=== PATIENT | male | born 1945 | race Caucasian/White ===

== ENCOUNTER 2017-07-29 18:28 | Inpatient (IN) | payer MEDICARE, OTHER ==
[~2017-07-29] VITALS: Ht 177.8 cm; Wt 92.2 kg
[~2017-07-29 18:28] MED LIST: AMLO10TA2 PO; ASP81CT PO; ASPI-808 PO; ATOR40TA PO; ATOR80TA76 PO; ATRV10T; CARV6.252 PO; GLIM4TAB PO; GLYB1TAB12 PO; IPRA4AER INH; LEVO750T6 PO; LEVO750T9 PO; LOSA100T28 PO; LOSA100T7 PO; METF500T8 PO; MULT1CAP27 PO; OMG1KC PO; RT-COMBINH; RT-COMBINH IH
--- OUTSIDE RECORDS SUMMARY | 2017-07-29 18:33 | XMS REPORT | Continuity of Care Document ---
Author Author [facility] Organization [facility] Address Unknown Phone Unavailable Allergies Active Description Code Type Severity Reaction Onset Reported/Identified Relationship to Patient Clinical Status Yes Penicillins [id number] Drug Allergy Mild N/A 01/31/2011 Medications Problems Date Dx Coded Attending Type Code Diagnosis Diagnosed By 02/02/2011 Ot 250.00 02/02/2011 Ot 272.4 02/02/2011 Ot 401.9 02/02/2011 Ot 414.00 02/02/2011 Ot 486 02/02/2011 Ot 491.21 02/02/2011 Ot V03.82 02/02/2011 Ot V45.81 12/07/2014 Ot 786.2 12/07/2014 Ot 786.2 12/18/2015 Ot 786.2 12/18/2015 Ot 786.2 12/19/2015 Ot 786.2 12/19/2015 LEN MAE DO Ot E11.9 12/19/2015 GELLENDER DOLEN Ot E78.5 12/19/2015 GELLENDER LEN SAM Ot I10 12/19/2015 GELLENDER LEN SAM Ot I25.10 12/19/2015 GELLENDER DOLEN Ot J18.9 12/19/2015 GELLENDER DOLEN Ot J44.1 12/19/2015 GELLENDER DOLEN Ot Z87.891 12/19/2015 GELLENDER DOLEN Ot Z95.1 12/24/2015 Ot 786.2 01/05/2016 GELLINDADER LEN SAM Ot J18.9 01/26/2016 GELLINDADER LEN SAM Ot J18.9 01/27/2016 GELLENDER DOLEN Ot J18.9 03/02/2016 GELLENDER DOLEN Ot R06.02 SHORTNESS OF BREATH 03/30/2016 GELLEN HOOK DO Ot R06.02 SHORTNESS OF BREATH Procedures Results Encounters ACCT No. Visit Date/Time Discharge Status Pt. Type Provider Facility Loc./Unit Complaint [id number] 03/01/2016 10:42:00 2015 23:59:59 CLS Outpatient CARMELITA SAM LEN Pradip [facility] RT [id number] 01/01/2016 07:33:00 2015 23:59:59 CLS Outpatient LEN MAE DO [facility] RAD [id number] 12/24/2015 13:16:00 2015 23:59:59 CLS Outpatient LEN MAE DO [facility] RAD [id number] 12/18/2015 04:25:00 2015 11:15:00 DIS Inpatient LEN MAE DO Via [address] [id number] 01/21/2012 09:40:00 Document Registration [id number] 01/31/2011 04:50:00 Document Registration
[2017-07-29] MEDS ORDERED: RT-ALBUTEROL/IPRATROPIUM 3 ML (DUONEB) VIAL INH ONE (19:30)
[2017-07-29] MEDS ORDERED: ACETAMINOPHEN 500 MG TAB (TYLENOL) PO PRN ×2 (19:30→23:00)
[2017-07-29] MEDS ORDERED: RT-ALBUTEROL SULF 2.5 MG/3 ML PRE-MIX VIAL INH STA (19:38)
[2017-07-29 19:39] LABS: BASOPHILS # (AUTO) 0.1 10^3/uL (0.0-0.1); BASOPHILS % (AUTO) 0 % (0-10); EOSINOPHILS % (AUTO) 0 % (0-10); LYMPHOCYTES # (AUTO) 1.5 X 10^3 (1.0-4.0); LYMPHOCYTES % (AUTO) 6 % (12-44); MEAN CORPUSCULAR HEMOGLOBIN 30 PG (25-34); MEAN CORPUSCULAR HGB CONC 34 G/DL (32-36); MEAN CORPUSCULAR VOLUME 89 FL (80-99); MEAN PLATELET VOLUME 10.4 FL (7.4-10.4); MONOCYTES # (AUTO) 1.5 X 10^3 (0.0-1.0); MONOCYTES % (AUTO) 6 % (0-12); NEUTROPHILS # (AUTO) 20.6 X 10^3 (1.8-7.8); NEUTROPHILS % (AUTO) 87 % (42-75); PLATELET COUNT 283 10^3/uL (130-400); RED BLOOD COUNT 4.66 10^6/uL (4.35-5.85); RED CELL DISTRIBUTION WIDTH 12.9 % (10.0-14.5); WHITE BLOOD COUNT 23.7 10^3/uL (4.3-11.0)
[2017-07-29 19:45] VITALS: BP 139/66
--- NOTE | 2017-07-29 19:46 | ED General ---
General Chief Complaint: Fever-Adult/Adol Stated Complaint: CHILLS/LOSS OF APPETITE Nursing Triage Note: started yesterday evening, sudden onset chills, fever, fatigue, cough, and "out of it." c/o unable to take a deep breath. increased shallow resp noted rr 34. pt amb into triage room, slightly unsteady using for assistance. Nursing Sepsis Screen: Possible Sepsis Risk Source of Information: Patient Exam Limitations: No Limitations History of Present Illness Time Seen by Provider: 19:39 Initial Comments Here with report of fever and chills and overall not feeling well. reports that he's not been thinking well today. Apparently [place] and was [place] event and felt like it was making it hard to breathe. Ultimately, he left and went and ate afterwards. Today he has had increasing weakness and not feeling well as well as shortness of breath. Requiring assistance for walking from his just because he is weak globally. Noted to have an initial decreased oxygen saturation improved after oxygen. Denies nausea, vomiting or diarrhea. He is a diabetic and blood sugars have been higher recently. Timing/Duration: 1-2 Days Severity: Moderate Associated Systoms: No Chest Pain, Cough, No Diaphoresis, Fever/Chills, Loss of Appetite, Nausea/Vomiting, Shortness of Air, Weakness Allergies and Home Medications Allergies Coded Allergies: Penicillins (Unverified Allergy, Mild, 01/31/11) Home Medications Albuterol/Ipratropium 4 Gm Aero, 1 PUFF INH QID, (Reported) Amlodipine Besylate 10 Mg Tablet, 10 MG PO DAILY, (Reported) Aspirin 325 Mg Tablet, 325 MG PO DAILY, (Reported) Atorvastatin Calcium 80 Mg Tablet, 40 MG PO HS, (Reported) TAKES 1/2 (80MG) TABLET Carvedilol 6.25 Mg Tablet, 6.25 MG PO BID, (Reported) Glimepiride 4 Mg Tablet, 4 MG PO BID, (Reported) Losartan Potassium 100 Mg Tablet, 100 MG PO DAILY, (Reported) Metformin HCl 500 Mg Tab.er.24h, 1,000 MG PO BID, (Reported) TAKES 2 (500MG) TABLETS Multivitamins 1 Each Capsule, 1 CAP PO DAILY, (Reported) Millen 3 Polyunsat Fatty Acids 1,000 Mg Cap, 1,000 MG PO HS, (Reported) Constitutional: see HPI, chills, fever EENTM: nose congestion, No throat pain Respiratory: cough, short of breath, wheezing Cardiovascular: No chest pain, No edema Gastrointestinal: No abdominal pain, No nausea, No vomiting Genitourinary: no symptoms reported Musculoskeletal: no symptoms reported Skin: no symptoms reported Psychiatric/Neurological: See HPI, Denies Headache, Weakness All Other Systems Reviewed Negative Unless Noted: Yes Past Axxsmnd-Yszxte-Wcwebw Hx Patient Social History Alcohol Use: Denies Use Recreational Drug Use: No Smoking Status: Former Smoker Former Smoker, Quit: Nov 24, 2000 2nd Hand Smoke Exposure: No Recent Foreign Travel: No Contact w/Someone Who Travel: No Recent Infectious Disease Expo: No Recent Hopitalizations: No Immunizations Up To Date Tetanus Booster (TDap): More than 5yrs Date of Pneumonia Vaccine: Oct 07, 2015 Date of Influenza Vaccine: Sep 23, 2015 Seasonal Allergies Seasonal Allergies: No Surgeries History of Surgeries: Yes (CABG x5 11/2002) Surgeries: Cardiac, CABG Respiratory History of Respiratory Disorde: Yes Respiratory Disorders: Pneumonia, Chronic Bronchitis, COPD Cardiovascular History of Cardiac Disorders: Yes (CABG ) Cardiac Disorders: High Cholesterol, Hypertension Neurological History of Neurological Disord: No Reproductive System Hx Reproductive Disorders: No Genitourinary History of Genitourinary Disor: No Gastrointestinal History of Gastrointestinal Di: No Musculoskeletal History of Musculoskeletal Dis: No Endocrine History of Endocrine Disorders: Yes Endocrine Disorders: Diabetes, Non-Insulin dep HEENT History of HEENT Disorders: No Hearing Impairment: Hard of Hearing Cancer History of Cancer: No Psychosocial History of Psychiatric Problem: No Integumentary History of Skin or Integumenta: No Blood Transfusions History of Blood Disorders: No Reviewed Nursing Assessment Reviewed/Agree w Nursing PMH: Yes Family Medical History Family Medial History: Asthma 19 FATHER Cardiovascular disease G8 SISTER Completed stroke G8 SISTER Diabetes mellitus 19 MOTHER G8 BROTHER FH: cancer G8 BROTHER G8 SISTER FH: hearing loss 19 FATHER Myocardial infarction 19 FATHER Physical Exam-Suspected Sepsis Physical Exam Vital Signs Vital Sign - Last 12Hours 07/29/17 07/29/17 19:05 19:49 Temp 100.4 Pulse 77 Resp 34 B/P (MAP) 159/65 Pulse Ox 92 O2 Delivery Room Air O2 Flow Rate 2.00 Capillary Refill : Less Than 3 Seconds Blood Pressure Mean: 96 General Appearance: WD/WN, Other (ill appearing) HEENT: PERRL/EOMI, Pharyngeal Erythema Neck: Full Range of Motion, Normal Inspection, Non Tender, Supple Respiratory: No Respiratory Distress, Decreased Breath Sounds, Wheezing Cardiovascular: Regular Rate, Rhythm, No Murmur Gastrointestinal: Non Tender, Soft Back: Normal Inspection, No CVA Tenderness, No Vertebral Tenderness Extremity: Normal Capillary Refill, Normal Inspection, Normal Range of Motion, Non Tender Neurologic/Psychiatric: Alert, Oriented x3, Normal Mood/Affect Skin: normal color, warm/dry Focused Exam Evaluation Lactate Level Laboratory Tests 07/29/17 19:30: Lactic Acid Level 3.35*H Lactic Acid Level Laboratory Tests Test 07/29/17 19:30 Lactic Acid Level 3.35 MMOL/L (0.50-2.00) *H Progress/Results/Core Measures Suspected Sepsis Recent Fever Within 48 Hours: Yes Infection Criteria Present: Suspected New Infection New/Unexplained Altered Menta: No Sepsis Screen: Possible Sepsis Risk Sepsis Diagnosis: SIRS Temperature:100.4 Pulse: 77 Respiratory Rate: 34 Laboratory Tests 07/29/17 19:30: White Blood Count 23.7H Blood Pressure 159 /65 Mean: 96 Laboratory Tests 07/29/17 19:30: Lactic Acid Level 3.35*H Laboratory Tests 07/29/17 19:30: Creatinine 1.37H, INR Comment 1.0, Platelet Count 283, Total Bilirubin 0.7 Results/Orders Lab Results Laboratory Tests Test 07/29/17 19:30 07/29/17 20:10 Range/Units White Blood Count 23.7 H 4.3-11.0 10^3/uL Red Blood Count 4.66 4.35-5.85 10^6/uL Hemoglobin 13.9 13.3-17.7 G/DL Hematocrit 41 40-54 % Mean Corpuscular Volume 89 80-99 FL Mean Corpuscular Hemoglobin 30 25-34 PG Mean Corpuscular Hemoglobin Concent 34 32-36 G/DL Red Cell Distribution Width 12.9 10.0-14.5 % Platelet Count 283 130-400 10^3/uL Mean Platelet Volume 10.4 7.4-10.4 FL Neutrophils (%) (Auto) 87 H 42-75 % Lymphocytes (%) (Auto) 6 L 12-44 % Monocytes (%) (Auto) 6 0-12 % Eosinophils (%) (Auto) 0 0-10 % Basophils (%) (Auto) 0 0-10 % Neutrophils # (Auto) 20.6 H 1.8-7.8 X 10^3 Lymphocytes # (Auto) 1.5 1.0-4.0 X 10^3 Monocytes # (Auto) 1.5 H 0.0-1.0 X 10^3 Eosinophils # (Auto) 0.0 0.0-0.3 10^3/uL Basophils # (Auto) 0.1 0.0-0.1 10^3/uL Neutrophils % (Manual) 85 % Lymphocytes % (Manual) 8 % Monocytes % (Manual) 2 % Eosinophils % (Manual) 0 % Basophils % (Manual) 0 % Band Neutrophils 5 % Blood Morphology Comment NORMAL Prothrombin Time 13.7 12.2-14.7 SEC INR Comment 1.0 0.8-1.4 Activated Partial Thromboplast Time 32 24-35 SEC Sodium Level 131 L 135-145 MMOL/L Potassium Level 4.0 3.6-5.0 MMOL/L Chloride Level 100 98-107 MMOL/L Carbon Dioxide Level 19 L 21-32 MMOL/L Anion Gap 12 5-14 MMOL/L Blood Urea Nitrogen 17 7-18 MG/DL Creatinine 1.37 H 0.60-1.30 MG/DL Estimat Glomerular Filtration Rate 51 BUN/Creatinine Ratio 12 Glucose Level 360 H 70-105 MG/DL Lactic Acid Level 3.35 *H 0.50-2.00 MMOL/L Calcium Level 8.8 8.5-10.1 MG/DL Total Bilirubin 0.7 0.1-1.0 MG/DL Aspartate Amino Transf (AST/SGOT) 16 5-34 U/L Alanine Aminotransferase (ALT/SGPT) 32 0-55 U/L Alkaline Phosphatase 70 40-136 U/L Total Protein 6.8 6.4-8.2 GM/DL Albumin 3.7 3.2-4.5 GM/DL Urine Color YELLOW Urine Clarity CLEAR Urine pH 5 5-9 Urine Specific Britt 1.025 H 1.016-1.022 Urine Protein 4+ NEGATIVE Urine Glucose (UA) 4+ H NEGATIVE Urine Ketones NEGATIVE NEGATIVE Urine Nitrite NEGATIVE NEGATIVE Urine Bilirubin NEGATIVE NEGATIVE Urine Urobilinogen NORMAL NORMAL MG/DL Urine Leukocyte Esterase NEGATIVE NEGATIVE Urine RBC (Auto) NEGATIVE NEGATIVE Urine RBC NONE /HPF Urine WBC RARE /HPF Urine Squamous Epithelial Cells 0-2 /HPF Urine Crystals NONE /LPF Urine Bacteria NONE /HPF Urine Casts NONE /LPF Urine Mucus NEGATIVE /LPF Urine Culture Indicated NO My Orders Orders - ARLIN DAUGHERTY MD Albuterol/Ipra Inhalation Soln (Duoneb I (07/29/17 19:30) Svn Sm Volume Nebulizer Rt-Rfs (07/29/17 19:28) Cbc With Automated Diff (07/29/17:30) Comprehensive Metabolic Panel (07/29/17) Lactic Acid Analyzer (07/29/1730) Blood Culture (07/29/17:30) Sputum Culture (07/29/17) Ua Culture If Indicated (07/29/17) Protime With Inr (07/29/17) Partial Thromboplastin Time (07/29/1730) Chest 1 View, Ap/Pa Only (07/29/17:30) O2 (07/29/17:30) Acetaminophen Tablet (Tylenol Tablet) (07/29/17:30) Saline Lock/Iv-Start (07/29/17:30) Vital Signs Adult Sepsis Patie Q1HR (07/29/17:30) Remove Rings In Anticipation O (07/29/17:30) Influenza A And B Antigens (07/29/17:30) Albuterol Pre-Mix Nebs (Rt) (Proventil P (07/29/17 19:38) Svn Sm Volume Nebulizer Rt-Rfs (07/29/17 19:38) Manual Differential (07/29/17:30) Ns Iv 1000 Ml (Sodium Chloride 0.9%) (07/29/17 20:04) Ceftriaxone Injection (Rocephin Injectio (07/29/17 21:15) Medications Given in ED Current Medications Medications Dose Ordered Sig/Gi Route Start Time Stop Time Status Last Admin Dose Admin Acetaminophen 1,000 mg ONCE PRN PO 07/29/17 19:30 07/29/17 19:41 DC 07/29/17 19:40 1,000 MG Albuterol/ Ipratropium 3 ml ONCE ONCE INH 07/29/17 19:30 07/29/17 19:31 DC 07/29/17 19:34 3 ML Sodium Chloride 1,000 ml @ 0 mls/hr Q0M ONCE IV 07/29/17 20:04 07/29/17 20:05 DC 07/29/17 20:08 0 MLS/HR Vital Signs/I&O Vital Sign - Last 12Hours 07/29/17 07/29/17 07/29/17 07/29/17 19:05 19:34 19:49 19:51 Temp 100.4 Pulse 77 75 Resp 34 24 B/P (MAP) 159/65 139/66 Pulse Ox 92 88 95 O2 Delivery Room Air Room Air Nasal Cannula Nasal Cannula O2 Flow Rate 2.00 2.00 07/29/17 07/29/17 19:52 21:23 Temp 98.7 Pulse 67 Resp 20 Pulse Ox 95 93 O2 Delivery Nasal Cannula Nasal Cannula O2 Flow Rate 2.00 2.00 Intake and Output 07/30/17 00:00 Intake Total 1000 ml Balance 1000 ml Capillary Refill : Less Than 3 Seconds Blood Pressure Mean: 96 Progress Note : Progress Note Seen and evaluated. IV, labs, blood cultures, lactic acid, UA and chest x-ray ordered. Lactic acid elevated at 3.23. Normal saline 1 L bolus. Pending UA. Chest x-ray as noted below. I do believe that this patient likely has pneumonia related to the need for oxygen and elevated white blood cell count with fever and elevated lactic acid. We'll treat as such. I did discuss the case with Dr. Delvalle at 2037 and she accepts patient for admission, inpatient status. Findings and concerns discussed with patient and family who agree with plan. Diagnostic Imaging Diagonstic Imaging: Xray Plain Films/CT/US/NM/MRI: chest Comments [facility] [place], [place] NAME: RIGO GARCIA [facility] REC#: [id number] PT STATUS: REG ER : 1945 PHYSICIAN: ARLIN DAUGHERTY MD ADMIT DATE: 07/29/17/ER Draft Date of Exam:07/29/17 CHEST 1 VIEW, AP/PA ONLY INDICATION: Shortness of breath, coughing, wheezing. COMPARISON: January 01, 2016. TECHNIQUE: Single frontal radiograph of the chest dated July 29, 2017. FINDINGS: Post surgical changes of CABG are again identified. The cardiac silhouette is within normal limits. No significant pulmonary vascular congestion. Bibasilar interstitial opacities are identified, right greater than left. Stable blunting of the bilateral costophrenic angles. No pneumothorax. No acute osseous abnormality. IMPRESSION: Persistent bibasilar scarring and/or atelectasis with associated stable pleural thickening within the lung bases. No definite superimposed acute cardiopulmonary abnormality. Additional postsurgical and chronic findings as above. Dictated on workstation # [id number] Dict: 07/29/171956 Trans: 07/29/172003 [facility] [id number] Interpreted by: PRAVIN GARCIA MD Electronically signed by: Departure Communication (Admissions) Time/Spoke to Admitting Phy: 20:38 Impression Impression: Primary Impression: Pneumonia Qualified Codes: J18.1 - Lobar pneumonia, unspecified organism Disposition: ADMITTED INPATIENT Condition: Stable Admissions Decision to Admit Reason: Admit from ER (General) Decision to Admit/Date: Jul 29, 2017 Time/Decision to Admit Time: 20:38 Departure-Patient Inst. Referrals: LEN MAE DO (PCP/Family) Primary Care Physician ARLIN DAUGHERTY MD Jul 29, 2017 19:46
[2017-07-29 19:49] LABS: PROTHROMBIN TIME PATIENT 13.7 SEC (12.2-14.7)
[2017-07-29 19:59] LABS: ALBUMIN 3.7 GM/DL (3.2-4.5); BILIRUBIN,TOTAL 0.7 MG/DL (0.1-1.0); CALCIUM 8.8 MG/DL (8.5-10.1); CREATININE SERUM 1.37 MG/DL (0.60-1.30); TOTAL PROTEIN 6.8 GM/DL (6.4-8.2)
[2017-07-29] MEDS ORDERED: NS IV 1000 ML 1,000 ML IV ONE (20:04)
--- NOTE | 2017-07-29 20:05 | Diagnostic Imaging Report ---
INDICATION: Shortness of breath, coughing, wheezing. COMPARISON: January 01, 2016. TECHNIQUE: Single frontal radiograph of the chest dated July 29, 2017. FINDINGS: Post surgical changes of CABG are again identified. The cardiac silhouette is within normal limits. No significant pulmonary vascular congestion. Bibasilar interstitial opacities are identified, right greater than left. Stable blunting of the bilateral costophrenic angles. No pneumothorax. No acute osseous abnormality. IMPRESSION: Persistent bibasilar scarring and/or atelectasis with associated stable pleural thickening within the lung bases. No definite superimposed acute cardiopulmonary abnormality. Additional postsurgical and chronic findings as above. Dictated by: Dictated on workstation # [id number]
[2017-07-29 20:15] VITALS: BP 132/60
[2017-07-29 20:15] LABS: BAND NEUTROPHILS 5 %; BASOPHILS % (MANUAL) 0 %; EOSINOPHILS % (MANUAL) 0 %; LYMPHOCYTES % (MANUAL) 8 %; NEUTROPHILS % (MANUAL) 85 %
[2017-07-29 20:20] LABS: BILIRUBIN,URINE NEGATIVE (NEGATIVE); KETONES,URINE NEGATIVE (NEGATIVE); LEUKOCYTE ESTERASE ,URINE NEGATIVE (NEGATIVE); NITRITE,URINE NEGATIVE (NEGATIVE); PH,URINE 5 (5-9); PROTEIN,URINE 4+ (NEGATIVE); UROBILINOGEN,URINE NORMAL (NORMAL)
[2017-07-29 20:33] LABS: SQUAMOUS EPITHELIAL CELL,UR 0-2 /HPF; WBC,URINE RARE /HPF
[2017-07-29 20:45] VITALS: BP 124/63
[2017-07-29] MEDS ORDERED: cefTRIAXone INJECTION 1,000 MG in NS (IVPB) 50 ML IV ONE (21:15)
--- OUTSIDE RECORDS SUMMARY | 2017-07-29 21:17 | XMS REPORT | Continuity of Care Document ---
Author Author [facility] Organization [facility] Address Unknown Phone Unavailable Allergies Active Description Code Type Severity Reaction Onset Reported/Identified Relationship to Patient Clinical Status Yes Penicillins [id number] Drug Allergy Mild N/A 01/31/2011 Medications Problems [...] Status Pt. Type Provider Facility Loc./Unit Complaint [id number] 03/01/2016 10:42:00 2015 23:59:59 CLS Outpatient CARMELITA SAM LEN Pradip [facility] RT [id number] 01/01/2016 07:33:00 2015 23:59:59 CLS Outpatient LEN MAE DO [facility] RAD [id number] 12/24/2015 13:16:00 2015 23:59:59 CLS Outpatient LEN MAE DO [facility] RAD [id number] 12/18/2015 04:25:00 2015 11:15:00 DIS Inpatient LEN MAE DO Via [address] [id number] 01/21/2012 09:40:00 Document Registration [id number] 01/31/2011 04:50:00 Document Registration
[2017-07-29 21:33] VITALS: BP 124/68
[2017-07-29 22:14] VITALS: BP 124/63
[2017-07-29] MEDS ORDERED: RT-ALBUTEROL/IPRATROPIUM 3 ML (DUONEB) VIAL INH PRN (22:30)
[2017-07-29] MEDS ORDERED: AZITHROMYCIN INJECTION 500 MG in NS (IVPB) 250 ML IV ONE (22:52)
[2017-07-29] MEDS ORDERED: CARV6.25 PO (22:57)
[2017-07-29] MEDS ORDERED: ONDANSETRON 4 MG/2 ML (SDV) Z0FRAN IV PRN (23:00)
[2017-07-29] MEDS: NS IV 1000 ML 1,000 ML IV SCH (23:11)
[2017-07-29] MEDS: IBUPROFEN TABLET 200 MG TAB PO PRN (23:41)
[2017-07-30] VITALS (14 sets, daily range): BP systolic 102–151; BP diastolic 41–80
[2017-07-30] MEDS ORDERED: inSUlin (REGULAR) HUMAN 1 UNIT/0.01 ML (CHARGE PER UNIT) ONE (00:48)
[2017-07-30] MEDS: inSUlin (REGULAR) HUMAN 1 UNIT/0.01 ML (CHARGE PER UNIT) SC SCH ×5 (00:58→20:53)
[2017-07-30 04:06] LABS: BASOPHILS % (AUTO) 0 % (0-10); EOSINOPHILS % (AUTO) 0 % (0-10); LYMPHOCYTES # (AUTO) 1.6 X 10^3 (1.0-4.0); LYMPHOCYTES % (AUTO) 8 % (12-44); MEAN CORPUSCULAR HEMOGLOBIN 31 PG (25-34); MEAN CORPUSCULAR HGB CONC 34 G/DL (32-36); MEAN CORPUSCULAR VOLUME 90 FL (80-99); MONOCYTES # (AUTO) 1.4 X 10^3 (0.0-1.0); MONOCYTES % (AUTO) 7 % (0-12); NEUTROPHILS # (AUTO) 17.9 X 10^3 (1.8-7.8); NEUTROPHILS % (AUTO) 86 % (42-75); PLATELET COUNT 245 10^3/uL (130-400); RED BLOOD COUNT 4.26 10^6/uL (4.35-5.85)
[2017-07-30 04:29] LABS: ALBUMIN 3.2 GM/DL (3.2-4.5); BILIRUBIN,TOTAL 0.7 MG/DL (0.1-1.0); CREATININE SERUM 1.27 MG/DL (0.60-1.30); MAGNESIUM 1.7 MG/DL (1.8-2.4); PHOSPHORUS 2.6 MG/DL (2.3-4.7); POTASSIUM 3.7 MMOL/L (3.6-5.0)
[2017-07-30 05:23] LABS: ABG HCO3 23 MMOL/L (23-27); ABG OXYGEN SATURATION 99 % (94-100); ABG PCO2 42 MMHG (35-45); ABG PH 7.35 (7.37-7.43); ABG PO2 170 MMHG (79-93); ABG TCO2 24.3 MMOL/L (21.0-31.0)
[2017-07-30 05:24] LABS: ALLENS TEST POSITIVE; PATIENT TEMP 97.4
[2017-07-30] MEDS: MAGNESIUM 1 GM/100 ML IVPB 100 ML IV SCH ×2 (05:54→06:53)
[2017-07-30] MEDS ORDERED: MAGNESIUM 1 GM/100 ML IVPB 100 ML IV SCH (06:00)
[2017-07-30] MEDS ORDERED: POTASSIUM CL 10MEQ/50ML IVPB 50 ML IV SCH (06:00)
[2017-07-30] MEDS ORDERED: KCL 20 MEQ TAB (K-DUR) PO SCH (06:00)
[2017-07-30] MEDS: RT-ALBUTEROL/IPRATROPIUM 3 ML (DUONEB) VIAL INH SCH ×5 (06:34→21:31)
[2017-07-30] MEDS ORDERED: INFLUENZA TRIvalent 2017-2018 0.5 ML/45 MCG SYR IM ONE (07:30)
--- NOTE | 2017-07-30 09:02 | History & Physical-Hospitalist ---
HPI History of Present Illness: HPI/Chief Complaint this is a 72-year-old white male patient of Dr. Mae'kathryn who was previously well until evening when he began to have rigors. This began when he [place] out [place] the [place] a [place]. He was a little bit confused per his and then throughout Tuesday he continued to worsen. He presented to the emergency room last evening with fever and elevated white count and an early right lower lobe pneumonia. Overnight the patient began to have desaturations and increased gurgling respirations and was transferred to the ICU. He had artery been started on Zithromax and Rocephin per community acquired pneumonia protocol. He has been monitored by eICU overnight. This morning he is feeling much better and is on 2 L by nasal cannula with oxygen saturations around 94-96 percent. He has never required oxygen in the past and has no known lung problems. He did have coronary artery bypass 13 years ago and quit smoking at that time. Source: patient, family Exam Limitations: no limitations Date Seen 07/30/17 Time Seen by Provider: 08:30 Attending Physician Len Mae DO PCP Len Mae DO Referring Physician Date of Admission Jul 29, 2017 at 21:05 Home Medications & Allergies Home Medications Reviewed patient Home Medication Reconciliation Form Allergies Allergies Coded Allergies Penicillins (Unverified Allergy, Mild, 01/31/11) Past Szbahna-Mxspwo-Sxqhtv Hx Patient Social History Marrital Status: Employed/Student: employed Alcohol Use: Denies Use Number of Drinks Today: 0 Recreational Drug Use: No Smoking Status: Former Smoker Former Smoker, Quit: Nov 24, 2000 2nd Hand Smoke Exposure: No Physical Abuse Screen: No Sexual Abuse: No Recent Foreign Travel: No Contact w/other who traveled: No Recent Hopitalizations: No Recent Infectious Disease Expo: No Immunizations Up To Date Tetanus Booster (TDap): More than 5yrs Date of Pneumonia Vaccine: Oct 07, 2015 Date of Influenza Vaccine: Sep 23, 2015 Seasonal Allergies Seasonal Allergies: No Surgeries Yes (CABG x5 11/2002) Cardiac, CABG Respiratory Yes COPD Currently Using CPAP: No Cardiovascular Yes (CABG ) High Cholesterol, Hypertension Neurological No Reproductive System Hx Reproductive Disorders: No Genitourinary No Gastrointestinal No Musculoskeletal No Endocrine History of Endocrine Disorders: Yes Endocrine Disorders: Diabetes, Non-Insulin dep Are Your Blood Sugars Over 250: No HEENT History of HEENT Disorders: No Hearing Impairment: Hard of Hearing, Hearing Aide Right Cancer No Psychosocial History of Psychiatric Problem: No Integumentary History of Skin or Integumenta: No Blood Transfusions History of Blood Disorders: No Reviewed Nursing Assessment Reviewed/Agree w Nursing PMH: Yes Family Medical History Significant Family History: CAD Over 55 Years Old, Diabetes Family Hx: Asthma 19 FATHER Cardiovascular disease G8 SISTER Completed stroke G8 SISTER Diabetes mellitus 19 MOTHER G8 BROTHER FH: cancer G8 BROTHER G8 SISTER FH: hearing loss 19 FATHER Myocardial infarction 19 FATHER Review of Systems Constitutional: fever, weakness EENTM: no symptoms reported Respiratory: short of breath Cardiovascular: no symptoms reported Gastrointestinal: no symptoms reported Genitourinary: no symptoms reported Musculoskeletal: no symptoms reported Skin: no symptoms reported Psychiatric/Neurological: No Symptoms Reported Physical Exam Physical Exam Vital Signs Vital Sign - Last 12Hours 07/29/17 07/29/17 07/30/17 19:05 19:45 00:00 Temp 100.4 Pulse 77 Resp 34 B/P (MAP) 159/65 Pulse Ox 92 O2 Delivery Room Air O2 Flow Rate 2.00 FiO2 80 Capillary Refill : Less Than 3 Seconds General Appearance: No Apparent Distress, WD/WN HEENT: Normal ENT Inspection, Other (dentures) Neck: Full Range of Motion, Normal Inspection, Non Tender, Supple Respiratory: Crackles (bilaterally) Cardiovascular: Regular Rate, Rhythm, No Gallop, No Murmur Gastrointestinal: Normal Bowel Sounds, Non Tender, Soft Back: Normal Inspection Extremity: Non Tender, No Calf Tenderness Neurologic/Psychiatric: Alert, Oriented x3, Normal Mood/Affect Skin: Normal Color, Warm/Dry Lymphatic: No Adenopathy Results Results/Procedures Lab Laboratory Tests 07/29/17 19:30 07/30/17 03:56 Assessment/Plan Admission Diagnosis 1. Bilateral community-acquired lower pneumonias 2. Coronary artery disease status post bypass 3. Diabetes type II yvg-ryerubr-djjnnycys 4. Leukocytosis secondary to number 1 This is day number 2 Rocephin and Zithromax. The patient has improved. We'll be transferred out of the ICU back to the medical floor. We'll continue aggressive pulmonary toilet restart his home medications. in an Abundance of caution, will check a cardiac panel and keep the patient on telemetry for 24 hours. Diagnosis/Problems Diagnosis/Problems (1) Diabetes Status: Chronic Qualifiers: (2) Coronary arteriosclerosis after coronary artery bypass grafting Status: Chronic (3) Pneumonia Status: Acute Qualifiers: Qualified Codes: J18.9 - Pneumonia, unspecified organism (4) Respiratory distress Status: Acute Copy Copies To 1: LEN MAE DO Clinical Quality Measures DVT/VTE Risk/Contraindication: Risk Factor Score Per Nursin RFS Level Per Nursing on Admit: 4+=Very High ANUEL HOLT MD Jul 30, 2017 09:02
--- NOTE | 2017-07-30 09:09 | Diagnostic Imaging Report ---
INDICATION: Hypoxia. Comparison made with prior examination from 07/29/17. FINDINGS: There is cardiomegaly. There are bibasal pulmonary infiltrates. There is some venous congestion. There has been previous median sternotomy and bypass graft. There are probable small bilateral pleural effusions. There is no pneumothorax. The mediastinum is unremarkable. IMPRESSION: Bibasal infiltrates right greater than left and probable small bilateral pleural effusions. Cardiomegaly and mild central pulmonary venous congestion. Dictated by: Dictated on workstation # [id number]
[2017-07-30] MEDS: GLIMEPIRIDE 4 MG (AMARYL) TAB PO SCH ×2 (09:28→20:53)
[2017-07-30] MEDS: CARVEDILOL 6.25 MG (COREG) TAB PO SCH ×2 (09:28→20:53)
[2017-07-30] MEDS: metFORMIN XR 500 MG (GLUCOPHAGE XR) TAB PO SCH ×2 (09:28→17:22)
[2017-07-30] MEDS: ASPIRIN 325 MG (5 GR) TABLET PO SCH (09:28)
[2017-07-30] MEDS: amLODIPine 10 MG (NORVASC) TAB PO SCH (09:28)
[2017-07-30] MEDS: ENOXAPARIN 40 MG/0.4 ML (LOVENOX) SYR SC SCH (09:29)
[2017-07-30] MEDS: MULTIVIT W/MINERALS TAB (THERAGRAN M) PO SCH (09:29)
[2017-07-30] MEDS: NS IV 1000 ML 1,000 ML IV SCH ×3 (11:18→20:54)
[2017-07-30] MEDS: ATORVASTATIN 40 MG (LIPITOR) TABLET PO SCH (20:53)
[2017-07-30] MEDS: OMEGA 3 (FISH OIL) 1000 MG CAP PO SCH (20:53)
[2017-07-30] MEDS: AZITHROMYCIN 250 MG TAB (ZITHROMAX) PO SCH (20:53)
[2017-07-30] MEDS ORDERED: cefTRIAXone INJECTION 1,000 MG in NS (IVPB) 50 ML IV SCH (21:00)
[2017-07-30] MEDS: IBUPROFEN TABLET 200 MG TAB PO PRN (21:27)
[2017-07-31] MEDS: RT-ALBUTEROL/IPRATROPIUM 3 ML (DUONEB) VIAL INH SCH ×6 (01:35→21:42)
[2017-07-31 04:15] VITALS: BP 100/53
[2017-07-31 05:17] LABS: BASOPHILS % (AUTO) 0 % (0-10); EOSINOPHILS # (AUTO) 0.4 10^3/uL (0.0-0.3); EOSINOPHILS % (AUTO) 2 % (0-10); LYMPHOCYTES % (AUTO) 13 % (12-44); MEAN CORPUSCULAR HEMOGLOBIN 30 PG (25-34); MEAN CORPUSCULAR HGB CONC 33 G/DL (32-36); MEAN CORPUSCULAR VOLUME 91 FL (80-99); MEAN PLATELET VOLUME 10.4 FL (7.4-10.4); MONOCYTES # (AUTO) 0.8 X 10^3 (0.0-1.0); MONOCYTES % (AUTO) 5 % (0-12); NEUTROPHILS # (AUTO) 12.3 X 10^3 (1.8-7.8); NEUTROPHILS % (AUTO) 79 % (42-75); PLATELET COUNT 239 10^3/uL (130-400); RED CELL DISTRIBUTION WIDTH 12.8 % (10.0-14.5); WHITE BLOOD COUNT 15.5 10^3/uL (4.3-11.0)
[2017-07-31] MEDS: inSUlin (REGULAR) HUMAN 1 UNIT/0.01 ML (CHARGE PER UNIT) SC SCH ×4 (05:31→20:47)
[2017-07-31] MEDS: NS IV 1000 ML 1,000 ML IV SCH (05:31)
[2017-07-31] MEDS: metFORMIN XR 500 MG (GLUCOPHAGE XR) TAB PO SCH ×2 (05:32→17:29)
[2017-07-31 06:06] LABS: ALANINE AMINOTRANSFERASE 24 U/L (0-55); ALBUMIN 2.8 GM/DL (3.2-4.5); ANION GAP 8 MMOL/L (5-14); ASPARTATE AMINO TRANSFERASE 20 U/L (5-34); BILIRUBIN,TOTAL 0.4 MG/DL (0.1-1.0); BLOOD UREA NITROGEN 23 MG/DL (7-18); BUN/CREATININE RATIO 24; CALCIUM 8.2 MG/DL (8.5-10.1); CARBON DIOXIDE 19 MMOL/L (21-32); CHLORIDE 110 MMOL/L (98-107); CREATININE SERUM 0.95 MG/DL (0.60-1.30); GFR ESTIMATED > 60; GLUCOSE 188 MG/DL (70-105); POTASSIUM 4.2 MMOL/L (3.6-5.0); SODIUM 137 MMOL/L (135-145); TOTAL PROTEIN 5.9 GM/DL (6.4-8.2)
[2017-07-31 08:00] VITALS: BP 151/67
[2017-07-31] MEDS: amLODIPine 10 MG (NORVASC) TAB PO SCH (08:58)
[2017-07-31] MEDS: ENOXAPARIN 40 MG/0.4 ML (LOVENOX) SYR SC SCH (08:58)
[2017-07-31] MEDS: GLIMEPIRIDE 4 MG (AMARYL) TAB PO SCH ×2 (08:58→20:48)
[2017-07-31] MEDS: MULTIVIT W/MINERALS TAB (THERAGRAN M) PO SCH (08:58)
[2017-07-31] MEDS: CARVEDILOL 6.25 MG (COREG) TAB PO SCH ×2 (08:58→20:48)
[2017-07-31] MEDS: ASPIRIN 325 MG (5 GR) TABLET PO SCH (08:58)
[2017-07-31] MEDS ORDERED: AZITHROMYCIN 250 MG TAB (ZITHROMAX) PO SCH (09:00)
--- NOTE | 2017-07-31 09:42 | Progress Note-Hospitalist ---
Subjective HPI/CC On Admission Date Seen by Provider: Jul 31, 2017 Time Seen by Provider: 09:30 this is a 72-year-old white male patient of Dr. Newman who was previously well until evening when he began to have rigors. This began [place]. He was a little bit confused per his and then throughout Tuesday he continued to worsen. He presented to the emergency room last evening with fever and elevated white count and an early right lower lobe pneumonia. Overnight the patient began to have desaturations and increased gurgling respirations and was transferred to the ICU. He had artery been started on Zithromax and Rocephin per community acquired pneumonia protocol. He has been monitored by eICU overnight. This morning he is feeling much better and is on 2 L by nasal cannula with oxygen saturations around 94-96 percent. He has never required oxygen in the past and has no known lung problems. He did have coronary artery bypass 13 years ago and quit smoking at that time. Subjective/Events-last exam patient complains of being much more short of breath this morning. If he stays quiet he has compensated dyspnea but as soon as he gets up and walks around it he gets tight and it takes him 5-10 minutes to catch his breath. He denies ever having had anything like this before. His white count is down and his afebrile this morning. Review of Systems Pulmonary: Dyspnea, Cough Neurological: Weakness Objective Exam Vital Signs Vital Sign - Last 12Hours 07/29/17 07/29/17 07/30/17 19:05 19:45 00:00 Temp 100.4 Pulse 77 Resp 34 B/P (MAP) 159/65 Pulse Ox 92 O2 Delivery Room Air O2 Flow Rate 2.00 FiO2 80 Capillary Refill : Less Than 3 Seconds General Appearance: Mild Distress HEENT: Normal ENT Inspection Respiratory: Decreased Breath Sounds, Wheezing, Other Cardiovascular: Tachycardia Gastrointestinal: Soft Extremity: No Pedal Edema Neurologic/Psychiatric: Alert, Oriented x3 Skin: Warm/Dry Results/Procedures Lab Laboratory Tests 07/31/17 05:05 Assessment/Plan Assessment and Plan Assess & Plan/Chief Complaint 1. Bilateral community-acquired lower pneumonias-day number 3 Zithromax and Rocephin 2. Coronary artery disease status post bypass-troponin negative BNP in the low 100s 3. Diabetes type II [id number] 4. Leukocytosis secondary to number 1-improving 5. exacerbation of underlying COPD we'll recheck a chest x-ray add steroids and Hep-Lock IV fluids Diagnosis/Problems Diagnosis/Problems (1) Diabetes Status: Chronic Qualifiers: (2) Coronary arteriosclerosis after coronary artery bypass grafting Status: Chronic (3) Pneumonia Status: Acute Qualifiers: Qualified Codes: J18.9 - Pneumonia, unspecified organism (4) Respiratory distress Status: Acute (5) COPD exacerbation Status: Acute ANUEL HOLT MD Jul 31, 2017 9:42 am
[2017-07-31] MEDS ORDERED: FUROSEMIDE 40 MG/4 ML INJ (LASIX) IVP NR (09:45)
[2017-07-31] MEDS: methylPREDNISolone 125 MG (Solu-MEDROL) VIAL IVP SCH ×3 (10:05→21:01)
--- NOTE | 2017-07-31 10:29 | Diagnostic Imaging Report ---
EXAMINATION: CHEST (PA AND LATERAL) CLINICAL INDICATION: 72-year-old male, shortness of breath. COMPARISON: July 30, 2017. FINDINGS: There are median sternotomy wires. Stable overall appearance of the cardiomediastinal silhouette. There is no identified pneumothorax. There is blunting of the right lateral costophrenic angle. There is also opacification along the lateral margin of the left lower lobe. There is nonspecific right mid and lower lung zone consolidation as well as nonspecific left mid and lower lung zone consolidation. Overall degree of consolidation is increased since comparison exam. There are probable bilateral carotid vascular calcifications. IMPRESSION: 1. Increasing nonspecific mid and lower lung zone airspace consolidation with opacities along the lateral margins of the lung which do not completely layer. These may relate to loculated small pleural effusions bilaterally. This is an interval change since comparison exam. Dictated by: Dictated on workstation # [id number]
[2017-07-31] MEDS ORDERED: VANCOMYCIN INJECTION 0.1 MG in NS (IVPB) 250 ML IV SCH (11:15)
[2017-07-31] MEDS ORDERED: VANCOMYCIN 1,750 MG/NS 500 ML IVPB IV NR ×2 (11:19)
[2017-07-31] MEDS: MEROPENEM 500 MG/NS 100 ML IVPB IV SCH ×4 (11:36→17:29)
[2017-07-31 12:00] VITALS: BP 166/73
[2017-07-31] MEDS ORDERED: MEROPENEM 1,000 MG in NS (IVPB) 100 ML IV SCH (14:00)
[2017-07-31 16:00] VITALS: BP 160/73
[2017-07-31 20:00] VITALS: BP 169/78
[2017-07-31] MEDS: AZITHROMYCIN 250 MG TAB (ZITHROMAX) PO SCH (20:47)
[2017-07-31] MEDS: ATORVASTATIN 40 MG (LIPITOR) TABLET PO SCH (20:47)
[2017-07-31] MEDS: OMEGA 3 (FISH OIL) 1000 MG CAP PO SCH (20:48)
[2017-07-31] MEDS: VANCOMYCIN 1250 MG/NS 250 ML IVPB IV SCH ×2 (22:44)
[2017-08-01] VITALS (7 sets, daily range): BP systolic 122–163; BP diastolic 57–78
[2017-08-01] MEDS: MEROPENEM 500 MG/NS 100 ML IVPB IV SCH ×8 (00:11→17:16)
[2017-08-01] MEDS: RT-ALBUTEROL/IPRATROPIUM 3 ML (DUONEB) VIAL INH SCH ×5 (01:38→18:49)
[2017-08-01] MEDS: methylPREDNISolone 125 MG (Solu-MEDROL) VIAL IVP SCH (05:05)
[2017-08-01 06:21] LABS: BASOPHILS % (AUTO) 0 % (0-10); EOSINOPHILS % (AUTO) 0 % (0-10); LYMPHOCYTES # (AUTO) 0.7 X 10^3 (1.0-4.0); LYMPHOCYTES % (AUTO) 7 % (12-44); MEAN CORPUSCULAR HEMOGLOBIN 30 PG (25-34); MEAN CORPUSCULAR HGB CONC 34 G/DL (32-36); MEAN CORPUSCULAR VOLUME 89 FL (80-99); MEAN PLATELET VOLUME 10.2 FL (7.4-10.4); MONOCYTES # (AUTO) 0.2 X 10^3 (0.0-1.0); MONOCYTES % (AUTO) 2 % (0-12); NEUTROPHILS # (AUTO) 9.3 X 10^3 (1.8-7.8); NEUTROPHILS % (AUTO) 91 % (42-75); PLATELET COUNT 316 10^3/uL (130-400); RED BLOOD COUNT 4.42 10^6/uL (4.35-5.85); RED CELL DISTRIBUTION WIDTH 12.8 % (10.0-14.5); WHITE BLOOD COUNT 10.2 10^3/uL (4.3-11.0)
[2017-08-01] MEDS: inSUlin (REGULAR) HUMAN 1 UNIT/0.01 ML (CHARGE PER UNIT) SC SCH ×4 (06:21→22:33)
[2017-08-01] MEDS: metFORMIN XR 500 MG (GLUCOPHAGE XR) TAB PO SCH ×2 (06:21→16:12)
[2017-08-01 06:45] LABS: ANION GAP 14 MMOL/L (5-14); BLOOD UREA NITROGEN 20 MG/DL (7-18); BUN/CREATININE RATIO 21; CARBON DIOXIDE 20 MMOL/L (21-32); CHLORIDE 102 MMOL/L (98-107); CREATININE SERUM 0.96 MG/DL (0.60-1.30); GFR ESTIMATED > 60; GLUCOSE 321 MG/DL (70-105); POTASSIUM 4.2 MMOL/L (3.6-5.0); SODIUM 136 MMOL/L (135-145)
--- NOTE | 2017-08-01 08:01 | Progress Note (SOAP) ---
Subjective Time Seen by Provider: 08:00 Subjective/Events-last exam pneumonia. Chest x-ray yesterday looked worse. Leukocytosis resolved. Diabetes. COPD.. Clinically patient feeling better area Patient states he is able to breathe today compared to yesterday. Chest x-ray aortic today. Lactic acid back to normal Objective Exam Vital Signs Date Time Temp Pulse Resp B/P (MAP) Pulse Ox O2 Delivery O2 Flow Rate FiO2 08/01/17 07:18 78 96 3 08/01/17 07:18 96 Nasal Cannula 3.00 08/01/17 04:00 98.1 70 18 122/57 95 Nasal Cannula 3.00 08/01/17 01:38 95 Nasal Cannula 4.00 08/01/17 01:00 67 08/01/17 00:00 98.4 72 22 149/75 94 Nasal Cannula 3.00 07/31/17 21:44 96 Nasal Cannula 4.00 07/31/17 21:00 Nasal Cannula 3.00 07/31/17 20:00 98.1 79 20 169/78 97 Nasal Cannula 3.00 07/31/17 19:00 81 07/31/17 18:42 94 Nasal Cannula 4.00 07/31/17 16:00 98.5 74 20 160/73 95 Nasal Cannula 3.00 07/31/17 14:31 94 Nasal Cannula 4.00 07/31/17 13:00 72 07/31/17 12:00 98.4 78 20 166/73 Nasal Cannula 3.00 07/31/17 10:40 91 Nasal Cannula 4.00 07/31/17 09:19 Nasal Cannula 3.00 07/31/17 08:00 97.6 71 20 151/67 93 Nasal Cannula 3.00 Capillary Refill : Less Than 3 Seconds General Appearance: No Apparent Distress, WD/WN HEENT: Normal ENT Inspection Neck: Full Range of Motion, Normal Inspection Respiratory: Chest Non Tender, No Accessory Muscle Use, No Respiratory Distress Cardiovascular: Regular Rate, Rhythm Gastrointestinal: non tender, soft Results Lab Laboratory Tests 08/01/17 05:54 Laboratory Tests 07/31/17 14:52: Glucometer 369H 07/31/17 20:37: Glucometer 359H 08/01/17 05:27: Glucometer 297H 08/01/17 05:54: White Blood Count 10.2, Red Blood Count 4.42, Hemoglobin 13.2L, Hematocrit 39L, Mean Corpuscular Volume 89, Mean Corpuscular Hemoglobin 30, Mean Corpuscular Hemoglobin Concent 34, Red Cell Distribution Width 12.8, Platelet Count 316, Mean Platelet Volume 10.2, Neutrophils (%) (Auto) 91H, Lymphocytes (%) (Auto) 7L , Monocytes (%) (Auto) 2, Eosinophils (%) (Auto) 0, Basophils (%) (Auto) 0, Neutrophils # (Auto) 9.3H, Lymphocytes # (Auto) 0.7L, Monocytes # (Auto) 0.2, Eosinophils # (Auto) 0.0, Basophils # (Auto) 0.0, Sodium Level 136, Potassium Level 4.2, Chloride Level 102, Carbon Dioxide Level 20L, Anion Gap 14, Blood Urea Nitrogen 20H, Creatinine 0.96, Estimat Glomerular Filtration Rate > 60, BUN /Creatinine Ratio 21, Glucose Level 321H, Calcium Level 9.0 Microbiology 07/29/17 Blood Culture - Preliminary, Resulted No growth 07/31/17 Gram Stain - Final, Resulted 07/31/17 Sputum Culture - Preliminary, Resulted Usual/normal rafael isolated. Assessment/Plan Assessment/Plan Assess & Plan/Chief Complaint pneumonia. Chest x-ray yesterday looked worse. Diabetes. COPD. Coronary artery disease. Patient feeling clinically better. Chest x-ray ordered today. Leukocytosis resolved Clinical Quality Measures DVT/VTE Risk/Contraindication: Risk Factor Score Per Nursin RFS Level Per Nursing on Admit: 4+=Very High LEN MAE DO Aug 01, 2017 08:01
[2017-08-01] MEDS: GLIMEPIRIDE 4 MG (AMARYL) TAB PO SCH ×2 (08:35→20:30)
[2017-08-01] MEDS: amLODIPine 10 MG (NORVASC) TAB PO SCH (08:35)
[2017-08-01] MEDS: MULTIVIT W/MINERALS TAB (THERAGRAN M) PO SCH (08:35)
[2017-08-01] MEDS: ASPIRIN 325 MG (5 GR) TABLET PO SCH (08:35)
[2017-08-01] MEDS: ENOXAPARIN 40 MG/0.4 ML (LOVENOX) SYR SC SCH (08:36)
[2017-08-01] MEDS: CARVEDILOL 6.25 MG (COREG) TAB PO SCH ×2 (08:45→20:30)
--- NOTE | 2017-08-01 09:44 | Diagnostic Imaging Report ---
EXAMINATION: PA and lateral views of the chest. COMPARISON: 07/31/2017. FINDINGS: There are bilateral patchy infiltrates seen, slightly improved on the right side. Small bilateral pleural effusions are again noted. The heart size is normal. No pneumothorax. The mediastinum and shoaib appear unremarkable. Sternotomy wires are seen, related to prior CABG. IMPRESSION: Slightly improved patchy bibasilar infiltrates and small pleural effusions. Dictated by: Dictated on workstation # [id number]
[2017-08-01] MEDS ORDERED: TROUGH ORDER-PHARMACY XX NR (10:30)
[2017-08-01] MEDS ORDERED: VANCOMYCIN INJECTION 1,500 MG in NS IV 500 ML 500 ML IV SCH (11:30)
[2017-08-01] MEDS: VANCOMYCIN 1250 MG/NS 250 ML IVPB IV SCH ×2 (11:33)
[2017-08-01] MEDS: methylPREDNISolone 40 MG/ML (Solu-MEDROL) VIAL IV SCH ×2 (11:44→20:30)
--- NOTE | 2017-08-01 13:53 | Physical Therapy Evaluation ---
PT Evaluation-General Medical Diagnosis Admission Date Jul 29, 2017 at 21:05 Medical Diagnosis: left basilar pneumonia/hypoxia Onset Date: Jul 29, 2017 Therapy Diagnosis Therapy Diagnosis: debility Height/Weight Height (Feet): 5 Height (Inches): 10.00 Weight (Pounds): 194 Weight (Ounces): 3.2 Precautions Precautions/Isolations: Standard Precautions Weight Bear Status Right Lower Extremity: Right Full Weight Bearing Left Lower Extremity: Left Full Weight Bearing Referral Physician: Jarvis Reason for Referral: Evaluation/Treatment Medical History Pertinent Medical History: CABG, COPD, DM, HTN Current History to ED with chills, fever and loss of appetite Reviewed History: Yes Social History Home: Single Level Current Living Status: Spouse Prior/Core FIM Prior Level of Function Functional [place] Measure 0=Not Assessed/NA 4=Minimal Assistance 1=Total Assistance 5=Supervision or Setup 2=Maximal Assistance 6=Modified [place] 3=Moderate Assistance 7=Complete [place] Bed Mobility: 7 Transfers (B,C,W/C) (FIM): 7 Gait: 7 Locomotion: 7 PT Evaluation-Current Subjective Patient agrees to PT. Pain Numeric Pain Scale: 0-No Pain Location: No Pain Reported Objective Patient Orientation: Normal For Age Problem Solving: Good ROM/Strength ROM Lower Extremities bilateral LE WNL Strength Lower Extremities bilateral LE WNL Integumentary/Posture Integumentary refer to nursing notes Bowel Incontinence: No Bladder Incontinence: No Posture WNL Neuromuscular (Tone, Coordination, Reflexes) grossly intact Sensory Vision: Wears Glasses Hearing: Hearing Aid/Aides Sensation Right Lower Extremit: Impaired Sensation Left Lower Extremity: Impaired Transfers Functional [place] Measure 0=Not Assessed/NA 4=Minimal Assistance 1=Total Assistance 5=Supervision or Setup 2=Maximal Assistance 6=Modified [place] 3=Moderate Assistance 7=Complete [place] Transfers (B, C, W/C) (FIM): 7 Scootin Rollin Supine to/from Sit: 7 Sit to/from Stand: 7 Gait Mode of Locomotion: Walk Anticipated Mode of Locomotion: Walk Gait (FIM): 7 Distance (FIM): 3=150 ft Distance: 500' Gait Level of Assist: 7 Gait Assistive Device: None Comments/Gait Description safe and functional Balance Sitting Static: Normal Sitting Dynamic: Normal Standing Static: Normal Standing Dynamic: Normal Assessment/Needs 72 y.o. male, is currently at [facility] with all gross motor skills and does not require skilled PT intervention. Rehab Potential: Good PT Plan Treatment/Plan Treatment Plan: Discontinue PT, goals met Treatment Plan: Other Treatment Duration: Aug 01, 2017 Frequency: 1 time per week Estimated Hrs Per Day: .25 hour per day Patient and/or Family Agrees t: Yes Safety Risks/Education Patient Education: Safety Issues Teaching Recipient: Patient Teaching Methods: Discussion Response to Teaching: Verbalize Understanding Discharge Recommendations Therapy D/C Recommendations: Home w/ Family Support Time/GCodes Time In: 1325 Time Out: 1337 Total Billed Treatment Time: 12 Total Billed Treatment 1 visit EVLowC 12 min PAULA VALDIVIA PT Aug 01, 2017 13:53
[2017-08-01] MEDS: OMEGA 3 (FISH OIL) 1000 MG CAP PO SCH (20:30)
[2017-08-01] MEDS: ATORVASTATIN 40 MG (LIPITOR) TABLET PO SCH (20:30)
[2017-08-01] MEDS ORDERED: inSUlin (REGULAR) HUMAN 1 UNIT/0.01 ML (CHARGE PER UNIT) SC ONE (22:45)
[2017-08-02] MEDS: MEROPENEM 500 MG/NS 100 ML IVPB IV SCH ×10 (00:06→23:56)
[2017-08-02 00:34] VITALS: BP 135/72
[2017-08-02 04:06] VITALS: BP 128/65
[2017-08-02 06:35] LABS: BASOPHILS % (AUTO) 0 % (0-10); EOSINOPHILS % (AUTO) 0 % (0-10); LYMPHOCYTES # (AUTO) 0.6 X 10^3 (1.0-4.0); LYMPHOCYTES % (AUTO) 5 % (12-44); MEAN CORPUSCULAR HEMOGLOBIN 29 PG (25-34); MEAN CORPUSCULAR HGB CONC 33 G/DL (32-36); MEAN CORPUSCULAR VOLUME 89 FL (80-99); MEAN PLATELET VOLUME 10.7 FL (7.4-10.4); MONOCYTES # (AUTO) 0.6 X 10^3 (0.0-1.0); MONOCYTES % (AUTO) 4 % (0-12); NEUTROPHILS # (AUTO) 11.9 X 10^3 (1.8-7.8); NEUTROPHILS % (AUTO) 91 % (42-75); PLATELET COUNT 362 10^3/uL (130-400); RED BLOOD COUNT 4.32 10^6/uL (4.35-5.85); RED CELL DISTRIBUTION WIDTH 12.9 % (10.0-14.5); WHITE BLOOD COUNT 13.1 10^3/uL (4.3-11.0)
[2017-08-02] MEDS: metFORMIN XR 500 MG (GLUCOPHAGE XR) TAB PO SCH ×2 (06:41→17:22)
[2017-08-02] MEDS: RT-ALBUTEROL/IPRATROPIUM 3 ML (DUONEB) VIAL INH SCH ×4 (07:00→18:57)
[2017-08-02 07:03] LABS: ALANINE AMINOTRANSFERASE 27 U/L (0-55); ALBUMIN 3.5 GM/DL (3.2-4.5); ANION GAP 11 MMOL/L (5-14); ASPARTATE AMINO TRANSFERASE 16 U/L (5-34); BILIRUBIN,TOTAL 0.5 MG/DL (0.1-1.0); BLOOD UREA NITROGEN 23 MG/DL (7-18); BUN/CREATININE RATIO 28; CARBON DIOXIDE 20 MMOL/L (21-32); CHLORIDE 107 MMOL/L (98-107); CREATININE SERUM 0.83 MG/DL (0.60-1.30); GFR ESTIMATED > 60; GLUCOSE 330 MG/DL (70-105); POTASSIUM 4.5 MMOL/L (3.6-5.0); SODIUM 138 MMOL/L (135-145); TOTAL PROTEIN 6.9 GM/DL (6.4-8.2)
[2017-08-02] MEDS: inSUlin (REGULAR) HUMAN 1 UNIT/0.01 ML (CHARGE PER UNIT) SC SCH ×4 (07:14→22:07)
[2017-08-02 08:00] VITALS: BP 186/80
--- NOTE | 2017-08-02 08:11 | Diagnostic Imaging Report ---
INDICATION: Pneumonia. PA and lateral chest obtained 7:38 a.m. and compared with yesterday. There is poststernotomy change. The heart is normal in size. There is unchanged bibasilar infiltrate and/or atelectasis. There is no pneumothorax. There is a trace of pleural fluid on both sides again noted. IMPRESSION: Unchanged bibasilar infiltrate versus atelectasis with unchanged minimal bilateral pleural fluid. No new abnormality. Dictated by: Dictated on workstation # [id number]
--- NOTE | 2017-08-02 08:13 | Progress Note (SOAP) ---
Subjective Time Seen by Provider: 08:10 Subjective/Events-last exam when patient walks pulse ox goes down to 87 without oxygen. Patient has swelling of legs. Patient put on Lasix. Blood sugars elevated with Solu-Medrol. Chest x-ray report not on chart this morning Objective Exam Vital Signs Date Time Temp Pulse Resp B/P (MAP) Pulse Ox O2 Delivery O2 Flow Rate FiO2 08/02/17 07:00 93 Nasal Cannula 2.00 08/02/17 04:06 97.5 61 18 128/65 96 Nasal Cannula 1.00 08/02/17 01:08 53 08/02/17 00:34 98.7 59 16 135/72 97 Nasal Cannula 3.00 08/01/17 21:00 Nasal Cannula 3.00 08/01/17 20:19 97.3 71 20 163/77 95 Nasal Cannula 1.00 08/01/17 19:27 76 08/01/17 18:51 94 Nasal Cannula 2.00 08/01/17 15:43 97.7 107 20 155/67 94 Nasal Cannula 1.00 08/01/17 13:15 94 Nasal Cannula 1.00 08/01/17 13:00 65 08/01/17 12:00 98.2 70 20 140/70 94 Nasal Cannula 1.00 08/01/17 10:26 95 Nasal Cannula 3.00 08/01/17 08:33 Nasal Cannula 3.00 Capillary Refill : Less Than 3 Seconds General Appearance: No Apparent Distress Neck: Normal Inspection Respiratory: No Accessory Muscle Use, No Respiratory Distress Cardiovascular: Regular Rate, Rhythm Gastrointestinal: non tender, soft Results Lab Laboratory Tests 08/02/17 05:53 Laboratory Tests 08/01/17 08:30: Glucometer 361H 08/01/17 10:23: Vancomycin Level Trough 11.1 08/01/17 14:49: Glucometer 397H 08/01/17 22:18: Glucometer 453*H 08/02/17 05:53: White Blood Count 13.1H, Red Blood Count 4.32L, Hemoglobin 12.7L, Hematocrit 38L , Mean Corpuscular Volume 89, Mean Corpuscular Hemoglobin 29, Mean Corpuscular Hemoglobin Concent 33, Red Cell Distribution Width 12.9, Platelet Count 362, Mean Platelet Volume 10.7H, Neutrophils (%) (Auto) 91H, Lymphocytes (%) (Auto) 5L, Monocytes (%) (Auto) 4, Eosinophils (%) (Auto) 0, Basophils (%) (Auto) 0, Neutrophils # (Auto) 11.9H, Lymphocytes # (Auto) 0.6L, Monocytes # (Auto) 0.6, Eosinophils # (Auto) 0.0, Basophils # (Auto) 0.0, Sodium Level 138, Potassium Level 4.5, Chloride Level 107, Carbon Dioxide Level 20L, Anion Gap 11, Blood Urea Nitrogen 23H, Creatinine 0.83, Estimat Glomerular Filtration Rate > 60, BUN /Creatinine Ratio 28, Glucose Level 330H, Calcium Level 9.0, Total Bilirubin 0.5 , Aspartate Amino Transf (AST/SGOT) 16, Alanine Aminotransferase (ALT/SGPT) 27, Alkaline Phosphatase 91, Total Protein 6.9, Albumin 3.5 Microbiology 07/29/17 Blood Culture - Preliminary, Resulted No growth 07/31/17 Gram Stain - Final, Resulted 07/31/17 Sputum Culture - Preliminary, Resulted Usual/normal rafael isolated. Assessment/Plan Assessment/Plan Assess & Plan/Chief Complaint pneumonia. Chest x-ray yesterday looked worse. Diabetes. COPD. Coronary artery disease. Patient feeling clinically better. Chest x-ray ordered today. Leukocytosis resolved. . 08/02/17. Pneumonia. Diabetes. COPD. Coronary artery disease. Patient's pulse ox went 87 without oxygen in walking. Clinical Quality Measures DVT/VTE Risk/Contraindication: Risk Factor Score Per Nursin RFS Level Per Nursing on Admit: 4+=Very High LEN MAE DO Aug 02, 2017 08:13
[2017-08-02] MEDS ORDERED: FUROSEMIDE 40 MG/4 ML INJ (LASIX) IVP NR (08:15)
[2017-08-02] MEDS ORDERED: FUROSEMIDE 40 MG/4 ML INJ (LASIX) IVP ONE (08:15)
[2017-08-02] MEDS: GLIMEPIRIDE 4 MG (AMARYL) TAB PO SCH ×2 (09:39→20:14)
[2017-08-02] MEDS: MULTIVIT W/MINERALS TAB (THERAGRAN M) PO SCH (09:39)
[2017-08-02] MEDS: amLODIPine 10 MG (NORVASC) TAB PO SCH (09:39)
[2017-08-02] MEDS: ASPIRIN 325 MG (5 GR) TABLET PO SCH (09:39)
[2017-08-02] MEDS: ENOXAPARIN 40 MG/0.4 ML (LOVENOX) SYR SC SCH (09:40)
[2017-08-02] MEDS: CARVEDILOL 6.25 MG (COREG) TAB PO SCH ×2 (10:13→20:14)
[2017-08-02] MEDS ORDERED: TROUGH ORDER-PHARMACY XX NR (10:30)
[2017-08-02 12:00] VITALS: BP 150/69
[2017-08-02] MEDS ORDERED: INFLUENZA TRIvalent 2017-2018 0.5 ML/45 MCG SYR IM ONE (14:43)
[2017-08-02 16:00] VITALS: BP 177/80
[2017-08-02] MEDS ORDERED: guaiFENesin/DM (ROBITUSSIN DM) 10 ML UDC PO PRN (17:30)
[2017-08-02 19:57] VITALS: BP 180/63
[2017-08-02] MEDS: ATORVASTATIN 40 MG (LIPITOR) TABLET PO SCH (20:14)
[2017-08-02] MEDS: OMEGA 3 (FISH OIL) 1000 MG CAP PO SCH (20:15)
[2017-08-03 00:20] VITALS: BP 139/74
[2017-08-03 04:20] VITALS: BP 130/68
[2017-08-03] MEDS: MEROPENEM 500 MG/NS 100 ML IVPB IV SCH ×2 (06:10)
[2017-08-03] MEDS: metFORMIN XR 500 MG (GLUCOPHAGE XR) TAB PO SCH (06:11)
[2017-08-03] MEDS: RT-ALBUTEROL/IPRATROPIUM 3 ML (DUONEB) VIAL INH SCH ×2 (06:15→10:53)
[2017-08-03 06:32] LABS: BASOPHILS % (AUTO) 0 % (0-10); EOSINOPHILS # (AUTO) 0.1 10^3/uL (0.0-0.3); EOSINOPHILS % (AUTO) 1 % (0-10); LYMPHOCYTES # (AUTO) 1.6 X 10^3 (1.0-4.0); LYMPHOCYTES % (AUTO) 17 % (12-44); MEAN CORPUSCULAR HEMOGLOBIN 30 PG (25-34); MEAN CORPUSCULAR HGB CONC 33 G/DL (32-36); MEAN CORPUSCULAR VOLUME 90 FL (80-99); MEAN PLATELET VOLUME 10.4 FL (7.4-10.4); MONOCYTES % (AUTO) 10 % (0-12); NEUTROPHILS % (AUTO) 71 % (42-75); PLATELET COUNT 369 10^3/uL (130-400); RED BLOOD COUNT 4.06 10^6/uL (4.35-5.85); WHITE BLOOD COUNT 9.8 10^3/uL (4.3-11.0)
[2017-08-03 06:52] LABS: ANION GAP 6 MMOL/L (5-14); BLOOD UREA NITROGEN 21 MG/DL (7-18); BUN/CREATININE RATIO 29; CALCIUM 8.4 MG/DL (8.5-10.1); CARBON DIOXIDE 27 MMOL/L (21-32); CHLORIDE 108 MMOL/L (98-107); CREATININE SERUM 0.73 MG/DL (0.60-1.30); GFR ESTIMATED > 60; GLUCOSE 156 MG/DL (70-105); POTASSIUM 4.1 MMOL/L (3.6-5.0); SODIUM 141 MMOL/L (135-145)
[2017-08-03] MEDS: inSUlin (REGULAR) HUMAN 1 UNIT/0.01 ML (CHARGE PER UNIT) SC SCH ×2 (06:55→10:03)
[2017-08-03 08:00] VITALS: BP 169/80
[2017-08-03] MEDS ORDERED: FUROSEMIDE 40 MG/4 ML INJ (LASIX) IVP NR (08:00)
--- NOTE | 2017-08-03 08:07 | Progress Note (SOAP) ---
Subjective Time Seen by Provider: 08:00 Subjective/Events-last exam patient feeling better and breathing better and wants to go home. Estimated x-ray not done yesterday. Swelling of legs is better. Patient seen this morning without oxygen. Sugars are better without the Solu-Medrol. Diagnosis pneumonia. Diabetes. Coronary artery disease. Tobacco usage. Nurse to call at 11 a.m. for discharge Objective Exam Vital Signs Date Time Temp Pulse Resp B/P (MAP) Pulse Ox O2 Delivery O2 Flow Rate FiO2 08/03/17 06:17 93 Nasal Cannula 2.00 08/03/17 04:20 98.3 62 16 130/68 95 Nasal Cannula 1.00 08/03/17 01:00 65 08/03/17 00:20 98.7 69 18 139/74 94 Nasal Cannula 1.00 08/02/17 21:10 95 Nasal Cannula 2.00 08/02/17 19:57 97.9 69 18 180/63 97 Nasal Cannula 1.00 08/02/17 19:00 65 08/02/17 18:57 97 Nasal Cannula 2.00 08/02/17 16:00 98.4 79 19 177/80 97 Nasal Cannula 1.00 08/02/17 14:34 97 Nasal Cannula 2.00 08/02/17 12:00 96.7 71 20 150/69 95 Nasal Cannula 1.00 08/02/17 09:00 Nasal Cannula 3.00 Capillary Refill : Less Than 3 Seconds General Appearance: No Apparent Distress, WD/WN HEENT: Normal ENT Inspection Neck: Full Range of Motion, Normal Inspection Respiratory: No Accessory Muscle Use, Other (slight wheeze) Cardiovascular: Regular Rate, Rhythm, No Murmur Gastrointestinal: non tender, soft Results Lab Laboratory Tests 08/03/17 05:49 Laboratory Tests 08/02/17 09:51: Glucometer 362H 08/02/17 14:39: Glucometer 181H 08/02/17 21:51: Glucometer 260H 08/03/17 05:49: White Blood Count 9.8, Red Blood Count 4.06L, Hemoglobin 12.1L, Hematocrit 36L, Mean Corpuscular Volume 90, Mean Corpuscular Hemoglobin 30, Mean Corpuscular Hemoglobin Concent 33, Red Cell Distribution Width 13.0, Platelet Count 369, Mean Platelet Volume 10.4, Neutrophils (%) (Auto) 71, Lymphocytes (%) (Auto) 17 , Monocytes (%) (Auto) 10, Eosinophils (%) (Auto) 1, Basophils (%) (Auto) 0, Neutrophils # (Auto) 7.0, Lymphocytes # (Auto) 1.6, Monocytes # (Auto) 1.0, Eosinophils # (Auto) 0.1, Basophils # (Auto) 0.0, Sodium Level 141, Potassium Level 4.1, Chloride Level 108H, Carbon Dioxide Level 27, Anion Gap 6, Blood Urea Nitrogen 21H, Creatinine 0.73, Estimat Glomerular Filtration Rate > 60, BUN /Creatinine Ratio 29, Glucose Level 156H, Calcium Level 8.4L, B-Type Natriuretic Peptide 200.6H Microbiology 07/29/17 Blood Culture - Preliminary, Resulted No growth 07/31/17 Gram Stain - Final, Complete 07/31/17 Sputum Culture - Final, Complete Usual/normal rafael isolated. Assessment/Plan Assessment/Plan Assess & Plan/Chief Complaint pneumonia. Chest x-ray yesterday looked worse. Diabetes. COPD. Coronary artery disease. Patient feeling clinically better. Chest x-ray ordered today. Leukocytosis resolved. . 08/02/17. Pneumonia. Diabetes. COPD. Coronary artery disease. Patient's pulse ox went 87 without oxygen in walking.. . 08/03/17.. Pneumonia. Diabetes. COPD. Coronary artery disease. Patient without oxygen today. Patient feeling better and wants to go home Clinical Quality Measures DVT/VTE Risk/Contraindication: Risk Factor Score Per Nursin RFS Level Per Nursing on Admit: 4+=Very High LEN MAE DO Aug 03, 2017 08:06
--- NOTE | 2017-08-03 08:18 | Diagnostic Imaging Report ---
INDICATION: Pneumonia. PA and lateral chest obtained at 8:16 a.m. and compared with 08/02/17. FINDINGS: The patient has had previous sternotomy. The heart is borderline in size. There is no change in the bibasilar infiltrates compared to yesterday. There is no pneumothorax. There is a trace of pleural fluid versus thickening in the costophrenic angles on both sides. IMPRESSION: Unchanged bibasilar infiltrates and trace bilateral pleural effusions versus pleural thickening. No new abnormality compared to yesterday. Dictated by: Dictated on workstation # [id number]
[2017-08-03] MEDS: MULTIVIT W/MINERALS TAB (THERAGRAN M) PO SCH (08:34)
[2017-08-03] MEDS: ASPIRIN 325 MG (5 GR) TABLET PO SCH (08:34)
[2017-08-03] MEDS: amLODIPine 10 MG (NORVASC) TAB PO SCH (08:34)
[2017-08-03] MEDS: CARVEDILOL 6.25 MG (COREG) TAB PO SCH (08:34)
[2017-08-03] MEDS: ENOXAPARIN 40 MG/0.4 ML (LOVENOX) SYR SC SCH (08:35)
[2017-08-03] MEDS: GLIMEPIRIDE 4 MG (AMARYL) TAB PO SCH (08:36)
[2017-08-03] MEDS ORDERED: CEFD300C3 PO (11:52)
[2017-08-03] MEDS ORDERED: FURO-125 PO (11:52)
[2017-08-03 13:14] VITALS: BP 169/80
[2017-08-03] MEDS ORDERED: CEFDINIR 300 MG (OMNICEF) CAP PO SCH (21:00)
--- NOTE | 2017-08-04 18:49 | Discharge Summary ---
Diagnosis/Chief Complaint Date of Admission Jul 29, 2017 at 21:05 Date of Discharge Aug 03, 2017 at 13:18 Discharge Diagnosis pneumonia. Acute respiratory distress. Elevated lactic acid. Sepsis. COPD. Hypertension. Localized edema. Personalize history of nicotine dependence. Hyperlipidemia. Diabetes Reason Hospital Visit patient came to the emergency room with elevated temperature. Patient an elevated temperature. Patient had leukocytosis. Chest x-ray shows early pneumonia. Lactic acid elevated. Patient admitted Discharge Summary Discharge Physical Examination Allergies: Coded Allergies: Penicillins (Unverified Allergy, Mild, 01/31/11) Vitals & I&Os Vital Signs Date Time Temp Pulse Resp B/P (MAP) Pulse Ox O2 Delivery O2 Flow Rate FiO2 08/03/17 13:14 70 20 169/80 91 Room Air 2.00 08/03/17 08:00 97.8 08/01/17 07:18 3 Hospital Course patient in hospital needed oxygen. Patient before discharge was able to get around without oxygen and felt better. Patient demanded to go home Labs (last 24 hrs) Laboratory Tests 07/29/17 19:30: White Blood Count 23.7H, Red Blood Count 4.66, Hemoglobin 13.9, Hematocrit 41, Mean Corpuscular Volume 89, Mean Corpuscular Hemoglobin 30, Mean Corpuscular Hemoglobin Concent 34, Red Cell Distribution Width 12.9, Platelet Count 283, Mean Platelet Volume 10.4, Neutrophils (%) (Auto) 87H, Lymphocytes (%) (Auto) 6L , Monocytes (%) (Auto) 6, Eosinophils (%) (Auto) 0, Basophils (%) (Auto) 0, Neutrophils # (Auto) 20.6H, Lymphocytes # (Auto) 1.5, Monocytes # (Auto) 1.5H, Eosinophils # (Auto) 0.0, Basophils # (Auto) 0.1, Neutrophils % (Manual) 85, Lymphocytes % (Manual) 8, Monocytes % (Manual) 2, Eosinophils % (Manual) 0, Basophils % (Manual) 0, Band Neutrophils 5, Blood Morphology Comment NORMAL, Prothrombin Time 13.7, INR Comment 1.0, Activated Partial Thromboplast Time 32, Sodium Level 131L, Potassium Level 4.0, Chloride Level 100, Carbon Dioxide Level 19L, Anion Gap 12, Blood Urea Nitrogen 17, Creatinine 1.37H, Estimat Glomerular Filtration Rate 51, BUN/Creatinine Ratio 12, Glucose Level 360H, Lactic Acid Level 3.35*H, Calcium Level 8.8, Total Bilirubin 0.7, Aspartate Amino Transf (AST/SGOT) 16, Alanine Aminotransferase (ALT/SGPT) 32, Alkaline Phosphatase 70, Total Protein 6.8, Albumin 3.7 07/29/17 20:10: Urine Color YELLOW, Urine Clarity CLEAR, Urine pH 5, Urine Specific Marion 1.025H, Urine Protein 4+, Urine Glucose (UA) 4+H, Urine Ketones NEGATIVE, Urine Nitrite NEGATIVE, Urine Bilirubin NEGATIVE, Urine Urobilinogen NORMAL, Urine Leukocyte Esterase NEGATIVE, Urine RBC (Auto) NEGATIVE, Urine RBC NONE, Urine WBC RARE, Urine Squamous Epithelial Cells 0-2, Urine Crystals NONE, Urine Bacteria NONE, Urine Casts NONE, Urine Mucus NEGATIVE, Urine Culture Indicated NO 07/29/17 22:13: Lactic Acid Level 2.86*H 07/30/17 00:49: Glucometer 223H 07/30/17 01:50: Lactic Acid Level 2.45*H 07/30/17 03:56: Lactic Acid Level 1.86, White Blood Count 21.0H, Red Blood Count 4.26L, Hemoglobin 13.0L, Hematocrit 38L, Mean Corpuscular Volume 90, Mean Corpuscular Hemoglobin 31, Mean Corpuscular Hemoglobin Concent 34, Red Cell Distribution Width 13.0, Platelet Count 245, Mean Platelet Volume 10.0, Neutrophils (%) (Auto ) 86H, Lymphocytes (%) (Auto) 8L, Monocytes (%) (Auto) 7, Eosinophils (%) (Auto ) 0, Basophils (%) (Auto) 0, Neutrophils # (Auto) 17.9H, Lymphocytes # (Auto) 1.6, Monocytes # (Auto) 1.4H, Eosinophils # (Auto) 0.0, Basophils # (Auto) 0.0, Sodium Level 136, Potassium Level 3.7, Chloride Level 105, Carbon Dioxide Level 22, Anion Gap 9, Blood Urea Nitrogen 21H, Creatinine 1.27, Estimat Glomerular Filtration Rate 56, BUN/Creatinine Ratio 17, Glucose Level 207H, Calcium Level 8.0L, Phosphorus Level 2.6, Magnesium Level 1.7L, Total Bilirubin 0.7, Aspartate Amino Transf (AST/SGOT) 21, Alanine Aminotransferase (ALT/SGPT) 31, Alkaline Phosphatase 63, Total Protein 6.0L, Albumin 3.2 07/30/17 05:17: Blood Gas Puncture Site LEFT RADIAL, Blood Gas Patient Temperature 97.4, Arterial Blood pH 7.35L, Arterial Blood Partial Pressure CO2 42, Arterial Blood Partial Pressure O2 170H, Arterial Blood HCO3 23, Arterial Blood Total CO2 24.3 , Arterial Blood Oxygen Saturation 99, Arterial Blood Base Excess -2.0, Ibrahima Test POSITIVE, Blood Gas Ventilator Setting NO, Blood Gas Inspired Oxygen 60% FI02 07/30/17 08:57: Troponin I < 0.30 07/30/17 11:00: Glucometer 342H 07/30/17 15:33: Glucometer 267H 07/30/17 19:31: Glucometer 233H 07/31/17 05:05: White Blood Count 15.5H, Red Blood Count 3.90L, Hemoglobin 11.7L, Hematocrit 35L , Mean Corpuscular Volume 91, Mean Corpuscular Hemoglobin 30, Mean Corpuscular Hemoglobin Concent 33, Red Cell Distribution Width 12.8, Platelet Count 239, Mean Platelet Volume 10.4, Neutrophils (%) (Auto) 79H, Lymphocytes (%) (Auto) 13 , Monocytes (%) (Auto) 5, Eosinophils (%) (Auto) 2, Basophils (%) (Auto) 0, Neutrophils # (Auto) 12.3H, Lymphocytes # (Auto) 2.0, Monocytes # (Auto) 0.8, Eosinophils # (Auto) 0.4H, Basophils # (Auto) 0.0, D-Dimer 1.05H, Sodium Level 137, Potassium Level 4.2, Chloride Level 110H, Carbon Dioxide Level 19L, Anion Gap 8, Blood Urea Nitrogen 23H, Creatinine 0.95, Estimat Glomerular Filtration Rate > 60, BUN/Creatinine Ratio 24, Glucose Level 188H, Calcium Level 8.2L, Total Bilirubin 0.4, Aspartate Amino Transf (AST/SGOT) 20, Alanine Aminotransferase (ALT/SGPT) 24, Alkaline Phosphatase 72, B-Type Natriuretic Peptide 175.7H, Total Protein 5.9L, Albumin 2.8L 07/31/17 05:06: Glucometer 169H 07/31/17 14:52: Glucometer 369H 07/31/17 20:37: Glucometer 359H 08/01/17 05:27: Glucometer 297H 08/01/17 05:54: White Blood Count 10.2, Red Blood Count 4.42, Hemoglobin 13.2L, Hematocrit 39L, Mean Corpuscular Volume 89, Mean Corpuscular Hemoglobin 30, Mean Corpuscular Hemoglobin Concent 34, Red Cell Distribution Width 12.8, Platelet Count 316, Mean Platelet Volume 10.2, Neutrophils (%) (Auto) 91H, Lymphocytes (%) (Auto) 7L , Monocytes (%) (Auto) 2, Eosinophils (%) (Auto) 0, Basophils (%) (Auto) 0, Neutrophils # (Auto) 9.3H, Lymphocytes # (Auto) 0.7L, Monocytes # (Auto) 0.2, Eosinophils # (Auto) 0.0, Basophils # (Auto) 0.0, Sodium Level 136, Potassium Level 4.2, Chloride Level 102, Carbon Dioxide Level 20L, Anion Gap 14, Blood Urea Nitrogen 20H, Creatinine 0.96, Estimat Glomerular Filtration Rate > 60, BUN /Creatinine Ratio 21, Glucose Level 321H, Calcium Level 9.0 08/01/17 08:30: Glucometer 361H 08/01/17 10:23: Vancomycin Level Trough 11.1 08/01/17 14:49: Glucometer 397H 08/01/17 22:18: Glucometer 453*H 08/02/17 05:53: White Blood Count 13.1H, Red Blood Count 4.32L, Hemoglobin 12.7L, Hematocrit 38L , Mean Corpuscular Volume 89, Mean Corpuscular Hemoglobin 29, Mean Corpuscular Hemoglobin Concent 33, Red Cell Distribution Width 12.9, Platelet Count 362, Mean Platelet Volume 10.7H, Neutrophils (%) (Auto) 91H, Lymphocytes (%) (Auto) 5L, Monocytes (%) (Auto) 4, Eosinophils (%) (Auto) 0, Basophils (%) (Auto) 0, Neutrophils # (Auto) 11.9H, Lymphocytes # (Auto) 0.6L, Monocytes # (Auto) 0.6, Eosinophils # (Auto) 0.0, Basophils # (Auto) 0.0, Sodium Level 138, Potassium Level 4.5, Chloride Level 107, Carbon Dioxide Level 20L, Anion Gap 11, Blood Urea Nitrogen 23H, Creatinine 0.83, Estimat Glomerular Filtration Rate > 60, BUN /Creatinine Ratio 28, Glucose Level 330H, Calcium Level 9.0, Total Bilirubin 0.5 , Aspartate Amino Transf (AST/SGOT) 16, Alanine Aminotransferase (ALT/SGPT) 27, Alkaline Phosphatase 91, B-Type Natriuretic Peptide 259.1H, Total Protein 6.9, Albumin 3.5 08/02/17 09:51: Glucometer 362H 08/02/17 14:39: Glucometer 181H 08/02/17 21:51: Glucometer 260H 08/03/17 05:49: White Blood Count 9.8, Red Blood Count 4.06L, Hemoglobin 12.1L, Hematocrit 36L, Mean Corpuscular Volume 90, Mean Corpuscular Hemoglobin 30, Mean Corpuscular Hemoglobin Concent 33, Red Cell Distribution Width 13.0, Platelet Count 369, Mean Platelet Volume 10.4, Neutrophils (%) (Auto) 71, Lymphocytes (%) (Auto) 17 , Monocytes (%) (Auto) 10, Eosinophils (%) (Auto) 1, Basophils (%) (Auto) 0, Neutrophils # (Auto) 7.0, Lymphocytes # (Auto) 1.6, Monocytes # (Auto) 1.0, Eosinophils # (Auto) 0.1, Basophils # (Auto) 0.0, Sodium Level 141, Potassium Level 4.1, Chloride Level 108H, Carbon Dioxide Level 27, Anion Gap 6, Blood Urea Nitrogen 21H, Creatinine 0.73, Estimat Glomerular Filtration Rate > 60, BUN /Creatinine Ratio 29, Glucose Level 156H, Calcium Level 8.4L, B-Type Natriuretic Peptide 200.6H 08/03/17 09:54: Glucometer 238H Microbiology 07/29/17 Blood Culture - Final, Complete No growth 07/31/17 Gram Stain - Final, Complete 07/31/17 Sputum Culture - Final, Complete Usual/normal rafael isolated. Laboratory Tests 07/29/17 19:30 07/30/17 03:56 07/31/17 05:05 08/01/17 05:54 08/02/17 05:53 08/03/17 05:49 Pending Labs Microbiology Date/Time Source Procedure Growth Status 07/29/17 20:00 Peripheral Lt Ac Blood Culture - Final No growth Complete 07/29/17 19:30 Peripheral Right Wrist Blood Culture - Final No growth Complete 07/31/17 13:40 Sputum Induced Gram Stain - Final Complete 07/31/17 13:40 Sputum Induced Sputum Culture - Final Usual/normal rafael isolated. Complete 07/29/17 17:40 Nasopharynx Influenza Types A,B Antigen (URIEL) - Final Complete Laboratory Tests 07/29/17 19:30: White Blood Count 23.7, Red Blood Count 4.66, Hemoglobin 13.9, Hematocrit 41, Mean Corpuscular Volume 89, Mean Corpuscular Hemoglobin 30, Mean Corpuscular Hemoglobin Concent 34, Red Cell Distribution Width 12.9, Platelet Count 283, Mean Platelet Volume 10.4, Neutrophils (%) (Auto) 87, Lymphocytes (%) (Auto) 6, Monocytes (%) (Auto) 6, Eosinophils (%) (Auto) 0, Basophils (%) (Auto) 0, Neutrophils # (Auto) 20.6, Lymphocytes # (Auto) 1.5, Monocytes # (Auto) 1.5, Eosinophils # (Auto) 0.0, Basophils # (Auto) 0.1, Neutrophils % (Manual) 85, Lymphocytes % (Manual) 8, Monocytes % (Manual) 2, Eosinophils % (Manual) 0, Basophils % (Manual) 0, Band Neutrophils 5, Blood Morphology Comment NORMAL, Prothrombin Time 13.7, INR Comment 1.0, Activated Partial Thromboplast Time 32, Sodium Level 131, Potassium Level 4.0, Chloride Level 100, Carbon Dioxide Level 19, Anion Gap 12, Blood Urea Nitrogen 17, Creatinine 1.37, Estimat Glomerular Filtration Rate 51, BUN/Creatinine Ratio 12, Glucose Level 360, Lactic Acid Level 3.35, Calcium Level 8.8, Total Bilirubin 0.7, Aspartate Amino Transf (AST/ SGOT) 16, Alanine Aminotransferase (ALT/SGPT) 32, Alkaline Phosphatase 70, Total Protein 6.8, Albumin 3.7 07/29/17 20:10: Urine Color YELLOW, Urine Clarity CLEAR, Urine pH 5, Urine Specific Marion 1.025, Urine Protein 4+, Urine Glucose (UA) 4+, Urine Ketones NEGATIVE, Urine Nitrite NEGATIVE, Urine Bilirubin NEGATIVE, Urine Urobilinogen NORMAL, Urine Leukocyte Esterase NEGATIVE, Urine RBC (Auto) NEGATIVE, Urine RBC NONE, Urine WBC RARE, Urine Squamous Epithelial Cells 0-2, Urine Crystals NONE, Urine Bacteria NONE, Urine Casts NONE, Urine Mucus NEGATIVE, Urine Culture Indicated NO 07/29/17 22:13: Lactic Acid Level 2.86 07/30/17 00:49: Glucometer 223 07/30/17 01:50: Lactic Acid Level 2.45 07/30/17 03:56: Lactic Acid Level 1.86, White Blood Count 21.0, Red Blood Count 4.26, Hemoglobin 13.0, Hematocrit 38, Mean Corpuscular Volume 90, Mean Corpuscular Hemoglobin 31, Mean Corpuscular Hemoglobin Concent 34, Red Cell Distribution Width 13.0, Platelet Count 245, Mean Platelet Volume 10.0, Neutrophils (%) (Auto ) 86, Lymphocytes (%) (Auto) 8, Monocytes (%) (Auto) 7, Eosinophils (%) (Auto) 0 , Basophils (%) (Auto) 0, Neutrophils # (Auto) 17.9, Lymphocytes # (Auto) 1.6, Monocytes # (Auto) 1.4, Eosinophils # (Auto) 0.0, Basophils # (Auto) 0.0, Sodium Level 136, Potassium Level 3.7, Chloride Level 105, Carbon Dioxide Level 22, Anion Gap 9, Blood Urea Nitrogen 21, Creatinine 1.27, Estimat Glomerular Filtration Rate 56, BUN/Creatinine Ratio 17, Glucose Level 207, Calcium Level 8.0, Phosphorus Level 2.6, Magnesium Level 1.7, Total Bilirubin 0.7, Aspartate Amino Transf (AST/SGOT) 21, Alanine Aminotransferase (ALT/SGPT) 31, Alkaline Phosphatase 63, Total Protein 6.0, Albumin 3.2 07/30/17 05:17: Blood Gas Puncture Site LEFT RADIAL, Blood Gas Patient Temperature 97.4, Arterial Blood pH 7.35, Arterial Blood Partial Pressure CO2 42, Arterial Blood Partial Pressure O2 170, Arterial Blood HCO3 23, Arterial Blood Total CO2 24.3, Arterial Blood Oxygen Saturation 99, Arterial Blood Base Excess -2.0, Ibrahima Test POSITIVE, Blood Gas Ventilator Setting NO, Blood Gas Inspired Oxygen 60% FI02 07/30/17 08:57: Troponin I < 0.30 07/30/17 11:00: Glucometer 342 07/30/17 15:33: Glucometer 267 07/30/17 19:31: Glucometer 233 07/31/17 05:05: White Blood Count 15.5, Red Blood Count 3.90, Hemoglobin 11.7, Hematocrit 35, Mean Corpuscular Volume 91, Mean Corpuscular Hemoglobin 30, Mean Corpuscular Hemoglobin Concent 33, Red Cell Distribution Width 12.8, Platelet Count 239, Mean Platelet Volume 10.4, Neutrophils (%) (Auto) 79, Lymphocytes (%) (Auto) 13 , Monocytes (%) (Auto) 5, Eosinophils (%) (Auto) 2, Basophils (%) (Auto) 0, Neutrophils # (Auto) 12.3, Lymphocytes # (Auto) 2.0, Monocytes # (Auto) 0.8, Eosinophils # (Auto) 0.4, Basophils # (Auto) 0.0, D-Dimer 1.05, Sodium Level 137 , Potassium Level 4.2, Chloride Level 110, Carbon Dioxide Level 19, Anion Gap 8 , Blood Urea Nitrogen 23, Creatinine 0.95, Estimat Glomerular Filtration Rate > 60, BUN/Creatinine Ratio 24, Glucose Level 188, Calcium Level 8.2, Total Bilirubin 0.4, Aspartate Amino Transf (AST/SGOT) 20, Alanine Aminotransferase ( ALT/SGPT) 24, Alkaline Phosphatase 72, B-Type Natriuretic Peptide 175.7, Total Protein 5.9, Albumin 2.8 07/31/17 05:06: Glucometer 169 07/31/17 14:52: Glucometer 369 07/31/17 20:37: Glucometer 359 08/01/17 05:27: Glucometer 297 08/01/17 05:54: White Blood Count 10.2, Red Blood Count 4.42, Hemoglobin 13.2, Hematocrit 39, Mean Corpuscular Volume 89, Mean Corpuscular Hemoglobin 30, Mean Corpuscular Hemoglobin Concent 34, Red Cell Distribution Width 12.8, Platelet Count 316, Mean Platelet Volume 10.2, Neutrophils (%) (Auto) 91, Lymphocytes (%) (Auto) 7, Monocytes (%) (Auto) 2, Eosinophils (%) (Auto) 0, Basophils (%) (Auto) 0, Neutrophils # (Auto) 9.3, Lymphocytes # (Auto) 0.7, Monocytes # (Auto) 0.2, Eosinophils # (Auto) 0.0, Basophils # (Auto) 0.0, Sodium Level 136, Potassium Level 4.2, Chloride Level 102, Carbon Dioxide Level 20, Anion Gap 14, Blood Urea Nitrogen 20, Creatinine 0.96, Estimat Glomerular Filtration Rate > 60, BUN/ Creatinine Ratio 21, Glucose Level 321, Calcium Level 9.0 08/01/17 08:30: Glucometer 361 08/01/17 10:23: Vancomycin Level Trough 11.1 08/01/17 14:49: Glucometer 397 08/01/17 22:18: Glucometer 453 08/02/17 05:53: White Blood Count 13.1, Red Blood Count 4.32, Hemoglobin 12.7, Hematocrit 38, Mean Corpuscular Volume 89, Mean Corpuscular Hemoglobin 29, Mean Corpuscular Hemoglobin Concent 33, Red Cell Distribution Width 12.9, Platelet Count 362, Mean Platelet Volume 10.7, Neutrophils (%) (Auto) 91, Lymphocytes (%) (Auto) 5, Monocytes (%) (Auto) 4, Eosinophils (%) (Auto) 0, Basophils (%) (Auto) 0, Neutrophils # (Auto) 11.9, Lymphocytes # (Auto) 0.6, Monocytes # (Auto) 0.6, Eosinophils # (Auto) 0.0, Basophils # (Auto) 0.0, Sodium Level 138, Potassium Level 4.5, Chloride Level 107, Carbon Dioxide Level 20, Anion Gap 11, Blood Urea Nitrogen 23, Creatinine 0.83, Estimat Glomerular Filtration Rate > 60, BUN/ Creatinine Ratio 28, Glucose Level 330, Calcium Level 9.0, Total Bilirubin 0.5, Aspartate Amino Transf (AST/SGOT) 16, Alanine Aminotransferase (ALT/SGPT) 27, Alkaline Phosphatase 91, B-Type Natriuretic Peptide 259.1, Total Protein 6.9, Albumin 3.5 08/02/17 09:51: Glucometer 362 08/02/17 14:39: Glucometer 181 08/02/17 21:51: Glucometer 260 08/03/17 05:49: White Blood Count 9.8, Red Blood Count 4.06, Hemoglobin 12.1, Hematocrit 36, Mean Corpuscular Volume 90, Mean Corpuscular Hemoglobin 30, Mean Corpuscular Hemoglobin Concent 33, Red Cell Distribution Width 13.0, Platelet Count 369, Mean Platelet Volume 10.4, Neutrophils (%) (Auto) 71, Lymphocytes (%) (Auto) 17 , Monocytes (%) (Auto) 10, Eosinophils (%) (Auto) 1, Basophils (%) (Auto) 0, Neutrophils # (Auto) 7.0, Lymphocytes # (Auto) 1.6, Monocytes # (Auto) 1.0, Eosinophils # (Auto) 0.1, Basophils # (Auto) 0.0, Sodium Level 141, Potassium Level 4.1, Chloride Level 108, Carbon Dioxide Level 27, Anion Gap 6, Blood Urea Nitrogen 21, Creatinine 0.73, Estimat Glomerular Filtration Rate > 60, BUN/ Creatinine Ratio 29, Glucose Level 156, Calcium Level 8.4, B-Type Natriuretic Peptide 200.6 08/03/17 09:54: Glucometer 238 Radiology Reviewed RIGO GARCIA [facility] REC#: [id number] PT STATUS: ADM IN : 1945 PHYSICIAN: LEN MAE DO ADMIT DATE: 07/29/17 Signed Date of Exam: 08/03/17 CHEST PA/LAT (2 VIEW) INDICATION: Pneumonia. PA and lateral chest obtained at 8:16 a.m. and compared with 08/02/17. FINDINGS: The patient has had previous sternotomy. The heart is borderline in size. There is no change in the bibasilar infiltrates compared to yesterday. There is no pneumothorax. There is a trace of pleural fluid versus thickening in the costophrenic angles on both sides. IMPRESSION: Unchanged bibasilar infiltrates and trace bilateral pleural effusions versus pleural thickening. No new abnormality compared to yesterday. Dictated by: Dictated on workstation # [id number] Dict: 08/03/17 0812 Discussion & Recommendations patient sent home on antibiotic Discharge Home Medications: Active Scripts Active Lasix (Furosemide) 20 Mg Tablet 20 Mg PO DAILY 30 Days Cefdinir 300 Mg Capsule 300 Mg PO BID 5 Days Reported Coreg (Carvedilol) 6.25 Mg Tablet 6.25 Mg PO BID Atorvastatin Calcium 80 Mg Tablet 40 Mg PO HS TAKES 1/2 (80MG) TABLET Fish Oil 1,000 mg Capsule (Wilmot 3 Polyunsat Fatty Acids) 1,000 Mg Cap 1,000 Mg PO HS Amlodipine Besylate 10 Mg Tablet 10 Mg PO DAILY Metformin HCl ER (Metformin HCl) 500 Mg Tab.er.24h 1,000 Mg PO BID TAKES 2 (500MG) TABLETS Losartan Potassium 100 Mg Tablet 100 Mg PO DAILY Combivent Respimat Inhal Dexter (Albuterol/Ipratropium) 4 Gm Aero 1 Puff INH QID Aspirin 325 Mg Tablet 325 Mg PO DAILY Glimepiride 4 Mg Tablet 4 Mg PO BID Multivitamins 1 Each Capsule 1 Cap PO DAILY Instructions to patient/family Please see electronic discharge instructions given to patient. Clinical Quality Measures DVT/VTE Risk/Contraindication: Risk Factor Score Per Nursin RFS Level Per Nursing on Admit: 4+=Very High LEN MAE DO Aug 04, 2017 18:49
--- NOTE | 2017-08-05 08:57 | Physician Query Clarification ---
PQ-Intro New Diagnosis Admission/Discharge Admission Date: Jul 29, 2017 at 21:05 Discharge Date: Aug 03, 2017 at 13:18 The medical record reflects the following clinical scenario: History/Risk Factors: Pneumonia Confusion/Rigors Clinical Findings: WBC 23.7, Bamds 5, T 100.4, Pulse 77, Resp 34, BP 159/65, Blood cultures-no growth, Lactic Acid 3.35. Treatment: IV Cetriaxone Sodium/Sodium Chloride and IV Azithromycin 500 mg/Sodium Chloride Question: What condition best reflects the above clinical scenario? Please document below. 1. Sepsis with pneumonia. 2. Pneumonia without sepsis. 3. Other, with explanation of the clinical findings. 4. Clinically undetermined, no explanation for the clinical findings. PHYSICIAN RESPONSE What condition reflects above: 1 In responding to this query, please exercise your independent professional judgment. The purpose of this communication is to more accurately reflect the complexity of your patients condition. The fact that a question is asked does not imply that any particular answer is desired or expected. Thank you for your timely response to this clarification. Requestors name: Pilar Cabello [facility] Phone # ext [phone] or [phone] THIS PHYSICIAN QUERY FORM IS A PERMANENT PART OF THE MEDICAL RECORD PILAR CABELLO Aug 05, 2017 08:57 LEN MAE DO Aug 08, 2017 07:10
== END 2017-08-03 13:18 | disposition home or self-care (01) | DRG 871 ==
LOC: EDUNIT# 18:28 → ER 18:30 → UNDOADMIN 21:05 → 4TH 21:05 → ICU 23:49 → 4TH 07-30 10:30
PROVIDERS: ADMIT Internal Medicine; ATTEND Family Medicine
DX: A41.9 Sepsis, unspecified organism (principal); J18.9 Pneumonia, unspecified organism; J44.0 Chronic obstructive pulmonary disease with (acute) lower respiratory infection; J44.1 Chronic obstructive pulmonary disease with (acute) exacerbation; R06.03 Acute respiratory distress; E87.2 Acidosis; I25.10 Atherosclerotic heart disease of native coronary artery without angina pectoris; I10 Essential (primary) hypertension; Z23 Encounter for immunization; E11.9 Type 2 diabetes mellitus without complications; E78.00 Pure hypercholesterolemia, unspecified; R60.0 Localized edema; H91.91 Unspecified hearing loss, right ear; Z95.1 Presence of aortocoronary bypass graft; Z87.891 Personal history of nicotine dependence; Z97.4 Presence of external hearing-aid; Z79.84 Long term (current) use of oral hypoglycemic drugs
CPT/HCPCS: 36415; 71010; 71020; 80048; 80053; 80202; 81000; 82805; 82962; 83605; 83735; 83880; 84100; 84484; 85007; 85025; 85027; 85379; 85610; 85730; 87040; 87070; 87205; 87804; 94640; 94660; 94760; 96361; 96374

== ENCOUNTER 2018-08-25 20:00 | Inpatient (IN) | payer MEDICARE, OTHER ==
[~2018-08-25] VITALS: Ht 177.8 cm; Wt 81.8 kg
[~2018-08-25 20:00] MED LIST changes: -AMLO10TA2 PO; +AMLO10TA6 PO; +CARV6.25 PO; +CEFD300C3 PO; +FURO-125 PO; -LOSA100T28 PO; +LOSA100T8 PO
--- OUTSIDE RECORDS SUMMARY | 2018-08-25 20:06 | XMS REPORT | Continuity of Care Document ---
Author Author [facility] Organization [facility] Address Unknown Phone Unavailable Allergies Active Description Code Type Severity Reaction Onset Reported/Identified Relationship to Patient Clinical Status Yes Penicillins [id number] Drug Allergy Mild N/A 01/31/2011 Medications There is no data. Problems Date Dx Coded Attending Type Code Diagnosis Diagnosed By 02/02/2011 Ot 250.00 02/02/2011 Ot 272.4 02/02/2011 Ot 401.9 02/02/2011 Ot 414.00 02/02/2011 Ot 486 02/02/2011 Ot 491.21 02/02/2011 Ot V03.82 02/02/2011 Ot V45.81 12/07/2014 Ot 786.2 12/07/2014 Ot 786.2 12/18/2015 Ot 786.2 12/18/2015 Ot 786.2 12/19/2015 Ot 786.2 12/19/2015 LEN MAE DO Ot E11.9 TYPE 2 DIABETES MELLITUS WITHOUT COMPLIC 12/19/2015 LEN MAE DO Ot E78.5 HYPERLIPIDEMIA, UNSPECIFIED 12/19/2015 LEN MAE DO Ot I10 ESSENTIAL (PRIMARY) HYPERTENSION 12/19/2015 LEN MAE DO Ot I25.10 ATHSCL HEART DISEASE OF [place] CORONARY 12/19/2015 LEN MAE DO Ot J18.9 PNEUMONIA, UNSPECIFIED ORGANISM 12/19/2015 LEN MAE DO Ot J44.1 CHRONIC OBSTRUCTIVE PULMONARY DISEASE W 12/19/2015 LEN MAE DO Ot Z87.891 PERSONAL HISTORY OF NICOTINE DEPENDENCE 12/19/2015 LEN MAE DO Ot Z95.1 PRESENCE OF AORTOCORONARY BYPASS GRAFT 12/24/2015 Ot 786.2 01/05/2016 LEN MAE DO Ot J18.9 01/26/2016 LEN MAE DO Ot J18.9 01/27/2016 LEN MAE DO Ot J18.9 03/02/2016 GELLENDER DO, LEN Moseley Ot R06.02 SHORTNESS OF BREATH 03/30/2016 GELLENDER DO, LEN Moseley Ot R06.02 SHORTNESS OF BREATH 07/29/2017 GELLENDER DO, LEN Moseley Ot J18.9 PNEUMONIA, UNSPECIFIED ORGANISM 07/29/2017 GELLENDER DO, LEN Moseley Ot J18.9 PNEUMONIA, UNSPECIFIED ORGANISM 07/29/2017 GELLENDER DO, LEN Moseley Ot R06.02 SHORTNESS OF BREATH 08/01/2017 GELLENDER DO, LEN Moseley Ot E11.9 TYPE 2 DIABETES MELLITUS WITHOUT COMPLIC 08/01/2017 GELLENDER DO, LEN Moseley Ot E78.00 PURE HYPERCHOLESTEROLEMIA, UNSPECIFIED 08/01/2017 GELLENDER DO, LEN Moseley Ot I10 ESSENTIAL (PRIMARY) HYPERTENSION 08/01/2017 GELLENDER DO, LEN Moseley Ot I25.10 ATHSCL HEART DISEASE OF [place] CORONARY 08/01/2017 GELLENDER DO, LEN Moseley Ot J18.9 PNEUMONIA, UNSPECIFIED ORGANISM 08/01/2017 GELLENDER DO, LEN Moseley Ot J44.0 CHRONIC OBSTRUCTIVE PULMON DISEASE W ACU 08/01/2017 GELLENDER DO, LEN Moseley Ot J44.1 CHRONIC OBSTRUCTIVE PULMONARY DISEASE W 08/01/2017 GELLENDER DO, LEN Moseley Ot Z87.891 PERSONAL HISTORY OF NICOTINE DEPENDENCE 08/01/2017 SERGIODER DO, LEN Moseley Ot Z95.1 PRESENCE OF AORTOCORONARY BYPASS GRAFT 08/01/2017 GELLINDADER DO, LEN Moseley Ot J18.9 PNEUMONIA, UNSPECIFIED ORGANISM 08/01/2017 GELLENDER DO, LEN Moseley Ot J18.9 PNEUMONIA, UNSPECIFIED ORGANISM 08/01/2017 GELLENDER DO, LEN Moseley Ot R06.02 SHORTNESS OF BREATH 08/01/2017 GELLENDER DO, LEN Moseley Ot E11.9 TYPE 2 DIABETES MELLITUS WITHOUT COMPLIC 08/01/2017 GELLENDER DO, LEN Moseley Ot E78.00 PURE HYPERCHOLESTEROLEMIA, UNSPECIFIED 08/01/2017 GELLENDER DO, LEN Moseley Ot I10 ESSENTIAL (PRIMARY) HYPERTENSION 08/01/2017 GELLENDER DO, LEN Moseley Ot I25.10 ATHSCL HEART DISEASE OF [place] CORONARY 08/01/2017 GELLENDER DO, LEN Moseley Ot J18.9 PNEUMONIA, UNSPECIFIED ORGANISM 08/01/2017 GELLENDER DO, LEN A Ot J44.0 CHRONIC OBSTRUCTIVE PULMON DISEASE W ACU 08/01/2017 CARMELITA DOLEN Ot J44.1 CHRONIC OBSTRUCTIVE PULMONARY DISEASE W 08/01/2017 CARMELITA SAMLEN Ot Z87.891 PERSONAL HISTORY OF NICOTINE DEPENDENCE 08/01/2017 CARMELITA LEN SAM Ot Z95.1 PRESENCE OF AORTOCORONARY BYPASS GRAFT 08/03/2017 CARMELITA LEN SAM Ot E11.9 TYPE 2 DIABETES MELLITUS WITHOUT COMPLIC 08/03/2017 CARMELITA LEN SAM Ot E78.00 PURE HYPERCHOLESTEROLEMIA, UNSPECIFIED 08/03/2017 SERGIODER DOLEN Ot I10 ESSENTIAL (PRIMARY) HYPERTENSION 08/03/2017 CARMELITA LEN SAM Ot I25.10 ATHSCL HEART DISEASE OF [place] CORONARY 08/03/2017 CARMELITA LEN SAM Ot J18.9 PNEUMONIA, UNSPECIFIED ORGANISM 08/03/2017 SERGIOSTANISLAV LEN SAM Ot J44.0 CHRONIC OBSTRUCTIVE PULMON DISEASE W U 08/03/2017 BLAKEMILADYS LEN SAM Ot J44.1 CHRONIC OBSTRUCTIVE PULMONARY DISEASE W 08/03/2017 CARMELITA LEN SAM Ot Z87.891 PERSONAL HISTORY OF NICOTINE DEPENDENCE 08/03/2017 BLAKEMILADYS LEN SAM Ot Z95.1 PRESENCE OF AORTOCORONARY BYPASS GRAFT 08/03/2017 SERGIOSTANISLAV LEN SAM Ot A41.9 SEPSIS, UNSPECIFIED ORGANISM 08/03/2017 CARMELITA LEN SAM Ot E11.9 TYPE 2 DIABETES MELLITUS WITHOUT COMPLIC 08/03/2017 SERGIOSTANISLAV LEN SAM Ot E78.00 PURE HYPERCHOLESTEROLEMIA, UNSPECIFIED 08/03/2017 SERGIODER DOLEN Ot E87.2 ACIDOSIS 08/03/2017 CARMELITA LEN SAM Ot H91.91 UNSPECIFIED HEARING LOSS, RIGHT EAR 08/03/2017 LEN MAE DO Ot I10 ESSENTIAL (PRIMARY) HYPERTENSION 08/03/2017 BLAKEMILADYS LEN ASM Ot I25.10 ATHSCL HEART DISEASE OF [place] CORONARY 08/03/2017 CARMELITA LEN SAM Ot J18.9 PNEUMONIA, UNSPECIFIED ORGANISM 08/03/2017 LEN MAE DO Ot J44.0 CHRONIC OBSTRUCTIVE PULMON DISEASE W ACU 08/03/2017 LEN MAE DO Ot J44.1 CHRONIC OBSTRUCTIVE PULMONARY DISEASE W 08/03/2017 LEN MAE DO Ot R06.03 ACUTE RESPIRATORY DISTRESS 08/03/2017 LEN MAE DO Ot R60.0 LOCALIZED EDEMA 08/03/2017 LEN MAE DO Ot Z23 ENCOUNTER FOR IMMUNIZATION 08/03/2017 LEN MAE DO Ot Z79.84 COMMUNITY ENGAGEMENT COORDINATOR (CURRENT) USE OF ORAL HYPOGLYC 08/03/2017 LEN MAE DO Ot Z87.891 PERSONAL HISTORY OF NICOTINE DEPENDENCE 08/03/2017 LEN MAE DO Ot Z95.1 PRESENCE OF AORTOCORONARY BYPASS GRAFT 08/03/2017 LEN MAE DO Ot Z97.4 PRESENCE OF EXTERNAL HEARING-AID Procedures There is no data. Results Test Result Range Influenza virus A and B antigen detection - 07/29/17 17:40 FLU RESULT NEGATIVE FOR INFLUENZA A AND B ANTIGENS BY [facility] Complete blood count (CBC) with automated white blood cell (WBC) differential - 07/29/17 19:30 Blood leukocytes automated count (number/volume) 23.7 10*3/uL 4.3-11.0 Blood erythrocytes automated count (number/volume) 4.66 10*6/uL 4.35-5.85 Venous blood hemoglobin measurement (mass/volume) 13.9 g/dL 13.3-17.7 Blood hematocrit (volume fraction) 41 % 40-54 Automated erythrocyte mean corpuscular volume 89 [foz_us] 80-99 Automated erythrocyte mean corpuscular hemoglobin (mass per erythrocyte) 30 pg 25-34 Automated erythrocyte mean corpuscular hemoglobin concentration measurement ( mass/volume) 34 g/dL 32-36 Automated erythrocyte distribution width ratio 12.9 % 10.0-14.5 Automated blood platelet count (count/volume) 283 10*3/uL 130-400 Automated blood platelet mean volume measurement 10.4 [foz_us] 7.4-10.4 Automated blood neutrophils/100 leukocytes 87 % 42-75 Automated blood lymphocytes/100 leukocytes 6 % 12-44 Blood monocytes/100 leukocytes 6 % 0-12 Automated blood eosinophils/100 leukocytes 0 % 0-10 Automated blood basophils/100 leukocytes 0 % 0-10 Blood neutrophils automated count (number/volume) 20.6 10*3 1.8-7.8 Blood lymphocytes automated count (number/volume) 1.5 10*3 1.0-4.0 Blood monocytes automated count (number/volume) 1.5 10*3 0.0-1.0 Automated eosinophil count 0.0 10*3/uL 0.0-0.3 Automated blood basophil count (count/volume) 0.1 10*3/uL 0.0-0.1 PT panel in platelet poor plasma by coagulation assay - 07/29/17 19:30 Prothrombin time (PT) in platelet poor plasma by coagulation assay 13.7 s 12.2-14.7 INR in platelet poor plasma or blood by coagulation assay 1.0 0.8-1.4 Activated partial thromboplastin time (aPTT) in platelet poor plasma bycoagulation assay - 07/29/17 19:30 Activated partial thromboplastin time (aPTT) in platelet poor plasma bycoagulation assay 32 s 24-35 Comprehensive metabolic panel - 07/29/17 19:30 Serum or plasma sodium measurement (moles/volume) 131 mmol/L 135-145 Serum or plasma potassium measurement (moles/volume) 4.0 mmol/L 3.6-5.0 Serum or plasma chloride measurement (moles/volume) 100 mmol/L 98-107 Carbon dioxide 19 mmol/L 21-32 Serum or plasma anion gap determination (moles/volume) 12 mmol/L 5-14 Serum or plasma urea nitrogen measurement (mass/volume) 17 mg/dL 7-18 Serum or plasma creatinine measurement (mass/volume) 1.37 mg/dL 0.60-1.30 Serum or plasma urea nitrogen/creatinine mass ratio 12 NRG Serum or plasma creatinine measurement with calculation of estimated glomerular filtration rate 51 NRG Serum or plasma glucose measurement (mass/volume) 360 mg/dL 70-105 Serum or plasma calcium measurement (mass/volume) 8.8 mg/dL 8.5-10.1 Serum or plasma total bilirubin measurement (mass/volume) 0.7 mg/dL 0.1-1.0 Serum or plasma alkaline phosphatase measurement (enzymatic activity/volume) 70 U/L 40-136 Serum or plasma aspartate aminotransferase measurement (enzymatic activity/ volume) 16 U/L 5-34 Serum or plasma alanine aminotransferase measurement (enzymatic activity/volume ) 32 U/L 0-55 Serum or plasma protein measurement (mass/volume) 6.8 g/dL 6.4-8.2 Serum or plasma albumin measurement (mass/volume) 3.7 g/dL 3.2-4.5 Blood lactic acid measurement (moles/volume) - 07/29/17 19:30 Blood lactic acid measurement (moles/volume) 3.35 mmol/L 0.50-2.00 Blood manual differential performed detection - 07/29/17 19:30 Blood monocytes/100 leukocytes 2 % NRG Manual blood segmented neutrophils/100 leukocytes 85 % NRG Blood band neutrophils/100 leukocytes 5 % NRG Manual blood lymphocytes/100 leukocytes 8 % NRG Manual eosinophils/100 leukocytes in nose 0 % NRG Manual blood basophils/100 leukocytes 0 % NRG Blood erythrocyte morphology finding identification NORMAL NRG Bacterial blood culture - 07/29/17 19:30 Bacterial blood culture NG NRG Bacterial blood culture - 07/29/17 20:00 Bacterial blood culture NG NRG Complete urinalysis with reflex to culture - 07/29/17 20:10 Urine color determination YELLOW NRG Urine clarity determination CLEAR NRG Urine pH measurement by test strip 5 5-9 Specific gravity of urine by test strip 1.025 1.016- 1.022 Urine protein assay by test strip, semi-quantitative 4+ NEGATIVE Urine glucose detection by automated test strip 4+ NEGATIVE Erythrocytes detection in urine sediment by light microscopy NEGATIVE NEGATIVE Urine ketones detection by automated test strip NEGATIVE NEGATIVE Urine nitrite detection by test strip NEGATIVE NEGATIVE Urine total bilirubin detection by test strip NEGATIVE NEGATIVE Urine urobilinogen measurement by automated test strip (mass/volume) NORMAL NORMAL Urine leukocyte esterase detection by dipstick NEGATIVE NEGATIVE Automated urine sediment erythrocyte count by microscopy (number/high power field) NONE NRG Automated urine sediment leukocyte count by microscopy (number/high power field ) RARE NRG Bacteria detection in urine sediment by light microscopy NONE NRG Squamous epithelial cells detection in urine sediment by light microscopy 0-2 NRG Crystals detection in urine sediment by light microscopy NONE NRG Casts detection in urine sediment by light microscopy NONE NRG Mucus detection in urine sediment by light microscopy NEGATIVE NRG Complete urinalysis with reflex to culture NO NRG Serum or plasma lactate measurement (moles/volume) - 07/29/17 22:13 Serum or plasma lactate measurement (moles/volume) 2.86 mmol/L 0.50-2.00 Capillary blood glucose measurement by glucometer (mass/volume) - 07/30/17 00: 49 Capillary blood glucose measurement by glucometer (mass/volume) 223 mg/dL 70-110 Blood lactic acid measurement (moles/volume) - 07/30/17 01:50 Blood lactic acid measurement (moles/volume) 2.45 mmol/L 0.50-2.00 Complete blood count (CBC) with automated white blood cell (WBC) differential - 07/30/17 03:56 Blood leukocytes automated count (number/volume) 21.0 10*3/uL 4.3-11.0 Blood erythrocytes automated count (number/volume) 4.26 10*6/uL 4.35-5.85 Venous blood hemoglobin measurement (mass/volume) 13.0 g/dL 13.3-17.7 Blood hematocrit (volume fraction) 38 % 40-54 Automated erythrocyte mean corpuscular volume 90 [foz_us] 80-99 Automated erythrocyte mean corpuscular hemoglobin (mass per erythrocyte) 31 pg 25-34 Automated erythrocyte mean corpuscular hemoglobin concentration measurement ( mass/volume) 34 g/dL 32-36 Automated erythrocyte distribution width ratio 13.0 % 10.0-14.5 Automated blood platelet count (count/volume) 245 10*3/uL 130-400 Automated blood platelet mean volume measurement 10.0 [foz_us] 7.4-10.4 Automated blood neutrophils/100 leukocytes 86 % 42-75 Automated blood lymphocytes/100 leukocytes 8 % 12-44 Blood monocytes/100 leukocytes 7 % 0-12 Automated blood eosinophils/100 leukocytes 0 % 0-10 Automated blood basophils/100 leukocytes 0 % 0-10 Blood neutrophils automated count (number/volume) 17.9 10*3 1.8-7.8 Blood lymphocytes automated count (number/volume) 1.6 10*3 1.0-4.0 Blood monocytes automated count (number/volume) 1.4 10*3 0.0-1.0 Automated eosinophil count 0.0 10*3/uL 0.0-0.3 Automated blood basophil count (count/volume) 0.0 10*3/uL 0.0-0.1 Blood lactic acid measurement (moles/volume) - 07/30/17 03:56 Blood lactic acid measurement (moles/volume) 1.86 mmol/L 0.50-2.00 Comprehensive metabolic panel - 07/30/17 03:56 Serum or plasma sodium measurement (moles/volume) 136 mmol/L 135-145 Serum or plasma potassium measurement (moles/volume) 3.7 mmol/L 3.6-5.0 Serum or plasma chloride measurement (moles/volume) 105 mmol/L 98-107 Carbon dioxide 22 mmol/L 21-32 Serum or plasma anion gap determination (moles/volume) 9 mmol/L 5-14 Serum or plasma urea nitrogen measurement (mass/volume) 21 mg/dL 7-18 Serum or plasma creatinine measurement (mass/volume) 1.27 mg/dL 0.60-1.30 Serum or plasma urea nitrogen/creatinine mass ratio 17 NRG Serum or plasma creatinine measurement with calculation of estimated glomerular filtration rate 56 NRG Serum or plasma glucose measurement (mass/volume) 207 mg/dL 70-105 Serum or plasma calcium measurement (mass/volume) 8.0 mg/dL 8.5-10.1 Serum or plasma total bilirubin measurement (mass/volume) 0.7 mg/dL 0.1-1.0 Serum or plasma alkaline phosphatase measurement (enzymatic activity/volume) 63 U/L 40-136 Serum or plasma aspartate aminotransferase measurement (enzymatic activity/ volume) 21 U/L 5-34 Serum or plasma alanine aminotransferase measurement (enzymatic activity/volume ) 31 U/L 0-55 Serum or plasma protein measurement (mass/volume) 6.0 g/dL 6.4-8.2 Serum or plasma albumin measurement (mass/volume) 3.2 g/dL 3.2-4.5 Serum or plasma phosphate measurement (mass/volume) - 07/30/17 03:56 Serum or plasma phosphate measurement (mass/volume) 2.6 mg/dL 2.3-4.7 Magnesium - 07/30/17 03:56 Magnesium 1.7 mg/dL 1.8-2.4 Arterial blood gas measurement - 07/30/17 05:17 Blood pCO2 42 mm[Hg] 35-45 Blood pO2 170 mm[Hg] 79-93 Arterial blood bicarbonate measurement (moles/volume) 23 mmol/L 23-27 Arterial blood base excess by calculation -2.0 mmol/L - 2.5-2.5 Arterial blood oxygen saturation measurement 99 % 94-100 * Inhaled oxygen flow rate 60% FI02 NRG Arterial blood pH measurement with patient temperature correction 7.35 7.37-7.43 Arterial blood carbon dioxide, total measurement (moles/volume) 24.3 mmol/L 21.0-31.0 Body site LEFT RADIAL NRG Assessment of wrist artery patency prior to arterial puncture POSITIVE NRG Setting of ventilation mode NO NRG Measurement of body temperature 97.4 NRG Serum or plasma troponin i.cardiac measurement (mass/volume) - 07/30/17 08:57 Serum or plasma troponin i.cardiac measurement (mass/volume) < ng/ mL <0.30 Capillary blood glucose measurement by glucometer (mass/volume) - 07/30/17 11: 00 Capillary blood glucose measurement by glucometer (mass/volume) 342 mg/dL 70-110 Capillary blood glucose measurement by glucometer (mass/volume) - 07/30/17 15: 33 Capillary blood glucose measurement by glucometer (mass/volume) 267 mg/dL 70-110 Capillary blood glucose measurement by glucometer (mass/volume) - 07/30/17 19: 31 Capillary blood glucose measurement by glucometer (mass/volume) 233 mg/dL 70-110 Complete blood count (CBC) with automated white blood cell (WBC) differential - 07/31/17 05:05 Blood leukocytes automated count (number/volume) 15.5 10*3/uL 4.3-11.0 Blood erythrocytes automated count (number/volume) 3.90 10*6/uL 4.35-5.85 Venous blood hemoglobin measurement (mass/volume) 11.7 g/dL 13.3-17.7 Blood hematocrit (volume fraction) 35 % 40-54 Automated erythrocyte mean corpuscular volume 91 [foz_us] 80-99 Automated erythrocyte mean corpuscular hemoglobin (mass per erythrocyte) 30 pg 25-34 Automated erythrocyte mean corpuscular hemoglobin concentration measurement ( mass/volume) 33 g/dL 32-36 Automated erythrocyte distribution width ratio 12.8 % 10.0-14.5 Automated blood platelet count (count/volume) 239 10*3/uL 130-400 Automated blood platelet mean volume measurement 10.4 [foz_us] 7.4-10.4 Automated blood neutrophils/100 leukocytes 79 % 42-75 Automated blood lymphocytes/100 leukocytes 13 % 12-44 Blood monocytes/100 leukocytes 5 % 0-12 Automated blood eosinophils/100 leukocytes 2 % 0-10 Automated blood basophils/100 leukocytes 0 % 0-10 Blood neutrophils automated count (number/volume) 12.3 10*3 1.8-7.8 Blood lymphocytes automated count (number/volume) 2.0 10*3 1.0-4.0 Blood monocytes automated count (number/volume) 0.8 10*3 0.0-1.0 Automated eosinophil count 0.4 10*3/uL 0.0-0.3 Automated blood basophil count (count/volume) 0.0 10*3/uL 0.0-0.1 Serum or plasma lithium measurement (moles/volume) - 07/31/17 05:05 BNP level 175.7 pg/mL <100.0 Comprehensive metabolic panel - 07/31/17 05:05 Serum or plasma sodium measurement (moles/volume) 137 mmol/L 135-145 Serum or plasma potassium measurement (moles/volume) 4.2 mmol/L 3.6-5.0 Serum or plasma chloride measurement (moles/volume) 110 mmol/L 98-107 Carbon dioxide 19 mmol/L 21-32 Serum or plasma anion gap determination (moles/volume) 8 mmol/L 5-14 Serum or plasma urea nitrogen measurement (mass/volume) 23 mg/dL 7-18 Serum or plasma creatinine measurement (mass/volume) 0.95 mg/dL 0.60-1.30 Serum or plasma urea nitrogen/creatinine mass ratio 24 NRG Serum or plasma creatinine measurement with calculation of estimated glomerular filtration rate > NRG Serum or plasma glucose measurement (mass/volume) 188 mg/dL 70-105 Serum or plasma calcium measurement (mass/volume) 8.2 mg/dL 8.5-10.1 Serum or plasma total bilirubin measurement (mass/volume) 0.4 mg/dL 0.1-1.0 Serum or plasma alkaline phosphatase measurement (enzymatic activity/volume) 72 U/L 40-136 Serum or plasma aspartate aminotransferase measurement (enzymatic activity/ volume) 20 U/L 5-34 Serum or plasma alanine aminotransferase measurement (enzymatic activity/volume ) 24 U/L 0-55 Serum or plasma protein measurement (mass/volume) 5.9 g/dL 6.4-8.2 Serum or plasma albumin measurement (mass/volume) 2.8 g/dL 3.2-4.5 Fibrin D-dimer FEU measurement in platelet poor plasma (mass/volume) - 05:05 Fibrin D-dimer FEU measurement in platelet poor plasma (mass/volume) 1.05 ug/mL 0.00-0.49 Capillary blood glucose measurement by glucometer (mass/volume) - 07/31/17 05: 06 Capillary blood glucose measurement by glucometer (mass/volume) 169 mg/dL 70-110 Sputum Gram stain - 07/31/17 13:40 Sputum Gram stain bacterial rafael NRG Bacterial sputum culture - 07/31/17 13:40 Bacterial sputum culture NORMAL NRG Capillary blood glucose measurement by glucometer (mass/volume) - 07/31/17 14: 52 Capillary blood glucose measurement by glucometer (mass/volume) 369 mg/dL 70-110 Capillary blood glucose measurement by glucometer (mass/volume) - 07/31/17 20: 37 Capillary blood glucose measurement by glucometer (mass/volume) 359 mg/dL 70-110 Capillary blood glucose measurement by glucometer (mass/volume) - 08/01/17 05: 27 Capillary blood glucose measurement by glucometer (mass/volume) 297 mg/dL 70-110 Complete blood count (CBC) with automated white blood cell (WBC) differential - 08/01/17 05:54 Blood leukocytes automated count (number/volume) 10.2 10*3/uL 4.3-11.0 Blood erythrocytes automated count (number/volume) 4.42 10*6/uL 4.35-5.85 Venous blood hemoglobin measurement (mass/volume) 13.2 g/dL 13.3-17.7 Blood hematocrit (volume fraction) 39 % 40-54 Automated erythrocyte mean corpuscular volume 89 [foz_us] 80-99 Automated erythrocyte mean corpuscular hemoglobin (mass per erythrocyte) 30 pg 25-34 Automated erythrocyte mean corpuscular hemoglobin concentration measurement ( mass/volume) 34 g/dL 32-36 Automated erythrocyte distribution width ratio 12.8 % 10.0-14.5 Automated blood platelet count (count/volume) 316 10*3/uL 130-400 Automated blood platelet mean volume measurement 10.2 [foz_us] 7.4-10.4 Automated blood neutrophils/100 leukocytes 91 % 42-75 Automated blood lymphocytes/100 leukocytes 7 % 12-44 Blood monocytes/100 leukocytes 2 % 0-12 Automated blood eosinophils/100 leukocytes 0 % 0-10 Automated blood basophils/100 leukocytes 0 % 0-10 Blood neutrophils automated count (number/volume) 9.3 10*3 1.8-7.8 Blood lymphocytes automated count (number/volume) 0.7 10*3 1.0-4.0 Blood monocytes automated count (number/volume) 0.2 10*3 0.0-1.0 Automated eosinophil count 0.0 10*3/uL 0.0-0.3 Automated blood basophil count (count/volume) 0.0 10*3/uL 0.0-0.1 Whole blood basic metabolic panel - 08/01/17 05:54 Serum or plasma sodium measurement (moles/volume) 136 mmol/L 135-145 Serum or plasma potassium measurement (moles/volume) 4.2 mmol/L 3.6-5.0 Serum or plasma chloride measurement (moles/volume) 102 mmol/L 98-107 Carbon dioxide 20 mmol/L 21-32 Serum or plasma anion gap determination (moles/volume) 14 mmol/L 5-14 Serum or plasma urea nitrogen measurement (mass/volume) 20 mg/dL 7-18 Serum or plasma creatinine measurement (mass/volume) 0.96 mg/dL 0.60-1.30 Serum or plasma urea nitrogen/creatinine mass ratio 21 NRG Serum or plasma creatinine measurement with calculation of estimated glomerular filtration rate > NRG Serum or plasma glucose measurement (mass/volume) 321 mg/dL 70-105 Serum or plasma calcium measurement (mass/volume) 9.0 mg/dL 8.5-10.1 Capillary blood glucose measurement by glucometer (mass/volume) - 08/01/17 08: 30 Capillary blood glucose measurement by glucometer (mass/volume) 361 mg/dL 70-110 Vancomycin trough - 08/01/17 10:23 Vancomycin trough 11.1 ug/mL 10.0-20.0 Capillary blood glucose measurement by glucometer (mass/volume) - 08/01/17 14: 49 Capillary blood glucose measurement by glucometer (mass/volume) 397 mg/dL 70-110 Capillary blood glucose measurement by glucometer (mass/volume) - 08/01/17 22: 18 Capillary blood glucose measurement by glucometer (mass/volume) 453 mg/dL 70-110 Complete blood count (CBC) with automated white blood cell (WBC) differential - 08/02/17 05:53 Blood leukocytes automated count (number/volume) 13.1 10*3/uL 4.3-11.0 Blood erythrocytes automated count (number/volume) 4.32 10*6/uL 4.35-5.85 Venous blood hemoglobin measurement (mass/volume) 12.7 g/dL 13.3-17.7 Blood hematocrit (volume fraction) 38 % 40-54 Automated erythrocyte mean corpuscular volume 89 [foz_us] 80-99 Automated erythrocyte mean corpuscular hemoglobin (mass per erythrocyte) 29 pg 25-34 Automated erythrocyte mean corpuscular hemoglobin concentration measurement ( mass/volume) 33 g/dL 32-36 Automated erythrocyte distribution width ratio 12.9 % 10.0-14.5 Automated blood platelet count (count/volume) 362 10*3/uL 130-400 Automated blood platelet mean volume measurement 10.7 [foz_us] 7.4-10.4 Automated blood neutrophils/100 leukocytes 91 % 42-75 Automated blood lymphocytes/100 leukocytes 5 % 12-44 Blood monocytes/100 leukocytes 4 % 0-12 Automated blood eosinophils/100 leukocytes 0 % 0-10 Automated blood basophils/100 leukocytes 0 % 0-10 Blood neutrophils automated count (number/volume) 11.9 10*3 1.8-7.8 Blood lymphocytes automated count (number/volume) 0.6 10*3 1.0-4.0 Blood monocytes automated count (number/volume) 0.6 10*3 0.0-1.0 Automated eosinophil count 0.0 10*3/uL 0.0-0.3 Automated blood basophil count (count/volume) 0.0 10*3/uL 0.0-0.1 Comprehensive metabolic panel - 08/02/17 05:53 Serum or plasma sodium measurement (moles/volume) 138 mmol/L 135-145 Serum or plasma potassium measurement (moles/volume) 4.5 mmol/L 3.6-5.0 Serum or plasma chloride measurement (moles/volume) 107 mmol/L 98-107 Carbon dioxide 20 mmol/L 21-32 Serum or plasma anion gap determination (moles/volume) 11 mmol/L 5-14 Serum or plasma urea nitrogen measurement (mass/volume) 23 mg/dL 7-18 Serum or plasma creatinine measurement (mass/volume) 0.83 mg/dL 0.60-1.30 Serum or plasma urea nitrogen/creatinine mass ratio 28 NRG Serum or plasma creatinine measurement with calculation of estimated glomerular filtration rate > NRG Serum or plasma glucose measurement (mass/volume) 330 mg/dL 70-105 Serum or plasma calcium measurement (mass/volume) 9.0 mg/dL 8.5-10.1 Serum or plasma total bilirubin measurement (mass/volume) 0.5 mg/dL 0.1-1.0 Serum or plasma alkaline phosphatase measurement (enzymatic activity/volume) 91 U/L 40-136 Serum or plasma aspartate aminotransferase measurement (enzymatic activity/ volume) 16 U/L 5-34 Serum or plasma alanine aminotransferase measurement (enzymatic activity/volume ) 27 U/L 0-55 Serum or plasma protein measurement (mass/volume) 6.9 g/dL 6.4-8.2 Serum or plasma albumin measurement (mass/volume) 3.5 g/dL 3.2-4.5 Serum or plasma lithium measurement (moles/volume) - 08/02/17 05:53 BNP level 259.1 pg/mL <100.0 Capillary blood glucose measurement by glucometer (mass/volume) - 08/02/17 09: 51 Capillary blood glucose measurement by glucometer (mass/volume) 362 mg/dL 70-110 Capillary blood glucose measurement by glucometer (mass/volume) - 08/02/17 14: 39 Capillary blood glucose measurement by glucometer (mass/volume) 181 mg/dL 70-110 Capillary blood glucose measurement by glucometer (mass/volume) - 08/02/17 21: 51 Capillary blood glucose measurement by glucometer (mass/volume) 260 mg/dL 70-110 Complete blood count (CBC) with automated white blood cell (WBC) differential - 08/03/17 05:49 Blood leukocytes automated count (number/volume) 9.8 10*3/uL 4.3-11.0 Blood erythrocytes automated count (number/volume) 4.06 10*6/uL 4.35-5.85 Venous blood hemoglobin measurement (mass/volume) 12.1 g/dL 13.3-17.7 Blood hematocrit (volume fraction) 36 % 40-54 Automated erythrocyte mean corpuscular volume 90 [foz_us] 80-99 Automated erythrocyte mean corpuscular hemoglobin (mass per erythrocyte) 30 pg 25-34 Automated erythrocyte mean corpuscular hemoglobin concentration measurement ( mass/volume) 33 g/dL 32-36 Automated erythrocyte distribution width ratio 13.0 % 10.0-14.5 Automated blood platelet count (count/volume) 369 10*3/uL 130-400 Automated blood platelet mean volume measurement 10.4 [foz_us] 7.4-10.4 Automated blood neutrophils/100 leukocytes 71 % 42-75 Automated blood lymphocytes/100 leukocytes 17 % 12-44 Blood monocytes/100 leukocytes 10 % 0-12 Automated blood eosinophils/100 leukocytes 1 % 0-10 Automated blood basophils/100 leukocytes 0 % 0-10 Blood neutrophils automated count (number/volume) 7.0 10*3 1.8-7.8 Blood lymphocytes automated count (number/volume) 1.6 10*3 1.0-4.0 Blood monocytes automated count (number/volume) 1.0 10*3 0.0-1.0 Automated eosinophil count 0.1 10*3/uL 0.0-0.3 Automated blood basophil count (count/volume) 0.0 10*3/uL 0.0-0.1 Whole blood basic metabolic panel - 08/03/17 05:49 Serum or plasma sodium measurement (moles/volume) 141 mmol/L 135-145 Serum or plasma potassium measurement (moles/volume) 4.1 mmol/L 3.6-5.0 Serum or plasma chloride measurement (moles/volume) 108 mmol/L 98-107 Carbon dioxide 27 mmol/L 21-32 Serum or plasma anion gap determination (moles/volume) 6 mmol/L 5-14 Serum or plasma urea nitrogen measurement (mass/volume) 21 mg/dL 7-18 Serum or plasma creatinine measurement (mass/volume) 0.73 mg/dL 0.60-1.30 Serum or plasma urea nitrogen/creatinine mass ratio 29 NRG Serum or plasma creatinine measurement with calculation of estimated glomerular filtration rate > NRG Serum or plasma glucose measurement (mass/volume) 156 mg/dL 70-105 Serum or plasma calcium measurement (mass/volume) 8.4 mg/dL 8.5-10.1 Serum or plasma lithium measurement (moles/volume) - 08/03/17 05:49 BNP level 200.6 pg/mL <100.0 Capillary blood glucose measurement by glucometer (mass/volume) - 08/03/17 09: 54 Capillary blood glucose measurement by glucometer (mass/volume) 238 mg/dL 70-110 Encounters ACCT No. Visit Date/Time Discharge Status Pt. Type Provider Facility Loc./Unit Complaint [id number] 07/29/2017 21:05:00 08/03/2017 13:18:00 DIS Inpatient CARMELITA SAMLEN [facility] 4TH LEFT BASILAR PNA, HYPOXIA [id number] 03/01/2016 10:42:00 03/01/2016 23:59:59 CLS Outpatient CARMELIAT SAMLEN [facility] RT SOB [id number] 01/01/2016 07:33:00 01/01/2016 23:59:59 CLS Outpatient CARMELITA SAMLEN [facility] RAD PNEUMONIA [id number] 12/24/2015 13:16:00 12/24/2015 23:59:59 CLS Outpatient CAREMLITA SAMLEN [facility] RAD PNEUMONIA [id number] 12/18/2015 04:25:00 12/19/2015 11:15:00 DIS Inpatient CARMELITA SAMLEN [facility] 4TH PNEUMONIA,HYPOXIA, COPD EXAC [id number] 08/25/2018 20:02:00 ACT Emergency DANIELLE BONDS, DONALD Muhammad [facility] ER SOB [id number] 01/21/2012 09:40:00 Document Registration [id number] 01/31/2011 04:50:00 Document Registration
[2018-08-25] MEDS ORDERED: NS IV 1000 ML 1,000 ML IV SCH (20:08)
[2018-08-25] MEDS ORDERED: AZITHROMYCIN INJECTION 500 MG in NS (IVPB) 250 ML IV ONE (20:15)
[2018-08-25] MEDS ORDERED: RT-ALBUTEROL/IPRATROPIUM 3 ML (DUONEB) VIAL INH ONE (20:15)
[2018-08-25] MEDS ORDERED: cefTRIAXone FOR IV USE 1,000 MG in NS (IVPB) 50 ML IV ONE (20:15)
--- NOTE | 2018-08-25 20:17 | ED Respiratory ---
General Stated Complaint: SOB Source: patient, family (son), spouse Exam Limitations: no limitations History of Present Illness Date Seen by Provider: Aug 25, 2018 Time Seen by Provider: 20:00 Initial Comments The patient presents to ER by private conveyance with chief complaint of shortness of breath and headache for the past couple days progressively worsening. He denies pain in his chest but he does have a history of 5 vessel bypass. He's not noticing increased swelling in his hands or feet. No weight gain. Does not have any nausea chills sweats fever or productive cough. Does have a history of uqt-llcllcb-hqhesjvpd diabetes. He uses albuterol nebulizers about 4 times a day on average. He says he has not been using them anymore but about 3:00 this morning he woke up feeling short of breath and he took a couple puffs of his Combivent and that helped. He quit smoking 17 years ago after his heart attack but still occasionally has a DIP. Allergies and Home Medications Allergies Coded Allergies: Penicillins (Unverified Allergy, Mild, 01/31/11) Home Medications Albuterol/Ipratropium 4 Gm Aero, 1 PUFF INH QID, (Reported) Amlodipine Besylate 10 Mg Tablet, 10 MG PO DAILY, (Reported) Aspirin 325 Mg Tablet, 325 MG PO DAILY, (Reported) Atorvastatin Calcium 80 Mg Tablet, 40 MG PO HS, (Reported) TAKES 1/2 (80MG) TABLET Carvedilol 6.25 Mg Tablet, 6.25 MG PO BID, (Reported) Cefdinir 300 Mg Capsule, 300 MG PO BID Prescribed by: ALEX LIMA on 08/03/171151 Furosemide 20 Mg Tablet, 20 MG PO DAILY Prescribed by: ALEX LIMA on 08/03/17 115 Glimepiride 4 Mg Tablet, 4 MG PO BID, (Reported) Losartan Potassium 100 Mg Tablet, 100 MG PO DAILY, (Reported) Metformin HCl 500 Mg Tab.er.24h, 1,000 MG PO BID, (Reported) TAKES 2 (500MG) TABLETS Multivitamins 1 Each Capsule, 1 CAP PO DAILY, (Reported) [place] 3 Polyunsat Fatty Acids 1,000 Mg Cap, 1,000 MG PO HS, (Reported) Patient Home Medication List Home Medication List Reviewed: Yes Review of Systems Review of Systems Constitutional: No chills, No diaphoresis, No fever; malaise, weakness EENTM: No ear discharge, No hearing loss Respiratory: No cough; short of breath, wheezing Cardiovascular: No chest pain, No edema Gastrointestinal: No abdominal pain, No constipation, No diarrhea, No nausea Genitourinary: No discharge, No dysuria Past Yhbwphc-Hyffhi-Lngglc Hx Patient Social History Alcohol Use: Denies Use Recreational Drug Use: No Smoking Status: Former Smoker Type Used: Smokeless Tobacco (occ) Former Smoker, Quit: Nov 24, 2000 2nd Hand Smoke Exposure: No Recent Foreign Travel: No Contact w/Someone Who Travel: No Recent Hopitalizations: No Immunizations Up To Date Tetanus Booster (TDap): More than 5yrs Date of Pneumonia Vaccine: Oct 07, 2015 Date of Influenza Vaccine: Sep 23, 2015 Seasonal Allergies Seasonal Allergies: No Past Medical History Surgeries: Yes (CABG x5 11/2002) Cardiac, CABG Respiratory: Yes Pneumonia, Chronic Bronchitis, COPD Currently Using CPAP: No Cardiac: Yes (CABG ) High Cholesterol, Hypertension Neurological: No Reproductive Disorders: No Genitourinary: No Gastrointestinal: No Musculoskeletal: No Endocrine: Yes Diabetes, Non-Insulin dep HEENT: No Hearing Impairment: Hard of Hearing, Hearing Aide Right Cancer: No Psychosocial: No Integumentary: No Blood Disorders: No Family Medical History Asthma 19 FATHER Cardiovascular disease G8 SISTER Completed stroke G8 SISTER Diabetes mellitus 19 MOTHER G8 BROTHER FH: cancer G8 BROTHER G8 SISTER FH: hearing loss 19 FATHER Myocardial infarction 19 FATHER CAD Over 55 Years Old, Diabetes Physical Exam Vital Signs - First Documented 08/25/18 08/25/18 20:03 21:20 Temp 100.3 Pulse 76 Resp 16 B/P (MAP) 141/64 (89) Pulse Ox 94 O2 Delivery Nasal Cannula O2 Flow Rate 4.00 FiO2 35 Capillary Refill : Height: 5'10.00" Weight: 203lbs. 4.0oz. 92.941354un; 28.0 BMI Method:Stated General Appearance: WD/WN, mild distress Eyes: Bilateral Eye Normal Inspection, Bilateral Eye PERRL, Bilateral Eye EOMI HEENT: PERRL/EOMI, normal ENT inspection, TMs normal, pharynx normal Neck: non-tender, full range of motion, supple, normal inspection Respiratory: chest non-tender, no respiratory distress, no accessory muscle use , decreased breath sounds, rales (left base), wheezing, expiration Cardiovascular: normal peripheral pulses, regular rate, rhythm, no edema Gastrointestinal: normal bowel sounds, non tender, soft Focused Exam Lactate Level 08/25/18 20:08: Lactic Acid Level 1.73 Lactic Acid Level Laboratory Tests Test 08/25/18 20:08 Lactic Acid Level 1.73 MMOL/L (0.50-2.00) Progress/Results/Core Measures Suspected Sepsis SIRS Temperature: Pulse: Respiratory Rate: Laboratory Tests 08/25/18 20:08: White Blood Count 3.5L Blood Pressure / Mean: 08/25/18 20:08: Lactic Acid Level 1.73 Laboratory Tests 08/25/18 20:08: Creatinine 0.99, INR Comment 0.9, Platelet Count 153, Total Bilirubin 0.3 Results/Orders Lab Results Laboratory Tests Test 08/25/18 20:08 08/25/18 21:32 Range/Units White Blood Count 3.5 L 4.3-11.0 10^3/uL Red Blood Count 4.84 4.35-5.85 10^6/uL Hemoglobin 14.4 13.3-17.7 G/DL Hematocrit 43 40-54 % Mean Corpuscular Volume 89 80-99 FL Mean Corpuscular Hemoglobin 30 25-34 PG Mean Corpuscular Hemoglobin Concent 33 32-36 G/DL Red Cell Distribution Width 13.0 10.0-14.5 % Platelet Count 153 130-400 10^3/uL Mean Platelet Volume 10.5 H 7.4-10.4 FL Neutrophils (%) (Auto) 54 42-75 % Lymphocytes (%) (Auto) 31 12-44 % Monocytes (%) (Auto) 15 H 0-12 % Eosinophils (%) (Auto) 0 0-10 % Basophils (%) (Auto) 1 0-10 % Neutrophils # (Auto) 1.9 1.8-7.8 X 10^3 Lymphocytes # (Auto) 1.1 1.0-4.0 X 10^3 Monocytes # (Auto) 0.5 0.0-1.0 X 10^3 Eosinophils # (Auto) 0.0 0.0-0.3 10^3/uL Basophils # (Auto) 0.0 0.0-0.1 10^3/uL Prothrombin Time 12.6 12.2-14.7 SEC INR Comment 0.9 0.8-1.4 Activated Partial Thromboplast Time 39 H 24-35 SEC Blood Gas Puncture Site RIGHT RADIAL Blood Gas Patient Temperature 100.3 Arterial Blood pH 7.43 7.37-7.43 Arterial Blood Partial Pressure CO2 40 35-45 MMHG Arterial Blood Partial Pressure O2 77 L 79-93 MMHG Arterial Blood HCO3 26 23-27 MMOL/L Arterial Blood Total CO2 27.5 21.0-31.0 MMOL/L Arterial Blood Oxygen Saturation 95 94-100 % Arterial Blood Base Excess 2.5 -2.5-2.5 MMOL/L Ibrahima Test YES-POS Blood Gas Ventilator Setting NO Blood Gas Inspired Oxygen 3L Sodium Level 131 L 135-145 MMOL/L Potassium Level 4.2 3.6-5.0 MMOL/L Chloride Level 96 L 98-107 MMOL/L Carbon Dioxide Level 22 21-32 MMOL/L Anion Gap 13 5-14 MMOL/L Blood Urea Nitrogen 13 7-18 MG/DL Creatinine 0.99 0.60-1.30 MG/DL Estimat Glomerular Filtration Rate > 60 BUN/Creatinine Ratio 13 Glucose Level 288 H 70-105 MG/DL Lactic Acid Level 1.73 0.50-2.00 MMOL/L Calcium Level 8.4 L 8.5-10.1 MG/DL Corrected Calcium 8.6 8.5-10.1 MG/DL Total Bilirubin 0.3 0.1-1.0 MG/DL Aspartate Amino Transf (AST/SGOT) 42 H 5-34 U/L Alanine Aminotransferase (ALT/SGPT) 39 0-55 U/L Alkaline Phosphatase 70 40-136 U/L Troponin I < 0.30 <0.30 NG/ML Total Protein 6.4 6.4-8.2 GM/DL Albumin 3.7 3.2-4.5 GM/DL Urine Color YELLOW Urine Clarity CLEAR Urine pH 6 5-9 Urine Specific [place] 1.015 L 1.016-1.022 Urine Protein 4+ NEGATIVE Urine Glucose (UA) 4+ H NEGATIVE Urine Ketones NEGATIVE NEGATIVE Urine Nitrite NEGATIVE NEGATIVE Urine Bilirubin NEGATIVE NEGATIVE Urine Urobilinogen NORMAL NORMAL MG/DL Urine Leukocyte Esterase NEGATIVE NEGATIVE Urine RBC (Auto) 1+ H NEGATIVE Urine RBC 0-2 /HPF Urine WBC NONE /HPF Urine Squamous Epithelial Cells 0-2 /HPF Urine Crystals NONE /LPF Urine Bacteria NONE /HPF Urine Casts NONE /LPF Urine Mucus NEGATIVE /LPF Urine Culture Indicated NO Micro Results Microbiology 08/25/18 Influenza Types A,B Antigen (URIEL) - Final, Complete My Orders Orders - DONALD SANTOS Chest Pa/Lat (2 View) (08/25/18 20:08) Albuterol/Ipra Inhalation Soln (Duoneb I (08/25/18 20:15) Saline Lock/Iv-Start (08/25/18 20:08) Ns Iv 1000 Ml (Sodium Chloride 0.9%) (08/25/18 20:08) Cbc With Automated Diff (08/25/18 20:08) Comprehensive Metabolic Panel (08/25/18 20:08) Blood Culture (08/25/18 20:08) Sputum Culture (08/25/18 20:08) Urinalysis (08/25/18 20:08) Urine Culture (08/25/18 20:08) Protime With Inr (08/25/18 20:08) Partial Thromboplastin Time (08/25/18 20:08) Saline Lock/Iv-Start (08/25/18 20:08) Saline Lock/Iv-Start (08/25/18 20:08) Ekg Tracing (08/25/18 20:08) Troponin I (08/25/18 20:08) Vital Signs Adult Sepsis Patie Q15M (08/25/18 20:08) O2 (08/25/18 20:08) Remove Rings In Anticipation O (08/25/18 20:08) Lactic Acid Analyzer (08/25/18 20:08) Influenza A And B Antigens (08/25/18 20:08) Ceftriaxone For Iv Use (Rocephin For I (08/25/18 20:15) Azithromycin Injection (Zithromax Inject (08/25/18 20:15) Svn Small Volume Nebulizer (08/25/18 20:08) Arterial Blood Gas (08/25/18 20:08) Aspirin Chewable Tablet (Baby Aspirin Ch (08/25/18 20:30) Acetaminophen Tablet (Tylenol Tablet) (08/25/18 20:45) Medications Given in ED Current Medications Medications Dose Ordered Sig/Gi Route Start Time Stop Time Status Last Admin Dose Admin Acetaminophen 1,000 mg ONCE ONCE PO 08/25/18 20:45 11/2/18 20:46 DC 08/25/18 20:46 1,000 MG Albuterol/ Ipratropium 3 ml ONCE ONCE INH 08/25/18 20:15 08/25/18 20:16 DC 08/25/18 20:28 3 ML Aspirin 324 mg ONCE ONCE PO 08/25/18 20:30 08/25/18 20:31 DC 08/25/18 20:40 324 MG Azithromycin 500 mg/Sodium Chloride 250 ml @ 250 mls/hr ONCE ONCE IV 08/25/18 20:15 08/25/18 21:14 DC 08/25/18 21:12 250 MLS/HR Ceftriaxone Sodium 1000 mg/ Sodium Chloride 60 ml @ 100 mls/hr ONCE ONCE IV 08/25/18 20:15 08/25/18 20:50 DC 08/25/18 20:40 100 MLS/HR Vital Signs/I&O 08/25/18 08/25/18 08/25/18 08/25/18 20:03 20:03 20:28 21:20 Temp 100.3 Pulse 76 Resp 16 B/P (MAP) 141/64 (89) Pulse Ox 94 94 95 94 O2 Delivery Nasal Cannula Nasal Cannula Nasal Cannula Vapotherm O2 Flow Rate 4.00 4.00 3.00 40.00 FiO2 35 Capillary Refill : Progress Note : Time: 20:24 Progress Note Not sure if this is a new left bundle branch block we'll going give him some aspirin for potential atypical chest presentation. Oxygen sats were in the mid 80s on room air when he got here. Seems like pneumonia or even COPD exacerbation is likely. Start some fluids put him on Rocephin and azithromycin. ECG Initial ECG Impression Date: Aug 25, 2018 Initial ECG Impression Time: 20:05 Initial ECG Rate: 67 Initial ECG Rhythm: Normal Sinus Initial ECG Intervals: QT (482) Initial ECG Impression: Nonspecific Changes (Left Bundle Branch Block) Initial ECG Comparisson: Changed Comment Left bundle branch block. This was not seen in 2016 which was after his CABG but not sure if it's a new finding today. Diagnostic Imaging Diagonstic Imaging: Xray Plain Films/CT/US/NM/MRI: chest (2v) Comments Right lower lobe infiltrate left lower lobe atelectasis versus infiltrate. NAME: RIGO GARCIA [facility] REC#: [id number] PHYSICIAN: DONALD SANTOS MD CC: ERIC ALBARADO MD; DONALD SANTOS Page 1 of 1 RADIOLOGY REPORT VIA [facility]. [place], [place] CC: ERIC ALBARADO MD; DONALD SANTOS Page 1 of 1 RADIOLOGY REPORT NAME: RIGO GARCIA [facility] REC#: [id number] PT STATUS: REG ER : 1945 PHYSICIAN: DONALD SANTOS MD ADMIT DATE: 08/25/18/ER Signed Date of Exam: 08/25/18 CHEST PA/LAT (2 VIEW) EXAMINATION: PA and lateral chest at 9:19 PM INDICATION: Weakness and shortness of breath The heart size is within normal limits and stable when compared to 08/03/2017. The sternotomy wires and surgical clips noted previously are again evident and no different. As on the prior exam, there are coarse interstitial infiltrates involving both lower lobes as well as blunting of the costophrenic angles. The upper lungs remain clear. The mediastinum is not widened. The osseous structures are intact. IMPRESSION: 1. There is persistent involvement of both lung bases by coarse interstitial pulmonary infiltrates. When compared to the previous study there has been no significant change. 2. If further imaging is desired, then CT of the chest would be recommended. Dictated by: Dictated on workstation # [id number] Dict: 08/25/182118 Trans: 08/25/182209 Interpreted by: ERIC ALBARADO MD Electronically signed by: ERIC ALBARADO MD 08/25/182209 Reviewed: Reviewed by Me Departure Communication (Admissions) Time/Spoke to Admitting Phy: 22:50 Discussed case lab imaging findings with Dr. Danielson and he agrees to admit the patient for pneumonia. Impression Primary Impression: Pneumonia Qualified Codes: J18.1 - Lobar pneumonia, unspecified organism Additional Impressions: Hypoxia Hyponatremia Disposition: ADMITTED INPATIENT Condition: Improved Admissions Decision to Admit Reason: Admit from ER (General) Decision to Admit/Date: Aug 25, 2018 Time/Decision to Admit Time: 22:29 Departure-Patient Inst. Referrals: LEN MAE DO (PCP/Family) Primary Care Physician Copy Copies To 1: LEN MAE TITUS J Aug 25, 2018 20:17
[2018-08-25 20:23] LABS: BASOPHILS % (AUTO) 1 % (0-10); EOSINOPHILS % (AUTO) 0 % (0-10); HEMATOCRIT 43 % (40-54); HEMOGLOBIN 14.4 G/DL (13.3-17.7); LYMPHOCYTES # (AUTO) 1.1 X 10^3 (1.0-4.0); LYMPHOCYTES % (AUTO) 31 % (12-44); MEAN CORPUSCULAR HEMOGLOBIN 30 PG (25-34); MEAN CORPUSCULAR HGB CONC 33 G/DL (32-36); MEAN CORPUSCULAR VOLUME 89 FL (80-99); MEAN PLATELET VOLUME 10.5 FL (7.4-10.4); MONOCYTES # (AUTO) 0.5 X 10^3 (0.0-1.0); MONOCYTES % (AUTO) 15 % (0-12); NEUTROPHILS # (AUTO) 1.9 X 10^3 (1.8-7.8); NEUTROPHILS % (AUTO) 54 % (42-75); PLATELET COUNT 153 10^3/uL (130-400); RED BLOOD COUNT 4.84 10^6/uL (4.35-5.85); WHITE BLOOD COUNT 3.5 10^3/uL (4.3-11.0)
[2018-08-25] MEDS ORDERED: ASPIRIN 81 MG CHEW (CHILDREN'S ASA) PO ONE (20:30)
[2018-08-25 20:32] LABS: ABG BASE EXCESS 2.5 MMOL/L (-2.5-2.5); ABG OXYGEN SATURATION 95 % (94-100); ABG PCO2 40 MMHG (35-45); ABG PH 7.43 (7.37-7.43); ABG PO2 77 MMHG (79-93); ABG TCO2 27.5 MMOL/L (21.0-31.0)
[2018-08-25 20:33] LABS: ALLENS TEST YES-POS; INSPIRED O2 3L; PATIENT TEMP 100.3; VENTILATOR NO
[2018-08-25 20:34] LABS: INR 0.9 (0.8-1.4); PROTHROMBIN TIME PATIENT 12.6 SEC (12.2-14.7)
[2018-08-25 20:40] LABS: ALANINE AMINOTRANSFERASE 39 U/L (0-55); ALBUMIN 3.7 GM/DL (3.2-4.5); ALKALINE PHOSPHATASE 70 U/L (40-136); BILIRUBIN,TOTAL 0.3 MG/DL (0.1-1.0); BUN/CREATININE RATIO 13; CALCIUM 8.4 MG/DL (8.5-10.1); CARBON DIOXIDE 22 MMOL/L (21-32); CHLORIDE 96 MMOL/L (98-107); CREATININE SERUM 0.99 MG/DL (0.60-1.30); GFR ESTIMATED > 60; GLUCOSE 288 MG/DL (70-105); POTASSIUM 4.2 MMOL/L (3.6-5.0); SODIUM 131 MMOL/L (135-145); TOTAL PROTEIN 6.4 GM/DL (6.4-8.2)
[2018-08-25] MEDS ORDERED: ACETAMINOPHEN 500 MG TAB (TYLENOL) PO ONE (20:45)
--- NOTE | 2018-08-25 21:27 | Diagnostic Imaging Report ---
EXAMINATION: PA and lateral chest at 9:19 PM INDICATION: Weakness and shortness of breath The heart size is within normal limits and stable when compared to 08/03/2017. The sternotomy wires and surgical clips noted previously are again evident and no different. As on the prior exam, there are coarse interstitial infiltrates involving both lower lobes as well as blunting of the costophrenic angles. The upper lungs remain clear. The mediastinum is not widened. The osseous structures are intact. IMPRESSION: 1. There is persistent involvement of both lung bases by coarse interstitial pulmonary infiltrates. When compared to the previous study there has been no significant change. 2. If further imaging is desired, then CT of the chest would be recommended. Dictated by: Dictated on workstation # [id number]
[2018-08-25 21:37] LABS: BILIRUBIN,URINE NEGATIVE (NEGATIVE); CLARITY,URINE CLEAR; COLOR,URINE YELLOW; GLUCOSE, URINE (UA) 4+ (NEGATIVE); KETONES,URINE NEGATIVE (NEGATIVE); LEUKOCYTE ESTERASE ,URINE NEGATIVE (NEGATIVE); NITRITE,URINE NEGATIVE (NEGATIVE); PH,URINE 6 (5-9); PROTEIN,URINE 4+ (NEGATIVE); UROBILINOGEN,URINE NORMAL (NORMAL)
[2018-08-25 21:43] LABS: RBC,URINE 0-2 /HPF; SQUAMOUS EPITHELIAL CELL,UR 0-2 /HPF
--- OUTSIDE RECORDS SUMMARY | 2018-08-25 23:02 | XMS REPORT | Continuity of Care Document ---
Author Author [facility] Organization [facility] Address Unknown Phone Unavailable Allergies Active Description Code Type Severity Reaction Onset Reported/Identified Relationship to Patient Clinical Status Yes Penicillins [id number] Drug Allergy Mild N/A 01/31/2011 Medications There [...] DO Ot I25.10 ATHSCL HEART DISEASE OF [place] CORONARY 12/19/2015 LEN MAE DO Ot J18.9 [...] Moseley Ot I25.10 ATHSCL HEART DISEASE OF [place] CORONARY 08/01/2017 GELLENDER DO, LEN Moseley Ot [...] Moseley Ot I25.10 ATHSCL HEART DISEASE OF [place] CORONARY 08/01/2017 GELLENDER DO, LEN Moseley Ot [...] SAM Ot I25.10 ATHSCL HEART DISEASE OF [place] CORONARY 08/03/2017 CARMELITA LEN SAM Ot J18.9 [...] I10 ESSENTIAL (PRIMARY) HYPERTENSION 08/03/2017 BLAKEMILADYS LEN SAM Ot I25.10 ATHSCL HEART DISEASE OF [place] CORONARY 08/03/2017 CARMELITA LEN SAM Ot J18.9 [...] IMMUNIZATION 08/03/2017 LEN MAE DO Ot Z79.84 ONLINE PROGRAM COORDINATOR (CURRENT) USE OF ORAL HYPOGLYC 08/03/2017 [...] FOR INFLUENZA A AND B ANTIGENS BY [facility] Complete blood count (CBC) with automated white [...] measurement by glucometer (mass/volume) 238 mg/dL 70-110 Complete blood count (CBC) with automated white blood cell (WBC) differential - 08/25/18 20:08 Blood leukocytes automated count (number/volume) 3.5 10*3/uL 4.3-11.0 Blood erythrocytes automated count (number/volume) 4.84 10*6/uL 4.35-5.85 Venous blood hemoglobin measurement (mass/volume) 14.4 g/dL 13.3-17.7 Blood hematocrit (volume fraction) 43 % 40-54 Automated erythrocyte mean corpuscular volume 89 [foz_us] 80-99 Automated erythrocyte mean corpuscular hemoglobin (mass per erythrocyte) 30 pg 25-34 Automated erythrocyte mean corpuscular hemoglobin concentration measurement ( mass/volume) 33 g/dL 32-36 Automated erythrocyte distribution width ratio 13.0 % 10.0-14.5 Automated blood platelet count (count/volume) 153 10*3/uL 130-400 Automated blood platelet mean volume measurement 10.5 [foz_us] 7.4-10.4 Automated blood neutrophils/100 leukocytes 54 % 42-75 Automated blood lymphocytes/100 leukocytes 31 % 12-44 Blood monocytes/100 leukocytes 15 % 0-12 Automated blood eosinophils/100 leukocytes 0 % 0-10 Automated blood basophils/100 leukocytes 1 % 0-10 Blood neutrophils automated count (number/volume) 1.9 10*3 1.8-7.8 Blood lymphocytes automated count (number/volume) 1.1 10*3 1.0-4.0 Blood monocytes automated count (number/volume) 0.5 10*3 0.0-1.0 Automated eosinophil count 0.0 10*3/uL 0.0-0.3 Automated blood basophil count (count/volume) 0.0 10*3/uL 0.0-0.1 Arterial blood gas measurement - 08/25/18 20:08 Blood pCO2 40 mm[Hg] 35-45 Blood pO2 77 mm[Hg] 79-93 Arterial blood bicarbonate measurement (moles/volume) 26 mmol/L 23-27 Arterial blood base excess by calculation 2.5 mmol/L -2.5 -2.5 Arterial blood oxygen saturation measurement 95 % 94-100 * Inhaled oxygen flow rate 3L NRG Arterial blood pH measurement with patient temperature correction 7.43 7.37-7.43 Arterial blood carbon dioxide, total measurement (moles/volume) 27.5 mmol/L 21.0-31.0 Body site RIGHT RADIAL NRG Assessment of wrist artery patency prior to arterial puncture YES- POS NRG Setting of ventilation mode NO NRG Measurement of body temperature 100.3 NRG PT panel in platelet poor plasma by coagulation assay - 08/25/18 20:08 Prothrombin time (PT) in platelet poor plasma by coagulation assay 12.6 s 12.2-14.7 INR in platelet poor plasma or blood by coagulation assay 0.9 0.8-1.4 Activated partial thromboplastin time (aPTT) in platelet poor plasma bycoagulation assay - 08/25/18 20:08 Activated partial thromboplastin time (aPTT) in platelet poor plasma bycoagulation assay 39 s 24-35 Blood lactic acid measurement (moles/volume) - 08/25/18 20:08 Blood lactic acid measurement (moles/volume) 1.73 mmol/L 0.50-2.00 Comprehensive metabolic panel - 08/25/18 20:08 Serum or plasma sodium measurement (moles/volume) 131 mmol/L 135-145 Serum or plasma potassium measurement (moles/volume) 4.2 mmol/L 3.6-5.0 Serum or plasma chloride measurement (moles/volume) 96 mmol/L 98-107 Carbon dioxide 22 mmol/L 21-32 Serum or plasma anion gap determination (moles/volume) 13 mmol/L 5-14 Serum or plasma urea nitrogen measurement (mass/volume) 13 mg/dL 7-18 Serum or plasma creatinine measurement (mass/volume) 0.99 mg/dL 0.60-1.30 Serum or plasma urea nitrogen/creatinine mass ratio 13 NRG Serum or plasma creatinine measurement with calculation of estimated glomerular filtration rate > NRG Serum or plasma glucose measurement (mass/volume) 288 mg/dL 70-105 Serum or plasma calcium measurement (mass/volume) 8.4 mg/dL 8.5-10.1 Serum or plasma total bilirubin measurement (mass/volume) 0.3 mg/dL 0.1-1.0 Serum or plasma alkaline phosphatase measurement (enzymatic activity/volume) 70 U/L 40-136 Serum or plasma aspartate aminotransferase measurement (enzymatic activity/ volume) 42 U/L 5-34 Serum or plasma alanine aminotransferase measurement (enzymatic activity/volume ) 39 U/L 0-55 Serum or plasma protein measurement (mass/volume) 6.4 g/dL 6.4-8.2 Serum or plasma albumin measurement (mass/volume) 3.7 g/dL 3.2-4.5 CALCIUM CORRECTED 8.6 mg/dL 8.5-10.1 Influenza virus A and B antigen detection - 08/25/18 20:08 FLU RESULT NEGATIVE FOR INFLUENZA A AND B ANTIGENS BY [place] NRG Serum or plasma troponin i.cardiac measurement (mass/volume) - 08/25/18 20:08 Serum or plasma troponin i.cardiac measurement (mass/volume) < ng/ mL <0.30 Complete urinalysis with reflex to culture - 08/25/18 21:32 Urine color determination YELLOW NRG Urine clarity determination CLEAR NRG Urine pH measurement by test strip 6 5-9 Specific gravity of urine by test strip 1.015 1.016- 1.022 Urine protein assay by test strip, semi-quantitative 4+ NEGATIVE Urine glucose detection by automated test strip 4+ NEGATIVE Erythrocytes detection in urine sediment by light microscopy 1+ NEGATIVE Urine ketones detection by automated test strip NEGATIVE NEGATIVE Urine nitrite detection by test strip NEGATIVE NEGATIVE Urine total bilirubin detection by test strip NEGATIVE NEGATIVE Urine urobilinogen measurement by automated test strip (mass/volume) NORMAL NORMAL Urine leukocyte esterase detection by dipstick NEGATIVE NEGATIVE Automated urine sediment erythrocyte count by microscopy (number/high power field) [HPF] NRG Automated urine sediment leukocyte count by microscopy (number/high power field ) NONE NRG Bacteria detection in urine sediment by light microscopy NONE NRG Squamous epithelial cells detection in urine sediment by light microscopy 0-2 NRG Crystals detection in urine sediment by light microscopy NONE NRG Casts detection in urine sediment by light microscopy NONE NRG Mucus detection in urine sediment by light microscopy NEGATIVE NRG Complete urinalysis with reflex to culture NO NRG Encounters ACCT No. Visit Date/Time Discharge Status Pt. Type Provider Facility Loc./Unit Complaint [id number] 07/29/2017 21:05:00 08/03/2017 13:18:00 DIS Inpatient LEN MAE DO [facility] 4TH LEFT BASILAR PNA, HYPOXIA [id number] 03/01/2016 10:42:00 03/01/2016 23:59:59 CLS Outpatient LEN MAE DO [facility] RT SOB [id number] 01/01/2016 07:33:00 01/01/2016 23:59:59 CLS Outpatient LEN MAE DO Pradip [facility] RAD PNEUMONIA [id number] 12/24/2015 13:16:00 12/24/2015 23:59:59 CLS Outpatient LEN MAE DO Pradip [facility] RAD PNEUMONIA [id number] 12/18/2015 04:25:00 12/19/2015 11:15:00 DIS Inpatient LEN MAE DO [facility] 4TH PNEUMONIA,HYPOXIA, COPD EXAC [id number] 08/25/2018 22:25:00 ACT Inpatient AYANA BONDS, LAURA Barbosa [facility] 4TH PNA,ACUTE RESP DISTRESS,HYPOXIA [id number] 01/21/2012 09:40:00 Document Registration [id number] 01/31/2011 04:50:00 Document Registration
[2018-08-25 23:43] VITALS: BP 141/64
[2018-08-26] VITALS (14 sets, daily range): BP systolic 101–182; BP diastolic 65–128
[2018-08-26] MEDS ORDERED: ONDANSETRON 4 MG/2 ML (SDV) Z0FRAN IV PRN (01:45)
[2018-08-26] MEDS: NS W/KCL 20 MEQ/L 1,000 ML IV SCH ×4 (02:16→19:50)
[2018-08-26] MEDS: RT-ALBUTEROL SULF 2.5 MG/3 ML PRE-MIX VIAL INH SCH ×6 (03:28→21:15)
[2018-08-26] MEDS ORDERED: RT-ALBUTEROL SULF 2.5 MG/3 ML PRE-MIX VIAL INH PRN (04:00)
[2018-08-26 06:54] LABS: BASOPHILS % (AUTO) 0 % (0-10); EOSINOPHILS # (AUTO) 0.1 10^3/uL (0.0-0.3); EOSINOPHILS % (AUTO) 1 % (0-10); HEMATOCRIT 42 % (40-54); HEMOGLOBIN 14.1 G/DL (13.3-17.7); LYMPHOCYTES # (AUTO) 0.7 X 10^3 (1.0-4.0); LYMPHOCYTES % (AUTO) 20 % (12-44); MEAN CORPUSCULAR HEMOGLOBIN 30 PG (25-34); MEAN CORPUSCULAR HGB CONC 34 G/DL (32-36); MEAN CORPUSCULAR VOLUME 89 FL (80-99); MEAN PLATELET VOLUME 11.4 FL (7.4-10.4); MONOCYTES # (AUTO) 0.3 X 10^3 (0.0-1.0); MONOCYTES % (AUTO) 7 % (0-12); NEUTROPHILS # (AUTO) 2.7 X 10^3 (1.8-7.8); NEUTROPHILS % (AUTO) 72 % (42-75); PLATELET COUNT 127 10^3/uL (130-400); RED BLOOD COUNT 4.72 10^6/uL (4.35-5.85); RED CELL DISTRIBUTION WIDTH 13.3 % (10.0-14.5); WHITE BLOOD COUNT 3.7 10^3/uL (4.3-11.0)
[2018-08-26 07:28] LABS: BUN/CREATININE RATIO 13; CALCIUM 7.7 MG/DL (8.5-10.1); CARBON DIOXIDE 24 MMOL/L (21-32); CHLORIDE 103 MMOL/L (98-107); CREATININE SERUM 0.77 MG/DL (0.60-1.30); GFR ESTIMATED > 60; GLUCOSE 176 MG/DL (70-105); POTASSIUM 4.1 MMOL/L (3.6-5.0); SODIUM 136 MMOL/L (135-145)
[2018-08-26] MEDS ORDERED: oxyCODONE ER 40 MG (oxyCONTIN CR) TAB PO SCH (09:00)
[2018-08-26] MEDS: ACETAMINOPHEN 500 MG TAB (TYLENOL) PO PRN ×2 (09:14→20:06)
[2018-08-26] MEDS: ASPIRIN 325 MG (5 GR) TABLET PO SCH (09:25)
[2018-08-26] MEDS ORDERED: LOSARTAN 100 MG (COZAAR) TABLET PO ONE (12:45)
[2018-08-26] MEDS ORDERED: CARVEDILOL 6.25 MG (COREG) TAB PO ONE (12:45)
[2018-08-26] MEDS ORDERED: GLIMEPIRIDE 4 MG (AMARYL) TAB PO ONE (12:45)
--- NOTE | 2018-08-26 12:50 | History & Physical-Hospitalist ---
History of Present Illness HPI/Chief Complaint The patient is a 73-year-old white male with known COPD and coronary artery disease he noted increased shortness of breath and fatigue over the past 3-4 days prior to admission. Initially had no problems with cough and denied night sweats chills or Reiger's. He got acutely worse last night with the development of a nonproductive cough. He denied any associated chest pain or anginal sounding symptoms. He had been initiated. Of health prior to this. Date Seen 08/26/18 Time Seen by a Provider: 07:30 Attending Physician Laura Piña MD PCP Kam Conley DO Referring Physician Date of Admission Aug 25, 2018 at 22:25 Home Medications & Allergies Home Medications Reviewed patient Home Medication Reconciliation performed by pharmacy medication reconciliations mechanical manufacturing technician and/or nursing. Patients Allergies have been reviewed. Allergies Allergies Coded Allergies Penicillins (Unverified Allergy, Mild, 01/31/11) Past Ighagni-Qqskkd-Szwive Hx Past Med/Social Hx: Reviewed and Corrections made Patient Social History Alcohol Use: Denies Use Recreational Drug Use: No Smoking Status: Former Smoker Former Smoker, Quit: Nov 24, 2000 Type Used: Smokeless Tobacco 2nd Hand Smoke Exposure: No Physical Abuse Screen: No Sexual Abuse: No Recent Foreign Travel: No Contact w/other who traveled: No Recent Hopitalizations: No Recent Infectious Disease Expo: No Immunizations Up To Date Tetanus Booster (TDap): More than 5yrs Date of Pneumonia Vaccine: Oct 07, 2015 Date of Influenza Vaccine: Aug 04, 2018 Seasonal Allergies Seasonal Allergies: No Past Medical History Surgeries: Cardiac, CABG Respiratory: COPD Currently Using CPAP: No Cardiac: High Cholesterol, Hypertension Reproductive: No Endocrine: Diabetes, 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, Hearing Aide Right History of Blood Disorders: No Family History Asthma 19 FATHER Cardiovascular disease G8 SISTER Completed stroke G8 SISTER Diabetes mellitus 19 MOTHER G8 BROTHER FH: cancer G8 BROTHER G8 SISTER FH: hearing loss 19 FATHER Myocardial infarction 19 FATHER CAD Over 55 Years Old, Diabetes Review of Systems Constitutional: no symptoms reported; No see HPI, No chills, No diaphoresis, No dizziness, No fever, No malaise; weakness Respiratory: No no symptoms reported; see HPI, cough, dyspnea on exertion; No hemoptysis, No orthopnea, No phlegm; short of breath; No stridor, No wheezing, No other Cardiovascular: no symptoms reported, see HPI; No chest pain, No edema; Hx of Intervention; No palpitations, No syncope; vascular heart diseas; No other Physical Exam Physical Exam Vital Signs Vital Signs - First Documented 08/25/18 08/25/18 20:03 21:20 Temp 100.3 Pulse 76 Resp 16 B/P (MAP) 141/64 (89) Pulse Ox 94 O2 Delivery Nasal Cannula O2 Flow Rate 4.00 FiO2 35 Capillary Refill : Less Than 3 Seconds Height, Weight, BMI Height: 5'10.00" Weight: 188lbs. 1.0oz. 85.589749dc; 27.0 BMI Method:Stated General Appearance: WD/WN, Mild Distress Respiratory: No Accessory Muscle Use, No Respiratory Distress, Other (I basilar rales and rhonchi noted no wheezing appreciated chest is clear anteriorly) Cardiovascular: Regular Rate, Rhythm, No Edema, No Gallop, No JVD, No Murmur, Normal Peripheral Pulses Gastrointestinal: Normal Bowel Sounds, No Organomegaly, No Pulsatile Mass, Non Tender, Soft Extremity: Normal Capillary Refill, Normal Inspection, Normal Range of Motion, Non Tender, No Calf Tenderness, No Pedal Edema Neurologic/Psychiatric: Alert, Oriented x3 Results Results/Procedures Labs Laboratory Tests 08/25/18 20:08 08/26/18 06:20 Patient resulted labs reviewed. Assessment/Plan Admission Diagnosis A/P 1. Acute probable infectious exacerbation underlying COPD. Continue antibiotics patient has not been able to produce any sputum for sputum culture. Continue bronchodilator therapy as well. 2. History of coronary artery disease no evidence to suggest acute coronary syndrome at this time. 3. Hypertension we will resume antihypertensive medication. Admission Status: Inpatient Order (span 2 midnights) Reason for Inpatient Admission: As per admission diagnosis. Clinical Quality Measures DVT/VTE Risk/Contraindication: Risk Factor Score Per Nursin RFS Level Per Nursing on Admit: 3=High LAURA PIÑA MD Aug 26, 2018 12:50
[2018-08-26] MEDS ORDERED: cefTRIAXone FOR IV USE 1,000 MG in NS (IVPB) 50 ML IV SCH (20:00)
[2018-08-26] MEDS: ATORVASTATIN 40 MG (LIPITOR) TABLET PO SCH (20:06)
[2018-08-26] MEDS: CARVEDILOL 6.25 MG (COREG) TAB PO SCH (20:06)
[2018-08-26] MEDS ORDERED: AZITHROMYCIN 250 MG TAB (ZITHROMAX) PO SCH (21:00)
[2018-08-26] MEDS ORDERED: FUROSEMIDE 40 MG/4 ML INJ (LASIX) IVP ONE (21:30)
[2018-08-26] MEDS ORDERED: LORazepam INJ 2 MG/ML (ATIVAN) VIAL ONE (22:03)
[2018-08-26 23:13] LABS: ABG BASE EXCESS -4.7 MMOL/L (-2.5-2.5); ABG OXYGEN SATURATION 93 % (94-100); ABG PCO2 62 MMHG (35-45); ABG PO2 82 MMHG (79-93)
[2018-08-26 23:18] LABS: ABG PH 7.19 (7.37-7.43); ALLENS TEST YES-POS; INSPIRED O2 100%; PATIENT TEMP 100.7; VENTILATOR NO
[2018-08-26 23:27] LABS: BASOPHILS % (AUTO) 1 % (0-10); EOSINOPHILS % (AUTO) 0 % (0-10); HEMATOCRIT 46 % (40-54); HEMOGLOBIN 15.2 G/DL (13.3-17.7); LYMPHOCYTES # (AUTO) 0.9 X 10^3 (1.0-4.0); LYMPHOCYTES % (AUTO) 20 % (12-44); MEAN CORPUSCULAR HEMOGLOBIN 30 PG (25-34); MEAN CORPUSCULAR HGB CONC 33 G/DL (32-36); MEAN CORPUSCULAR VOLUME 91 FL (80-99); MEAN PLATELET VOLUME 10.5 FL (7.4-10.4); MONOCYTES # (AUTO) 0.3 X 10^3 (0.0-1.0); MONOCYTES % (AUTO) 6 % (0-12); NEUTROPHILS # (AUTO) 3.5 X 10^3 (1.8-7.8); NEUTROPHILS % (AUTO) 74 % (42-75); PLATELET COUNT 144 10^3/uL (130-400); RED BLOOD COUNT 5.05 10^6/uL (4.35-5.85); RED CELL DISTRIBUTION WIDTH 13.5 % (10.0-14.5); WHITE BLOOD COUNT 4.8 10^3/uL (4.3-11.0)
[2018-08-26] MEDS ORDERED: methylPREDNISolone 125 MG (Solu-MEDROL) VIAL IVP ONE (23:30)
[2018-08-26] MEDS ORDERED: SODIUM BICARB 8.4% 50 MEQ/50 ML (ABBOTT) SYR ONE (23:37)
[2018-08-26 23:43] LABS: BUN/CREATININE RATIO 14; CALCIUM 7.5 MG/DL (8.5-10.1); CARBON DIOXIDE 16 MMOL/L (21-32); CHLORIDE 107 MMOL/L (98-107); CREATININE SERUM 1.02 MG/DL (0.60-1.30); GFR ESTIMATED > 60; GLUCOSE 310 MG/DL (70-105); MAGNESIUM 1.9 MG/DL (1.8-2.4); PHOSPHORUS 4.2 MG/DL (2.3-4.7); POTASSIUM 5.3 MMOL/L (3.6-5.0); SODIUM 136 MMOL/L (135-145)
[2018-08-26] MEDS ORDERED: PROPOFOL DRIP (ICU) 100 ML IV ONE (23:51)
[2018-08-27] VITALS (55 sets, daily range): BP systolic 81–144; BP diastolic 53–89
[2018-08-27] MEDS ORDERED: NS 1000 ML IV BAG IV ONE
[2018-08-27] MEDS ORDERED: NS IV 1000 ML 1,000 ML ONE ×2 (00:03→06:03)
[2018-08-27] MEDS ORDERED: NS (IVPB) 250 ML ONE ×2 (00:03→09:06)
[2018-08-27] MEDS ORDERED: NOREPINEPHRINE 4 MG/4 ML (LEVOPHED) AMP IV ONE ×2 (00:03→09:06)
[2018-08-27] MEDS ORDERED: fentaNYL INJECTION 100 MCG/2 ML AMP INJ ONE (00:05)
[2018-08-27] MEDS ORDERED: ETOMIDATE IV SOLN 20 MG/10 ML VIAL IV ONE (00:05)
[2018-08-27] MEDS: NOREPINEPHRINE 4 MG in NS (IVPB) 250 ML IV SCH ×3 (00:05→09:19)
[2018-08-27] MEDS ORDERED: SUCCINYLCHOLINE INJ 100 MG/5 ML SYR INJ ONE (00:05)
[2018-08-27] MEDS ORDERED: ROCURONIUM 10 MG/ML 5 ML SYRINGE IV ONE (00:05)
[2018-08-27] MEDS ORDERED: MIDAZOLAM 5 MG/5 ML (VERSED) VIAL IJ ONE (00:05)
[2018-08-27] MEDS ORDERED: LACTATED RINGERS 1,000 ML IV ONE (00:33)
[2018-08-27] MEDS ORDERED: PROPOFOL DRIP (ICU) 100 ML IV SCH (01:00)
[2018-08-27 01:09] LABS: ABG BASE EXCESS -2.3 MMOL/L (-2.5-2.5); ABG OXYGEN SATURATION 91 % (94-100); ABG PCO2 68 MMHG (35-45); ABG PO2 71 MMHG (79-93); ABG TCO2 27.1 MMOL/L (21.0-31.0)
[2018-08-27 01:10] LABS: ABG PH 7.19 (7.37-7.43); ALLENS TEST YES-POS
[2018-08-27 01:11] LABS: INSPIRED O2 80%; PATIENT TEMP 97.6; VENTILATOR YES
[2018-08-27] MEDS ORDERED: SODIUM BICARB 8.4% 50 MEQ/50 ML (ABBOTT) SYR IV ONE (01:15)
[2018-08-27] MEDS: VANCOMYCIN INJECTION 1,000 MG in NS (IVPB) 250 ML IV SCH ×2 (01:23→12:48)
[2018-08-27] MEDS: LACTATED RINGERS 1,000 ML IV SCH ×2 (01:23→08:25)
[2018-08-27] MEDS: PROPOFOL DRIP (ICU) 100 ML IV SCH ×5 (01:24→23:03)
[2018-08-27] MEDS: RT-ALBUTEROL SULF 2.5 MG/3 ML PRE-MIX VIAL INH SCH ×6 (01:48→22:42)
[2018-08-27 03:42] LABS: BASOPHILS % (AUTO) 1 % (0-10); EOSINOPHILS % (AUTO) 0 % (0-10); HEMATOCRIT 43 % (40-54); HEMOGLOBIN 13.9 G/DL (13.3-17.7); LYMPHOCYTES % (AUTO) 14 % (12-44); MEAN CORPUSCULAR HEMOGLOBIN 30 PG (25-34); MEAN CORPUSCULAR HGB CONC 32 G/DL (32-36); MEAN CORPUSCULAR VOLUME 93 FL (80-99); MEAN PLATELET VOLUME 11.2 FL (7.4-10.4); MONOCYTES # (AUTO) 0.3 X 10^3 (0.0-1.0); MONOCYTES % (AUTO) 4 % (0-12); NEUTROPHILS # (AUTO) 5.7 X 10^3 (1.8-7.8); NEUTROPHILS % (AUTO) 81 % (42-75); PLATELET COUNT 125 10^3/uL (130-400); RED BLOOD COUNT 4.68 10^6/uL (4.35-5.85); RED CELL DISTRIBUTION WIDTH 13.5 % (10.0-14.5)
[2018-08-27 03:46] LABS: ABG BASE EXCESS -5.7 MMOL/L (-2.5-2.5); ABG OXYGEN SATURATION 96 % (94-100); ABG PCO2 50 MMHG (35-45); ABG PO2 86 MMHG (79-93); ABG TCO2 22.2 MMOL/L (21.0-31.0)
[2018-08-27 03:50] LABS: ABG PH 7.24 (7.37-7.43); ALLENS TEST YES-POS; INSPIRED O2 70%; PATIENT TEMP 97.8; VENTILATOR YES
[2018-08-27 03:57] LABS: BUN/CREATININE RATIO 18; CALCIUM 7.1 MG/DL (8.5-10.1); CARBON DIOXIDE 17 MMOL/L (21-32); CHLORIDE 107 MMOL/L (98-107); CREATININE SERUM 1.14 MG/DL (0.60-1.30); GFR ESTIMATED > 60; GLUCOSE 358 MG/DL (70-105); MAGNESIUM 1.9 MG/DL (1.8-2.4); PHOSPHORUS 3.7 MG/DL (2.3-4.7); POTASSIUM 5.9 MMOL/L (3.6-5.0); SODIUM 138 MMOL/L (135-145); TRIGLYCERIDES 169 MG/DL (<150)
[2018-08-27] MEDS: MAGNESIUM 1 GM/100 ML IVPB 100 ML IV SCH (04:46)
[2018-08-27] MEDS: POTASSIUM CL 10MEQ/50ML IVPB 50 ML IV SCH ×2 (04:47→04:48)
[2018-08-27] MEDS: KCL 20 MEQ TAB (K-DUR) PO SCH (04:49)
[2018-08-27] MEDS: inSUlin ASPART (NovoLOG) 1 UNIT/0.01 ML (CHARGE PER UNIT) SC SCH ×5 (04:50→16:26)
[2018-08-27] MEDS: GLIMEPIRIDE 4 MG (AMARYL) TAB PO SCH (04:51)
--- NOTE | 2018-08-27 05:15 | Diagnostic Imaging Report ---
INDICATION: Respiratory failure Portable chest 12:29 AM There is an ET tube projecting over the trachea. NG tube projects over the stomach. Right jugular central line tip projects over the SVC. There are postop changes from CABG surgery. There are bilateral interstitial infiltrates with some alveolar consolidation. There are small bilateral pleural effusions. IMPRESSION: Diffuse bilateral pulmonary infiltrates have improved slightly compared to the previous day. Dictated by: Dictated on workstation # [id number]
--- NOTE | 2018-08-27 05:18 | Diagnostic Imaging Report ---
INDICATION: Respiratory stress Portable chest 11:44 PM There are postop changes from CABG surgery. There are bilateral perihilar alveolar infiltrates. There is a small right pleural effusion. There is a pleural-based opacity left lower lateral chest measuring 6 cm in diameter. This was not present on the previous day and likely represents a loculated effusion. IMPRESSION: Interval development of bilateral perihilar infiltrates which may represent pulmonary edema. There are also new bilateral pleural effusions. Dictated by: Dictated on workstation # [id number]
--- NOTE | 2018-08-27 05:41 | Pulmonary Consultation ---
History of Present Illness History of Present Illness Date of Consultation 08/27/18 05:36 Time Seen by Provider: 05:49 Date of Admission History of Present Illness 73yo with hx of COPD, DM, and CAD presented to ED secondary to worsening SOB and increasing edema. Pt quit smoking 17yrs ago after having a AR. PT was admitted to 4th floor and treated for sepsis with pneumonia, and COPDAE. PT was transferred to ICU after progressive SOB.After failing BiPAP therapy pt was intubated and placed on ventilator therapy. I am consulted for ICU management. states pt does not have home oxygen. Unable to obtain ROS secondary to intubation and sedation. Allergies and Home Medications Allergies Coded Allergies: Penicillins (Unverified Allergy, Mild, 01/31/11) Home Medications Albuterol/Ipratropium 4 Gm Aero, 1 PUFF INH QID, (Reported) Amlodipine Besylate 10 Mg Tablet, 10 MG PO DAILY, (Reported) Aspirin 325 Mg Tablet, 325 MG PO DAILY, (Reported) Atorvastatin Calcium 80 Mg Tablet, 40 MG PO HS, (Reported) TAKES 1/2 (80MG) TABLET Carvedilol 6.25 Mg Tablet, 6.25 MG PO BID, (Reported) Cefdinir 300 Mg Capsule, 300 MG PO BID Prescribed by: ALEX LIMA on 08/03/17 115 Furosemide 20 Mg Tablet, 20 MG PO DAILY Prescribed by: ALEX LIMA on 08/03/17 1152 Glimepiride 4 Mg Tablet, 4 MG PO BID, (Reported) Losartan Potassium 100 Mg Tablet, 100 MG PO DAILY, (Reported) Metformin HCl 500 Mg Tab.er.24h, 1,000 MG PO BID, (Reported) TAKES 2 (500MG) TABLETS Multivitamins 1 Each Capsule, 1 CAP PO DAILY, (Reported) [place] 3 Polyunsat Fatty Acids 1,000 Mg Cap, 1,000 MG PO HS, (Reported) Past Yfkaodt-Jqtgqn-Icistm Hx Past Med/Social Hx: Reviewed and Corrections made Patient Social History Alcohol Use: Denies Use Recreational Drug Use: No Smoking Status: Former Smoker Type Used: Smokeless Tobacco Former Smoker, Quit: Nov 24, 2000 2nd Hand Smoke Exposure: No Recent Foreign Travel: No Contact w/Someone Who Travel: No Recent Infectious Disease Expo: No Recent Hopitalizations: No Physical Abuse: No Sexual Abuse: No Mistreated: No Immunizations Up To Date Tetanus Booster (TDap): More than 5yrs Date of Pneumonia Vaccine: Oct 07, 2015 Date of Influenza Vaccine: Aug 04, 2018 Seasonal Allergies Seasonal Allergies: No Past Medical History Surgeries: Yes (CABG x5 11/2002) Cardiac, CABG Respiratory: Yes Pneumonia, Chronic Bronchitis, COPD Currently Using CPAP: No Cardiac: Yes (CABG ) High Cholesterol, Hypertension Neurological: No Reproductive Disorders: No Genitourinary: No Gastrointestinal: No Musculoskeletal: No Endocrine: Yes Diabetes, Non-Insulin dep HEENT: No Hearing Impairment: Hard of Hearing, Hearing Aide Right Cancer: No Psychosocial: No Integumentary: No Blood Disorders: No Family Medical History Asthma 19 FATHER Cardiovascular disease G8 SISTER Completed stroke G8 SISTER Diabetes mellitus 19 MOTHER G8 BROTHER FH: cancer G8 BROTHER G8 SISTER FH: hearing loss 19 FATHER Myocardial infarction 19 FATHER CAD Over 55 Years Old, Diabetes Review of Systems Time Seen by Provider: 05:56 Constitutional: Weakness, Malaise Sepsis Event Evaluation Height, Weight, BMI Height: 5'10.00" Weight: 188lbs. 1.0oz. 85.089160za; 27.0 BMI Method:Stated Exam Exam Vital Signs Date Time Temp Pulse Resp B/P (MAP) Pulse Ox O2 Delivery O2 Flow Rate FiO2 08/27/18 04:15 67 26 99 65 08/27/18 04:15 68 26 119/72 (88) 98 Mechanical Ventilator 70.00 08/27/18 04:00 NIV Bilevel 100 08/27/18 04:00 97.8 08/27/18 04:00 68 23 124/85 (98) 98 Mechanical Ventilator 70.00 08/27/18 03:45 67 27 108/72 (84) 97 Mechanical Ventilator 70.00 08/27/18 03:30 69 24 81/53 (62) 96 Mechanical Ventilator 70.00 08/27/18 03:15 68 27 103/77 (86) 96 Mechanical Ventilator 70.00 08/27/18 03:00 68 27 105/71 (82) Mechanical Ventilator 70.00 08/27/18 02:45 73 13 105/89 (94) 90 Mechanical Ventilator 70.00 08/27/18 02:30 68 25 98/69 (79) 95 Mechanical Ventilator 80.00 08/27/18 02:15 67 25 106/61 (76) 95 Mechanical Ventilator 80.00 08/27/18 02:00 57 22 104/66 (79) 94 Mechanical Ventilator 80.00 08/27/18 01:48 59 22 94 80 08/27/18 01:45 67 11 112/69 (83) 94 Mechanical Ventilator 80.00 08/27/18 01:30 64 20 105/64 (78) 93 Mechanical Ventilator 80.00 08/27/18 01:24 17 08/27/18 01:15 65 17 104/61 (75) Mechanical Ventilator 80.00 08/27/18 01:03 73 08/27/18 01:00 67 13 92 Mechanical Ventilator 80.00 08/27/18 00:45 66 14 107/60 (76) 91 Mechanical Ventilator 80.00 08/27/18 00:40 73 13 105/68 (80) 94 Mechanical Ventilator 100.00 08/27/18 00:30 75 14 81/57 (65) 91 Mechanical Ventilator 100.00 08/27/18 00:20 74 14 93 100 08/27/18 00:15 81 14 125/70 (88) 94 NIV Bilevel 100.00 08/27/18 00:00 92 28 101/68 (79) 95 NIV Bilevel 100.00 08/26/18 23:45 99 24 104/65 (78) 95 NIV Bilevel 100.00 08/26/18 23:30 104 29 101/66 (78) 92 NIV Bilevel 100.00 08/26/18 23:15 105 36 105/66 (79) 89 NIV Bilevel 100.00 08/26/18 23:10 NIV Bilevel 100 08/26/18 23:07 112 08/26/18 23:00 100.7 112 35 119/75 (90) 88 NIV Bilevel 100.00 08/26/18 22:15 101.0 125 38 164/103 (123) 94 NIV Bilevel 08/26/18 21:35 129 30 162/86 (111) 92 NIV Bilevel 08/26/18 21:25 86 Vapotherm 40.00 100 08/26/18 21:21 127 34 90 100.00 08/26/18 21:18 131 33 182/128 (146) 86 Vapotherm 08/26/18 21:10 125 30 180/111 (134) 70 Vapotherm 08/26/18 20:00 95 Vapotherm 10.00 35 08/26/18 19:45 100.2 67 20 167/77 (107) 92 Vapotherm 55.00 10.00 08/26/18 18:47 93 Vapotherm 10.00 60 08/26/18 15:30 98.9 58 24 120/65 (83) 95 Vapotherm 60.00 10.00 08/26/18 14:58 94 Vapotherm 20.00 60 08/26/18 12:00 98.5 74 20 132/68 (89) 94 NIV Bilevel 35.00 08/26/18 11:06 96 Vapotherm 60.00 30 08/26/18 09:50 100.7 08/26/18 09:14 101.2 08/26/18 08:00 101.2 79 18 173/74 (107) 91 08/26/18 06:37 89 Vapotherm 35.00 45 I & O 08/27/18 07:00 Intake Total 4260 ml Output Total 2950 ml Balance 1310 ml Height & Weight Height: 5'10.00" Weight: 188lbs. 1.0oz. 85.315355rc; 27.0 BMI Method:Stated General Appearance: WD/WN, Mild Distress Respiratory: No Accessory Muscle Use, No Respiratory Distress, Decreased Breath Sounds Cardiovascular: Regular Rate, Rhythm, No Edema, No Gallop, No JVD, No Murmur, Normal Peripheral Pulses Capillary Refill: Less Than 3 Seconds Gastrointestinal: normal bowel sounds, non tender, soft Extremity: Normal Capillary Refill, Normal Inspection, Normal Range of Motion, Non Tender, No Calf Tenderness, No Pedal Edema Neurologic/Psychiatric: Other (sedated on vent ) Skin: Normal Color, Warm/Dry Lymphatic: No Adenopathy Results Lab Laboratory Tests 08/25/18 20:08 08/26/18 06:20 08/26/18 23:18 08/27/18 03:30 Assessment/Plan Assessment/Plan Acute on chronic respiratory failure -Pt was intubated last night after failing BiPAP -SVNs Q4 -Solumedrol change to solucortef secondary to hypotension -Diprivan for sedation Hypotension probably secondary to Lasix, intubation, and IV sedation -IVF -Levophed -Check CVP CAD with elevated troponin -EKG -Check Echo -Consult cardiology Hyperkalemia -S/P bicarb and lasix -K+ d/c'd from IVF -Recheck at 8am Metabolic acidosis -Monitor -IVF DVT/GI ppx -SCDs -start Lovenox, protonix JODY TORRES DO Aug 27, 2018 05:41
[2018-08-27] MEDS ORDERED: methylPREDNISolone 125 MG (Solu-MEDROL) VIAL IVP SCH (06:00)
--- NOTE | 2018-08-27 06:30 | Procedure/Intervention Note ---
Procedures/Interventions Lumen: triple Central Line Procedure: betadine prep, sterile drapes applied, sterile dressing applied Position: internal jugular (R) Complications: none Post Position: sutured, good blood return, position confirmed w/ CXR Central line placement due to emergent need for medications including pressors and antibiotics secondary to sepsis and respiratory failure. Central line placed via ultrasound guidance to the right IJ using Seldinger technique times one stick with no complications. Confirmed with x-ray showing line in good position. Date of ETT Placement: Aug 27, 2018 Time of ETT Placement: 00:05 Intubation Method: orotracheal Tube Size: 7.50 Medications: Etomidate, Succinylcholine Positive End Tide CO2: Yes Breath Sounds after Intubation: bilateral-equal Intubation Complications: no complications Post Intubation Xray: Yes tube in good position Responded emergently to ICU 11 for patient who required intubation. Patient on BiPAP and having difficulty breathing. Patient was admitted with pneumonia and respiratory failure that apparently worsened. Patient was on forth floor and was then moved to ICU and placed on BiPAP due to markedly worsening breathing problems. Patient's at bedside on my arrival. I did discuss the case with the patient's doctor, Dr. Danielson, and the patient's as well as the patient. He accepts an elects for intubation. Patient was intubated via video scope times one attempt with no complications and relatively simple intubation. Tolerated procedure well with no hypoxia or other adverse events. Placed on ventilator at eICU settings. ARLIN DAUGHERTY MD Aug 27, 2018 06:30
[2018-08-27] MEDS: ENOXAPARIN 40 MG/0.4 ML (LOVENOX) SYR SC SCH (06:41)
[2018-08-27] MEDS: PANTOPRAZOLE 40 MG (PROTONIX) VIAL IV SCH (08:14)
[2018-08-27] MEDS: LEVOFLOXACIN 500 MG/100 ML IV 100 ML IV SCH (08:14)
[2018-08-27] MEDS: ASPIRIN 325 MG (5 GR) TABLET PO SCH (08:14)
[2018-08-27] MEDS: LOSARTAN 100 MG (COZAAR) TABLET PO SCH (08:15)
[2018-08-27] MEDS: CARVEDILOL 6.25 MG (COREG) TAB PO SCH ×2 (08:15→20:05)
[2018-08-27 09:02] LABS: CALCIUM 7.2 MG/DL (8.5-10.1); CREATININE SERUM 1.22 MG/DL (0.60-1.30); POTASSIUM 4.7 MMOL/L (3.6-5.0)
--- NOTE | 2018-08-27 11:20 | Consultation-Cardiology ---
HPI-Cardiology Cardiology Consultation: Date of Consultation 08/27/18 Time Seen by a Provider: 11:15 Date of Admission Attending Physician Singh Danielson MD Admitting Physician Kam Conley DO Consulting Physician LUIS FERNANDO PLAUMBO MD, MA, FACP, FACC, [facility], CCDS Physician requesting consultation: Dr Danielson and Dr Webster HPI: Chief Complaint: Reason for consultation: Acute respiratory failure 73 yo man admitted with increasing shortness of breath to the [facility] on . Had also had cough and a low grade fever. Was treated for pneumonia. Shortness of breath progressed. Was intubated and placed on mech vent. Dr Danielson asked us to see him in Card consult this am On mech vent at time of my exam and unable to provide any history. by bedside. He had not reported any chest discomfort to his . He has not had recent syncope and has not reported leg swelling or palp. Had not reported any recent GI symptoms Review of Systems-Cardiology Review of Systems Constitutional: other (ROS is limited because pt intubated and not able to provide history. To the extent it could be obtained from the family is described above) [id number]-[id number] Hx Patient Social History Alcohol Use: Denies Use Recreational Drug Use: No Smoking Status: Former Smoker Former smoker/When Quit: Oct 24, 2003 Type Used: Smokeless Tobacco 2nd Hand Smoke Exposure: No Recent Foreign Travel: No Recent Infectious Disease Expo: No Hospitalization with Isolation: Denies Physical Abuse Screen: No Sexual Abuse: No Immunizations Up To Date Tetanus Booster (TDap): More than 5yrs Date of Pneumonia Vaccine: Oct 07, 2015 Date of Influenza Vaccine: Aug 04, 2018 Past Medical History PMH As described under Assessment. Family Medical History Family History: Asthma 19 FATHER Cardiovascular disease G8 SISTER Completed stroke G8 SISTER Diabetes mellitus 19 MOTHER G8 BROTHER FH: cancer G8 BROTHER G8 SISTER FH: hearing loss 19 FATHER Myocardial infarction 19 FATHER Allergies and Home Medications Allergies Coded Allergies: Penicillins (Unverified Allergy, Mild, 01/31/11) Home Medications Albuterol/Ipratropium 4 Gm Aero, 1 PUFF INH QID, (Reported) Amlodipine Besylate 10 Mg Tablet, 10 MG PO DAILY, (Reported) Aspirin 325 Mg Tablet, 325 MG PO DAILY, (Reported) Atorvastatin Calcium 80 Mg Tablet, 40 MG PO HS, (Reported) TAKES 1/2 (80MG) TABLET Carvedilol 6.25 Mg Tablet, 6.25 MG PO BID, (Reported) Cefdinir 300 Mg Capsule, 300 MG PO BID Prescribed by: ALEX LIMA on 08/03/17 115 Furosemide 20 Mg Tablet, 20 MG PO DAILY Prescribed by: ALEX LIMA on 08/03/17 1152 Glimepiride 4 Mg Tablet, 4 MG PO BID, (Reported) Losartan Potassium 100 Mg Tablet, 100 MG PO DAILY, (Reported) Metformin HCl 500 Mg Tab.er.24h, 1,000 MG PO BID, (Reported) TAKES 2 (500MG) TABLETS Multivitamins 1 Each Capsule, 1 CAP PO DAILY, (Reported) [place] 3 Polyunsat Fatty Acids 1,000 Mg Cap, 1,000 MG PO HS, (Reported) Patient Home Medication List Home Medication List Reviewed: Yes Physical Exam-Cardiology Physical Exam Vital Signs/I&O 08/27/18 08/27/18 08/27/18 08/27/18 01:24 01:30 01:45 01:48 Pulse 64 67 59 Resp 17 20 11 22 B/P (MAP) 105/64 (78) 112/69 (83) Pulse Ox 93 94 94 O2 Delivery Mechanical Ventilator Mechanical Ventilator O2 Flow Rate 80.00 80.00 FiO2 80 08/27/18 08/27/18 08/27/18 08/27/18 02:00 02:15 02:30 02:45 Pulse 57 67 68 73 Resp 22 25 25 13 B/P (MAP) 104/66 (79) 106/61 (76) 98/69 (79) 105/89 (94) Pulse Ox 94 95 95 90 O2 Delivery Mechanical Ventilator Mechanical Ventilator Mechanical Ventilator Mechanical Ventilator O2 Flow Rate 80.00 80.00 80.00 70.00 08/27/18 08/27/18 08/27/18 08/27/18 03:00 03:15 03:30 03:45 Pulse 68 68 69 67 Resp 27 27 24 27 B/P (MAP) 105/71 (82) 103/77 (86) 81/53 (62) 108/72 (84) Pulse Ox 96 96 97 O2 Delivery Mechanical Ventilator Mechanical Ventilator Mechanical Ventilator Mechanical Ventilator O2 Flow Rate 70.00 70.00 70.00 70.00 08/27/18 08/27/18 08/27/18 11/4/18 04:00 04:00 04:00 04:15 Temp 97.8 Pulse 68 68 Resp 23 26 B/P (MAP) 124/85 (98) 119/72 (88) Pulse Ox 98 98 O2 Delivery Mechanical Ventilator NIV Bilevel Mechanical Ventilator O2 Flow Rate 70.00 70.00 FiO2 100 08/27/18 08/27/18 08/27/18 08/27/18 04:15 04:30 04:45 05:00 Pulse 67 67 68 67 Resp 26 26 28 25 B/P (MAP) 120/67 (84) 115/75 (88) 112/72 (85) Pulse Ox 99 99 99 O2 Delivery Mechanical Ventilator Mechanical Ventilator Mechanical Ventilator O2 Flow Rate 70.00 70.00 70.00 FiO2 65 08/27/18 08/27/18 08/27/18 08/27/18 05:15 05:30 05:45 06:00 Pulse 69 68 67 70 Resp 27 26 27 27 B/P (MAP) 112/71 (85) 110/66 (81) 112/67 (82) 114/66 (82) Pulse Ox 99 99 97 O2 Delivery Mechanical Ventilator Mechanical Ventilator Mechanical Ventilator Mechanical Ventilator O2 Flow Rate 70.00 70.00 55.00 55.00 08/27/18 08/27/18 08/27/18 08/27/18 06:13 06:15 06:30 06:39 Temp 97.8 Pulse 66 65 65 65 Resp 27 26 29 29 B/P (MAP) 113/64 (80) 121/71 (88) 121/71 Pulse Ox 96 97 96 96 O2 Delivery Mechanical Ventilator Mechanical Ventilator Mechanical Ventilator O2 Flow Rate 55.00 55.00 55.00 FiO2 55 08/27/18 08/27/18 08/27/18 08/27/18 06:45 07:00 07:00 08:00 Pulse 66 63 65 Resp 12 27 B/P (MAP) 113/64 (80) 126/75 (92) Pulse Ox 96 95 O2 Delivery Mechanical Ventilator Mechanical Ventilator Mechanical Ventilator O2 Flow Rate 55.00 55.00 FiO2 45 08/27/18 08/27/18 08/27/18 08/27/18 08:00 08:00 09:00 10:00 Pulse 66 66 61 59 Resp 24 23 20 16 B/P (MAP) 92/65 (74) 108/71 (83) 118/70 (86) Pulse Ox 97 95 95 96 O2 Delivery Mechanical Ventilator Mechanical Ventilator Mechanical Ventilator O2 Flow Rate 45.00 45.00 45.00 FiO2 55 08/27/18 08/27/18 08/27/18 08/27/18 10:28 11:00 12:00 12:00 Pulse 61 63 59 Resp 22 22 22 B/P (MAP) 122/68 (86) 120/73 (89) Pulse Ox 95 96 96 O2 Delivery Mechanical Ventilator Mechanical Ventilator Mechanical Ventilator O2 Flow Rate 45.00 45.00 FiO2 45 35 08/27/18 08/27/18 08/27/18 12:15 12:26 12:51 Pulse 52 56 Resp 23 24 B/P (MAP) 141/77 Pulse Ox 97 98 O2 Delivery Mechanical Ventilator Mechanical Ventilator O2 Flow Rate 35.00 35.00 FiO2 35 08/27/18 00:00 Intake Total 2460 ml Output Total 2450 ml Balance 10 ml Capillary Refill : Less Than 3 Seconds Constitutional: other (intubated and on mech vent) HEENT: PERRL; No xanthelasmas are seen Neck: carotid pulses are 2 + bilaterally, with good upstrokes Respiratory: No accessory muscle use; other (fair to good air entry bilat) Cardiovascular: regular rate-rhythm, S1 and S2, systolic murmur (2/6 MARQUITA at card base) Gastrointestinal: soft; No guarding, No rebound; audible bowel sounds Extremities: No clubbing, No cyanosis, No significant edema Neurologic/Psychiatric: other (intubated, sedated, unable to cooperate with a neuro exma) Skin: No rash on exposed areas, No ulcerations on exposed areas Data Review Labs Laboratory Tests 08/26/18 23:05: Blood Gas Puncture Site LEFT RADIAL, Blood Gas Patient Temperature 100.7, Arterial Blood pH 7.19*L, Arterial Blood Partial Pressure CO2 62H, Arterial Blood Partial Pressure O2 82, Arterial Blood HCO3 22L, Arterial Blood Total CO2 24.0, Arterial Blood Oxygen Saturation 93L, Arterial Blood Base Excess -4.7L, Ibrahima Test YES-POS, Blood Gas Ventilator Setting NO, Blood Gas Inspired Oxygen 100% 08/26/18 23:18: White Blood Count 4.8, Red Blood Count 5.05, Hemoglobin 15.2, Hematocrit 46, Mean Corpuscular Volume 91, Mean Corpuscular Hemoglobin 30, Mean Corpuscular Hemoglobin Concent 33, Red Cell Distribution Width 13.5, Platelet Count 144, Mean Platelet Volume 10.5H, Neutrophils (%) (Auto) 74, Lymphocytes (%) (Auto) 20 , Monocytes (%) (Auto) 6, Eosinophils (%) (Auto) 0, Basophils (%) (Auto) 1, Neutrophils # (Auto) 3.5, Lymphocytes # (Auto) 0.9L, Monocytes # (Auto) 0.3, Eosinophils # (Auto) 0.0, Basophils # (Auto) 0.0, Sodium Level 136, Potassium Level 5.3H, Chloride Level 107, Carbon Dioxide Level 16L, Anion Gap 13, Blood Urea Nitrogen 14, Creatinine 1.02, Estimat Glomerular Filtration Rate > 60, BUN/ Creatinine Ratio 14, Glucose Level 310H, Lactic Acid Level 1.37, Calcium Level 7.5L, Phosphorus Level 4.2, Magnesium Level 1.9, Troponin I 0.55*H, B-Type Natriuretic Peptide 112.4H 08/26/18 23:23: Glucometer 272H 08/27/18 01:00: Blood Gas Puncture Site LEFT RADIAL, Blood Gas Patient Temperature 97.6, Arterial Blood pH 7.19*L, Arterial Blood Partial Pressure CO2 68H, Arterial Blood Partial Pressure O2 71L, Arterial Blood HCO3 25, Arterial Blood Total CO2 27.1, Arterial Blood Oxygen Saturation 91L, Arterial Blood Base Excess -2.3, Ibrahima Test YES-POS, Blood Gas Ventilator Setting YES, Blood Gas Inspired Oxygen 80% 08/27/18 03:30: White Blood Count 7.0, Red Blood Count 4.68, Hemoglobin 13.9, Hematocrit 43, Mean Corpuscular Volume 93, Mean Corpuscular Hemoglobin 30, Mean Corpuscular Hemoglobin Concent 32, Red Cell Distribution Width 13.5, Platelet Count 125L, Mean Platelet Volume 11.2H, Neutrophils (%) (Auto) 81H, Lymphocytes (%) (Auto) 14, Monocytes (%) (Auto) 4, Eosinophils (%) (Auto) 0, Basophils (%) (Auto) 1, Neutrophils # (Auto) 5.7, Lymphocytes # (Auto) 1.0, Monocytes # (Auto) 0.3, Eosinophils # (Auto) 0.0, Basophils # (Auto) 0.0, Sodium Level 138, Potassium Level 5.9H, Chloride Level 107, Carbon Dioxide Level 17L, Anion Gap 14, Blood Urea Nitrogen 21H, Creatinine 1.14, Estimat Glomerular Filtration Rate > 60, BUN /Creatinine Ratio 18, Glucose Level 358H, Lactic Acid Level 1.14, Calcium Level 7.1L, Phosphorus Level 3.7, Magnesium Level 1.9, Troponin I 1.73*H, Triglycerides Level 169H 08/27/18 03:41: Blood Gas Puncture Site RIGHT RADIAL, Blood Gas Patient Temperature 97.8, Arterial Blood pH 7.24*L, Arterial Blood Partial Pressure CO2 50H, Arterial Blood Partial Pressure O2 86, Arterial Blood HCO3 21L, Arterial Blood Total CO2 22.2, Arterial Blood Oxygen Saturation 96, Arterial Blood Base Excess -5.7L, Ibrahima Test YES-POS, Blood Gas Ventilator Setting YES, Blood Gas Inspired Oxygen 70% 08/27/18 08:35: Sodium Level 139, Potassium Level 4.7, Chloride Level 109H, Carbon Dioxide Level 15L, Anion Gap 15H, Blood Urea Nitrogen 24H, Creatinine 1.22, Estimat Glomerular Filtration Rate 58, BUN/Creatinine Ratio 20, Glucose Level 342H, Calcium Level 7.2L, Troponin I 1.40*H 08/27/18 12:30: Troponin I 1.14*H Microbiology 08/25/18 Blood Culture - Preliminary, Resulted No growth 08/25/18 Influenza Types A,B Antigen (URIEL) - Final, Complete 08/25/18 Urine Culture - Final, Complete See Comments Laboratory Tests 08/25/18 20:08 08/26/18 06:20 08/26/18 23:18 08/27/18 03:30 08/27/18 08:35 A/P-Cardiology Assessment/Admission Diagnosis Acute resp failure: pulm edema vs ARDS Ac systolic and diastolic CHF. 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 H/o hyperlipidemia being treated with atorvastatin DM II Chronic obstructive pulmonary disease Mild bilateral carotid arterial disease without evidence of hemodynamic significance per u/s of June 2013 Discussion and Recomendations * Complex management due to multiple comorbidities * Diuretics as needed and as tolerated * Continue previous card meds if possible * Monitor labs * I discussed his CV issues in detail with his * I discussed his case in detail with Dr Danielson on the phone this morning Clinical Quality Measures DVT/VTE Risk/Contraindication: Risk Factor Score Per Nursin RFS Level Per Nursing on Admit: 3=High LUIS FERNANDO PALUMBO MD FACP FAC CCDS Aug 27, 2018 11:20
--- NOTE | 2018-08-27 13:48 | Progress Note-Hospitalist ---
Subjective HPI/CC On Admission Date Seen by Provider: Aug 27, 2018 Time Seen by Provider: 08:00 The patient is a 73-year-old white male with known COPD and coronary artery disease he noted increased shortness of breath and fatigue over the past 3-4 days prior to admission. Initially had no problems with cough and denied night sweats chills or Reiger's. He got acutely worse last night with the development of a nonproductive cough. He denied any associated chest pain or anginal sounding symptoms. Subjective/Events-last exam Despite BiPAP on the floor the patient had progressive increase in shortness of breath without sputum production but developed low-grade fevers no higher than 101. There were no reported Reiger's. The patient was transferred to intensive care units and an ABG was obtained which revealed acute hypercapnic respiratory failure with a pH of 7.19 carbon dioxide level of 60 and an O2 level in the 50s. He was initially hypertensive but shortly on arrival to the intensive care unit blood pressures drop from the 160 systolic range down to 80 denying the systolic over 40 range. Patient denied chest discomfort but mentation was altered secondary to shortness of breath and likely due to CO2 retention. IV pressor support in the form of the Levophed was initiated and the patient was intubated. Short lived hypotension responded quickly with mean arterial pressures remaining over 73 the rest of the night. A chest x-ray was obtained which revealed rather for pulmonary edema large oval mass in the left lower lobe new compared to x-ray done 24 hours earlier which most likely represents pseudotumor from overt pulmonary edema. Interestingly beta natruretic peptide level was normal in the 1 teen range. Repeat troponin was mildly elevated at 1.7. Patient does have a history of coronary artery disease Dr. PALUMBO was consult that after I discussed the case with him. Patient was sedated on vent appearing much more comfortable this morning. Focused Exam Lactate Level 08/25/18 20:08: Lactic Acid Level 1.73 08/26/18 23:18: Lactic Acid Level 1.37 08/27/18 03:30: Lactic Acid Level 1.14 Objective Exam Vital Signs Vital Signs Date Time Temp Pulse Resp B/P (MAP) Pulse Ox O2 Delivery O2 Flow Rate FiO2 08/27/18 12:51 56 24 141/77 98 Mechanical Ventilator 35.00 08/27/18 12:15 35 08/27/18 06:39 97.8 Capillary Refill : Less Than 3 Seconds General Appearance: No Apparent Distress, Chronically ill Respiratory: Other (Minimal congestion noted surprisingly rales were not appreciated no wheezing is noted the patient is ventilating easily) Cardiovascular: Regular Rate, Rhythm, No Edema, No Gallop, No JVD, No Murmur, Normal Peripheral Pulses, Other (Heart tones are very difficult to hear over mechanical breath sounds and due to this patient's body habitus with barrel chest) Gastrointestinal: Normal Bowel Sounds, No Organomegaly, No Pulsatile Mass, Non Tender, Soft Extremity: Normal Capillary Refill, Normal Inspection, Normal Range of Motion, Non Tender, No Calf Tenderness, No Pedal Edema Results/Procedures Lab Laboratory Tests 08/26/18 23:18 08/27/18 03:30 08/27/18 08:35 Patient resulted labs reviewed. Assessment/Plan Assessment and Plan Assess & Plan/Chief Complaint 1. Acute hypercapnic respiratory failure due to pulmonary edema. Echocardiogram is pending considering normal BNP level favor ARDS over heart failure however diastolic failure is in the differential. Continue diuretic therapy as tolerated and titrated pressor support. Sedation via Teodora van today and rest deferring further pulmonary management Dr. Webster. 2. Baseline known severe COPD. 3. Known coronary disease with elevated troponin favor so-called type II infarct due to the stress of respiratory failure and fixed coronary disease patient has had no documented severe hypoxia but was obviously in acute distress with an episode of hypotension although not prolonged. Defer further cardiovascular management Dr. PALUMBO. An extensive discussion with the family and Dr. PALUMBO 45 minutes of critical care time was spent today. Critical Care Critical Care: Critically Ill Patient Clinical Quality Measures DVT/VTE Risk/Contraindication: Risk Factor Score Per Nursin RFS Level Per Nursing on Admit: 3=High LAURA PIÑA MD Aug 27, 2018 13:48
[2018-08-27] MEDS: FUROSEMIDE 40 MG/4 ML INJ (LASIX) IVP SCH (16:25)
[2018-08-27] MEDS: ATORVASTATIN 40 MG (LIPITOR) TABLET PO SCH (20:47)
[2018-08-28] VITALS (33 sets, daily range): BP systolic 100–176; BP diastolic 62–88
[2018-08-28] MEDS: inSUlin ASPART (NovoLOG) 1 UNIT/0.01 ML (CHARGE PER UNIT) SC SCH ×4 (00:26→17:53)
[2018-08-28] MEDS: VANCOMYCIN INJECTION 1,000 MG in NS (IVPB) 250 ML IV SCH ×3 (01:01→23:39)
[2018-08-28] MEDS: LACTATED RINGERS 1,000 ML IV SCH ×2 (01:45→04:02)
[2018-08-28] MEDS: RT-ALBUTEROL SULF 2.5 MG/3 ML PRE-MIX VIAL INH SCH ×6 (02:42→22:01)
[2018-08-28 03:45] LABS: ABG BASE EXCESS 0.9 MMOL/L (-2.5-2.5); ABG OXYGEN SATURATION 92 % (94-100); ABG PCO2 39 MMHG (35-45); ABG PH 7.42 (7.37-7.43); ABG PO2 53 MMHG (79-93); ABG TCO2 26.2 MMOL/L (21.0-31.0)
[2018-08-28 03:52] LABS: ALLENS TEST YES-POS; INSPIRED O2 35%; VENTILATOR YES
[2018-08-28] MEDS: PROPOFOL DRIP (ICU) 100 ML IV SCH ×5 (03:52→22:06)
[2018-08-28 03:53] LABS: PATIENT TEMP 97.6
[2018-08-28 03:53] LABS: BASOPHILS % (AUTO) 0 % (0-10); EOSINOPHILS % (AUTO) 0 % (0-10); HEMATOCRIT 37 % (40-54); HEMOGLOBIN 12.5 G/DL (13.3-17.7); LYMPHOCYTES # (AUTO) 1.4 X 10^3 (1.0-4.0); LYMPHOCYTES % (AUTO) 14 % (12-44); MEAN CORPUSCULAR HEMOGLOBIN 30 PG (25-34); MEAN CORPUSCULAR HGB CONC 33 G/DL (32-36); MEAN CORPUSCULAR VOLUME 90 FL (80-99); MEAN PLATELET VOLUME 10.7 FL (7.4-10.4); MONOCYTES # (AUTO) 0.7 X 10^3 (0.0-1.0); MONOCYTES % (AUTO) 7 % (0-12); NEUTROPHILS # (AUTO) 8.1 X 10^3 (1.8-7.8); NEUTROPHILS % (AUTO) 79 % (42-75); PLATELET COUNT 162 10^3/uL (130-400); RED BLOOD COUNT 4.17 10^6/uL (4.35-5.85); RED CELL DISTRIBUTION WIDTH 13.4 % (10.0-14.5); WHITE BLOOD COUNT 10.3 10^3/uL (4.3-11.0)
[2018-08-28 04:16] LABS: ALANINE AMINOTRANSFERASE 85 U/L (0-55); ALBUMIN 2.5 GM/DL (3.2-4.5); ALKALINE PHOSPHATASE 68 U/L (40-136); BILIRUBIN,TOTAL 0.4 MG/DL (0.1-1.0); BUN/CREATININE RATIO 22; CALCIUM 7.3 MG/DL (8.5-10.1); CARBON DIOXIDE 23 MMOL/L (21-32); CHLORIDE 110 MMOL/L (98-107); CREATININE SERUM 0.95 MG/DL (0.60-1.30); GFR ESTIMATED > 60; GLUCOSE 248 MG/DL (70-105); MAGNESIUM 2.1 MG/DL (1.8-2.4); PHOSPHORUS 2.1 MG/DL (2.3-4.7); POTASSIUM 4.4 MMOL/L (3.6-5.0); SODIUM 142 MMOL/L (135-145); TOTAL PROTEIN 4.8 GM/DL (6.4-8.2)
[2018-08-28] MEDS: GLIMEPIRIDE 4 MG (AMARYL) TAB PO SCH (05:57)
[2018-08-28] MEDS: FUROSEMIDE 40 MG/4 ML INJ (LASIX) IVP SCH ×2 (06:07→17:53)
[2018-08-28] MEDS: ENOXAPARIN 40 MG/0.4 ML (LOVENOX) SYR SC SCH (06:08)
[2018-08-28] MEDS: MAGNESIUM 1 GM/100 ML IVPB 100 ML IV SCH (06:38)
[2018-08-28] MEDS: POTASSIUM CL 10MEQ/50ML IVPB 50 ML IV SCH ×2 (06:38)
[2018-08-28] MEDS: KCL 20 MEQ TAB (K-DUR) PO SCH (06:38)
[2018-08-28] MEDS ORDERED: NS (IVPB) 50 ML ONE (06:55)
--- NOTE | 2018-08-28 07:01 | Pulmonary Progress Note ---
Subjective Time Seen by a Provider: 07:04 Subjective/Events-last exam PT sedated on vent Sepsis Event Evaluation Height, Weight, BMI Height: 5'10.00" Weight: 205lbs. 1.0oz. 92.724376st; 27.0 BMI Method:Stated Focused Exam Lactate Level 08/25/18 20:08: Lactic Acid Level 1.73 08/26/18 23:18: Lactic Acid Level 1.37 08/27/18 03:30: Lactic Acid Level 1.14 Exam Exam Vital Signs Date Time Temp Pulse Resp B/P (MAP) Pulse Ox O2 Delivery O2 Flow Rate FiO2 08/28/18 06:33 71 25 97 35 08/28/18 06:00 71 21 124/66 (85) 97 Mechanical Ventilator 35.00 08/28/18 05:00 70 27 112/67 (82) 96 Mechanical Ventilator 35.00 08/28/18 04:45 72 16 97 08/28/18 04:36 62 22 97 35 08/28/18 04:26 62 27 96 35 08/28/18 04:00 64 26 125/75 (92) 96 Mechanical Ventilator 35.00 08/28/18 04:00 Mechanical Ventilator 35 08/28/18 03:58 98.2 08/28/18 03:52 97.0 64 21 125/63 97 Mechanical Ventilator 35.00 08/28/18 03:00 64 21 125/63 (83) 97 Mechanical Ventilator 35.00 08/28/18 02:43 62 23 97 35 08/28/18 02:00 64 21 126/67 (86) 96 Mechanical Ventilator 35.00 08/28/18 01:00 70 08/28/18 01:00 70 28 137/71 (93) 98 Mechanical Ventilator 35.00 08/28/18 00:00 97.0 08/28/18 00:00 Mechanical Ventilator 35 08/28/18 00:00 64 20 127/70 (89) 99 Mechanical Ventilator 35.00 08/27/18 23:03 96.6 62 20 114/67 99 Mechanical Ventilator 35.00 08/27/18 23:00 64 20 119/67 (84) 98 Mechanical Ventilator 35.00 08/27/18 22:42 62 20 99 35 08/27/18 22:00 60 20 124/69 (87) 99 Mechanical Ventilator 35.00 08/27/18 21:00 59 20 132/70 (90) 99 Mechanical Ventilator 35.00 08/27/18 20:00 65 22 127/70 (89) 100 Mechanical Ventilator 35.00 08/27/18 20:00 Mechanical Ventilator 35 08/27/18 19:36 96.6 64 20 121/76 (91) 100 Mechanical Ventilator 35.00 08/27/18 19:00 60 08/27/18 19:00 60 21 118/70 (86) 98 Mechanical Ventilator 35.00 08/27/18 18:16 61 20 99 35 08/27/18 18:00 59 20 134/80 (98) 98 Mechanical Ventilator 35.00 08/27/18 17:00 61 22 127/72 (90) 98 Mechanical Ventilator 35.00 08/27/18 16:47 61 22 119/70 98 Mechanical Ventilator 35.00 08/27/18 16:29 57 20 98 35 08/27/18 16:00 Mechanical Ventilator 35 08/27/18 16:00 60 20 119/70 (86) 97 Mechanical Ventilator 35.00 08/27/18 15:00 63 21 123/71 (88) 98 Mechanical Ventilator 35.00 08/27/18 14:19 60 20 97 35 08/27/18 14:00 60 20 144/79 (100) 96 Mechanical Ventilator 35.00 08/27/18 13:00 57 08/27/18 13:00 61 24 113/70 (84) 97 Mechanical Ventilator 35.00 08/27/18 12:51 56 24 141/77 98 Mechanical Ventilator 35.00 08/27/18 12:26 Mechanical Ventilator 35.00 08/27/18 12:15 52 23 97 35 08/27/18 12:00 59 22 120/73 (89) 96 Mechanical Ventilator 45.00 08/27/18 12:00 Mechanical Ventilator 35 08/27/18 11:00 63 22 122/68 (86) 96 Mechanical Ventilator 45.00 08/27/18 10:28 61 22 95 45 08/27/18 10:00 59 16 118/70 (86) 96 Mechanical Ventilator 45.00 08/27/18 09:00 61 20 108/71 (83) 95 Mechanical Ventilator 45.00 08/27/18 08:00 66 23 92/65 (74) 95 Mechanical Ventilator 45.00 11/4/18 08:00 66 24 97 55 11/4/18 08:00 Mechanical Ventilator 45 08/27/18 07:00 65 08/27/18 07:00 63 27 126/75 (92) 95 Mechanical Ventilator 55.00 I & O 08/28/18 07:00 Intake Total 1450 ml Output Total 3400 ml Balance -1950 ml Height & Weight Height: 5'10.00" Weight: 205lbs. 1.0oz. 92.049674gk; 27.0 BMI Method:Stated General Appearance: No Apparent Distress, Chronically ill, Other (sedated on vent) Respiratory: Decreased Breath Sounds Cardiovascular: Regular Rate, Rhythm, No Edema, No Gallop, No JVD, No Murmur, Normal Peripheral Pulses Capillary Refill: Less Than 3 Seconds Gastrointestinal: normal bowel sounds, non tender, soft Extremity: Normal Capillary Refill, Normal Inspection, Normal Range of Motion, Non Tender, No Calf Tenderness, No Pedal Edema Neurologic/Psychiatric: Other (sedated on vent ) Skin: Normal Color, Warm/Dry Lymphatic: No Adenopathy Results Lab Laboratory Tests 08/26/18 23:18 08/27/18 03:30 08/27/18 08:35 08/28/18 03:40 Assessment/Plan Assessment/Plan Acute on chronic respiratory failure -continue ventilator therapy -Will start vent weaning tomorrow morning COPDAE -SVNs Q4 -Solumedrol -Diprivan for sedation add precedex -Decrease IVF to KVO -Continue Lasix CAD with elevated troponin -EKG - Echo -Consult cardiology DVT/GI ppx -SCDs -start Lovenox, protonix JODY TORRES DO Aug 28, 2018 07:01
[2018-08-28] MEDS: DEXMEDETOMIDINE INJECTION 200 MCG in NS (IVPB) 50 ML IV SCH ×5 (07:03→23:39)
--- NOTE | 2018-08-28 07:41 | Progress Note (SOAP) ---
Subjective Time Seen by a Provider: 07:38 Subjective/Events-last exam Patient sedated on vent looking comfortable. Patient not hypotensive now. Pulmonology will try to extubate tomorrow Focused Exam Lactate Level 08/25/18 20:08: Lactic Acid Level 1.73 08/26/18 23:18: Lactic Acid Level 1.37 08/27/18 03:30: Lactic Acid Level 1.14 Objective Exam Vital Signs Date Time Temp Pulse Resp B/P (MAP) Pulse Ox O2 Delivery O2 Flow Rate FiO2 08/28/18 06:33 71 25 97 35 08/28/18 06:00 71 21 124/66 (85) 97 Mechanical Ventilator 35.00 08/28/18 05:00 70 27 112/67 (82) 96 Mechanical Ventilator 35.00 08/28/18 04:45 72 16 97 08/28/18 04:36 62 22 97 35 08/28/18 04:26 62 27 96 35 08/28/18 04:00 64 26 125/75 (92) 96 Mechanical Ventilator 35.00 08/28/18 04:00 Mechanical Ventilator 35 08/28/18 03:58 98.2 08/28/18 03:52 97.0 64 21 125/63 97 Mechanical Ventilator 35.00 08/28/18 03:00 64 21 125/63 (83) 97 Mechanical Ventilator 35.00 08/28/18 02:43 62 23 97 35 08/28/18 02:00 64 21 126/67 (86) 96 Mechanical Ventilator 35.00 08/28/18 01:00 70 08/28/18 01:00 70 28 137/71 (93) 98 Mechanical Ventilator 35.00 08/28/18 00:00 97.0 08/28/18 00:00 Mechanical Ventilator 35 08/28/18 00:00 64 20 127/70 (89) 99 Mechanical Ventilator 35.00 08/27/18 23:03 96.6 62 20 114/67 99 Mechanical Ventilator 35.00 08/27/18 23:00 64 20 119/67 (84) 98 Mechanical Ventilator 35.00 08/27/18 22:42 62 20 99 35 08/27/18 22:00 60 20 124/69 (87) 99 Mechanical Ventilator 35.00 08/27/18 21:00 59 20 132/70 (90) 99 Mechanical Ventilator 35.00 08/27/18 20:00 65 22 127/70 (89) 100 Mechanical Ventilator 35.00 08/27/18 20:00 Mechanical Ventilator 35 08/27/18 19:36 96.6 64 20 121/76 (91) 100 Mechanical Ventilator 35.00 08/27/18 19:00 60 08/27/18 19:00 60 21 118/70 (86) 98 Mechanical Ventilator 35.00 08/27/18 18:16 61 20 99 35 08/27/18 18:00 59 20 134/80 (98) 98 Mechanical Ventilator 35.00 08/27/18 17:00 61 22 127/72 (90) 98 Mechanical Ventilator 35.00 08/27/18 16:47 61 22 119/70 98 Mechanical Ventilator 35.00 08/27/18 16:29 57 20 98 35 08/27/18 16:00 Mechanical Ventilator 35 08/27/18 16:00 60 20 119/70 (86) 97 Mechanical Ventilator 35.00 08/27/18 15:00 63 21 123/71 (88) 98 Mechanical Ventilator 35.00 08/27/18 14:19 60 20 97 35 08/27/18 14:00 60 20 144/79 (100) 96 Mechanical Ventilator 35.00 08/27/18 13:00 57 08/27/18 13:00 61 24 113/70 (84) 97 Mechanical Ventilator 35.00 08/27/18 12:51 56 24 141/77 98 Mechanical Ventilator 35.00 08/27/18 12:26 Mechanical Ventilator 35.00 08/27/18 12:15 52 23 97 35 08/27/18 12:00 59 22 120/73 (89) 96 Mechanical Ventilator 45.00 08/27/18 12:00 Mechanical Ventilator 35 08/27/18 11:00 63 22 122/68 (86) 96 Mechanical Ventilator 45.00 08/27/18 10:28 61 22 95 45 08/27/18 10:00 59 16 118/70 (86) 96 Mechanical Ventilator 45.00 08/27/18 09:00 61 20 108/71 (83) 95 Mechanical Ventilator 45.00 08/27/18 08:00 66 23 92/65 (74) 95 Mechanical Ventilator 45.00 08/27/18 08:00 66 24 97 55 08/27/18 08:00 Mechanical Ventilator 45 I & O 08/28/18 07:00 Intake Total 1450 ml Output Total 3400 ml Balance -1950 ml Capillary Refill : Less Than 3 Seconds General Appearance: No Apparent Distress, WD/WN, Other (Patient on vent sedated ) Neck: Normal Inspection Respiratory: Lungs Clear, No Accessory Muscle Use, No Respiratory Distress, Decreased Breath Sounds Cardiovascular: Regular Rate, Rhythm, No Murmur Gastrointestinal: non tender, soft Results Lab Laboratory Tests 08/27/18 08:35 08/28/18 03:40 Laboratory Tests 08/27/18 08:35: Sodium Level 139, Potassium Level 4.7, Chloride Level 109H, Carbon Dioxide Level 15L, Anion Gap 15H, Blood Urea Nitrogen 24H, Creatinine 1.22, Estimat Glomerular Filtration Rate 58, BUN/Creatinine Ratio 20, Glucose Level 342H, Calcium Level 7.2L, Troponin I 1.40*H 08/27/18 12:30: Troponin I 1.14*H 08/27/18 16:24: Glucometer 213H 08/28/18 00:15: Glucometer 223H 08/28/18 03:30: Blood Gas Puncture Site LEFT RADIAL, Blood Gas Patient Temperature 97.6, Arterial Blood pH 7.42, Arterial Blood Partial Pressure CO2 39, Arterial Blood Partial Pressure O2 53L, Arterial Blood HCO3 25, Arterial Blood Total CO2 26.2, Arterial Blood Oxygen Saturation 92L, Arterial Blood Base Excess 0.9, Ibrahima Test YES-POS, Blood Gas Ventilator Setting YES, Blood Gas Inspired Oxygen 35% 08/28/18 03:40: White Blood Count 10.3, Red Blood Count 4.17L, Hemoglobin 12.5L, Hematocrit 37L , Mean Corpuscular Volume 90, Mean Corpuscular Hemoglobin 30, Mean Corpuscular Hemoglobin Concent 33, Red Cell Distribution Width 13.4, Platelet Count 162, Mean Platelet Volume 10.7H, Neutrophils (%) (Auto) 79H, Lymphocytes (%) (Auto) 14, Monocytes (%) (Auto) 7, Eosinophils (%) (Auto) 0, Basophils (%) (Auto) 0, Neutrophils # (Auto) 8.1H, Lymphocytes # (Auto) 1.4, Monocytes # (Auto) 0.7, Eosinophils # (Auto) 0.0, Basophils # (Auto) 0.0, Sodium Level 142, Potassium Level 4.4, Chloride Level 110H, Carbon Dioxide Level 23, Anion Gap 9, Blood Urea Nitrogen 21H, Creatinine 0.95, Estimat Glomerular Filtration Rate > 60, BUN /Creatinine Ratio 22, Glucose Level 248H, Calcium Level 7.3L, Corrected Calcium 8.5, Phosphorus Level 2.1L, Magnesium Level 2.1, Total Bilirubin 0.4, Aspartate Amino Transf (AST/SGOT) 92H, Alanine Aminotransferase (ALT/SGPT) 85H, Alkaline Phosphatase 68, B-Type Natriuretic Peptide 203.4H, Total Protein 4.8L, Albumin 2.5L Microbiology 08/25/18 Blood Culture - Preliminary, Resulted No growth 08/25/18 Influenza Types A,B Antigen (URIEL) - Final, Complete 08/25/18 Urine Culture - Final, Complete See Comments Assessment/Plan Assessment/Plan Assess & Plan/Chief Complaint Pneumonia. Hypoxia. Hypertension history in ICU hypotensive. COPD. Diabetes. Coronary artery disease with elevated troponin. Acute and chronic respiratory failure. Acute systolic and diastolic congestive heart failure Clinical Quality Measures DVT/VTE Risk/Contraindication: Risk Factor Score Per Nursin RFS Level Per Nursing on Admit: 3=High LEN MAE DO Aug 28, 2018 07:41
[2018-08-28] MEDS: PANTOPRAZOLE 40 MG (PROTONIX) VIAL IV SCH (07:58)
[2018-08-28] MEDS: LOSARTAN 100 MG (COZAAR) TABLET PO SCH (07:58)
[2018-08-28] MEDS: ASPIRIN 325 MG (5 GR) TABLET PO SCH (07:58)
[2018-08-28] MEDS: CARVEDILOL 6.25 MG (COREG) TAB PO SCH ×2 (07:58→21:01)
[2018-08-28] MEDS: methylPREDNISolone 40 MG/ML (Solu-MEDROL) VIAL IV SCH ×4 (07:59→23:38)
[2018-08-28] MEDS: LEVOFLOXACIN 500 MG/100 ML IV 100 ML IV SCH (07:59)
--- NOTE | 2018-08-28 08:15 | Physical Therapy Progress Note ---
Therapy Progress Note Pt currently on ventilator. PT will require further physician orders to evaluate Pt when medically stable. PAULA VALDIVIA PT Aug 28, 2018 08:15
--- NOTE | 2018-08-28 08:25 | Occ Therapy Progress Note ---
Therapy Progress Note OT orders received. Chart reviewed. Pt. currently sedated and on vent. Will continue to monitor and evaluate pt. when appropriate for skilled treatment. 0825 ROSALBA DAVID OT Aug 28, 2018 08:25
--- NOTE | 2018-08-28 08:48 | Diagnostic Imaging Report ---
INDICATION: Dyspnea. TECHNIQUE: Single frontal view of the chest. COMPARISON: 08/27/2018 FINDINGS: Extensive airspace opacities are seen in the lungs bilaterally, with basilar predominance. There are small bilateral pleural effusions. No pneumothorax is seen. The cardiac silhouette is stable in size. Sternotomy wires and post CABG changes are seen. The endotracheal tube appears stable in position. The right jugular line tip projects over the mid SVC. IMPRESSION: 1. Airspace opacities in the lungs bilaterally, with basilar predominance. Aeration appears overall stable since the prior study. 2. Small bilateral pleural effusions. 3. Mild cardiomegaly. Dictated by: Dictated on workstation # [id number]
[2018-08-28] MEDS ORDERED: CARV6.252 PO (09:41)
[2018-08-28] MEDS ORDERED: MULT1TAB69 PO (09:41)
[2018-08-28] MEDS ORDERED: FURO20TA4 PO (09:51)
[2018-08-28] MEDS ORDERED: TROUGH ORDER-PHARMACY XX NR (11:00)
--- NOTE | 2018-08-28 12:45 | Progress Note-Cardiology ---
Cardiology SOAP Progress Note Subjective: Intubated, on mech vent, not able to provide any history Objective: I&O/Vital Signs 08/28/18 08/28/18 08/28/18 08/28/18 01:00 01:00 02:00 02:43 Pulse 70 70 64 62 Resp 28 21 23 B/P (MAP) 137/71 (93) 126/67 (86) Pulse Ox 98 96 97 O2 Delivery Mechanical Ventilator Mechanical Ventilator O2 Flow Rate 35.00 35.00 FiO2 35 08/28/18 08/28/18 08/28/18 08/28/18 03:00 03:52 03:58 04:00 Temp 97.0 98.2 Pulse 64 64 Resp 21 21 B/P (MAP) 125/63 (83) 125/63 Pulse Ox 97 97 O2 Delivery Mechanical Ventilator Mechanical Ventilator Mechanical Ventilator O2 Flow Rate 35.00 35.00 FiO2 35 08/28/18 08/28/18 08/28/18 08/28/18 04:00 04:26 04:36 04:45 Pulse 64 62 62 72 Resp 26 27 22 16 B/P (MAP) 125/75 (92) Pulse Ox 96 96 97 97 O2 Delivery Mechanical Ventilator O2 Flow Rate 35.00 FiO2 35 35 08/28/18 08/28/18 08/28/18 08/28/18 05:00 06:00 06:33 07:00 Pulse 70 71 71 72 Resp 27 21 25 22 B/P (MAP) 112/67 (82) 124/66 (85) 112/69 (83) Pulse Ox 96 97 97 97 O2 Delivery Mechanical Ventilator Mechanical Ventilator Mechanical Ventilator O2 Flow Rate 35.00 35.00 35.00 FiO2 35 08/28/18 08/28/18 08/28/18 08/28/18 07:00 08:00 08:00 08:13 Temp 99.2 Pulse 71 70 Resp 22 B/P (MAP) 112/69 100/64 (76) Pulse Ox 97 O2 Delivery Mechanical Ventilator Mechanical Ventilator O2 Flow Rate 35.00 35.00 08/28/18 08/28/18 08/28/18 08/28/18 09:00 09:03 10:00 10:47 Pulse 67 67 68 64 Resp 20 25 21 23 B/P (MAP) 105/63 (77) 126/69 (88) Pulse Ox 98 98 98 98 O2 Delivery Mechanical Ventilator Mechanical Ventilator O2 Flow Rate 35.00 35.00 FiO2 35 35 08/28/18 08/28/18 11:00 11:41 Pulse 65 Resp 11 B/P (MAP) 133/81 (98) 129/68 Pulse Ox 98 O2 Delivery Mechanical Ventilator O2 Flow Rate 35.00 08/28/18 00:00 Intake Total 100 ml Output Total 2500 ml Balance -2400 ml Weight (Pounds): 205 Weight (Ounces): 1.0 Weight (Calculated Kilograms): 92.845165 Constitutional: other (intubated and on mech vent) Respiratory: No accessory muscle use; other (fair to good air entry bilat) Cardiovascular: regular rate-rhythm, S1 and S2, systolic murmur (2/6 MARQUITA at card base) Gastrointestional: soft; No guarding, No rebound; audible bowel sounds Extremities: No clubbing, No cyanosis, No significant edema Neurologic/Psychiatric: other (intubated, sedated, unable to cooperate with a neuro exma) Skin: No rash on exposed areas, No ulcerations on exposed areas Results/Procedures: Labs Laboratory Tests 08/27/18 16:24: Glucometer 213H 08/28/18 00:15: Glucometer 223H 08/28/18 03:30: Blood Gas Puncture Site LEFT RADIAL, Blood Gas Patient Temperature 97.6, Arterial Blood pH 7.42, Arterial Blood Partial Pressure CO2 39, Arterial Blood Partial Pressure O2 53L, Arterial Blood HCO3 25, Arterial Blood Total CO2 26.2, Arterial Blood Oxygen Saturation 92L, Arterial Blood Base Excess 0.9, Ibrahima Test YES-POS, Blood Gas Ventilator Setting YES, Blood Gas Inspired Oxygen 35% 08/28/18 03:40: White Blood Count 10.3, Red Blood Count 4.17L, Hemoglobin 12.5L, Hematocrit 37L , Mean Corpuscular Volume 90, Mean Corpuscular Hemoglobin 30, Mean Corpuscular Hemoglobin Concent 33, Red Cell Distribution Width 13.4, Platelet Count 162, Mean Platelet Volume 10.7H, Neutrophils (%) (Auto) 79H, Lymphocytes (%) (Auto) 14, Monocytes (%) (Auto) 7, Eosinophils (%) (Auto) 0, Basophils (%) (Auto) 0, Neutrophils # (Auto) 8.1H, Lymphocytes # (Auto) 1.4, Monocytes # (Auto) 0.7, Eosinophils # (Auto) 0.0, Basophils # (Auto) 0.0, Sodium Level 142, Potassium Level 4.4, Chloride Level 110H, Carbon Dioxide Level 23, Anion Gap 9, Blood Urea Nitrogen 21H, Creatinine 0.95, Estimat Glomerular Filtration Rate > 60, BUN /Creatinine Ratio 22, Glucose Level 248H, Calcium Level 7.3L, Corrected Calcium 8.5, Phosphorus Level 2.1L, Magnesium Level 2.1, Total Bilirubin 0.4, Aspartate Amino Transf (AST/SGOT) 92H, Alanine Aminotransferase (ALT/SGPT) 85H, Alkaline Phosphatase 68, B-Type Natriuretic Peptide 203.4H, Total Protein 4.8L, Albumin 2.5L 08/28/18 11:24: Vancomycin Level Trough 11.7 08/28/18 11:29: Glucometer 273H Microbiology 08/25/18 Blood Culture - Preliminary, Resulted No growth 08/27/18 MRSA Screen - Final, Complete MRSA not isolated 08/25/18 Urine Culture - Final, Complete See Comments Laboratory Tests 08/26/18 23:18 08/27/18 03:30 08/27/18 08:35 08/28/18 03:40 A/P: Assessment: Acute resp failure: pulm edema vs ARDS Ac systolic and diastolic CHF. Echo of 08/27/18 shows paradoxical septal motion , LVEF 50%, grade I diastolic dysfunction of LV Hepatic transaminase elevation, possibly related to passive hepatic congestion Elevated troponin likely due to hypoxemia due to ac resp failure Chronic LBBB (seen on ECG of 08/25/18 and on ECG of 12/18/15) Coronary artery disease with coronary artery bypass surgery in 2003, consisting of left internal mammary to left anterior descending, saphenous vein to obtuse marginal, saphenous vein to diagonal, sequential saphenous vein to acute marginal and posterior descending H/o ischemic cardiomyopathy prior to CABG that improved after CABG H/o hypertension 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
[2018-08-28] MEDS: ATORVASTATIN 40 MG (LIPITOR) TABLET PO SCH (21:01)
[2018-08-29] VITALS (31 sets, daily range): BP systolic 111–176; BP diastolic 57–102
[2018-08-29] MEDS: inSUlin ASPART (NovoLOG) 1 UNIT/0.01 ML (CHARGE PER UNIT) SC SCH ×4 (00:02→18:52)
[2018-08-29] MEDS: hydrALAZINE (APESOLINE) 20 MG/ML VIAL IV PRN ×3 (00:35→17:41)
[2018-08-29] MEDS: RT-ALBUTEROL SULF 2.5 MG/3 ML PRE-MIX VIAL INH SCH ×6 (01:55→22:26)
[2018-08-29] MEDS: DEXMEDETOMIDINE INJECTION 200 MCG in NS (IVPB) 50 ML IV SCH ×6 (02:56→22:25)
[2018-08-29 03:54] LABS: ABG BASE EXCESS 4.1 MMOL/L (-2.5-2.5); ABG OXYGEN SATURATION 93 % (94-100); ABG PCO2 36 MMHG (35-45); ABG PH 7.49 (7.37-7.43); ABG PO2 55 MMHG (79-93); ABG TCO2 28.6 MMOL/L (21.0-31.0)
[2018-08-29 03:56] LABS: ALLENS TEST YES-POS; INSPIRED O2 25%; VENTILATOR YES
[2018-08-29 03:57] LABS: PATIENT TEMP 98.5
[2018-08-29 04:04] LABS: BASOPHILS % (AUTO) 0 % (0-10); EOSINOPHILS % (AUTO) 0 % (0-10); HEMATOCRIT 42 % (40-54); HEMOGLOBIN 13.9 G/DL (13.3-17.7); LYMPHOCYTES % (AUTO) 10 % (12-44); MEAN CORPUSCULAR HEMOGLOBIN 29 PG (25-34); MEAN CORPUSCULAR HGB CONC 33 G/DL (32-36); MEAN CORPUSCULAR VOLUME 89 FL (80-99); MEAN PLATELET VOLUME 10.8 FL (7.4-10.4); MONOCYTES # (AUTO) 0.9 X 10^3 (0.0-1.0); MONOCYTES % (AUTO) 9 % (0-12); NEUTROPHILS # (AUTO) 7.9 X 10^3 (1.8-7.8); NEUTROPHILS % (AUTO) 80 % (42-75); PLATELET COUNT 179 10^3/uL (130-400); RED BLOOD COUNT 4.72 10^6/uL (4.35-5.85); RED CELL DISTRIBUTION WIDTH 13.6 % (10.0-14.5); WHITE BLOOD COUNT 9.9 10^3/uL (4.3-11.0)
[2018-08-29 04:22] LABS: BUN/CREATININE RATIO 22; CALCIUM 7.8 MG/DL (8.5-10.1); CARBON DIOXIDE 23 MMOL/L (21-32); CHLORIDE 110 MMOL/L (98-107); GFR ESTIMATED > 60; GLUCOSE 274 MG/DL (70-105); MAGNESIUM 2.5 MG/DL (1.8-2.4); PHOSPHORUS 1.9 MG/DL (2.3-4.7); POTASSIUM 4.1 MMOL/L (3.6-5.0); SODIUM 146 MMOL/L (135-145); TRIGLYCERIDES 406 MG/DL (<150)
[2018-08-29] MEDS: POTASSIUM CL 10MEQ/50ML IVPB 50 ML IV SCH ×2 (04:33→04:35)
[2018-08-29] MEDS: MAGNESIUM 1 GM/100 ML IVPB 100 ML IV SCH (04:33)
[2018-08-29] MEDS: KCL 20 MEQ TAB (K-DUR) PO SCH (04:36)
[2018-08-29] MEDS: methylPREDNISolone 40 MG/ML (Solu-MEDROL) VIAL IV SCH ×3 (05:29→21:13)
[2018-08-29] MEDS: ENOXAPARIN 40 MG/0.4 ML (LOVENOX) SYR SC SCH (05:29)
[2018-08-29] MEDS: FUROSEMIDE 40 MG/4 ML INJ (LASIX) IVP SCH ×2 (05:29→17:41)
[2018-08-29] MEDS: GLIMEPIRIDE 4 MG (AMARYL) TAB PO SCH (05:29)
--- NOTE | 2018-08-29 06:33 | Pulmonary Progress Note ---
Subjective Time Seen by a Provider: 06:42 Subjective/Events-last exam Pt is sedated on vent. Sepsis Event Evaluation Height, Weight, BMI Height: 5'10.00" Weight: 181lbs. 8.0oz. 82.970391je; 27.0 BMI Method:Stated Focused Exam Lactate Level 08/26/18 23:18: Lactic Acid Level 1.37 08/27/18 03:30: Lactic Acid Level 1.14 Exam Exam Vital Signs Date Time Temp Pulse Resp B/P (MAP) Pulse Ox O2 Delivery O2 Flow Rate FiO2 08/29/18 06:00 71 35 144/80 (101) 99 Mechanical Ventilator 25.00 08/29/18 05:00 72 20 170/85 (113) 99 Mechanical Ventilator 25.00 08/29/18 04:49 73 22 98 25 08/29/18 04:47 75 22 99 08/29/18 04:00 74 17 151/81 (104) 99 Mechanical Ventilator 25.00 08/29/18 04:00 98 Mechanical Ventilator 25 08/29/18 03:49 98.5 25.00 08/29/18 03:40 85 20 98 08/29/18 03:00 71 23 149/85 (106) 99 Mechanical Ventilator 25.00 08/29/18 02:00 71 26 141/79 (99) 99 Mechanical Ventilator 25.00 08/29/18 01:55 71 25 99 25 08/29/18 01:00 75 19 148/78 (101) 99 Mechanical Ventilator 25.00 08/29/18 01:00 75 08/29/18 00:00 100 Mechanical Ventilator 25 08/29/18 00:00 71 22 170/81 (110) 99 Mechanical Ventilator 25.00 08/28/18 23:57 73 21 100 25 08/28/18 23:51 Mechanical Ventilator 25.00 08/28/18 23:45 97.9 Mechanical Ventilator 30.00 08/28/18 23:00 69 23 154/81 (105) 100 Mechanical Ventilator 30.00 08/28/18 22:06 75 20 176/84 99 Mechanical Ventilator 30.00 08/28/18 22:02 69 21 100 30 08/28/18 22:00 70 22 160/85 (110) 100 Mechanical Ventilator 30.00 08/28/18 21:00 80 17 160/88 (112) 100 Mechanical Ventilator 30.00 08/28/18 20:27 74 23 100 30 08/28/18 20:00 77 30 153/87 (109) 100 Mechanical Ventilator 30.00 08/28/18 20:00 100 Mechanical Ventilator 30 08/28/18 19:45 97.1 Mechanical Ventilator 30.00 08/28/18 19:00 73 22 147/78 (101) 98 Mechanical Ventilator 35.00 08/28/18 19:00 73 08/28/18 18:17 73 24 99 30 08/28/18 18:00 74 22 152/82 (105) 99 Mechanical Ventilator 35.00 08/28/18 17:00 70 22 145/79 (101) 98 Mechanical Ventilator 35.00 08/28/18 16:51 70 24 98 30 08/28/18 16:14 Mechanical Ventilator 30 08/28/18 16:14 124/73 08/28/18 16:00 70 27 130/72 (91) 100 Mechanical Ventilator 35.00 08/28/18 15:00 70 26 124/73 (90) 99 Mechanical Ventilator 35.00 08/28/18 14:51 70 23 99 35 08/28/18 14:00 71 22 112/66 (81) 98 Mechanical Ventilator 35.00 08/28/18 13:09 66 24 98 35 08/28/18 13:00 65 23 112/64 (80) 98 Mechanical Ventilator 35.00 08/28/18 13:00 70 08/28/18 12:49 Mechanical Ventilator 35 08/28/18 12:00 99.3 68 25 144/77 (99) 98 Mechanical Ventilator 35.00 08/28/18 11:41 129/68 08/28/18 11:00 65 11 133/81 (98) 98 Mechanical Ventilator 35.00 08/28/18 10:47 64 23 98 35 08/28/18 10:00 68 21 126/69 (88) 98 Mechanical Ventilator 35.00 08/28/18 09:03 67 25 98 35 08/28/18 09:00 67 20 105/63 (77) 98 Mechanical Ventilator 35.00 08/28/18 08:13 99.2 Mechanical Ventilator 35.00 08/28/18 08:00 70 22 100/64 (76) 97 Mechanical Ventilator 35.00 08/28/18 08:00 112/69 08/28/18 07:59 Mechanical Ventilator 35 08/28/18 07:00 71 08/28/18 07:00 72 22 112/69 (83) 97 Mechanical Ventilator 35.00 08/28/18 06:33 71 25 97 35 I & O 08/29/18 07:00 Intake Total 1068 ml Output Total 3650 ml Balance -2582 ml Height & Weight Height: 5'10.00" Weight: 181lbs. 8.0oz. [id number]; 27.0 BMI Method:Stated General Appearance: No Apparent Distress, WD/WN, Other (Patient on vent sedated ) Neck: Normal Inspection Respiratory: No Accessory Muscle Use, No Respiratory Distress, Decreased Breath Sounds Cardiovascular: Regular Rate, Rhythm, No Murmur Capillary Refill: Less Than 3 Seconds Gastrointestinal: non tender, soft Extremity: Normal Capillary Refill, Normal Inspection, Normal Range of Motion, Non Tender, No Calf Tenderness, No Pedal Edema Neurologic/Psychiatric: Other (sedated on vent ) Skin: Normal Color, Warm/Dry Lymphatic: No Adenopathy Results Lab Laboratory Tests 08/27/18 08:35 08/28/18 03:40 08/29/18 03:54 Assessment/Plan Assessment/Plan Acute on chronic respiratory failure -continue ventilator therapy -Will start vent today after CT unless pt needs bronchoscopy. COPDAE -SVNs Q4 -Solumedrol - decrease to 40 Q12 -Diprivan for sedation add precedex -Decrease IVF to KVO -Continue Lasix -Check CT of chest with contrast r/o mass Hypernatremia -Change IVF to D5W at 50cc/hr CAD with elevated troponin -EKG - Echo -Consult cardiology DVT/GI ppx -SCDs -start Lovenox, protonix JODY TORRES DO Aug 29, 2018 06:33
[2018-08-29] MEDS ORDERED: SODIUM PHOSPHATE INJ 30 MM in NS (IVPB) 250 ML IV ONE (06:45)
[2018-08-29] MEDS: D5W 1000 ML IV SOLUTION 1,000 ML IV SCH (07:01)
--- NOTE | 2018-08-29 07:53 | Progress Note (SOAP) ---
Subjective Time Seen by a Provider: 07:50 Subjective/Events-last exam Patient on vent this a.m. Plan to extubate today. Patient to have CAT scan. Liver tests elevated yesterday to recheck. Patient resting comfortably unable to communicate Focused Exam Lactate Level 08/26/18 23:18: Lactic Acid Level 1.37 08/27/18 03:30: Lactic Acid Level 1.14 Objective Exam Vital Signs Date Time Temp Pulse Resp B/P (MAP) Pulse Ox O2 Delivery O2 Flow Rate FiO2 08/29/18 06:55 71 24 99 25 08/29/18 06:00 71 35 144/80 (101) 99 Mechanical Ventilator 25.00 08/29/18 05:00 72 20 170/85 (113) 99 Mechanical Ventilator 25.00 08/29/18 04:49 73 22 98 25 08/29/18 04:47 75 22 99 08/29/18 04:00 74 17 151/81 (104) 99 Mechanical Ventilator 25.00 08/29/18 04:00 98 Mechanical Ventilator 25 08/29/18 03:49 98.5 25.00 08/29/18 03:40 85 20 98 08/29/18 03:00 71 23 149/85 (106) 99 Mechanical Ventilator 25.00 08/29/18 02:00 71 26 141/79 (99) 99 Mechanical Ventilator 25.00 08/29/18 01:55 71 25 99 25 08/29/18 01:00 75 19 148/78 (101) 99 Mechanical Ventilator 25.00 08/29/18 01:00 75 08/29/18 00:00 100 Mechanical Ventilator 25 08/29/18 00:00 71 22 170/81 (110) 99 Mechanical Ventilator 25.00 08/28/18 23:57 73 21 100 25 08/28/18 23:51 Mechanical Ventilator 25.00 08/28/18 23:45 97.9 Mechanical Ventilator 30.00 08/28/18 23:00 69 23 154/81 (105) 100 Mechanical Ventilator 30.00 08/28/18 22:06 75 20 176/84 99 Mechanical Ventilator 30.00 08/28/18 22:02 69 21 100 30 08/28/18 22:00 70 22 160/85 (110) 100 Mechanical Ventilator 30.00 08/28/18 21:00 80 17 160/88 (112) 100 Mechanical Ventilator 30.00 11/5/18 20:27 74 23 100 30 08/28/18 20:00 77 30 153/87 (109) 100 Mechanical Ventilator 30.00 08/28/18 20:00 100 Mechanical Ventilator 30 08/28/18 19:45 97.1 Mechanical Ventilator 30.00 08/28/18 19:00 73 22 147/78 (101) 98 Mechanical Ventilator 35.00 08/28/18 19:00 73 08/28/18 18:17 73 24 99 30 08/28/18 18:00 74 22 152/82 (105) 99 Mechanical Ventilator 35.00 08/28/18 17:00 70 22 145/79 (101) 98 Mechanical Ventilator 35.00 08/28/18 16:51 70 24 98 30 08/28/18 16:14 Mechanical Ventilator 30 08/28/18 16:14 124/73 08/28/18 16:00 70 27 130/72 (91) 100 Mechanical Ventilator 35.00 08/28/18 15:00 70 26 124/73 (90) 99 Mechanical Ventilator 35.00 08/28/18 14:51 70 23 99 35 08/28/18 14:00 71 22 112/66 (81) 98 Mechanical Ventilator 35.00 08/28/18 13:09 66 24 98 35 08/28/18 13:00 65 23 112/64 (80) 98 Mechanical Ventilator 35.00 08/28/18 13:00 70 08/28/18 12:49 Mechanical Ventilator 35 08/28/18 12:00 99.3 68 25 144/77 (99) 98 Mechanical Ventilator 35.00 08/28/18 11:41 129/68 08/28/18 11:00 65 11 133/81 (98) 98 Mechanical Ventilator 35.00 08/28/18 10:47 64 23 98 35 08/28/18 10:00 68 21 126/69 (88) 98 Mechanical Ventilator 35.00 08/28/18 09:03 67 25 98 35 08/28/18 09:00 67 20 105/63 (77) 98 Mechanical Ventilator 35.00 08/28/18 08:13 99.2 Mechanical Ventilator 35.00 08/28/18 08:00 70 22 100/64 (76) 97 Mechanical Ventilator 35.00 08/28/18 08:00 112/69 08/28/18 07:59 Mechanical Ventilator 35 I & O 08/29/18 07:00 Intake Total 1970 ml Output Total 3650 ml Balance -1680 ml Capillary Refill : Less Than 3 Seconds General Appearance: No Apparent Distress, WD/WN Neck: Normal Inspection Respiratory: Lungs Clear, No Accessory Muscle Use, No Respiratory Distress, Other (On ventilator) Cardiovascular: Regular Rate, Rhythm, No Murmur Gastrointestinal: non tender, soft Results Lab Laboratory Tests 08/29/18 03:54 Laboratory Tests 08/28/18 11:24: Vancomycin Level Trough 11.7 08/28/18 11:29: Glucometer 273H 08/28/18 17:46: Glucometer 315H 08/28/18 23:59: Glucometer 335H 08/29/18 03:43: Blood Gas Puncture Site RIGHT RADIAL, Blood Gas Patient Temperature 98.5, Arterial Blood pH 7.49H, Arterial Blood Partial Pressure CO2 36, Arterial Blood Partial Pressure O2 55L, Arterial Blood HCO3 28H, Arterial Blood Total CO2 28.6 , Arterial Blood Oxygen Saturation 93L, Arterial Blood Base Excess 4.1H, Ibrahima Test YES-POS, Blood Gas Ventilator Setting YES, Blood Gas Inspired Oxygen 25% 08/29/18 03:54: White Blood Count 9.9, Red Blood Count 4.72, Hemoglobin 13.9, Hematocrit 42, Mean Corpuscular Volume 89, Mean Corpuscular Hemoglobin 29, Mean Corpuscular Hemoglobin Concent 33, Red Cell Distribution Width 13.6, Platelet Count 179, Mean Platelet Volume 10.8H, Neutrophils (%) (Auto) 80H, Lymphocytes (%) (Auto) 10L, Monocytes (%) (Auto) 9, Eosinophils (%) (Auto) 0, Basophils (%) (Auto) 0, Neutrophils # (Auto) 7.9H, Lymphocytes # (Auto) 1.0, Monocytes # (Auto) 0.9, Eosinophils # (Auto) 0.0, Basophils # (Auto) 0.0, Sodium Level 146H, Potassium Level 4.1, Chloride Level 110H, Carbon Dioxide Level 23, Anion Gap 13, Blood Urea Nitrogen 20H, Creatinine 0.90, Estimat Glomerular Filtration Rate > 60, BUN /Creatinine Ratio 22, Glucose Level 274H, Calcium Level 7.8L, Phosphorus Level 1.9L, Magnesium Level 2.5H, Triglycerides Level 406H Microbiology 08/25/18 Blood Culture - Preliminary, Resulted No growth 08/27/18 MRSA Screen - Final, Complete MRSA not isolated 08/25/18 Urine Culture - Final, Complete See Comments Assessment/Plan Assessment/Plan Assess & Plan/Chief Complaint Pneumonia. Hypoxia. Hypertension history in ICU hypotensive. COPD. Diabetes. Coronary artery disease with elevated troponin. Acute and chronic respiratory failure. Acute systolic and diastolic congestive heart failURE. . 08/29/18. Pneumonia. Hypoxia. Hypertension. COPD. Diabetes. Coronary artery disease. Acute and chronic respiratory failure. Acute systolic and diastolic CHF. Patient on vent. Elevated liver tests minimal Clinical Quality Measures DVT/VTE Risk/Contraindication: Risk Factor Score Per Nursin RFS Level Per Nursing on Admit: 3=High LEN MEA DO Aug 29, 2018 07:53
[2018-08-29 08:14] LABS: ALBUMIN 2.8 GM/DL (3.2-4.5); BILIRUBIN,DIRECT 0.1 MG/DL (0.0-0.3); BILIRUBIN,INDIRECT 0.4 MG/DL; BILIRUBIN,TOTAL 0.5 MG/DL (0.1-1.0); TOTAL PROTEIN 5.8 GM/DL (6.4-8.2)
--- NOTE | 2018-08-29 08:34 | Progress Note-Cardiology ---
Cardiology SOAP Progress Note Subjective: Remains intubated and sedated Objective: I&O/Vital Signs 08/29/18 08/29/18 08/29/18 08/29/18 03:49 04:00 04:00 04:47 Temp 98.5 Pulse 74 75 Resp 17 22 B/P (MAP) 151/81 (104) Pulse Ox 98 99 99 O2 Delivery Mechanical Ventilator Mechanical Ventilator O2 Flow Rate 25.00 25.00 FiO2 25 08/29/18 08/29/18 08/29/18 08/29/18 04:49 05:00 06:00 06:55 Pulse 73 72 71 71 Resp 22 20 35 24 B/P (MAP) 170/85 (113) 144/80 (101) Pulse Ox 98 99 99 99 O2 Delivery Mechanical Ventilator Mechanical Ventilator O2 Flow Rate 25.00 25.00 FiO2 25 25 08/29/18 08/29/18 08/29/18 08/29/18 07:00 07:00 08:00 08:00 Temp 97.3 Pulse 75 75 69 Resp 22 20 B/P (MAP) 140/87 (104) 143/73 (96) Pulse Ox 99 99 O2 Delivery Mechanical Ventilator Mechanical Ventilator Mechanical Ventilator O2 Flow Rate 25.00 25.00 25.00 08/29/18 08/29/18 08/29/18 08/29/18 08:00 09:00 10:00 10:18 Pulse 61 66 67 Resp 22 19 23 B/P (MAP) 149/69 (95) 176/82 (113) Pulse Ox 99 99 99 O2 Delivery Mechanical Ventilator Mechanical Ventilator Mechanical Ventilator O2 Flow Rate 25.00 25.00 25.00 FiO2 35 25 08/29/18 08/29/18 08/29/18 08/29/18 11:00 12:00 12:00 13:00 Pulse 74 73 71 Resp 19 23 B/P (MAP) 149/78 (101) 151/88 (109) Pulse Ox 99 99 100 O2 Delivery Mechanical Ventilator Mechanical Ventilator Mechanical Ventilator O2 Flow Rate 25.00 25.00 25.00 FiO2 35 08/29/18 08/29/18 08/29/18 13:00 14:00 14:35 Pulse 71 64 70 Resp 25 24 25 B/P (MAP) 153/81 (105) 158/85 (109) Pulse Ox 100 100 99 O2 Delivery Mechanical Ventilator Mechanical Ventilator O2 Flow Rate 25.00 25.00 FiO2 25 08/29/18 00:00 Intake Total 536 ml Output Total 2650 ml Balance -2114 ml Weight (Pounds): 181 Weight (Ounces): 8.0 Weight (Calculated Kilograms): 82.855726 Constitutional: other (intubated and on mech vent) Respiratory: No accessory muscle use; other (fair to good air entry bilat) Cardiovascular: regular rate-rhythm, S1 and S2, systolic murmur (2/6 MARQUITA at card base) Gastrointestional: soft; No guarding, No rebound; audible bowel sounds Extremities: No clubbing, No cyanosis, No significant edema Neurologic/Psychiatric: other (intubated, sedated, unable to cooperate with a neuro exma) Skin: No rash on exposed areas, No ulcerations on exposed areas Results/Procedures: Labs Laboratory Tests 08/28/18 17:46: Glucometer 315H 08/28/18 23:59: Glucometer 335H 08/29/18 03:43: Blood Gas Puncture Site RIGHT RADIAL, Blood Gas Patient Temperature 98.5, Arterial Blood pH 7.49H, Arterial Blood Partial Pressure CO2 36, Arterial Blood Partial Pressure O2 55L, Arterial Blood HCO3 28H, Arterial Blood Total CO2 28.6 , Arterial Blood Oxygen Saturation 93L, Arterial Blood Base Excess 4.1H, Ibrahima Test YES-POS, Blood Gas Ventilator Setting YES, Blood Gas Inspired Oxygen 25% 08/29/18 03:54: White Blood Count 9.9, Red Blood Count 4.72, Hemoglobin 13.9, Hematocrit 42, Mean Corpuscular Volume 89, Mean Corpuscular Hemoglobin 29, Mean Corpuscular Hemoglobin Concent 33, Red Cell Distribution Width 13.6, Platelet Count 179, Mean Platelet Volume 10.8H, Neutrophils (%) (Auto) 80H, Lymphocytes (%) (Auto) 10L, Monocytes (%) (Auto) 9, Eosinophils (%) (Auto) 0, Basophils (%) (Auto) 0, Neutrophils # (Auto) 7.9H, Lymphocytes # (Auto) 1.0, Monocytes # (Auto) 0.9, Eosinophils # (Auto) 0.0, Basophils # (Auto) 0.0, Sodium Level 146H, Potassium Level 4.1, Chloride Level 110H, Carbon Dioxide Level 23, Anion Gap 13, Blood Urea Nitrogen 20H, Creatinine 0.90, Estimat Glomerular Filtration Rate > 60, BUN /Creatinine Ratio 22, Glucose Level 274H, Calcium Level 7.8L, Phosphorus Level 1.9L, Magnesium Level 2.5H, Total Bilirubin 0.5, Direct Bilirubin 0.1, Indirect Bilirubin 0.4, Aspartate Amino Transf (AST/SGOT) 57H, Alanine Aminotransferase ( ALT/SGPT) 77H, Alkaline Phosphatase 74, Total Protein 5.8L, Albumin 2.8L, Triglycerides Level 406H 08/29/18 12:52: Glucometer 288H Microbiology 08/25/18 Blood Culture - Preliminary, Resulted No growth 08/27/18 MRSA Screen - Final, Complete MRSA not isolated 08/25/18 Urine Culture - Final, Complete See Comments Laboratory Tests 08/28/18 03:40 08/29/18 03:54 A/P: Assessment: Acute resp failure: pulm edema vs ARDS Ac systolic and diastolic CHF. Echo of 08/27/18 shows paradoxical septal motion , LVEF 50%, grade I diastolic dysfunction of LV Hepatic transaminase elevation, possibly related to passive hepatic congestion Elevated troponin likely due to hypoxemia due to ac resp failure Chronic LBBB (seen on ECG of 08/25/18 and on ECG of 12/18/15) Coronary artery disease with coronary artery bypass surgery in 2003, consisting of left internal mammary to left anterior descending, saphenous vein to obtuse marginal, saphenous vein to diagonal, sequential saphenous vein to acute marginal and posterior descending H/o ischemic cardiomyopathy prior to CABG that improved after CABG H/o hypertension 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 H/o hyperlipidemia being treated with atorvastatin DM II Chronic obstructive pulmonary disease Mild bilateral carotid arterial disease without evidence of hemodynamic significance per u/s of June 2013 Plan: * Complex management due to multiple comorbidities * Diuretics as needed and as tolerated * Continue current medications * Plan is to extubate today * Monitor labs Physician Assessment Physician Assessment Still intubated and on mech vent Lungs: fair bilat air entry, prolonged exp phase Cor: reg Ext: no c/c/e A&R * As documented in our note above that I updated (italics) and as noted below * I discussed his case with Dr Webster and with patient's * Continue current regimen * May need card cath, given new onset of CHF (after more recovery) * Monitor labs * Advised to quit smoking immediately and completely K[employer]BY [employer] Aug 29, 2018 08:33 LUIS FERNANDO PALUMBO MD FAC FAC CCDS Aug 29, 2018 15:42
[2018-08-29] MEDS: PANTOPRAZOLE 40 MG (PROTONIX) VIAL IV SCH (08:50)
[2018-08-29] MEDS: LEVOFLOXACIN 500 MG/100 ML IV 100 ML IV SCH (08:50)
[2018-08-29] MEDS ORDERED: NS 250 ML (IVPB) BAG IV ONE (09:30)
[2018-08-29] MEDS ORDERED: RECEIVED CONTRAST (Hold Metformin) IV SCH (09:30)
[2018-08-29] MEDS ORDERED: IOHEXOL 350 MG/ML 150 ML (OMNIPAQUE 350) VIAL IV ONE (09:30)
--- NOTE | 2018-08-29 10:09 | Diagnostic Imaging Report ---
Indication: Shortness of breath. Portable chest 3:20 AM ET tube projects over the trachea. NG tube projects over the stomach. Right jugular central line tip projects over the SVC. There is a pleural-based opacity left lower chest measuring 6.5 cm in diameter. There is an oval-shaped density in the right lower chest that may be atelectasis or fluid within the fissure. There are also bilateral pleural effusions noted. Impression: There is less vascular congestion compared to the previous day. Opacities at both lateral lung bases could be fluid trapped in the fissures. Dictated by: Dictated on workstation # [id number]
[2018-08-29] MEDS: CARVEDILOL 6.25 MG (COREG) TAB PO SCH ×2 (10:13→21:13)
[2018-08-29] MEDS: LOSARTAN 100 MG (COZAAR) TABLET PO SCH (10:14)
[2018-08-29] MEDS: ASPIRIN 325 MG (5 GR) TABLET PO SCH (10:14)
--- NOTE | 2018-08-29 11:34 | Diagnostic Imaging Report ---
PROCEDURE: CT angiography of the chest with contrast. TECHNIQUE: Multiple contiguous axial images were obtained through the chest after uneventful bolus administration of intravenous contrast. 2D reconstructed CTA MIP acquisitions were also performed. INDICATION: Dyspnea, infiltrate with clinical concern for pulmonary embolism. FINDINGS: Endotracheal tube is present, tip within the trachea at approximately the level of the aortic arch, above the edvin. Gastric tube passes into the stomach. Right IJ central line tip within the SVC. Small amount of venous gas is present in the internal jugular vein. Poststernotomy changes with non-fusion across the sternotomy. Heart size mildly enlarged. Prominent coronary artery calcification. Thoracic aortic contour unremarkable without internal abnormality. Mild wall calcification. Pulmonary arteries demonstrate no significant intraluminal filling defect to reflect pulmonary embolism. A few mildly prominent but nonpathologic enlarged mediastinal lymph nodes. There is presence of small to moderate bilateral pleural effusions with some compressive atelectasis of the lower lobes. Superimposed consolidation is also suggested through the right lower lobe and posterior basilar aspect of the right upper lobe. Additional likely fluid with a suggestion of pseudomass along the fissure plane superiorly of the left fissure. There is otherwise emphysematous change about the lung parenchyma. Apical blebs and subpleural honeycombing present. Scattered peribronchial thickening. IMPRESSION: 1. No CT evidence for pulmonary embolism. 2. Bilateral pleural effusions, compressive atelectasis of the lower lobes. Superimposed infiltrate of the lung bases right greater than left. Dictated by: Dictated on workstation # [id number]
[2018-08-29] MEDS: VANCOMYCIN 1250 MG/NS 250 ML IVPB IV SCH ×2 (13:06)
[2018-08-29] MEDS: ACETAMINOPHEN 500 MG TAB (TYLENOL) PO PRN (21:12)
[2018-08-29] MEDS: ATORVASTATIN 40 MG (LIPITOR) TABLET PO SCH (21:13)
[2018-08-29] MEDS: PROPOFOL DRIP (ICU) 100 ML IV SCH (23:05)
[2018-08-30] VITALS (31 sets, daily range): BP systolic 90–164; BP diastolic 60–87
[2018-08-30] MEDS: inSUlin ASPART (NovoLOG) 1 UNIT/0.01 ML (CHARGE PER UNIT) SC SCH ×4 (00:10→18:15)
[2018-08-30] MEDS: VANCOMYCIN 1250 MG/NS 250 ML IVPB IV SCH ×4 (00:11→12:43)
[2018-08-30] MEDS: DEXMEDETOMIDINE INJECTION 200 MCG in NS (IVPB) 50 ML IV SCH ×3 (01:25→07:11)
[2018-08-30] MEDS: RT-ALBUTEROL SULF 2.5 MG/3 ML PRE-MIX VIAL INH SCH ×6 (02:25→22:17)
[2018-08-30] MEDS: PROPOFOL DRIP (ICU) 100 ML IV SCH ×2 (02:40→06:22)
[2018-08-30] MEDS: D5W 1000 ML IV SOLUTION 1,000 ML IV SCH (02:53)
[2018-08-30 03:31] LABS: BASOPHILS % (AUTO) 0 % (0-10); EOSINOPHILS % (AUTO) 0 % (0-10); HEMATOCRIT 42 % (40-54); LYMPHOCYTES # (AUTO) 1.2 X 10^3 (1.0-4.0); LYMPHOCYTES % (AUTO) 13 % (12-44); MEAN CORPUSCULAR HEMOGLOBIN 30 PG (25-34); MEAN CORPUSCULAR HGB CONC 34 G/DL (32-36); MEAN CORPUSCULAR VOLUME 89 FL (80-99); MEAN PLATELET VOLUME 10.8 FL (7.4-10.4); MONOCYTES # (AUTO) 0.7 X 10^3 (0.0-1.0); MONOCYTES % (AUTO) 8 % (0-12); NEUTROPHILS # (AUTO) 7.1 X 10^3 (1.8-7.8); NEUTROPHILS % (AUTO) 79 % (42-75); PLATELET COUNT 228 10^3/uL (130-400); RED BLOOD COUNT 4.66 10^6/uL (4.35-5.85); RED CELL DISTRIBUTION WIDTH 14.1 % (10.0-14.5)
[2018-08-30 04:05] LABS: ALANINE AMINOTRANSFERASE 61 U/L (0-55); ALBUMIN 2.8 GM/DL (3.2-4.5); ALKALINE PHOSPHATASE 73 U/L (40-136); BILIRUBIN,DIRECT 0.2 MG/DL (0.0-0.3); BILIRUBIN,INDIRECT 0.3 MG/DL; BILIRUBIN,TOTAL 0.5 MG/DL (0.1-1.0); BUN/CREATININE RATIO 28; CALCIUM 7.5 MG/DL (8.5-10.1); CARBON DIOXIDE 26 MMOL/L (21-32); CHLORIDE 107 MMOL/L (98-107); CREATININE SERUM 0.95 MG/DL (0.60-1.30); GFR ESTIMATED > 60; GLUCOSE 336 MG/DL (70-105); MAGNESIUM 2.1 MG/DL (1.8-2.4); PHOSPHORUS 3.2 MG/DL (2.3-4.7); POTASSIUM 3.5 MMOL/L (3.6-5.0); SODIUM 145 MMOL/L (135-145); TOTAL PROTEIN 5.5 GM/DL (6.4-8.2)
[2018-08-30] MEDS: POTASSIUM CL 10MEQ/50ML IVPB 50 ML IV SCH ×4 (04:24→05:47)
[2018-08-30] MEDS: MAGNESIUM 1 GM/100 ML IVPB 100 ML IV SCH (04:24)
[2018-08-30] MEDS: KCL 20 MEQ TAB (K-DUR) PO SCH (04:25)
--- NOTE | 2018-08-30 05:45 | Pulmonary Progress Note ---
Subjective Time Seen by a Provider: 06:27 Subjective/Events-last exam PT sedated on vent. Sepsis Event Evaluation Height, Weight, BMI Height: 5'10.00" Weight: 183lbs. 0.9oz. 83.041966nv; 27.0 BMI Method:Stated Exam Exam Vital Signs Date Time Temp Pulse Resp B/P (MAP) Pulse Ox O2 Delivery O2 Flow Rate FiO2 08/30/18 05:00 68 20 144/84 (104) 100 Mechanical Ventilator 25.00 08/30/18 04:12 70 22 100 25 08/30/18 04:00 68 24 142/65 (90) 100 Mechanical Ventilator 25.00 08/30/18 03:55 100 Mechanical Ventilator 25 08/30/18 03:15 98.9 Mechanical Ventilator 25.00 08/30/18 03:00 74 23 132/81 (98) 100 Mechanical Ventilator 25.00 08/30/18 02:40 68 21 137/78 08/30/18 02:25 66 21 100 25 08/30/18 02:00 75 22 125/69 (87) 100 Mechanical Ventilator 25.00 08/30/18 01:25 98.0 08/30/18 01:00 71 23 136/73 (94) 100 Mechanical Ventilator 25.00 08/30/18 01:00 71 08/30/18 00:28 72 22 100 25 08/30/18 00:01 100.8 75 20 123/63 (83) 100 Mechanical Ventilator 25.00 08/30/18 00:00 98 Mechanical Ventilator 25 08/29/18 23:05 76 24 99 Mechanical Ventilator 08/29/18 23:00 74 25 125/57 (79) 99 Mechanical Ventilator 25.00 08/29/18 22:26 72 25 100 25 08/29/18 22:00 73 25 114/72 (86) 99 Mechanical Ventilator 25.00 08/29/18 21:12 99.6 08/29/18 21:00 76 25 127/73 (91) 99 Mechanical Ventilator 25.00 08/29/18 20:03 77 25 98 25 08/29/18 20:00 79 28 144/73 (96) 99 Mechanical Ventilator 25.00 08/29/18 19:30 97 Mechanical Ventilator 25 08/29/18 19:00 74 26 146/72 (96) 99 Mechanical Ventilator 25.00 08/29/18 19:00 74 08/29/18 18:11 72 27 99 25 08/29/18 18:00 71 28 134/73 (93) 99 Mechanical Ventilator 25.00 08/29/18 17:00 63 24 168/87 (114) 100 Mechanical Ventilator 25.00 08/29/18 16:00 70 22 158/93 (114) 100 Mechanical Ventilator 25.00 08/29/18 16:00 99 Mechanical Ventilator 25.00 35 08/29/18 15:00 69 19 150/81 (104) 100 Mechanical Ventilator 25.00 08/29/18 14:35 70 25 99 25 08/29/18 14:00 64 24 158/85 (109) 100 Mechanical Ventilator 25.00 08/29/18 13:00 71 25 153/81 (105) 100 Mechanical Ventilator 25.00 08/29/18 13:00 71 08/29/18 12:00 73 23 151/88 (109) 100 Mechanical Ventilator 25.00 08/29/18 12:00 99 Mechanical Ventilator 25.00 35 08/29/18 11:00 74 19 149/78 (101) 99 Mechanical Ventilator 25.00 08/29/18 10:18 67 23 99 25 08/29/18 10:00 66 19 176/82 (113) Mechanical Ventilator 25.00 08/29/18 09:00 61 22 149/69 (95) 99 Mechanical Ventilator 25.00 08/29/18 08:00 99 Mechanical Ventilator 25.00 35 08/29/18 08:00 97.3 Mechanical Ventilator 25.00 08/29/18 08:00 69 20 143/73 (96) 99 Mechanical Ventilator 25.00 08/29/18 07:00 75 22 140/87 (104) 99 Mechanical Ventilator 25.00 08/29/18 07:00 75 08/29/18 06:55 71 24 99 25 08/29/18 06:00 71 35 144/80 (101) 99 Mechanical Ventilator 25.00 I & O 08/30/18 07:00 Intake Total 2050.5 ml Output Total 2650 ml Balance -599.5 ml Height & Weight Height: 5'10.00" Weight: 183lbs. 0.9oz. 83.699904et; 27.0 BMI Method:Stated General Appearance: No Apparent Distress, WD/WN Neck: Normal Inspection Respiratory: Lungs Clear, No Accessory Muscle Use, No Respiratory Distress, Other (On ventilator) Cardiovascular: Regular Rate, Rhythm, No Murmur Capillary Refill: Less Than 3 Seconds Gastrointestinal: non tender, soft Extremity: Normal Capillary Refill, Normal Inspection, Normal Range of Motion, Non Tender, No Calf Tenderness, No Pedal Edema Neurologic/Psychiatric: Other (sedated on vent ) Skin: Normal Color, Warm/Dry Lymphatic: No Adenopathy Results Lab Laboratory Tests 08/29/18 03:54 08/30/18 03:23 Assessment/Plan Assessment/Plan Acute on chronic respiratory failure -CT scan reviewed -continue ventilator therapy -Will do bronchoscopy this AM then attempt weaning/extubation . Pulmonary edema EF 40-45% -Continue Lasix CHF -lasix -Cardiology following COPDAE -SVNs Q4 -Solumedrol 40 Q12 -wean Diprivan and continue precedex -Decrease IVF to KVO -Continue Lasix Hypernatremia -Change IVF to D5W at 50cc/hr CAD with elevated troponin -EKG - Echo - cardiology following DVT/GI ppx -SCDs -start Lovenox, protonix OJDY TORRES DO Aug 30, 2018 05:45
[2018-08-30] MEDS: GLIMEPIRIDE 4 MG (AMARYL) TAB PO SCH (05:52)
[2018-08-30] MEDS: ENOXAPARIN 40 MG/0.4 ML (LOVENOX) SYR SC SCH (05:52)
[2018-08-30] MEDS: FUROSEMIDE 40 MG/4 ML INJ (LASIX) IVP SCH ×2 (05:52→17:16)
--- NOTE | 2018-08-30 06:26 | Pulmonary Procedures ---
Pulmonary Procedures Date of Procedure Date of Service: Aug 30, 2018 Bronch Bronchoscopy with bronchoalveolar lavage (BAL) RML, transbronchial lavaging of copious amounts of yellow sputum bilateral airways with mucous plugging . Preop DX Pneumonia Postop DX: copious amounts of yellow sputum with mucous plugging Complications: none After informed consent obtained and formal time out pt was sedated using Fentanyl and Versed. Bronchoscope was advanced through the nare and vocal cords. 1% lidocaine was used to anesthetize vocal cords, epiglottis, edvin, and left/right main stem bronchus. An anatomical tour was undertaken down to the segmental bronchi bilaterally. No endobronchial lesions noted. bronchoalveolar lavage (BAL) RML, transbronchial lavaging of copious amounts of yellow sputum bilateral airways with mucous plugging . Pt tolerated procedure well. No complications noted. Stat CXR is pending. JODY TORRES DO Aug 30, 2018 06:26
--- NOTE | 2018-08-30 07:32 | Progress Note (SOAP) ---
Subjective Time Seen by a Provider: 07:29 Subjective/Events-last exam Patient on vent resting comfortably. Patient had bronchoscopy done this morning and copious amounts of yellow sputum and mucus plugging removed Objective Exam Vital Signs Date Time Temp Pulse Resp B/P (MAP) Pulse Ox O2 Delivery O2 Flow Rate FiO2 08/30/18 06:22 29 152/71 100 Mechanical Ventilator 08/30/18 06:00 75 12 152/71 (98) 100 Mechanical Ventilator 25.00 08/30/18 05:00 68 20 144/84 (104) 100 Mechanical Ventilator 25.00 08/30/18 04:12 70 22 100 25 08/30/18 04:00 68 24 142/65 (90) 100 Mechanical Ventilator 25.00 08/30/18 03:55 100 Mechanical Ventilator 25 08/30/18 03:15 98.9 Mechanical Ventilator 25.00 08/30/18 03:00 74 23 132/81 (98) 100 Mechanical Ventilator 25.00 08/30/18 02:40 68 21 137/78 08/30/18 02:25 66 21 100 25 08/30/18 02:00 75 22 125/69 (87) 100 Mechanical Ventilator 25.00 08/30/18 01:25 98.0 08/30/18 01:00 71 23 136/73 (94) 100 Mechanical Ventilator 25.00 08/30/18 01:00 71 08/30/18 00:28 72 22 100 25 08/30/18 00:01 100.8 75 20 123/63 (83) 100 Mechanical Ventilator 25.00 08/30/18 00:00 98 Mechanical Ventilator 25 08/29/18 23:05 76 24 99 Mechanical Ventilator 08/29/18 23:00 74 25 125/57 (79) 99 Mechanical Ventilator 25.00 08/29/18 22:26 72 25 100 25 08/29/18 22:00 73 25 114/72 (86) 99 Mechanical Ventilator 25.00 08/29/18 21:12 99.6 08/29/18 21:00 76 25 127/73 (91) 99 Mechanical Ventilator 25.00 08/29/18 20:03 77 25 98 25 08/29/18 20:00 79 28 144/73 (96) 99 Mechanical Ventilator 25.00 08/29/18 19:30 97 Mechanical Ventilator 25 08/29/18 19:00 74 26 146/72 (96) 99 Mechanical Ventilator 25.00 08/29/18 19:00 74 08/29/18 18:11 72 27 99 25 08/29/18 18:00 71 28 134/73 (93) 99 Mechanical Ventilator 25.00 08/29/18 17:00 63 24 168/87 (114) 100 Mechanical Ventilator 25.00 08/29/18 16:00 70 22 158/93 (114) 100 Mechanical Ventilator 25.00 08/29/18 16:00 99 Mechanical Ventilator 25.00 35 08/29/18 15:00 69 19 150/81 (104) 100 Mechanical Ventilator 25.00 08/29/18 14:35 70 25 99 25 08/29/18 14:00 64 24 158/85 (109) 100 Mechanical Ventilator 25.00 08/29/18 13:00 71 25 153/81 (105) 100 Mechanical Ventilator 25.00 08/29/18 13:00 71 08/29/18 12:00 73 23 151/88 (109) 100 Mechanical Ventilator 25.00 08/29/18 12:00 99 Mechanical Ventilator 25.00 35 08/29/18 11:00 74 19 149/78 (101) 99 Mechanical Ventilator 25.00 08/29/18 10:18 67 23 99 25 08/29/18 10:00 66 19 176/82 (113) Mechanical Ventilator 25.00 08/29/18 09:00 61 22 149/69 (95) 99 Mechanical Ventilator 25.00 08/29/18 08:00 99 Mechanical Ventilator 25.00 35 08/29/18 08:00 97.3 Mechanical Ventilator 25.00 08/29/18 08:00 69 20 143/73 (96) 99 Mechanical Ventilator 25.00 I & O 08/30/18 07:00 Intake Total 2250.5 ml Output Total 2650 ml Balance -399.5 ml Capillary Refill : Less Than 3 Seconds General Appearance: No Apparent Distress, WD/WN Neck: Normal Inspection Respiratory: Lungs Clear, No Accessory Muscle Use, No Respiratory Distress, Decreased Breath Sounds Cardiovascular: Regular Rate, Rhythm, No Murmur Gastrointestinal: non tender, soft Results Lab Laboratory Tests 08/30/18 03:23 Laboratory Tests 08/29/18 12:52: Glucometer 288H 08/29/18 18:50: Glucometer 301H 08/30/18 00:06: Glucometer 323H 08/30/18 03:23: White Blood Count 9.0, Red Blood Count 4.66, Hemoglobin 14.0, Hematocrit 42, Mean Corpuscular Volume 89, Mean Corpuscular Hemoglobin 30, Mean Corpuscular Hemoglobin Concent 34, Red Cell Distribution Width 14.1, Platelet Count 228, Mean Platelet Volume 10.8H, Neutrophils (%) (Auto) 79H, Lymphocytes (%) (Auto) 13, Monocytes (%) (Auto) 8, Eosinophils (%) (Auto) 0, Basophils (%) (Auto) 0, Neutrophils # (Auto) 7.1, Lymphocytes # (Auto) 1.2, Monocytes # (Auto) 0.7, Eosinophils # (Auto) 0.0, Basophils # (Auto) 0.0, Sodium Level 145, Potassium Level 3.5L, Chloride Level 107, Carbon Dioxide Level 26, Anion Gap 12, Blood Urea Nitrogen 27H, Creatinine 0.95, Estimat Glomerular Filtration Rate > 60, BUN /Creatinine Ratio 28, Glucose Level 336H, Calcium Level 7.5L, Phosphorus Level 3.2, Magnesium Level 2.1, Total Bilirubin 0.5, Direct Bilirubin 0.2, Indirect Bilirubin 0.3, Aspartate Amino Transf (AST/SGOT) 42H, Alanine Aminotransferase ( ALT/SGPT) 61H, Alkaline Phosphatase 73, Total Protein 5.5L, Albumin 2.8L Microbiology 08/25/18 Blood Culture - Preliminary, Resulted No growth 08/25/18 Urine Culture - Final, Complete See Comments Assessment/Plan Assessment/Plan Assess & Plan/Chief Complaint Pneumonia. Hypoxia. Hypertension history in ICU hypotensive. COPD. Diabetes. Coronary artery disease with elevated troponin. Acute and chronic respiratory failure. Acute systolic and diastolic congestive heart failURE. . 08/29/18. Pneumonia. Hypoxia. Hypertension. COPD. Diabetes. Coronary artery disease. Acute and chronic respiratory failure. Acute systolic and diastolic CHF. Patient on vent. Elevated liver tests minimal. . 08/30/18. Pneumonia. Obesity amounts of yellow sputum. This plugging. Hypertension. COPD. Diabetes. Coronary artery disease. Patient on vent. Elevated liver tests keeps on going down Clinical Quality Measures DVT/VTE Risk/Contraindication: Risk Factor Score Per Nursin RFS Level Per Nursing on Admit: 3=High LEN MAE DO Aug 30, 2018 07:32
--- NOTE | 2018-08-30 07:44 | Diagnostic Imaging Report ---
Indication: Bronchoscopy Portable chest at 7:18 AM ET tube projects over the trachea. NG tube appears to enter the stomach with the sidehole near the GE junction. Right IJ central line tip projects over the SVC. There are postop changes from the CABG surgery. There are lobulated densities in the lower lateral chest bilaterally and small free-flowing pleural effusions. IMPRESSION: Well-circumscribed lobulated opacities in the lower lungs are probably loculated effusions in the fissures. These are not significantly changed from the prior study. Dictated by: Dictated on workstation # [id number]
--- NOTE | 2018-08-30 08:03 | Diagnostic Imaging Report ---
Indication: Shortness of breath Exam: Portable chest at 2:58 AM Findings: There are postop changes from CABG surgery. There are bilateral pleural effusions with loculated fluid in the fissures at the bases. ET tube projects over the trachea. NG tube projects over the stomach. Right IJ central line projects over the SVC. IMPRESSION: Loculated pleural effusions at the lung bases bilaterally. No significant change from previous days study. Dictated by: Dictated on workstation # [id number]
--- NOTE | 2018-08-30 09:22 | Progress Note-Cardiology ---
Cardiology SOAP Progress Note Subjective: Remains intubated and sedated Objective: I&O/Vital Signs 08/30/18 08/30/18 08/30/18 08/30/18 21:00 22:00 22:18 23:00 Pulse 83 81 76 Resp 23 25 14 B/P (MAP) 155/74 (101) 164/78 (106) 159/72 (101) Pulse Ox 97 97 98 98 O2 Delivery Room Air Room Air Room Air Room Air O2 Flow Rate 08/30/18 08/30/18 08/31/18 08/31/18 23:40 23:40 00:00 01:00 Temp 98.9 Pulse 73 75 Resp 20 18 B/P (MAP) 158/72 (100) 164/81 (108) Pulse Ox 97 98 98 O2 Delivery Room Air Room Air Room Air O2 Flow Rate 08/31/18 08/31/18 08/31/18 08/31/18 01:00 01:48 02:00 03:00 Pulse 75 74 73 Resp 21 13 B/P (MAP) 163/91 (115) 156/75 (102) Pulse Ox 98 97 98 O2 Delivery Room Air Room Air Room Air O2 Flow Rate 08/31/18 08/31/18 08/31/18 08/31/18 04:00 04:15 04:20 05:00 Temp 97.9 Pulse 71 70 Resp 19 12 B/P (MAP) 151/93 (112) 151/72 (98) Pulse Ox 97 98 99 O2 Delivery Room Air Room Air Room Air O2 Flow Rate 08/31/18 08/31/18 08/31/18 08/31/18 06:00 06:48 07:00 07:00 Pulse 74 75 75 Resp 21 22 B/P (MAP) 148/72 (97) 149/76 (100) Pulse Ox 98 99 98 O2 Delivery Room Air Room Air Room Air 08/31/18 08/31/18 08/31/18 07:38 08:00 08:08 Temp 98.0 Pulse 81 Resp 27 B/P (MAP) 152/88 (109) Pulse Ox 99 96 O2 Delivery Room Air Room Air 08/31/18 00:00 Intake Total 842.5 ml Output Total 2235 ml Balance -1392.5 ml Weight (Pounds): 183 Weight (Ounces): 0.9 Weight (Calculated Kilograms): 83.819047 Constitutional: other (intubated and on mech vent) Respiratory: No accessory muscle use; other (fair to good air entry bilat) Cardiovascular: regular rate-rhythm, S1 and S2, systolic murmur (2/6 MARQUITA at card base) Gastrointestional: soft; No guarding, No rebound; audible bowel sounds Extremities: No clubbing, No cyanosis, No significant edema Neurologic/Psychiatric: other (intubated, sedated, unable to cooperate with a neuro exma) Skin: No rash on exposed areas, No ulcerations on exposed areas Results/Procedures: Labs Laboratory Tests 08/30/18 11:50: Blood Gas Puncture Site R RAD, Blood Gas Patient Temperature 96.2, Arterial Blood pH 7.51H, Arterial Blood Partial Pressure CO2 34L, Arterial Blood Partial Pressure O2 48L, Arterial Blood HCO3 27, Arterial Blood Total CO2 28.4, Arterial Blood Oxygen Saturation 89L, Arterial Blood Base Excess 4.0H, Ibrahima Test YES-POS, Blood Gas Ventilator Setting YES, Blood Gas Inspired Oxygen 21% 08/30/18 11:54: Glucometer 288H 08/30/18 17:15: Glucometer 406*H 08/31/18 00:09: Glucometer 160H 08/31/18 03:20: White Blood Count 11.6H, Red Blood Count 4.58, Hemoglobin 13.8, Hematocrit 41, Mean Corpuscular Volume 89, Mean Corpuscular Hemoglobin 30, Mean Corpuscular Hemoglobin Concent 34, Red Cell Distribution Width 14.0, Platelet Count 233, Mean Platelet Volume 10.5H, Neutrophils (%) (Auto) 82H, Lymphocytes (%) (Auto) 11L, Monocytes (%) (Auto) 7, Eosinophils (%) (Auto) 0, Basophils (%) (Auto) 0, Neutrophils # (Auto) 9.5H, Lymphocytes # (Auto) 1.3, Monocytes # (Auto) 0.8, Eosinophils # (Auto) 0.0, Basophils # (Auto) 0.0, Sodium Level 149H, Potassium Level 2.9L, Chloride Level 110H, Carbon Dioxide Level 28, Anion Gap 11, Blood Urea Nitrogen 30H, Creatinine 0.80, Estimat Glomerular Filtration Rate > 60, BUN /Creatinine Ratio 38, Glucose Level 101, Calcium Level 7.9L, Phosphorus Level 2.0L, Magnesium Level 2.0 Microbiology 08/25/18 Blood Culture - Preliminary, Resulted No growth 08/25/18 Urine Culture - Final, Complete See Comments Procedures NAME: RIGO GARCIA [facility] REC#: [id number] PT STATUS: ADM IN : 1945 PHYSICIAN: JODY TORRES DO ADMIT DATE: 08/25/18/ICU Signed Date of Exam: 08/30/18 CHEST 1 VIEW, AP/PA ONLY Indication: Bronchoscopy Portable chest at 7:18 AM ET tube projects over the trachea. NG tube appears to enter the stomach with the sidehole near the GE junction. Right IJ central line tip projects over the SVC. There are postop changes from the CABG surgery. There are lobulated densities in the lower lateral chest bilaterally and small free-flowing pleural effusions. IMPRESSION: Well-circumscribed lobulated opacities in the lower lungs are probably loculated effusions in the fissures. These are not significantly changed from the prior study. Dictated by: Dictated on workstation # [id number] Dict: 08/30/18 0741 Trans: 08/30/18 0757 Interpreted by: ARLIN PAK MD Electronically signed by: ARLIN PAK MD 08/30/18 0757 A/P: Assessment: Acute resp failure: pulm edema vs ARDS Ac systolic and diastolic CHF. Echo of 08/27/18 shows paradoxical septal motion , LVEF 50%, grade I diastolic dysfunction of LV Hepatic transaminase elevation, possibly related to passive hepatic congestion Elevated troponin likely due to hypoxemia due to ac resp failure Chronic LBBB (seen on ECG of 08/25/18 and on ECG of 12/18/15) Coronary artery disease with coronary artery bypass surgery in 2003, consisting of left internal mammary to left anterior descending, saphenous vein to obtuse marginal, saphenous vein to diagonal, sequential saphenous vein to acute marginal and posterior descending H/o ischemic cardiomyopathy prior to CABG that improved after CABG H/o hypertension 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
[2018-08-30] MEDS: LEVOFLOXACIN 500 MG/100 ML IV 100 ML IV SCH (09:30)
[2018-08-30] MEDS: methylPREDNISolone 40 MG/ML (Solu-MEDROL) VIAL IV SCH (09:30)
[2018-08-30] MEDS: PANTOPRAZOLE 40 MG (PROTONIX) VIAL IV SCH (09:30)
[2018-08-30] MEDS: LOSARTAN 100 MG (COZAAR) TABLET PO SCH (09:31)
[2018-08-30] MEDS: CARVEDILOL 6.25 MG (COREG) TAB PO SCH ×2 (09:31→21:18)
[2018-08-30] MEDS: ASPIRIN 325 MG (5 GR) TABLET PO SCH (09:31)
--- NOTE | 2018-08-30 09:35 | Progress Note-Cardiology ---
Cardiology SOAP Progress Note Subjective: Unable to provide any history. Still intubated and on mech vent. by bedside Objective: I&O/Vital Signs 08/29/18 08/29/18 08/29/18 08/29/18 22:00 22:26 23:00 23:05 Pulse 73 72 74 76 Resp 25 25 25 24 B/P (MAP) 114/72 (86) 125/57 (79) Pulse Ox 99 100 99 99 O2 Delivery Mechanical Ventilator Mechanical Ventilator Mechanical Ventilator O2 Flow Rate 25.00 25.00 FiO2 25 08/30/18 08/30/18 08/30/18 08/30/18 00:00 00:01 00:28 01:00 Temp 100.8 Pulse 75 72 71 Resp 20 22 B/P (MAP) 123/63 (83) Pulse Ox 98 100 100 O2 Delivery Mechanical Ventilator Mechanical Ventilator O2 Flow Rate 25.00 FiO2 25 25 08/30/18 08/30/18 08/30/18 08/30/18 01:00 01:25 02:00 02:25 Temp 98.0 Pulse 71 75 66 Resp 23 22 21 B/P (MAP) 136/73 (94) 125/69 (87) Pulse Ox 100 100 100 O2 Delivery Mechanical Ventilator Mechanical Ventilator O2 Flow Rate 25.00 25.00 FiO2 25 08/30/18 08/30/18 08/30/18 08/30/18 02:40 03:00 03:15 03:55 Temp 98.9 Pulse 68 74 Resp 23 B/P (MAP) 137/78 132/81 (98) Pulse Ox 100 100 O2 Delivery Mechanical Ventilator Mechanical Ventilator Mechanical Ventilator O2 Flow Rate 25.00 25.00 FiO2 25 08/30/18 08/30/18 08/30/18 08/30/18 04:00 04:12 05:00 06:00 Pulse 68 70 68 75 Resp 24 22 20 12 B/P (MAP) 142/65 (90) 144/84 (104) 152/71 (98) Pulse Ox 100 100 100 100 O2 Delivery Mechanical Ventilator Mechanical Ventilator Mechanical Ventilator O2 Flow Rate 25.00 25.00 25.00 FiO2 25 08/30/18 08/30/18 06:22 07:39 Pulse 70 Resp 29 28 B/P (MAP) 152/71 Pulse Ox 100 100 O2 Delivery Mechanical Ventilator FiO2 25 08/30/18 00:00 Intake Total 472 ml Output Total 2175 ml Balance -1703 ml Weight (Pounds): 183 Weight (Ounces): 0.9 Weight (Calculated Kilograms): 83.895006 Constitutional: other (intubated and on mech vent) Respiratory: No accessory muscle use; other (fair to good air entry bilat) Cardiovascular: regular rate-rhythm, S1 and S2, systolic murmur (2/6 MARQUITA at card base) Gastrointestional: soft; No guarding, No rebound; audible bowel sounds Extremities: No clubbing, No cyanosis, No significant edema Neurologic/Psychiatric: other (intubated, sedated, unable to cooperate with a neuro exma) Skin: No rash on exposed areas, No ulcerations on exposed areas Results/Procedures: Labs Laboratory Tests 08/29/18 12:52: Glucometer 288H 08/29/18 18:50: Glucometer 301H 08/30/18 00:06: Glucometer 323H 08/30/18 03:23: White Blood Count 9.0, Red Blood Count 4.66, Hemoglobin 14.0, Hematocrit 42, Mean Corpuscular Volume 89, Mean Corpuscular Hemoglobin 30, Mean Corpuscular Hemoglobin Concent 34, Red Cell Distribution Width 14.1, Platelet Count 228, Mean Platelet Volume 10.8H, Neutrophils (%) (Auto) 79H, Lymphocytes (%) (Auto) 13, Monocytes (%) (Auto) 8, Eosinophils (%) (Auto) 0, Basophils (%) (Auto) 0, Neutrophils # (Auto) 7.1, Lymphocytes # (Auto) 1.2, Monocytes # (Auto) 0.7, Eosinophils # (Auto) 0.0, Basophils # (Auto) 0.0, Sodium Level 145, Potassium Level 3.5L, Chloride Level 107, Carbon Dioxide Level 26, Anion Gap 12, Blood Urea Nitrogen 27H, Creatinine 0.95, Estimat Glomerular Filtration Rate > 60, BUN /Creatinine Ratio 28, Glucose Level 336H, Calcium Level 7.5L, Phosphorus Level 3.2, Magnesium Level 2.1, Total Bilirubin 0.5, Direct Bilirubin 0.2, Indirect Bilirubin 0.3, Aspartate Amino Transf (AST/SGOT) 42H, Alanine Aminotransferase ( ALT/SGPT) 61H, Alkaline Phosphatase 73, Total Protein 5.5L, Albumin 2.8L Microbiology 08/25/18 Blood Culture - Preliminary, Resulted No growth 08/25/18 Urine Culture - Final, Complete See Comments Laboratory Tests 08/29/18 03:54 08/30/18 03:23 A/P: Assessment: Acute resp failure: pulm edema and/or bronchial mucous plugging (treated endoscopically by Dr Webster on 08/30/18) Ac systolic and diastolic CHF. Echo of 08/27/18 shows paradoxical septal motion , LVEF 50%, grade I diastolic dysfunction of LV Hepatic transaminase elevation, possibly related to passive hepatic congestion Elevated troponin likely due to hypoxemia due to ac resp failure Chronic LBBB (seen on ECG of 08/25/18 and on ECG of 12/18/15) Coronary artery disease with coronary artery bypass surgery in 2003, consisting of left internal mammary to left anterior descending, saphenous vein to obtuse marginal, saphenous vein to diagonal, sequential saphenous vein to acute marginal and posterior descending H/o ischemic cardiomyopathy prior to CABG that improved after CABG H/o hypertension 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
[2018-08-30] MEDS ORDERED: LIDOCAINE PF 1% 2 ML VIAL (OR ONLY) IJ ONE (10:28)
[2018-08-30 11:56] LABS: ABG OXYGEN SATURATION 89 % (94-100); ABG PCO2 34 MMHG (35-45); ABG PH 7.51 (7.37-7.43); ABG PO2 48 MMHG (79-93); ABG TCO2 28.4 MMOL/L (21.0-31.0)
[2018-08-30 11:59] LABS: ALLENS TEST YES-POS; INSPIRED O2 21%; VENTILATOR YES
[2018-08-30 12:00] LABS: PATIENT TEMP 96.2
--- NOTE | 2018-08-30 14:24 | Occ Therapy Progress Note ---
Therapy Progress Note New order sent. Chart reviewed and pt. extubated this afternoon. Checked on pt. Pt. up in chair. Spouse in room. Speech therapist in room getting ready to assess pt's swallow. Observed spouse attempt to hand pt. dentures for swallow eval. Pt. unable to hold dentures. With permission, OT placed dentures in pt's mouth. Spoke with pt. briefly and then with spouse while speech evaluation began. Spouse states that nursing assisted pt. to chair with 2 people assist. Educated spouse on what OT does. Let nursing know that OT will come back in a.m. due to pt. having just been extubated, and being in middle of speech evaluation. Will assess pt. in a.m. for ADL needs and OT goals. 1, visit [id number] ROSALBA DAVID OT Aug 30, 2018 14:24
--- NOTE | 2018-08-30 14:48 | ST Dysphagia Evaluation ---
Speech Evaluation-General Medical Diagnosis SOB Onset Date: Aug 26, 2018 Therapy Diagnosis Therapy Diagnosis: Dysphagia Precautions Precautions/Isolations: Aspiration, Fall Prevention, Standard Precautions, Pressure Ulcer Referral Referring Physician: Dr. Dionicio Danielson Reason for Referral: Evaluation/Treatment Medical History Pertinent Medical History: CABG, COPD, DM, HTN COPD, CAD Current History SOB, fatigue Reviewed History: Yes Speech PLF/Current-Dysphagia Prior Level of Function No hx of dysphagia Subjective Pt up in chair. OT helped to put in pt's dentures as pt could not. Oral Motor Skills Denture Type: Full- Upper & Lower Ability to Follow Directions: Fair Oral Expression Ability: No Impairment Voice Voice Phonatory-Based Quality: Normal Voice Pitch: Normal Voice Loudness: Normal Face Facial Symmetry: Symmetrical Oral-Facial Assessment Oral-Facial Dentition: Normal Labial Seal Description: Normal Smile: Normal Lingual Protrusion: Normal Lingual ROM: Normal Dysphagia Evaluation Consistencies Presented: Regular, Thin Liquid, Mechanical Soft, Pureed, Mixed WNL WNL Dietary Recommendations: Mechanical Soft Liquid Recommendations: Thin Thin liquids with mech soft (Dysphagia 2) due to pt just extubated today. Swallowing Precautions: Liquids from Straw (pt was unable to get cup to mouth to drink.), Small Bites and Sips, Sitting Upright 90 Degrees, Sitting 90 Degrees 30 Post Intake Dysphagia Evaluation Summary Swallow function appears WFL for diet texture/liquid recommended, Dysphagia 2 and thin liquids. Pt did not exhibit any s/s of dysphagia for regular but due to the fact he just got off the vent today, recommended mech soft for safety purposes. Barriers to Learning None identified Speech Short Term Goals Short Term Goals Short Term Goals Pt will demonstrate no s/s of aspiration for recommended diet. Time Frame-ST week Speech Senior Care Goals Senior Care Goals Pt will tolerate regular diet and thin liquids with no s/s of aspiration. Time Frame: 1 week Speech-Plan Patient/Family Goals Patient/Family Goals: to eat regular food again Treatment Plan Speech Therapy Treatment Plan: Modify Plan, See Comments (skilled ST recommended to address diet and upgrade when appropriate.) skilled ST indicated. Frequency: 2 times per week Estimated Hrs Per Day: .25 hour per day Rehab Potential: Good Barriers to Learning: None identified. Pt/Family Agrees to Plan: Yes Safety Risks/Education Teaching Recipient: Patient, Family Teaching Methods: Discussion Response to Teaching: Verbalize Understanding Time Speech Therapy Time In: 14:15 Speech Therapy Time Out: 14:35 Total Billed Time: 20 Billed Treatment Time 1, STEPH Mccain Aug 30, 2018 14:48
--- NOTE | 2018-08-30 16:05 | Physical Therapy Evaluation ---
PT Evaluation-General Medical Diagnosis Admission Date Aug 25, 2018 at 22:25 Medical Diagnosis: SOB Onset Date: Aug 26, 2018 Therapy Diagnosis Therapy Diagnosis: weakness; abn gait Height/Weight Height (Feet): 5 Height (Inches): 10.00 Weight (Pounds): 183 Weight (Ounces): 0.9 Precautions Precautions/Isolations: Fall Prevention, Standard Precautions, Pressure Ulcer Weight Bear Status Right Lower Extremity: Right Full Weight Bearing Left Lower Extremity: Left Full Weight Bearing Referral Physician: Eleanor Reason for Referral: Evaluation/Treatment Medical History Pertinent Medical History: CABG, COPD, DM, HTN Current History Pt presented to the hospital with acute exac of COPD. He was placed on a ventilator and was weaned this date. Reviewed History: Yes Social History Home: Single Level Current Living Status: Spouse Entry Into Home: Stairs With Railing Prior/Core FIM Prior Level of Function Functional Burnett Measure 0=Not Assessed/NA 4=Minimal Assistance 1=Total Assistance 5=Supervision or Setup 2=Maximal Assistance 6=Modified Burnett 3=Moderate Assistance 7=Complete IndependenceIRFPAI Quality Coding Scale 6 Independent with activity with or without an assistive device 5 Patient requires set up or clean up by helper. Patient completes activity by themselves 4 Supervision or touching assist (CGA). [place] provide cues , steadying assist 3 The helper provides less than half the effort to complete the activity 2 The helper provides more than half the effort to complete the activity 1 Dependent. The helper does all the effort to complete an activity 7 Patient refused to complete or attempt activity 9 The patient did not perform the activity before the current illness or injury 88 Not attempted due to Medical conditions or safety concerns Bed Mobility: 7 Transfers (B,C,W/C) (FIM): 7 Gait: [address] and was a community ambulator; indep with self care. PT Evaluation-Current Subjective Pt agreeable to PT. family reports he is weak but they are happy he is off the vent. Pain Numeric Pain Scale: 0-No Pain Location: No Pain Reported Objective Patient Orientation: Person, Place, Time, Situation Problem Solving: Good Attachments: Oxygen, [place] Catheter, IV ROM/Strength ROM Lower Extremities WNL Strength Lower Extremities B LE strength is grossly 3/5 with decreased activity tolerance. Integumentary/Posture Integumentary Refer to nursing notes. Bowel Incontinence: No Bladder Incontinence: Duvall Cath Posture Rounded shoulders; slight forward flexed at hips in standing. Neuromuscular (Tone, Coordination, Reflexes) WFL Sensory Vision: Wears Glasses Hearing: Functional Hand Dominance: Left (dominant but uses both) Sensation Right Lower Extremit: Intact Sensation Left Lower Extremity: Intact Transfers Functional Burnett Measure 0=Not Assessed/NA 4=Minimal Assistance 1=Total Assistance 5=Supervision or Setup 2=Maximal Assistance 6=Modified Burnett 3=Moderate Assistance 7=Complete Burnett Pt was already up in chair; per nursing report, pt was able to assist but they did use 2 staff for safety. Pt was able to stand up from chair with mod assist. Pt stood for 1 minute then sat back down. Up in chair post treatment eating. Balance Sitting Static: Fair Sitting Dynamic: Fair Standing Static: Fair Standing Dynamic: Fair Assessment/Needs Post vent. Pt is weakened and deconditioned. He is participatory but still a bit foggy. He will benefit from skilled PT to work on functional strength and mobility to progress his function to allow him to return home as before. Rehab Potential: Good PT Policy Specialist Goals Policy Specialist Goals PT Policy Specialist Goals Time Frame: Sep 04, 2018 Transfers (B,C,W/C) (FIM): 6 Gait (FIM): 6 Gait distance (FIM): 3=150 ft Gait Assistive Device: FWW PT Plan Problem List Problem List: Activity Tolerance, Functional Strength, Safety, Balance, Gait, Transfer, Bed Mobility Treatment/Plan Treatment Plan: Continue Plan of Care Treatment Plan: Bed Mobility, Education, Functional Activity Manda, Functional Strength, Gait, Safety, Therapeutic Exercise, Transfers Treatment Duration: Sep 04, 2018 Frequency: 6 times per week Estimated Hrs Per Day: .5 hour per day Patient and/or Family Agrees t: Yes Safety Risks/Education Patient Education: Transfer Techniques, Safety Issues Teaching Recipient: Patient, Family Teaching Methods: Discussion Response to Teaching: Reinforcement Needed Time/GCodes Time In: 1500 Time Out: 1535 Total Billed Treatment Time: 35 Total Billed Treatment visit EVM 20 FA 15 GIOVANNI RIGGINS PT Aug 30, 2018 16:05
[2018-08-30] MEDS ORDERED: inSUlin DETERMIR 1 UNIT/0.01 ML (LEVEMIR) CHARGE PER UNIT SQ NR (17:30)
[2018-08-30] MEDS: ATORVASTATIN 40 MG (LIPITOR) TABLET PO SCH (21:18)
[2018-08-31] VITALS (15 sets, daily range): BP systolic 122–164; BP diastolic 70–93
[2018-08-31] MEDS: VANCOMYCIN 1250 MG/NS 250 ML IVPB IV SCH ×2 (00:10)
[2018-08-31] MEDS: inSUlin ASPART (NovoLOG) 1 UNIT/0.01 ML (CHARGE PER UNIT) SC SCH ×5 (00:10→20:40)
[2018-08-31] MEDS: RT-ALBUTEROL SULF 2.5 MG/3 ML PRE-MIX VIAL INH SCH ×6 (01:48→21:43)
[2018-08-31 03:43] LABS: BASOPHILS % (AUTO) 0 % (0-10); EOSINOPHILS % (AUTO) 0 % (0-10); HEMATOCRIT 41 % (40-54); HEMOGLOBIN 13.8 G/DL (13.3-17.7); LYMPHOCYTES # (AUTO) 1.3 X 10^3 (1.0-4.0); LYMPHOCYTES % (AUTO) 11 % (12-44); MEAN CORPUSCULAR HEMOGLOBIN 30 PG (25-34); MEAN CORPUSCULAR HGB CONC 34 G/DL (32-36); MEAN CORPUSCULAR VOLUME 89 FL (80-99); MEAN PLATELET VOLUME 10.5 FL (7.4-10.4); MONOCYTES # (AUTO) 0.8 X 10^3 (0.0-1.0); MONOCYTES % (AUTO) 7 % (0-12); NEUTROPHILS # (AUTO) 9.5 X 10^3 (1.8-7.8); NEUTROPHILS % (AUTO) 82 % (42-75); PLATELET COUNT 233 10^3/uL (130-400); RED BLOOD COUNT 4.58 10^6/uL (4.35-5.85); WHITE BLOOD COUNT 11.6 10^3/uL (4.3-11.0)
[2018-08-31 04:04] LABS: BUN/CREATININE RATIO 38; CALCIUM 7.9 MG/DL (8.5-10.1); CARBON DIOXIDE 28 MMOL/L (21-32); CHLORIDE 110 MMOL/L (98-107); GFR ESTIMATED > 60; GLUCOSE 101 MG/DL (70-105); POTASSIUM 2.9 MMOL/L (3.6-5.0); SODIUM 149 MMOL/L (135-145)
[2018-08-31] MEDS: MAGNESIUM 1 GM/100 ML IVPB 100 ML IV SCH (04:15)
[2018-08-31] MEDS ORDERED: POTASSIUM CL 10MEQ/50ML IVPB 50 ML IV ONE (04:15)
[2018-08-31] MEDS: POTASSIUM CL 10MEQ/50ML IVPB 50 ML IV SCH ×8 (04:15→07:31)
[2018-08-31] MEDS: KCL 20 MEQ TAB (K-DUR) PO SCH (04:15)
[2018-08-31] MEDS: FUROSEMIDE 40 MG/4 ML INJ (LASIX) IVP SCH (06:17)
[2018-08-31] MEDS: ENOXAPARIN 40 MG/0.4 ML (LOVENOX) SYR SC SCH (06:17)
[2018-08-31] MEDS: GLIMEPIRIDE 4 MG (AMARYL) TAB PO SCH (06:17)
--- NOTE | 2018-08-31 06:24 | Pulmonary Progress Note ---
Subjective Time Seen by a Provider: 06:30 Subjective/Events-last exam PT is doing well off vent. Sepsis Event Evaluation Height, Weight, BMI Height: 5'10.00" Weight: 173lbs. 5.0oz. 78.024545cv; 27.0 BMI Method:Stated Exam Exam Vital Signs Date Time Temp Pulse Resp B/P (MAP) Pulse Ox O2 Delivery O2 Flow Rate FiO2 08/31/18 06:00 74 21 148/72 (97) 98 Room Air 08/31/18 05:00 70 12 151/72 (98) 99 Room Air 08/31/18 04:20 98 Room Air 08/31/18 04:15 97.9 08/31/18 04:00 71 19 151/93 (112) 97 Room Air 08/31/18 03:00 73 13 156/75 (102) 98 Room Air 08/31/18 02:00 74 21 163/91 (115) 97 Room Air 08/31/18 01:48 98 Room Air 08/31/18 01:00 75 08/31/18 01:00 75 18 164/81 (108) 98 Room Air 08/31/18 00:00 73 20 158/72 (100) 98 Room Air 08/30/18 23:40 98.9 08/30/18 23:40 97 Room Air 08/30/18 23:00 76 14 159/72 (101) 98 Room Air 08/30/18 22:18 98 Room Air 08/30/18 22:00 81 25 164/78 (106) 97 Room Air 08/30/18 21:00 83 23 155/74 (101) 97 Room Air 08/30/18 20:33 89 95 21 08/30/18 20:00 98 Room Air 08/30/18 20:00 99.7 08/30/18 20:00 90 15 154/87 (109) 99 Room Air 08/30/18 19:00 90 08/30/18 19:00 92 21 158/77 (104) 98 Room Air 08/30/18 18:39 95 Room Air 08/30/18 18:00 80 24 153/73 (99) 96 Nasal Cannula 3.00 08/30/18 17:00 80 24 152/68 (96) 97 Nasal Cannula 3.00 08/30/18 16:11 98.4 08/30/18 16:00 72 21 142/64 (90) 98 Nasal Cannula 3.00 08/30/18 15:37 97 Nasal Cannula 1.00 08/30/18 15:00 71 30 138/65 (89) 97 Nasal Cannula 3.00 08/30/18 14:38 98 Nasal Cannula 3.00 08/30/18 14:00 69 25 121/64 (83) 96 Nasal Cannula 3.00 08/30/18 13:00 71 08/30/18 13:00 71 25 127/65 (85) 100 Nasal Cannula 3.00 08/30/18 12:27 Nasal Cannula 3.00 08/30/18 12:27 Nasal Cannula 3.00 08/30/18 12:00 96.2 08/30/18 12:00 100 Mechanical Ventilator 21 08/30/18 12:00 70 35 108/63 (78) 99 Mechanical Ventilator 25.00 08/30/18 11:05 71 28 99 21 08/30/18 11:00 68 27 92/68 (76) 99 Mechanical Ventilator 25.00 08/30/18 10:00 66 26 103/67 (79) 100 Mechanical Ventilator 25.00 08/30/18 09:49 70 25 100 21 08/30/18 09:00 73 28 102/60 (74) 100 Mechanical Ventilator 25.00 08/30/18 08:00 100 Mechanical Ventilator 25 08/30/18 08:00 66 28 104/70 (81) 100 Mechanical Ventilator 25.00 08/30/18 07:39 70 28 100 25 08/30/18 07:39 Mechanical Ventilator 21.00 08/30/18 07:00 74 08/30/18 07:00 97.1 08/30/18 07:00 74 33 90/64 (73) 99 Mechanical Ventilator 25.00 08/30/18 06:22 29 152/71 100 Mechanical Ventilator I & O 08/31/18 07:00 Intake Total 2107.0 ml Output Total 3510 ml Balance -1403.0 ml Height & Weight Height: 5'10.00" Weight: 173lbs. 5.0oz. 78.240302cs; 27.0 BMI Method:Stated General Appearance: No Apparent Distress, WD/WN Neck: Normal Inspection Respiratory: Lungs Clear, No Accessory Muscle Use, No Respiratory Distress, Decreased Breath Sounds Cardiovascular: Regular Rate, Rhythm, No Murmur Capillary Refill: Less Than 3 Seconds Gastrointestinal: non tender, soft Extremity: Normal Capillary Refill, Normal Inspection, Normal Range of Motion, Non Tender, No Calf Tenderness, No Pedal Edema Neurologic/Psychiatric: Other (sedated on vent ) Skin: Normal Color, Warm/Dry Lymphatic: No Adenopathy Results Lab Laboratory Tests 08/30/18 03:23 08/31/18 03:20 Assessment/Plan Assessment/Plan Acute on chronic respiratory failure -Pc02 was 68 on admission and required mechanical ventilation. pt is high risk for multiple hospitalizations and continued respiratory failure -Pt would benefit from home vent to mask. -CT scan reviewed -Will follow as an out patient -pt is doing well off vent Pulmonary edema EF 40-45% -Continue Lasix secondary to hypernatremia, increasing BUN, and hypokalemia. -PT did get 1 dose today -IVF are hep locked Hypokalemia -replace and recheck CHF - hold lasix -Cardiology following COPDAE -SVNs Q4 -Solumedrol 40 Q12 Hypernatremia -Monitor CAD with elevated troponin - cardiology following DVT/GI ppx -SCDs -start Lovenox, protonix JODY TORRES DO Aug 31, 2018 06:24
[2018-08-31] MEDS: LEVOFLOXACIN 500 MG/100 ML IV 100 ML IV SCH (07:28)
[2018-08-31] MEDS: LOSARTAN 100 MG (COZAAR) TABLET PO SCH (07:31)
[2018-08-31] MEDS: ASPIRIN 325 MG (5 GR) TABLET PO SCH (07:31)
[2018-08-31] MEDS: CARVEDILOL 6.25 MG (COREG) TAB PO SCH ×2 (07:31→20:38)
[2018-08-31] MEDS: PANTOPRAZOLE 40 MG (PROTONIX) VIAL IV SCH (07:31)
--- NOTE | 2018-08-31 07:51 | Progress Note (SOAP) ---
Subjective Time Seen by a Provider: 07:48 Subjective/Events-last exam Patient off vent. Patient speaking good. Patient to be evaluated by speech therapy. Patient voices no complaints. Patient not in any respiratory difficulty. Objective Exam Vital Signs Date Time Temp Pulse Resp B/P (MAP) Pulse Ox O2 Delivery O2 Flow Rate FiO2 08/31/18 07:38 98.0 08/31/18 07:00 75 08/31/18 07:00 75 22 149/76 (100) 98 Room Air 08/31/18 06:48 99 Room Air 08/31/18 06:00 74 21 148/72 (97) 98 Room Air 08/31/18 05:00 70 12 151/72 (98) 99 Room Air 08/31/18 04:20 98 Room Air 08/31/18 04:15 97.9 08/31/18 04:00 71 19 151/93 (112) 97 Room Air 08/31/18 03:00 73 13 156/75 (102) 98 Room Air 08/31/18 02:00 74 21 163/91 (115) 97 Room Air 08/31/18 01:48 98 Room Air 08/31/18 01:00 75 08/31/18 01:00 75 18 164/81 (108) 98 Room Air 08/31/18 00:00 73 20 158/72 (100) 98 Room Air 08/30/18 23:40 98.9 08/30/18 23:40 97 Room Air 08/30/18 23:00 76 14 159/72 (101) 98 Room Air 08/30/18 22:18 98 Room Air 08/30/18 22:00 81 25 164/78 (106) 97 Room Air 08/30/18 21:00 83 23 155/74 (101) 97 Room Air 08/30/18 20:33 89 95 21 08/30/18 20:00 98 Room Air 08/30/18 20:00 99.7 08/30/18 20:00 90 15 154/87 (109) 99 Room Air 08/30/18 19:00 90 08/30/18 19:00 92 21 158/77 (104) 98 Room Air 08/30/18 18:39 95 Room Air 08/30/18 18:00 80 24 153/73 (99) 96 Nasal Cannula 3.00 08/30/18 17:00 80 24 152/68 (96) 97 Nasal Cannula 3.00 08/30/18 16:11 98.4 08/30/18 16:00 72 21 142/64 (90) 98 Nasal Cannula 3.00 08/30/18 15:37 97 Nasal Cannula 1.00 08/30/18 15:00 71 30 138/65 (89) 97 Nasal Cannula 3.00 08/30/18 14:38 98 Nasal Cannula 3.00 08/30/18 14:00 69 25 121/64 (83) 96 Nasal Cannula 3.00 08/30/18 13:00 71 08/30/18 13:00 71 25 127/65 (85) 100 Nasal Cannula 3.00 08/30/18 12:27 Nasal Cannula 3.00 08/30/18 12:27 Nasal Cannula 3.00 08/30/18 12:00 96.2 08/30/18 12:00 100 Mechanical Ventilator 21 08/30/18 12:00 70 35 108/63 (78) 99 Mechanical Ventilator 25.00 08/30/18 11:05 71 28 99 21 08/30/18 11:00 68 27 92/68 (76) 99 Mechanical Ventilator 25.00 08/30/18 10:00 66 26 103/67 (79) 100 Mechanical Ventilator 25.00 08/30/18 09:49 70 25 100 21 08/30/18 09:00 73 28 102/60 (74) 100 Mechanical Ventilator 25.00 08/30/18 08:00 100 Mechanical Ventilator 25 08/30/18 08:00 66 28 104/70 (81) 100 Mechanical Ventilator 25.00 I & O 08/31/18 07:00 Intake Total 2107.0 ml Output Total 3510 ml Balance -1403.0 ml Capillary Refill : Less Than 3 Seconds General Appearance: No Apparent Distress, WD/WN HEENT: Normal ENT Inspection Neck: Full Range of Motion, Normal Inspection Respiratory: No Accessory Muscle Use, No Respiratory Distress, Decreased Breath Sounds Cardiovascular: Regular Rate, Rhythm, No Murmur Gastrointestinal: non tender, soft Results Lab Laboratory Tests 08/31/18 03:20 Laboratory Tests 08/30/18 11:50: Blood Gas Puncture Site R RAD, Blood Gas Patient Temperature 96.2, Arterial Blood pH 7.51H, Arterial Blood Partial Pressure CO2 34L, Arterial Blood Partial Pressure O2 48L, Arterial Blood HCO3 27, Arterial Blood Total CO2 28.4, Arterial Blood Oxygen Saturation 89L, Arterial Blood Base Excess 4.0H, Ibrahima Test YES-POS, Blood Gas Ventilator Setting YES, Blood Gas Inspired Oxygen 21% 08/30/18 11:54: Glucometer 288H 08/30/18 17:15: Glucometer 406*H 08/31/18 00:09: Glucometer 160H 08/31/18 03:20: White Blood Count 11.6H, Red Blood Count 4.58, Hemoglobin 13.8, Hematocrit 41, Mean Corpuscular Volume 89, Mean Corpuscular Hemoglobin 30, Mean Corpuscular Hemoglobin Concent 34, Red Cell Distribution Width 14.0, Platelet Count 233, Mean Platelet Volume 10.5H, Neutrophils (%) (Auto) 82H, Lymphocytes (%) (Auto) 11L, Monocytes (%) (Auto) 7, Eosinophils (%) (Auto) 0, Basophils (%) (Auto) 0, Neutrophils # (Auto) 9.5H, Lymphocytes # (Auto) 1.3, Monocytes # (Auto) 0.8, Eosinophils # (Auto) 0.0, Basophils # (Auto) 0.0, Sodium Level 149H, Potassium Level 2.9L, Chloride Level 110H, Carbon Dioxide Level 28, Anion Gap 11, Blood Urea Nitrogen 30H, Creatinine 0.80, Estimat Glomerular Filtration Rate > 60, BUN /Creatinine Ratio 38, Glucose Level 101, Calcium Level 7.9L, Phosphorus Level 2.0L, Magnesium Level 2.0 Microbiology 08/25/18 Blood Culture - Preliminary, Resulted No growth 08/25/18 Urine Culture - Final, Complete See Comments Assessment/Plan Assessment/Plan Assess & Plan/Chief Complaint Pneumonia. Hypoxia. Hypertension history in ICU hypotensive. COPD. Diabetes. Coronary artery disease with elevated troponin. Acute and chronic respiratory failure. Acute systolic and diastolic congestive heart failURE. . 08/29/18. Pneumonia. Hypoxia. Hypertension. COPD. Diabetes. Coronary artery disease. Acute and chronic respiratory failure. Acute systolic and diastolic CHF. Patient on vent. Elevated liver tests minimal. . 08/30/18. Pneumonia. Obesity amounts of yellow sputum. This plugging. Hypertension. COPD. Diabetes. Coronary artery disease. Patient on vent. Elevated liver tests keeps on going down. . 08/31/18. Acute and chronic respiratory failure. Pneumonia. Pulmonary edema. COPD with acute exacerbation. Hypokalemia. Coronary artery disease. Diabetes. History of tobaccoism. Patient improving and doing better in speaking today. Patient will prevent. Patient not having any trouble breathing Clinical Quality Measures DVT/VTE Risk/Contraindication: Risk Factor Score Per Nursin RFS Level Per Nursing on Admit: 3=High LEN MAE DO Aug 31, 2018 07:51
--- NOTE | 2018-08-31 08:51 | Progress Note-Cardiology ---
Cardiology SOAP Progress Note Subjective: Sitting up in bed. States he feels his breathing is almost back to his normal baseline. No c/o CP, palpitations. Occ prod cough. Objective: I&O/Vital Signs 08/30/18 08/30/18 08/30/18 08/30/18 22:00 22:18 23:00 23:40 Pulse 81 76 Resp 25 14 B/P (MAP) 164/78 (106) 159/72 (101) Pulse Ox 97 98 98 97 O2 Delivery Room Air Room Air Room Air Room Air O2 Flow Rate 08/30/18 08/31/18 08/31/18 08/31/18 23:40 00:00 01:00 01:00 Temp 98.9 Pulse 73 75 75 Resp 20 18 B/P (MAP) 158/72 (100) 164/81 (108) Pulse Ox 98 98 O2 Delivery Room Air Room Air O2 Flow Rate 08/31/18 08/31/18 08/31/18 08/31/18 01:48 02:00 03:00 04:00 Pulse 74 73 71 Resp 21 13 19 B/P (MAP) 163/91 (115) 156/75 (102) 151/93 (112) Pulse Ox 98 97 98 97 O2 Delivery Room Air Room Air Room Air Room Air O2 Flow Rate 08/31/18 08/31/18 08/31/18 08/31/18 04:15 04:20 05:00 06:00 Temp 97.9 Pulse 70 74 Resp 12 21 B/P (MAP) 151/72 (98) 148/72 (97) Pulse Ox 98 99 98 O2 Delivery Room Air Room Air Room Air 08/31/18 08/31/18 08/31/18 08/31/18 06:48 07:00 07:00 07:38 Temp 98.0 Pulse 75 75 Resp 22 B/P (MAP) 149/76 (100) Pulse Ox 99 98 O2 Delivery Room Air Room Air 08/31/18 08/31/18 08:00 08:08 Pulse 81 Resp 27 B/P (MAP) 152/88 (109) Pulse Ox 99 96 O2 Delivery Room Air Room Air 08/31/18 00:00 Intake Total 842.5 ml Output Total 2235 ml Balance -1392.5 ml Weight (Pounds): 173 Weight (Ounces): 5.0 Weight (Calculated Kilograms): 78.708403 Constitutional: AAO x 3 Respiratory: No accessory muscle use; rhonchi (scattered), other (diminished bases bilat; occ cough) Cardiovascular: regular rate-rhythm, S1 and S2, systolic murmur (2/6 MARQUITA at card base) Gastrointestional: soft; No guarding, No rebound; audible bowel sounds ( hyperactive) Extremities: no lower extremity edema bilateral; No significant edema Neurologic/Psychiatric: grossly intact Skin: No rash on exposed areas, No ulcerations on exposed areas Results/Procedures: Labs Laboratory Tests 08/30/18 11:50: Blood Gas Puncture Site R RAD, Blood Gas Patient Temperature 96.2, Arterial Blood pH 7.51H, Arterial Blood Partial Pressure CO2 34L, Arterial Blood Partial Pressure O2 48L, Arterial Blood HCO3 27, Arterial Blood Total CO2 28.4, Arterial Blood Oxygen Saturation 89L, Arterial Blood Base Excess 4.0H, Ibrahima Test YES-POS, Blood Gas Ventilator Setting YES, Blood Gas Inspired Oxygen 21% 08/30/18 11:54: Glucometer 288H 08/30/18 17:15: Glucometer 406*H 08/31/18 00:09: Glucometer 160H 08/31/18 03:20: White Blood Count 11.6H, Red Blood Count 4.58, Hemoglobin 13.8, Hematocrit 41, Mean Corpuscular Volume 89, Mean Corpuscular Hemoglobin 30, Mean Corpuscular Hemoglobin Concent 34, Red Cell Distribution Width 14.0, Platelet Count 233, Mean Platelet Volume 10.5H, Neutrophils (%) (Auto) 82H, Lymphocytes (%) (Auto) 11L, Monocytes (%) (Auto) 7, Eosinophils (%) (Auto) 0, Basophils (%) (Auto) 0, Neutrophils # (Auto) 9.5H, Lymphocytes # (Auto) 1.3, Monocytes # (Auto) 0.8, Eosinophils # (Auto) 0.0, Basophils # (Auto) 0.0, Sodium Level 149H, Potassium Level 2.9L, Chloride Level 110H, Carbon Dioxide Level 28, Anion Gap 11, Blood Urea Nitrogen 30H, Creatinine 0.80, Estimat Glomerular Filtration Rate > 60, BUN /Creatinine Ratio 38, Glucose Level 101, Calcium Level 7.9L, Phosphorus Level 2.0L, Magnesium Level 2.0 Microbiology 11/2/18 Blood Culture - Preliminary, Resulted No growth 08/25/18 Urine Culture - Final, Complete See Comments A/P: Assessment: Acute resp failure: pulm edema and/or bronchial mucous plugging (treated endoscopically by Dr Webster on 08/30/18) - extubated Ac systolic and diastolic CHF. Echo of 08/27/18 shows paradoxical septal motion , LVEF 50%, grade I diastolic dysfunction of LV Hepatic transaminase elevation, possibly related to passive hepatic congestion Elevated troponin likely due to hypoxemia due to ac resp failure Chronic LBBB (seen on ECG of 08/25/18 and on ECG of 12/18/15) Coronary artery disease with coronary artery bypass surgery in 2003, consisting of left internal mammary to left anterior descending, saphenous vein to obtuse marginal, saphenous vein to diagonal, sequential saphenous vein to acute marginal and posterior descending H/o ischemic cardiomyopathy prior to CABG that improved after CABG H/o hypertension 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 H/o hyperlipidemia being treated with atorvastatin DM II Chronic obstructive pulmonary disease Mild bilateral carotid arterial disease without evidence of hemodynamic significance per u/s of June 2013 Plan: * Complex management due to multiple comorbidities * Intravascular vol depletion likely aggressive diuresis - hold diuretics for now * Continue current medications * Replace electrolytes * Post bronchoscopy * Monitor labs Physician Assessment Physician Assessment Does not currently report shortness of breath or cp or palp. No syncope Lungs: fair air entry; scattered rhonchi and coarse crackles over large airways Cor: reg Ext: no c/c/e A&R * As documented in our note above that I updated * Hold diuretics for now * Monitor labs * I discussed with him his CV issues and our treatment plan KIRBY VANCE ASSESSMENT ANALYST Aug 31, 2018 08:51 LUIS FERNANDO PALUMBO MD [facility] Aug 31, 2018 09:17
--- NOTE | 2018-08-31 09:26 | Speech Therapy Daily Note ---
Speech Daily Progress Note Subjective Date Seen by Provider: Aug 31, 2018 Time Seen by Provider: 08:00 Pt in bed already eating. Pain Numeric Pain Scale: 0-No Pain Objective Clinical observation of pt eating breakfast. Observed coughing x 1 after consuming thin liquid. Pt noted to cough periodically during the meal mostly when no PO intake took place. No unsafe eating behaviors observed. Continue to follow. Assessment Assessment Current Status: Good Progress Treatment Plan Continue Plan of Care Speech Short Term Goals Short Term Goals Short Term Goals Pt will demonstrate no s/s of aspiration for recommended diet. Time Frame-ST week Speech Fci Goals Fci Goals Pt will tolerate regular diet and thin liquids with no s/s of aspiration. Time Frame: 1 week Speech-Plan Patient/Family Goals Patient/Family Goals: to return home Treatment Plan Speech Therapy Treatment Plan: Continue Plan of Care continue to follow pt and determine appropriate time for diet upgrade. Frequency: 2 times per week Estimated Hrs Per Day: .25 hour per day Rehab Potential: Good Pt/Family Agrees to Plan: Yes Safety Risks/Education Teaching Recipient: Patient Teaching Methods: Discussion Response to Teaching: Verbalize Understanding Time Speech Therapy Time In: 08:00 Speech Therapy Time Out: 08:25 Total Billed Time: 25 Billed Treatment Time 1, DYST No STEPH ULLOA Aug 31, 2018 09:26
--- NOTE | 2018-08-31 10:12 | Diagnostic Imaging Report ---
INDICATION: Dyspnea. TECHNIQUE: Single view chest 3:48 AM. CORRELATION STUDY: 08/30/2018 FINDINGS: There has been interval extubation and removal of the gastric tube with right IJ central line remaining in place. The patient is post sternotomy. Heart size enlarged. Vascular overall within normal limits. Scattered pulmonary parenchymal densities do persist but overall are improved and less severe. Bilateral pleural effusions present. IMPRESSION: 1. Interval extubation. 2. Scattered pulmonary parenchymal densities particularly in the lung bases persisting but overall do appear to be diminished and improved. Dictated by: Dictated on workstation # [id number]
--- NOTE | 2018-08-31 10:36 | Physical Therapy Daily Note ---
PT Daily Note-Current Subjective Pt awake in bed when PT arrived. Pt stated he was feeling well and agreed to get up and exercise with PT. Pain Numeric Pain Scale: 0-No Pain Location: No Pain Reported Mental Status Patient Orientation: Confused, Mumbles Attachments: [place] Catheter, IV Transfers Functional [place] Measure 0=Not Assessed/NA 4=Minimal Assistance 1=Total Assistance 5=Supervision or Setup 2=Maximal Assistance 6=Modified [place] 3=Moderate Assistance 7=Complete IndependenceIRFPAI Quality Coding Scale 6 Independent with activity with or without an assistive device 5 Patient requires set up or clean up by helper. Patient completes activity by themselves 4 Supervision or touching assist (CGA). [place] provide cues , steadying assist 3 The helper provides less than half the effort to complete the activity 2 The helper provides more than half the effort to complete the activity 1 Dependent. The helper does all the effort to complete an activity 7 Patient refused to complete or attempt activity 9 The patient did not perform the activity before the current illness or injury 88 Not attempted due to Medical conditions or safety concerns Transfers (B, C, W/C) (FIM): 4 Scootin Rollin Supine to/from Sit: 4 Sit to/from Stand: 4 slow, shuffle, NBOS gait sequence Weight Bearing Right Lower Extremity: Right Full Weight Bearing Left Lower Extremity: Left Full Weight Bearing Gait Training Gait (FIM): 1 Distance (FIM): 1=up to 49 ft Distance: 20' Gait Level of Assist: 4 Gait Persons Needed: 1 Gait Assistive Device: FWW Exercises Seated Therapy Exercises: Long arc quads, Hamstring Curls Seated Reps: 10 Assessment Pt needed min assist when transferring from supine to sit. Pt was able to ambulate for 20' with FWW requiring CGA. Patient returned to his chair where he performed LE exercises for remainder of therapy. Pt will continue to benefit from strengthening and ambulation to maintain current function for functional activities. PT Gas Appliance Servicer Helper Goals Gas Appliance Servicer Helper Goals PT Longterm Goals Time Frame: Sep 04, 2018 Transfers (B,C,W/C) (FIM): 6 Gait (FIM): 6 Gait distance (FIM): 3=150 ft Gait Assistive Device: FWW PT Plan Problem List Problem List: Activity Tolerance, Functional Strength, Safety, Balance, Gait, Transfer Treatment/Plan Treatment Plan: Continue Plan of Care Treatment Plan: Bed Mobility, Education, Functional Activity Manda, Functional Strength, Gait, Safety, Therapeutic Exercise, Transfers Treatment Duration: Sep 04, 2018 Frequency: 6 times per week Estimated Hrs Per Day: .5 hour per day Patient and/or Family Agrees t: Yes Time/GCodes Time In: 931 Time Out: 949 Total Billed Treatment Time: 18 Total Billed Treatment 1 visit FA - 18' PAULA VALDIVIA PT Aug 31, 2018 10:36
--- NOTE | 2018-08-31 14:23 | Occupational Therapy Eval ---
OT Evaluation-General/PLF Medical Diagnosis Admission Date Aug 25, 2018 at 22:25 Medical Diagnosis: Pneumonia Onset Date: Aug 26, 2018 Therapy Diagnosis Therapy Diagnosis: Weakness Height/Weight Height (Feet): 5 Height (Inches): 10.00 Weight (Pounds): 173 Weight (Ounces): 5.0 Precautions Precautions/Isolations: Fall Prevention, Standard Precautions, Pressure Ulcer Safety Interventions: Bed Exit Alarm Weight Bear Status Weight Bearing Restriction: Weight Bearing/Tolerated Referral Physician: Eleanor Referral Reason: Activity Tolerance, Self Care, Evaluation/Treatment, Strengthening/ROM Medical History Pertinent Medical History: CABG, CAD, COPD, DM, HTN Additional Medical History Hypoxia, Respiratory failure Current History Pt. became SOA at home. Transferred to hospital. Sedated and put on vent. Pt. extubated 08-30-18. Reviewed History: Yes Social History Home: Single Level Current Living Status: Spouse Entry Into Home: Stairs With Railing Pt. is unable to state how many stairs that he has. ADL-Prior Level of Function Functional O[place] Measure 0=Not Assessed/NA 4=Minimal Assistance 1=Total Assistance 5=Supervision or Setup 2=Maximal Assistance 6=Modified Ogle 3=Moderate Assistance 7=Complete Ogle ADL PLOF Comments Pt. does verbalize that he was independent previous to this hospitalization. Self Care Self Care: (Code the patient's need for assistance with bathing, dressing, using the toilet, or eating prior to the current illness, exacerbation, or injury.) Functional Cognition Functional Cognition: (Code the patient's need for assistance with planning regular tasks, such as shopping or remembering to take medicaiton prior to the current illness, exacerbation, or injury.) OT Current Status Subjective No pain reported. Appearance Pt. up in chair. Pt. demonstrates somewhat flat affect. Pt. is able to answer OT's questions, but not thoroughly, and is somewhat slow to process. Mental Status/Objective Patient Orientation: Unable to Assess Attachments: IV, Telemetry Current Glasses/Contacts: Yes Hearing Aids: Yes Hand Dominance: Left (dominant but uses both) Upper Extremity ROM Pt. is able to flex bilateral shoulders to approximately 90 degrees. Upper Extremity Strength Pt. demonstrates approximately 3/5 strength in bilateral hands. ADL-Treatment Functional Ogle Measure 0=Not Assessed/NA 4=Minimal Assistance 1=Total Assistance 5=Supervision or Setup 2=Maximal Assistance 6=Modified Ogle 3=Moderate Assistance 7=Complete IndependenceIRFPAI Quality Coding Scale 6 Independent with activity with or without an assistive device 5 Patient requires set up or clean up by helper. Patient completes activity by themselves 4 Supervision or touching assist (CGA). [place] provide cues , steadying assist 3 The helper provides less than half the effort to complete the activity 2 The helper provides more than half the effort to complete the activity 1 Dependent. The helper does all the effort to complete an activity 7 Patient refused to complete or attempt activity 9 The patient did not perform the activity before the current illness or injury 88 Not attempted due to Medical conditions or safety concerns Bathing (FIM): 2 (Please see note.) Lower Body Dressing (FIM): 1 Toileting (FIM): 1 Transfers (B, C, W/C) (FIM): 3 (sit-stand and transfer to BSC. Please see note.) Toilet/Commode Transfer (FIM): 3 Other Treatments OT initiated evaluation with pt. Pt. is somewhat slow to answer OT, but is able to communicate, smile, and answer most questions. Pt. agrees to stand out of chair with OT. Requires mod assist and cues to position feet and scoot to edge of chair. Pt. does stand and it is noted that pt. has been slightly incontinent of bowel. While pt. is standing, OT attempts to cleanse hans area. At this time, pt. becomes fully incontinent, and has massive loose BM. Pt. is able to take steps to transfer to BSC with mod assist, but seems somewhat unaware that he has been this incontinent. Pt. requires assistance of two people to cleanse area around him and LE due to magnitude of accident. OT does encourage pt. to wash chest/arms, but he only holds the cloth and "dabs" at self. OT washes him and dons fresh slipper socks, gown, and linens to chair. Pt. transfers back to chair with min assist for sit-stand. Pt. is set up in recliner to his comfort level. Spouse comes into room at this time. All needs are met. Education OT Patient Education: Correct positioning, Modified ADL techniques, Progress toward Goal/Update tx plan, Purpose of tx/functional activities, Reviewed precautions, Rehab process, Safety issues, Transfer techniques Teaching Recipient: Patient, Significant Other Teaching Methods: Demonstration, Discussion Response to Teaching: Verbalize Understanding, Return Demonstration OT Short Term Goals Short Term Goals Time Frame: Sep 14, 2018 Eating(FIM): 5 Grooming(FIM): 5 Bathing(FIM): 3 Upper Body Dressing(FIM): 4 Lower Body Dressing(FIM): 3 Toileting(FIM): 3 Transfers (B,C,W/C) (FIM): 4 Toilet/Commode Transfer(FIM): 4 Additional Short Term Goals: 1-Demonstrate ADL Tasks, 2-Verbalize Understanding , 3-ImproveStrength/Manda 1=Demonstrate adherence to instructed precautions during ADL tasks. 2=Patient will verbalize/demonstrate understanding of assistive devices/ modifications for ADL. 3=Patient will improve strength/tolerance for activity to enable patient to perform ADL's. OT Animation Producer Goals Residential Goals Time Frame: Sep 21, 2018 Eating (FIM): 6 Grooming(FIM): 5 Bathing(FIM): 4 Upper Body Dressing(FIM): 5 Lower Body Dressing(FIM): 5 Toileting(FIM): 6 Transfers (B,C,W/C) (FIM): 6 Toilet/Commode Transfer(FIM): 6 Shower Transfer(FIM): 5 Additional Goals: 1-Demonstrate ADL Tasks, 2-Verbalize Understanding, 3- ImproveStrength/Manda 1=Demonstrate adherence to instructed precautions during ADL tasks. 2=Patient will verbalize/demonstrate understanding of assistive devices/ modifications for ADL. 3=Patient will improve strength/tolerance for activity to enable patient to perform ADL's. OT Education/Plan Problem List/Assessment Assessment: Decreased Activ Tolerance, Decreased Safety Aware, Decreased UE Strength, Dependent Transfers, Impaired Bed Mobility, Impaired Cognition, Impaired Funct Balance, Impaired I ADL's, Impaired Self-Care Skills, Restricted Funct UE ROM Discharge Recommendations Plan/Recommendations: Continue POC Therapy D/C Recommendations: Acute Rehab Comment Equipment needs and discharge location to be determined. Treatment Plan/Plan of Care Treatment,Training & Education: Yes Patient would benefit from OT for education, treatment and training to promote independence in ADL's, mobility, safety and/or upper extremity function for ADL' s. Plan of Care: ADL Retraining, Functional Mobility Treatment Duration: Sep 21, 2018 Frequency: 5 times per week Estimated Hrs Per Day: .5 hour per day Agreement: Yes Rehab Potential: Good Time/GCodes Start Time: 11:15 Stop Time: 11:50 Total Time Billed (hr/min): 35 Billed Treatment Time 1, EVH x 15minutes, ADL x 20minutes ROSALBA DAVID OT Aug 31, 2018 14:23
[2018-08-31] MEDS: ATORVASTATIN 40 MG (LIPITOR) TABLET PO SCH (20:39)
[2018-08-31] MEDS: inSUlin DETERMIR 1 UNIT/0.01 ML (LEVEMIR) CHARGE PER UNIT SQ SCH (20:39)
[2018-09-01] VITALS: BP 163/74
[2018-09-01] MEDS: RT-ALBUTEROL SULF 2.5 MG/3 ML PRE-MIX VIAL INH SCH ×6 (03:00→22:30)
[2018-09-01 04:00] VITALS: BP 168/78
[2018-09-01] MEDS: ENOXAPARIN 40 MG/0.4 ML (LOVENOX) SYR SC SCH (05:44)
[2018-09-01] MEDS: inSUlin ASPART (NovoLOG) 1 UNIT/0.01 ML (CHARGE PER UNIT) SC SCH ×4 (05:44→20:23)
[2018-09-01] MEDS: GLIMEPIRIDE 4 MG (AMARYL) TAB PO SCH (05:44)
--- NOTE | 2018-09-01 06:42 | Pulmonary Progress Note ---
Subjective Time Seen by a Provider: 06:45 Subjective/Events-last exam PT doing well off vent. Sepsis Event Evaluation Height, Weight, BMI Height: 5'10.00" Weight: 180lbs. 6.0oz. 81.368722yn; 27.0 BMI Method:Stated Exam Exam Vital Signs Date Time Temp Pulse Resp B/P (MAP) Pulse Ox O2 Delivery O2 Flow Rate FiO2 09/01/18 03:00 93 Nasal Cannula 2.00 09/01/18 00:00 98.6 78 20 163/74 (103) 92 Nasal Cannula 2.00 08/31/18 21:43 93 Nasal Cannula 2.00 08/31/18 20:00 93 Nasal Cannula 2.00 08/31/18 19:16 98.0 79 14 153/76 (101) 93 Nasal Cannula 2.00 08/31/18 19:04 87 Room Air 08/31/18 16:00 Room Air 08/31/18 15:57 98.5 73 14 156/86 (109) 91 Room Air 08/31/18 15:37 90 Room Air 08/31/18 12:13 Room Air 08/31/18 12:00 78 21 124/74 (91) Room Air 08/31/18 11:45 98.2 08/31/18 11:00 78 23 137/73 (94) 99 Room Air 08/31/18 10:18 Room Air 08/31/18 10:00 79 19 127/85 (99) 98 Room Air 08/31/18 09:00 75 20 122/70 (87) 98 Room Air 08/31/18 08:08 96 Room Air 08/31/18 08:00 81 27 152/88 (109) 99 Room Air 08/31/18 07:38 98.0 08/31/18 07:00 75 08/31/18 07:00 75 22 149/76 (100) 98 Room Air 08/31/18 06:48 99 Room Air I & O 09/01/18 07:00 Intake Total 980 ml Output Total 2000 ml Balance -1020 ml Height & Weight Height: 5'10.00" Weight: 180lbs. 6.0oz. 81.889181xs; 27.0 BMI Method:Stated General Appearance: No Apparent Distress, WD/WN HEENT: Normal ENT Inspection Neck: Normal Inspection Respiratory: Lungs Clear, No Accessory Muscle Use, No Respiratory Distress, Decreased Breath Sounds Cardiovascular: Regular Rate, Rhythm, No Murmur Capillary Refill: Less Than 3 Seconds Gastrointestinal: non tender, soft Extremity: Normal Capillary Refill, Normal Inspection, Normal Range of Motion, Non Tender, No Calf Tenderness, No Pedal Edema Neurologic/Psychiatric: Other (sedated on vent ) Skin: Normal Color, Warm/Dry Lymphatic: No Adenopathy Results Lab Laboratory Tests 08/31/18 03:20 08/31/18 10:33 Assessment/Plan Assessment/Plan Acute on Chronic Respiratory failure -Pt is doing well off ventilator -Pc02 was 68 on admission and required mechanical ventilation. pt is high risk for multiple hospitalizations and continued respiratory failure -Pt would benefit from home vent to mask. -CT scan reviewed -Will follow as an out patient -pt is doing well off vent Pulmonary edema EF 40-45% -Labs pending -IVF are hep locked CHF - hold lasix -Cardiology following COPDAE -SVNs Q4 -Solumedrol 40 Q12 Hypernatremia -Monitor CAD with elevated troponin - cardiology following DVT/GI ppx -SCDs -start Lovenox, protonix JODY TORRES DO Sep 01, 2018 06:41
[2018-09-01 07:29] LABS: HEMOGLOBIN 12.8 G/DL (13.3-17.7); MEAN PLATELET VOLUME 10.6 FL (7.4-10.4); RED BLOOD COUNT 4.32 10^6/uL (4.35-5.85); RED CELL DISTRIBUTION WIDTH 13.6 % (10.0-14.5); WHITE BLOOD COUNT 7.5 10^3/uL (4.3-11.0)
--- NOTE | 2018-09-01 07:49 | Progress Note (SOAP) ---
Subjective Time Seen by a Provider: 07:46 Subjective/Events-last exam Patient is 2 assist. Plan on rehabilitation. Patient does not have his hearing aids in. Spoke to . Check bladder this morning. Patient refused straight catheter Objective Exam Vital Signs Date Time Temp Pulse Resp B/P (MAP) Pulse Ox O2 Delivery O2 Flow Rate FiO2 09/01/18 04:00 98.1 73 18 168/78 (108) 95 Nasal Cannula 2.00 09/01/18 03:00 93 Nasal Cannula 2.00 09/01/18 00:00 98.6 78 20 163/74 (103) 92 Nasal Cannula 2.00 08/31/18 21:43 93 Nasal Cannula 2.00 08/31/18 20:00 93 Nasal Cannula 2.00 08/31/18 19:16 98.0 79 14 153/76 (101) 93 Nasal Cannula 2.00 08/31/18 19:04 87 Room Air 08/31/18 16:00 Room Air 08/31/18 15:57 98.5 73 14 156/86 (109) 91 Room Air 08/31/18 15:37 90 Room Air 08/31/18 12:13 Room Air 08/31/18 12:00 78 21 124/74 (91) Room Air 08/31/18 11:45 98.2 08/31/18 11:00 78 23 137/73 (94) 99 Room Air 08/31/18 10:18 Room Air 08/31/18 10:00 79 19 127/85 (99) 98 Room Air 08/31/18 09:00 75 20 122/70 (87) 98 Room Air 08/31/18 08:08 96 Room Air 08/31/18 08:00 81 27 152/88 (109) 99 Room Air I & O 09/01/18 07:00 Intake Total 1730 ml Output Total 2750 ml Balance -1020 ml Capillary Refill : Less Than 3 Seconds General Appearance: No Apparent Distress, WD/WN HEENT: Normal ENT Inspection Neck: Full Range of Motion, Normal Inspection Respiratory: No Accessory Muscle Use, No Respiratory Distress, Decreased Breath Sounds Cardiovascular: Regular Rate, Rhythm, No Murmur Gastrointestinal: non tender, soft Results Lab Laboratory Tests 08/31/18 10:33: Potassium Level 4.0 08/31/18 11:50: Glucometer 229H 08/31/18 15:56: Glucometer 168H 08/31/18 20:24: Glucometer 241H 09/01/18 05:22: Glucometer 114H 09/01/18 07:25: White Blood Count 7.5, Red Blood Count 4.32L, Hemoglobin 12.8L, Hematocrit 40, Mean Corpuscular Volume 92, Mean Corpuscular Hemoglobin 30, Mean Corpuscular Hemoglobin Concent 32, Red Cell Distribution Width 13.6, Platelet Count 212, Mean Platelet Volume 10.6H Microbiology 08/25/18 Blood Culture - Final, Complete No growth 08/30/18 Mycobacterial Culture - Preliminary, Resulted See Comments 08/25/18 Urine Culture - Final, Complete See Comments Assessment/Plan Assessment/Plan Assess & Plan/Chief Complaint Pneumonia. Hypoxia. Hypertension history in ICU hypotensive. COPD. Diabetes. Coronary artery disease with elevated troponin. Acute and chronic respiratory failure. Acute systolic and diastolic congestive heart failURE. . 08/29/18. Pneumonia. Hypoxia. Hypertension. COPD. Diabetes. Coronary artery disease. Acute and chronic respiratory failure. Acute systolic and diastolic CHF. Patient on vent. Elevated liver tests minimal. . 08/30/18. Pneumonia. Obesity amounts of yellow sputum. This plugging. Hypertension. COPD. Diabetes. Coronary artery disease. Patient on vent. Elevated liver tests keeps on going down. . 08/31/18. Acute and chronic respiratory failure. Pneumonia. Pulmonary edema. COPD with acute exacerbation. Hypokalemia. Coronary artery disease. Diabetes. History of tobaccoism. Patient improving and doing better in speaking today. Patient will prevent. Patient not having any trouble breathing. . 09/01/18. Chest x-ray improved yesterday. Acute and chronic respiratory failure. Pulmonary edema. Congestive heart failure. COPD with acute exacerbation. CAD. Patient not able to get around by himself. Patient candidate for acute rehabilitation. Hypertension. Clinical Quality Measures DVT/VTE Risk/Contraindication: Risk Factor Score Per Nursin RFS Level Per Nursing on Admit: 3=High LEN MAE DO Sep 01, 2018 07:49
[2018-09-01 07:53] LABS: BUN/CREATININE RATIO 32; CALCIUM 7.7 MG/DL (8.5-10.1); CARBON DIOXIDE 30 MMOL/L (21-32); CHLORIDE 108 MMOL/L (98-107); CREATININE SERUM 0.71 MG/DL (0.60-1.30); GFR ESTIMATED > 60; GLUCOSE 110 MG/DL (70-105); MAGNESIUM 2.1 MG/DL (1.8-2.4); PHOSPHORUS 2.7 MG/DL (2.3-4.7); POTASSIUM 3.7 MMOL/L (3.6-5.0); SODIUM 146 MMOL/L (135-145)
[2018-09-01 08:36] VITALS: BP 142/78
[2018-09-01] MEDS: LOSARTAN 100 MG (COZAAR) TABLET PO SCH (08:42)
[2018-09-01] MEDS: ASPIRIN 325 MG (5 GR) TABLET PO SCH (08:42)
[2018-09-01] MEDS: CARVEDILOL 6.25 MG (COREG) TAB PO SCH (08:42)
[2018-09-01] MEDS: PANTOPRAZOLE 40 MG (PROTONIX) VIAL IV SCH (08:43)
[2018-09-01] MEDS: LEVOFLOXACIN 500 MG/100 ML IV 100 ML IV SCH (08:43)
--- NOTE | 2018-09-01 08:49 | Progress Note-Cardiology ---
Cardiology SOAP Progress Note Subjective: Sitting up in bed. States he feels his breathing is improving. No c/o CP or palpitations. Objective: I&O/Vital Signs 09/01/18 09/01/18 09/01/18 09/01/18 03:00 04:00 08:00 08:36 Temp 98.1 98.6 Pulse 73 75 Resp 18 16 B/P (MAP) 168/78 (108) 142/78 (99) Pulse Ox 93 95 93 O2 Delivery Nasal Cannula Nasal Cannula Nasal Cannula Nasal Cannula O2 Flow Rate 2.00 2.00 2.00 09/01/18 09/01/18 10:32 12:23 Temp 96.6 Pulse 75 Resp 16 B/P (MAP) 123/65 (84) Pulse Ox 94 92 O2 Delivery Nasal Cannula Nasal Cannula O2 Flow Rate 2.00 2.00 09/01/18 00:00 Intake Total 480 ml Output Total 100 ml Balance 380 ml Weight (Pounds): 180 Weight (Ounces): 6.0 Weight (Calculated Kilograms): 81.590006 Constitutional: AAO x 3 Respiratory: No accessory muscle use; other (diminished bases bilat; occ cough) Cardiovascular: regular rate-rhythm, S1 and S2, systolic murmur (2/6 MARQUITA at card base) Gastrointestional: soft; No guarding, No rebound; audible bowel sounds Extremities: no lower extremity edema bilateral; No significant edema Neurologic/Psychiatric: grossly intact Skin: No rash on exposed areas, No ulcerations on exposed areas Results/Procedures: Labs Laboratory Tests 08/31/18 15:56: Glucometer 168H 08/31/18 20:24: Glucometer 241H 09/01/18 05:22: Glucometer 114H 09/01/18 07:25: White Blood Count 7.5, Red Blood Count 4.32L, Hemoglobin 12.8L, Hematocrit 40, Mean Corpuscular Volume 92, Mean Corpuscular Hemoglobin 30, Mean Corpuscular Hemoglobin Concent 32, Red Cell Distribution Width 13.6, Platelet Count 212, Mean Platelet Volume 10.6H, Sodium Level 146H, Potassium Level 3.7, Chloride Level 108H, Carbon Dioxide Level 30, Anion Gap 8, Blood Urea Nitrogen 23H, Creatinine 0.71, Estimat Glomerular Filtration Rate > 60, BUN/Creatinine Ratio 32, Glucose Level 110H, Calcium Level 7.7L, Phosphorus Level 2.7, Magnesium Level 2.1, B-Type Natriuretic Peptide 147.9H 09/01/18 11:26: Glucometer 193H Microbiology 08/25/18 Blood Culture - Final, Complete No growth 09/01/18 C. difficile GDH Antigen & Toxins - Final, Complete 08/30/18 Mycobacterial Culture - Preliminary, Resulted See Comments 08/25/18 Urine Culture - Final, Complete See Comments Laboratory Tests 08/31/18 03:20 08/31/18 10:33 09/01/18 07:25 A/P: Assessment: Acute resp failure: pulm edema and/or bronchial mucous plugging (treated endoscopically by Dr Webster on 08/30/18) - extubated Ac systolic and diastolic CHF. Echo of 08/27/18 shows paradoxical septal motion , LVEF 50%, grade I diastolic dysfunction of LV Hepatic transaminase elevation, possibly related to passive hepatic congestion Elevated troponin likely due to hypoxemia due to ac resp failure Chronic LBBB (seen on ECG of 08/25/18 and on ECG of 12/18/15) Coronary artery disease with coronary artery bypass surgery in 2003, consisting of left internal mammary to left anterior descending, saphenous vein to obtuse marginal, saphenous vein to diagonal, sequential saphenous vein to acute marginal and posterior descending H/o ischemic cardiomyopathy prior to CABG that improved after CABG Hypertension 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 No cp or palp or syncope Lungs: scattered rhonchi over large airways Cor: reg Ext: no c/c/e A&R * As documented in our note above that I updated (italics) and as noted below * Add low dose oral diuretic * Monitor labs * Dr Robles covering CV Svce over the weekend KIRBY VANCE CABLE SPLICER Sep 01, 2018 08:49 LUIS FERNANDO PALUMBO MD [facility] Sep 01, 2018 14:45
[2018-09-01] MEDS ORDERED: CARVEDILOL 6.25 MG (COREG) TAB PO NR (09:12)
--- NOTE | 2018-09-01 11:22 | Physical Therapy Daily Note ---
PT Daily Note-Current Subjective Agrees to PT Agrees to sit up in the chair post treatment Mental Status Patient Orientation: Person, Confused, Place, Time Attachments: Oxygen (in situ during and post treatment) Transfers Functional [place] Measure 0=Not Assessed/NA 4=Minimal Assistance 1=Total Assistance 5=Supervision or Setup 2=Maximal Assistance 6=Modified [place] 3=Moderate Assistance 7=Complete IndependenceIRFPAI Quality Coding Scale 6 Independent with activity with or without an assistive device 5 Patient requires set up or clean up by helper. Patient completes activity by themselves 4 Supervision or touching assist (CGA). [place] provide cues , steadying assist 3 The helper provides less than half the effort to complete the activity 2 The helper provides more than half the effort to complete the activity 1 Dependent. The helper does all the effort to complete an activity 7 Patient refused to complete or attempt activity 9 The patient did not perform the activity before the current illness or injury 88 Not attempted due to Medical conditions or safety concerns Transfers (B, C, W/C) (FIM): 4 Supine to/from Sit: 4 Sit to/from Stand: 4 min assist with all transfers with skilled cues for sequencing. Takes extra time to complete all. Toilet transfer as well. Weight Bearing Right Lower Extremity: Right Full Weight Bearing Left Lower Extremity: Left Full Weight Bearing Gait Training Gait (FIM): 2 Distance (FIM): 1=up to 49 ft Distance: 40 ft Gait Level of Assist: 4 (min assist for safety) Treatments Ambulation, toileted. Up in chair post treatment with chair alarm activiated. Assessment Current Status: Good Progress Flat affect. Slow to process cues. Limited conversation. Cooperative. Progressing with funcitonal mobiltiy. PT Short Term Goals Short Term Goals Transfers (B,C,W/C) (FIM): 4 (met) PT [facility] Goals Manager Sterile Processing Goals PT [facility] Goals Time Frame: Sep 04, 2018 Transfers (B,C,W/C) (FIM): 6 Gait (FIM): 6 Gait distance (FIM): 3=150 ft Gait Assistive Device: FWW PT Plan Problem List Problem List: Activity Tolerance, Functional Strength, Safety, Balance, Gait, Transfer, Bed Mobility Treatment/Plan Treatment Plan: Continue Plan of Care Treatment Plan: Bed Mobility, Education, Functional Activity Manda, Functional Strength, Gait, Safety, Therapeutic Exercise, Transfers Treatment Duration: Sep 04, 2018 Frequency: 6 times per week Estimated Hrs Per Day: .5 hour per day Patient and/or Family Agrees t: Yes Safety Risks/Education Patient Education: Transfer Techniques, Safety Issues Teaching Recipient: Patient Teaching Methods: Discussion Response to Teaching: Reinforcement Needed Discharge Recommendations Therapy D/C Recommendations: Acute Rehab Time/GCodes Time In: 1045 Time Out: 1110 Total Billed Treatment Time: 25 Total Billed Treatment visit FA 25 GIOVANNI RIGGINS PT Sep 01, 2018 11:22
[2018-09-01 12:23] VITALS: BP 123/65
--- NOTE | 2018-09-01 12:25 | Occupational Ther Daily Note ---
OT Current Status-Daily Note Subjective Pt sitting in chair, agrees to treatment. Pt has no reports of pain. Mental Status/Objective Functional [place] Measure 0=Not Assessed/NA 4=Minimal Assistance 1=Total Assistance 5=Supervision or Setup 2=Maximal Assistance 6=Modified [place] 3=Moderate Assistance 7=Complete [place] Other Treatment Pt completed bilateral UE exercises to increase strength and activity tolerance needed for functional task completion. Pt performed AROM x10 reps in all planes. Pt fatigues quickly and requires multiple rest breaks. Pt states he is "worn out" from ambulating with PT. Pt completed bilateral hand operations support coordinator exercises x10 reps with moderate resistance therapy foam. Pt moves slowly throughout treatment and responds slowly to commands and questions. Pt sitting in chair with needs met and nurse aide present after session. OT Short Term Goals Short Term Goals Time Frame: Sep 14, 2018 Eating(FIM): 5 Grooming(FIM): 5 Bathing(FIM): 3 Upper Body Dressing(FIM): 4 Lower Body Dressing(FIM): 3 Toileting(FIM): 3 Transfers (B,C,W/C) (FIM): 4 (met) Toilet/Commode Transfer(FIM): 4 Additional Short Term Goals: 1-Demonstrate ADL Tasks, 2-Verbalize Understanding , 3-ImproveStrength/Manda 1=Demonstrate adherence to instructed precautions during ADL tasks. 2=Patient will verbalize/demonstrate understanding of assistive devices/ modifications for ADL. 3=Patient will improve strength/tolerance for activity to enable patient to perform ADL's. OT [facility] Goals Ambulatory Care Coordinator Goals Time Frame: Sep 21, 2018 Eating (FIM): 6 Grooming(FIM): 5 Bathing(FIM): 4 Upper Body Dressing(FIM): 5 Lower Body Dressing(FIM): 5 Toileting(FIM): 6 Transfers (B,C,W/C) (FIM): 6 Toilet/Commode Transfer(FIM): 6 Shower Transfer(FIM): 5 Additional Goals: 1-Demonstrate ADL Tasks, 2-Verbalize Understanding, 3- ImproveStrength/Manda 1=Demonstrate adherence to instructed precautions during ADL tasks. 2=Patient will verbalize/demonstrate understanding of assistive devices/ modifications for ADL. 3=Patient will improve strength/tolerance for activity to enable patient to perform ADL's. OT Education/Plan Discharge Recommendations Plan/Recommendations: Continue POC Treatment Plan/Plan of Care Patient would benefit from OT for education, treatment and training to promote independence in ADL's, mobility, safety and/or upper extremity function for ADL' s. Plan of Care: ADL Retraining, Functional Mobility Treatment Duration: Sep 21, 2018 Frequency: 5 times per week Estimated Hrs Per Day: .5 hour per day Agreement: Yes Rehab Potential: Good Time/GCodes Start Time: 11:31 Stop Time: 11:47 Total Time Billed (hr/min): 16 Billed Treatment Time 1 visit, EX(16minutes) JUMANA FIGUEROA OT Sep 01, 2018 12:25
--- NOTE | 2018-09-01 13:13 | Speech Therapy Progress Note ---
Therapy Progress Note Went up to see pt. Pt had just finished eating breakfast. He reported he had no difficulty such as coughing while eating or drinking. His was in the room and confirmed this. Told pt will continue to follow him to determine when diet upgrade is appropriate. STEPH ULLOA Sep 01, 2018 13:13
[2018-09-01 15:54] VITALS: BP 155/68
[2018-09-01 20:00] VITALS: BP 160/69
[2018-09-01] MEDS: ATORVASTATIN 40 MG (LIPITOR) TABLET PO SCH (20:23)
[2018-09-01] MEDS: CARVEDILOL 12.5 MG (COREG) TABLET PO SCH (20:23)
[2018-09-01] MEDS: inSUlin DETERMIR 1 UNIT/0.01 ML (LEVEMIR) CHARGE PER UNIT SQ SCH (20:24)
[2018-09-02] VITALS: BP 121/67
[2018-09-02] MEDS: RT-ALBUTEROL SULF 2.5 MG/3 ML PRE-MIX VIAL INH SCH ×6 (02:32→22:29)
[2018-09-02 05:09] LABS: BASOPHILS % (AUTO) 0 % (0-10); EOSINOPHILS # (AUTO) 0.6 10^3/uL (0.0-0.3); EOSINOPHILS % (AUTO) 9 % (0-10); HEMATOCRIT 38 % (40-54); HEMOGLOBIN 12.3 G/DL (13.3-17.7); LYMPHOCYTES # (AUTO) 1.5 X 10^3 (1.0-4.0); LYMPHOCYTES % (AUTO) 22 % (12-44); MEAN CORPUSCULAR HEMOGLOBIN 30 PG (25-34); MEAN CORPUSCULAR HGB CONC 33 G/DL (32-36); MEAN CORPUSCULAR VOLUME 91 FL (80-99); MEAN PLATELET VOLUME 10.3 FL (7.4-10.4); MONOCYTES # (AUTO) 0.6 X 10^3 (0.0-1.0); MONOCYTES % (AUTO) 9 % (0-12); NEUTROPHILS # (AUTO) 4.3 X 10^3 (1.8-7.8); NEUTROPHILS % (AUTO) 61 % (42-75); PLATELET COUNT 240 10^3/uL (130-400); RED BLOOD COUNT 4.14 10^6/uL (4.35-5.85); RED CELL DISTRIBUTION WIDTH 13.5 % (10.0-14.5)
[2018-09-02 05:25] LABS: BUN/CREATININE RATIO 29; CARBON DIOXIDE 28 MMOL/L (21-32); CHLORIDE 108 MMOL/L (98-107); CREATININE SERUM 0.69 MG/DL (0.60-1.30); GFR ESTIMATED > 60; GLUCOSE 72 MG/DL (70-105); POTASSIUM 3.6 MMOL/L (3.6-5.0); SODIUM 144 MMOL/L (135-145)
[2018-09-02] MEDS: inSUlin ASPART (NovoLOG) 1 UNIT/0.01 ML (CHARGE PER UNIT) SC SCH ×4 (05:31→21:18)
[2018-09-02] MEDS: GLIMEPIRIDE 4 MG (AMARYL) TAB PO SCH (06:16)
[2018-09-02] MEDS: ENOXAPARIN 40 MG/0.4 ML (LOVENOX) SYR SC SCH (06:16)
[2018-09-02] MEDS: KCL 10 MEQ TAB (MICRO K) PO SCH (06:16)
[2018-09-02 08:01] VITALS: BP 153/71
--- NOTE | 2018-09-02 08:12 | Diagnostic Imaging Report ---
INDICATION: Pneumonia, congestive heart failure, followup. TECHNIQUE: Single view chest 04:00 a.m. CORRELATION STUDY: 08/31/2018. FINDINGS: Poststernotomy and coronary artery bypass changes. Heart size and mediastinum appearing generally stable. Hyperinflated lung hernández. Continued atelectasis and/or infiltrates of the lung base along the small effusions perhaps slightly more prominent. Right IJ central line tip over the cavoatrial junction is stable. IMPRESSION: 1. Areas of atelectasis and/or infiltrate along effusions at the lung bases appearing slightly increased. Findings appear superimposed on chronic changes of lung parenchyma. Dictated by: Dictated on workstation # [id number]
--- NOTE | 2018-09-02 08:35 | Pulmonary Progress Note ---
Subjective Time Seen by a Provider: 08:34 Sepsis Event Evaluation Height, Weight, BMI Height: 5'10.00" Weight: 181lbs. 6.0oz. 82.829951re; 27.0 BMI Method:Stated Exam Exam Vital Signs Date Time Temp Pulse Resp B/P (MAP) Pulse Ox O2 Delivery O2 Flow Rate FiO2 09/02/18 08:01 99.6 71 22 153/71 (98) 94 Nasal Cannula 1.50 09/02/18 07:08 92 Nasal Cannula 2.00 09/02/18 02:32 92 Nasal Cannula 2.00 09/02/18 00:00 97.3 73 18 121/67 (85) 96 Nasal Cannula 2.00 09/01/18 22:30 94 Nasal Cannula 2.00 09/01/18 20:00 Nasal Cannula 2.00 09/01/18 20:00 97.9 73 18 160/69 (99) 96 Nasal Cannula 2.00 09/01/18 19:39 93 Nasal Cannula 2.00 09/01/18 15:54 97.2 76 18 155/68 (97) 96 Nasal Cannula 2.00 09/01/18 14:38 92 Nasal Cannula 2.00 09/01/18 12:23 96.6 75 16 123/65 (84) 92 Nasal Cannula 2.00 09/01/18 10:32 94 Nasal Cannula 2.00 09/01/18 08:36 98.6 75 16 142/78 (99) 93 Nasal Cannula 2.00 I & O 09/02/18 07:00 Intake Total 2180 ml Output Total 700 ml Balance 1480 ml Height & Weight Height: 5'10.00" Weight: 181lbs. 6.0oz. 82.472586jv; 27.0 BMI Method:Stated General Appearance: No Apparent Distress, WD/WN HEENT: Normal ENT Inspection Neck: Full Range of Motion, Normal Inspection Respiratory: No Accessory Muscle Use, No Respiratory Distress, Decreased Breath Sounds Cardiovascular: Regular Rate, Rhythm, No Murmur Capillary Refill: Less Than 3 Seconds Gastrointestinal: non tender, soft Extremity: Normal Capillary Refill, Normal Inspection, Normal Range of Motion, Non Tender, No Calf Tenderness, No Pedal Edema Neurologic/Psychiatric: Other (sedated on vent ) Skin: Normal Color, Warm/Dry Lymphatic: No Adenopathy Results Lab Laboratory Tests 08/31/18 10:33 11/9/18 07:25 09/02/18 05:00 Assessment/Plan Assessment/Plan Acute on Chronic Respiratory failure -Pt is doing well off ventilator -Pc02 was 68 on admission and required mechanical ventilation. pt is high risk for multiple hospitalizations and continued respiratory failure -Pt would benefit from home vent to mask. -CT scan reviewed -Will follow as an out patient -pt is doing well off vent Pulmonary edema EF 40-45% CHF -Cardiology following COPDAE -SVNs Q4 -Levaquin -Solumedrol 40 Q12 Hypernatremia -Monitor CAD with elevated troponin - cardiology following DVT/GI ppx -SCDs -start Lovenox, protonix JODY TORRES DO Sep 02, 2018 08:35
[2018-09-02] MEDS: CARVEDILOL 12.5 MG (COREG) TABLET PO SCH ×2 (08:42→21:23)
[2018-09-02] MEDS: FUROSEMIDE 20 MG (LASIX) TAB PO SCH (08:42)
[2018-09-02] MEDS: PANTOPRAZOLE 40 MG (PROTONIX) VIAL IV SCH (08:42)
[2018-09-02] MEDS: LOSARTAN 100 MG (COZAAR) TABLET PO SCH (08:42)
[2018-09-02] MEDS: LEVOFLOXACIN 500 MG/100 ML IV 100 ML IV SCH (08:42)
[2018-09-02] MEDS: ASPIRIN 325 MG (5 GR) TABLET PO SCH (08:44)
--- NOTE | 2018-09-02 09:46 | Cardiology Progress Note ---
Subjective Date Seen by Provider: Sep 02, 2018 Time Seen by Provider: 09:42 Subjective/Events-last exam Patient is in bed, feeling better, no new complaint Review of Systems General: No Chills, No Night Sweats, No Fatigue, No Malaise, No Appetite, No Other HEENT: No Head Aches, No Visual Changes, No Eye Pain, No Ear Pain, No Dysphasia , No Sinus Congestion, No Post Nasal Drip, No Sore Throat, No Other Pulmonary: No Dyspnea, No Cough, No Pleuritic Chest Pain, No Other Cardiovascular: No: Chest Pain, Palpitations, Orthopnea, Paroxysmal Noc. Dyspnea, Edema, Lt Headedness, Other Objective-Cardiology Exam Last Set of Vital Signs Vital Signs 08/30/18 09/02/18 20:33 08:01 Temp 99.6 Pulse 71 Resp 22 B/P (MAP) 153/71 (98) Pulse Ox 94 O2 Delivery Nasal Cannula O2 Flow Rate 1.50 FiO2 21 Capillary Refill : Less Than 3 Seconds I&O Intake and Output 09/02/18 00:00 Intake Total 2530 ml Output Total 1450 ml Balance 1080 ml Intake Oral 2530 ml Output Urine Total 1450 ml # Voids 5 # Bowel Movements 9 General: Alert, Oriented X3, Cooperative HEENT: Atraumatic, PERRLA Neck: Supple, No JVD, No Thyromegaly Lungs: Clear to Auscultation, Normal Air Movement Heart: Regular Rate, Normal S1, Normal S2, No Murmurs Abdomen: Normal Bowel Sounds, Soft, No Tenderness, No Hepatosplenomegaly, No Masses Extremities: No Clubbing, No Cyanosis, No Edema, Normal Pulses, No Tenderness/ Swelling Skin: No Rashes, No Breakdown, No Significant Lesion Neuro: Normal Gait, Normal Speech, Strength at 5/5 X4 Ext, Normal Tone, Sensation Intact Psych/Mental Status: Mental Status NL, Mood NL Results Lab Laboratory Tests 09/02/18 05:00 A/P-Cardiology Admission Diagnosis Acute respiratory failure Congestive heart failure Hypertension Hyperlipidemia Assessment/Plan Acute resp failure: pulm edema and/or bronchial mucous plugging (treated endoscopically by Dr Webster on 08/30/18) - extubated Ac systolic and diastolic CHF. Echo of 08/27/18 shows paradoxical septal motion , LVEF 50%, grade I diastolic dysfunction of LV Hepatic transaminase elevation, possibly related to passive hepatic congestion Elevated troponin likely due to hypoxemia due to ac resp failure Chronic LBBB (seen on ECG of 08/25/18 and on ECG of 12/18/15) Coronary artery disease with coronary artery bypass surgery in 2003, consisting of left internal mammary to left anterior descending, saphenous vein to obtuse marginal, saphenous vein to diagonal, sequential saphenous vein to acute marginal and posterior descending H/o ischemic cardiomyopathy prior to CABG that improved after CABG Hypertension 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
--- NOTE | 2018-09-02 11:41 | Physical Therapy Daily Note ---
PT Daily Note-Current Subjective Pt up in chair upon arrival. Pt agreeable, denies pain. Mental Status Patient Orientation: Person, Place, Situation Transfers Functional Placer Measure 0=Not Assessed/NA 4=Minimal Assistance 1=Total Assistance 5=Supervision or Setup 2=Maximal Assistance 6=Modified Placer 3=Moderate Assistance 7=Complete IndependenceIRFPAI Quality Coding Scale 6 Independent with activity with or without an assistive device 5 Patient requires set up or clean up by helper. Patient completes activity by themselves 4 Supervision or touching assist (CGA). [place] provide cues , steadying assist 3 The helper provides less than half the effort to complete the activity 2 The helper provides more than half the effort to complete the activity 1 Dependent. The helper does all the effort to complete an activity 7 Patient refused to complete or attempt activity 9 The patient did not perform the activity before the current illness or injury 88 Not attempted due to Medical conditions or safety concerns Weight Bearing Right Lower Extremity: Right Full Weight Bearing Left Lower Extremity: Left Full Weight Bearing Gait Training Gait Assistive Device: FWW PT amb with FWW and O2 1.5L/min x 225ft, steady speed. Assessment Current Status: Excellent Progress Pt serjio very well, no SOB noted. Pt back to chair with call light and all needs met. Spouse present. PT Short Term Goals Short Term Goals Transfers (B,C,W/C) (FIM): 4 (met) PT Penitentiary Goals Penitentiary Goals PT Wash Driller Helper Goals Time Frame: Sep 04, 2018 Transfers (B,C,W/C) (FIM): 6 Gait (FIM): 6 Gait distance (FIM): 3=150 ft Gait Assistive Device: FWW PT Plan Treatment/Plan Treatment Plan: Continue Plan of Care Treatment Plan: Bed Mobility, Education, Functional Activity Manda, Functional Strength, Gait, Safety, Therapeutic Exercise, Transfers Treatment Duration: Sep 04, 2018 Frequency: 6 times per week Estimated Hrs Per Day: .5 hour per day Patient and/or Family Agrees t: Yes Time/GCodes Time In: 1005 Time Out: 1025 Total Billed Treatment Time: 20 Total Billed Treatment 1, gait 20min AMANDA GLEZ CPTA Sep 02, 2018 11:41
--- NOTE | 2018-09-02 12:11 | Progress Note-Hospitalist ---
Subjective HPI/CC On Admission Date Seen by Provider: Sep 02, 2018 Time Seen by Provider: 11:30 The patient is a 73-year-old white male with known COPD and coronary artery disease he noted increased shortness of breath and fatigue over the past 3-4 days prior to admission. Initially had no problems with cough and denied night sweats chills or Reiger's. He got acutely worse last night with the development of a nonproductive cough. He denied any associated chest pain or anginal sounding symptoms. Subjective/Events-last exam Patient doing well Eating and drinking Bowels are moving Urinating well Walked with oxygen and felt pretty good Lungs are still coarse Did not previously use oxygen at home Inpatient rehabilitation tomorrow Review of Systems General: Fatigue Pulmonary: Dyspnea, Cough Objective Exam Vital Signs Vital Signs Date Time Temp Pulse Resp B/P (MAP) Pulse Ox O2 Delivery O2 Flow Rate FiO2 09/02/18 10:33 93 Nasal Cannula 2.00 09/02/18 08:01 99.6 71 22 153/71 (98) 08/30/18 20:33 21 Capillary Refill : Less Than 3 Seconds General Appearance: No Apparent Distress, WD/WN, Chronically ill, Thin Respiratory: Chest Non Tender, No Accessory Muscle Use, No Respiratory Distress , Crackles, Decreased Breath Sounds, Wheezing Cardiovascular: Regular Rate, Rhythm, No Edema, No Gallop, No JVD, No Murmur, Normal Peripheral Pulses Neurologic/Psychiatric: Alert, Oriented x3, No Motor/Sensory Deficits, Normal Mood/Affect Skin: Normal Color, Warm/Dry Results/Procedures Lab Laboratory Tests 09/02/18 05:00 Patient resulted labs reviewed. Assessment/Plan Assessment and Plan Assess & Plan/Chief Complaint Assessment: Status post respiratory failure with intubation now on nasal cannula oxygen COPD Severe fatigue requiring inpatient rehabilitation tomorrow Diabetes mellitus Hypertension Hyperlipidemia Plan: Continue nebulizer treatments and oxygen Physical therapy Inpatient rehabilitation tomorrow Monitor sugar Critical Care Critical Care: Critically Ill Patient Diagnosis/Problems Diagnosis/Problems (1) Acute respiratory distress Status: Resolved (2) Hypertension Status: Chronic Qualifiers: Hypertension type: essential hypertension Qualified Codes: I10 - Essential (primary) hypertension (3) Hyperlipidemia Status: Chronic Qualifiers: Hyperlipidemia type: mixed hyperlipidemia Qualified Codes: E78.2 - Mixed hyperlipidemia (4) Debility Status: Acute (5) Pneumonia Status: Resolved Qualifiers: Pneumonia type: due to unspecified organism Laterality: bilateral Lung location: lower lobe of lung Qualified Codes: J18.1 - Lobar pneumonia, unspecified organism (6) Hypoxia (7) Hyponatremia Status: Acute (8) Hypoxia Status: Acute (9) COPD exacerbation Status: Acute (10) Coronary arteriosclerosis after coronary artery bypass grafting Status: Chronic (11) Diabetes Status: Chronic Qualifiers: Diabetes mellitus type: type 2 Diabetes mellitus watermelon harvesting supervisor insulin use: without senior living use Diabetes mellitus complication status: without complication Qualified Codes: E11.9 - Type 2 diabetes mellitus without complications Clinical Quality Measures DVT/VTE Risk/Contraindication: Risk Factor Score Per Nursin RFS Level Per Nursing on Admit: 3=High YEHUDA CHRISTINA DO Sep 02, 2018 12:11
[2018-09-02 14:26] VITALS: BP 153/71
[2018-09-02 15:46] VITALS: BP 151/68
[2018-09-02] MEDS: inSUlin DETERMIR 1 UNIT/0.01 ML (LEVEMIR) CHARGE PER UNIT SQ SCH (21:23)
[2018-09-02] MEDS: ATORVASTATIN 40 MG (LIPITOR) TABLET PO SCH (21:23)
[2018-09-03] VITALS: BP 126/60
[2018-09-03] MEDS: RT-ALBUTEROL SULF 2.5 MG/3 ML PRE-MIX VIAL INH SCH ×3 (02:24→10:50)
[2018-09-03 05:05] LABS: BASOPHILS % (AUTO) 0 % (0-10); EOSINOPHILS # (AUTO) 0.5 10^3/uL (0.0-0.3); EOSINOPHILS % (AUTO) 7 % (0-10); HEMATOCRIT 36 % (40-54); HEMOGLOBIN 11.8 G/DL (13.3-17.7); LYMPHOCYTES # (AUTO) 1.3 X 10^3 (1.0-4.0); LYMPHOCYTES % (AUTO) 18 % (12-44); MEAN CORPUSCULAR HEMOGLOBIN 29 PG (25-34); MEAN CORPUSCULAR HGB CONC 33 G/DL (32-36); MEAN CORPUSCULAR VOLUME 90 FL (80-99); MEAN PLATELET VOLUME 10.5 FL (7.4-10.4); MONOCYTES # (AUTO) 0.6 X 10^3 (0.0-1.0); MONOCYTES % (AUTO) 8 % (0-12); NEUTROPHILS # (AUTO) 5.1 X 10^3 (1.8-7.8); NEUTROPHILS % (AUTO) 68 % (42-75); PLATELET COUNT 265 10^3/uL (130-400); RED BLOOD COUNT 4.02 10^6/uL (4.35-5.85); RED CELL DISTRIBUTION WIDTH 12.9 % (10.0-14.5); WHITE BLOOD COUNT 7.5 10^3/uL (4.3-11.0)
[2018-09-03 05:26] LABS: BUN/CREATININE RATIO 24; CALCIUM 8.3 MG/DL (8.5-10.1); CARBON DIOXIDE 26 MMOL/L (21-32); CHLORIDE 107 MMOL/L (98-107); CREATININE SERUM 0.63 MG/DL (0.60-1.30); GFR ESTIMATED > 60; GLUCOSE 66 MG/DL (70-105); POTASSIUM 3.6 MMOL/L (3.6-5.0); SODIUM 142 MMOL/L (135-145)
[2018-09-03] MEDS: inSUlin ASPART (NovoLOG) 1 UNIT/0.01 ML (CHARGE PER UNIT) SC SCH (05:59)
[2018-09-03] MEDS: GLIMEPIRIDE 4 MG (AMARYL) TAB PO SCH (06:05)
[2018-09-03] MEDS: ENOXAPARIN 40 MG/0.4 ML (LOVENOX) SYR SC SCH (06:05)
[2018-09-03] MEDS: KCL 10 MEQ TAB (MICRO K) PO SCH (06:05)
[2018-09-03 08:07] VITALS: BP 138/64
[2018-09-03] MEDS: ASPIRIN 325 MG (5 GR) TABLET PO SCH (08:23)
[2018-09-03] MEDS: LOSARTAN 100 MG (COZAAR) TABLET PO SCH (08:23)
[2018-09-03] MEDS: PANTOPRAZOLE 40 MG (PROTONIX) VIAL IV SCH (08:23)
[2018-09-03] MEDS: CARVEDILOL 12.5 MG (COREG) TABLET PO SCH (08:23)
[2018-09-03] MEDS: FUROSEMIDE 20 MG (LASIX) TAB PO SCH (08:23)
--- NOTE | 2018-09-03 08:36 | Cardiology Progress Note ---
Subjective Date Seen by Provider: Sep 03, 2018 Time Seen by Provider: 08:34 Subjective/Events-last exam Patient is sitting in a chair, feeling better, breathing better, no chest pain was reported Review of Systems General: No Chills, No Night Sweats, No Fatigue, No Malaise, No Appetite, No Other HEENT: No Head Aches, No Visual Changes, No Eye Pain, No Ear Pain, No Dysphasia , No Sinus Congestion, No Post Nasal Drip, No Sore Throat, No Other Pulmonary: No Dyspnea, No Cough, No Pleuritic Chest Pain, No Other Cardiovascular: No: Chest Pain, Palpitations, Orthopnea, Paroxysmal Noc. Dyspnea, Edema, Lt Headedness, Other Objective-Cardiology Exam Last Set of Vital Signs Vital Signs 09/02/18 09/03/18 14:26 08:07 Temp 97.9 Pulse 73 Resp 18 B/P (MAP) 138/64 (88) Pulse Ox 95 O2 Delivery Nasal Cannula O2 Flow Rate 3.00 FiO2 28 Capillary Refill : Less Than 3 Seconds I&O Intake and Output 09/03/18 00:00 Intake Total 1800 ml Balance 1800 ml Intake Oral 1800 ml # Voids 5 # Bowel Movements 3 General: Alert, Oriented X3, Cooperative HEENT: Atraumatic, PERRLA Neck: Supple, No JVD, No Thyromegaly Lungs: Clear to Auscultation, Normal Air Movement Heart: Regular Rate, Normal S1, Normal S2, No Murmurs Abdomen: Normal Bowel Sounds, Soft, No Tenderness, No Hepatosplenomegaly, No Masses Extremities: No Clubbing, No Cyanosis, No Edema, Normal Pulses, No Tenderness/ Swelling Skin: No Rashes, No Breakdown, No Significant Lesion Neuro: Normal Gait, Normal Speech, Strength at 5/5 X4 Ext, Normal Tone, Sensation Intact Psych/Mental Status: Mental Status NL, Mood NL Results Lab Laboratory Tests 09/03/18 05:00 A/P-Cardiology Admission Diagnosis Acute respiratory failure Congestive heart failure Hypertension Hyperlipidemia Assessment/Plan Status post acute respiratory failure with pulmonary edema, mucous plug, underwent bronchoscopy, currently doing better, chest x-ray slightly worse but patient is reporting improvement. Ac systolic and diastolic CHF. Echo of 08/27/18 shows paradoxical septal motion , LVEF 50%, grade I diastolic dysfunction of LV, continue to monitor, no changes are recommended Hepatic transaminase elevation, possibly related to passive hepatic congestion, continue to monitor Elevated troponin likely due to hypoxemia due to ac resp failure, conservative management at this time, followed by Dr. Canchola Chronic LBBB (seen on ECG of 08/25/18 and on ECG of 12/18/15) Coronary artery disease with coronary artery bypass surgery in 2003, consisting of left internal mammary to left anterior descending, saphenous vein to obtuse marginal, saphenous vein to diagonal, sequential saphenous vein to acute marginal and posterior descending, has been followed by Dr. 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
[2018-09-03 10:20] VITALS: BP 138/64
--- NOTE | 2018-09-04 07:27 | Discharge Summary ---
Diagnosis/Chief Complaint Date of Admission Aug 25, 2018 at 22:25 Date of Discharge Sep 03, 2018 at 10:20 Discharge Date: Sep 03, 2018 Discharge Time: 0900 Discharge Diagnosis Chronic respiratory failure. COPD with acute exacerbation. [place] artery disease with elevated troponin Elevated liver tests. Diabetes. Bilateral pleural effusion. Pneumonia. Congestive heart failure. Hyperkalemia. Left bundle branch block. Discharge Summary Procedures Patient on ventilator Consultations Pulmonology. Cardiology Discharge Physical Examination Allergies: Coded Allergies: Penicillins (Unverified Allergy, Mild, 01/31/11) Vitals & I&Os Vital Signs Date Time Temp Pulse Resp B/P (MAP) Pulse Ox O2 Delivery O2 Flow Rate FiO2 09/03/18 10:52 91 Room Air 09/03/18 10:20 73 18 138/64 3.00 35 09/03/18 08:07 97.9 Hospital Course Patient did improve. Patient went to medical floor from intensive care unit. Patient transferred to acute rehabilitation Labs (last 24 hrs) Laboratory Tests 08/25/18 20:08: White Blood Count 3.5L, Red Blood Count 4.84, Hemoglobin 14.4, Hematocrit 43, Mean Corpuscular Volume 89, Mean Corpuscular Hemoglobin 30, Mean Corpuscular Hemoglobin Concent 33, Red Cell Distribution Width 13.0, Platelet Count 153, Mean Platelet Volume 10.5H, Neutrophils (%) (Auto) 54, Lymphocytes (%) (Auto) 31 , Monocytes (%) (Auto) 15H, Eosinophils (%) (Auto) 0, Basophils (%) (Auto) 1, Neutrophils # (Auto) 1.9, Lymphocytes # (Auto) 1.1, Monocytes # (Auto) 0.5, Eosinophils # (Auto) 0.0, Basophils # (Auto) 0.0, Prothrombin Time 12.6, INR Comment 0.9, Activated Partial Thromboplast Time 39H, Blood Gas Puncture Site RIGHT RADIAL, Blood Gas Patient Temperature 100.3, Arterial Blood pH 7.43, Arterial Blood Partial Pressure CO2 40, Arterial Blood Partial Pressure O2 77L, Arterial Blood HCO3 26, Arterial Blood Total CO2 27.5, Arterial Blood Oxygen Saturation 95, Arterial Blood Base Excess 2.5, Ibrahima Test YES-POS, Blood Gas Ventilator Setting NO, Blood Gas Inspired Oxygen 3L, Sodium Level 131L, Potassium Level 4.2, Chloride Level 96L, Carbon Dioxide Level 22, Anion Gap 13, Blood Urea Nitrogen 13, Creatinine 0.99, Estimat Glomerular Filtration Rate > 60 , BUN/Creatinine Ratio 13, Glucose Level 288H, Lactic Acid Level 1.73, Calcium Level 8.4L, Corrected Calcium 8.6, Total Bilirubin 0.3, Aspartate Amino Transf ( AST/SGOT) 42H, Alanine Aminotransferase (ALT/SGPT) 39, Alkaline Phosphatase 70, Troponin I < 0.30, Total Protein 6.4, Albumin 3.7 08/25/18 21:32: Urine Color YELLOW, Urine Clarity CLEAR, Urine pH 6, Urine Specific [place] 1.015L, Urine Protein 4+, Urine Glucose (UA) 4+H, Urine Ketones NEGATIVE, Urine Nitrite NEGATIVE, Urine Bilirubin NEGATIVE, Urine Urobilinogen NORMAL, Urine Leukocyte Esterase NEGATIVE, Urine RBC (Auto) 1+H, Urine RBC 0-2, Urine WBC NONE , Urine Squamous Epithelial Cells 0-2, Urine Crystals NONE, Urine Bacteria NONE , Urine Casts NONE, Urine Mucus NEGATIVE, Urine Culture Indicated NO 08/25/18 22:25: Lab Scanned Report Referred Lab Report 08/26/18 06:20: White Blood Count 3.7L, Red Blood Count 4.72, Hemoglobin 14.1, Hematocrit 42, Mean Corpuscular Volume 89, Mean Corpuscular Hemoglobin 30, Mean Corpuscular Hemoglobin Concent 34, Red Cell Distribution Width 13.3, Platelet Count 127L, Mean Platelet Volume 11.4H, Neutrophils (%) (Auto) 72, Lymphocytes (%) (Auto) 20 , Monocytes (%) (Auto) 7, Eosinophils (%) (Auto) 1, Basophils (%) (Auto) 0, Neutrophils # (Auto) 2.7, Lymphocytes # (Auto) 0.7L, Monocytes # (Auto) 0.3, Eosinophils # (Auto) 0.1, Basophils # (Auto) 0.0, Sodium Level 136, Potassium Level 4.1, Chloride Level 103, Carbon Dioxide Level 24, Anion Gap 9, Blood Urea Nitrogen 10, Creatinine 0.77, Estimat Glomerular Filtration Rate > 60, BUN/ Creatinine Ratio 13, Glucose Level 176H, Calcium Level 7.7L 08/26/18 23:05: Blood Gas Puncture Site LEFT RADIAL, Blood Gas Patient Temperature 100.7, Arterial Blood pH 7.19*L, Arterial Blood Partial Pressure CO2 62H, Arterial Blood Partial Pressure O2 82, Arterial Blood HCO3 22L, Arterial Blood Total CO2 24.0, Arterial Blood Oxygen Saturation 93L, Arterial Blood Base Excess -4.7L, Ibrahima Test YES-POS, Blood Gas Ventilator Setting NO, Blood Gas Inspired Oxygen 100% 08/26/18 23:18: White Blood Count 4.8, Red Blood Count 5.05, Hemoglobin 15.2, Hematocrit 46, Mean Corpuscular Volume 91, Mean Corpuscular Hemoglobin 30, Mean Corpuscular Hemoglobin Concent 33, Red Cell Distribution Width 13.5, Platelet Count 144, Mean Platelet Volume 10.5H, Neutrophils (%) (Auto) 74, Lymphocytes (%) (Auto) 20 , Monocytes (%) (Auto) 6, Eosinophils (%) (Auto) 0, Basophils (%) (Auto) 1, Neutrophils # (Auto) 3.5, Lymphocytes # (Auto) 0.9L, Monocytes # (Auto) 0.3, Eosinophils # (Auto) 0.0, Basophils # (Auto) 0.0, Sodium Level 136, Potassium Level 5.3H, Chloride Level 107, Carbon Dioxide Level 16L, Anion Gap 13, Blood Urea Nitrogen 14, Creatinine 1.02, Estimat Glomerular Filtration Rate > 60, BUN/ Creatinine Ratio 14, Glucose Level 310H, Lactic Acid Level 1.37, Calcium Level 7.5L, Phosphorus Level 4.2, Magnesium Level 1.9, Troponin I 0.55*H, B-Type Natriuretic Peptide 112.4H 08/26/18 23:23: Glucometer 272H 08/27/18 01:00: Blood Gas Puncture Site LEFT RADIAL, Blood Gas Patient Temperature 97.6, Arterial Blood pH 7.19*L, Arterial Blood Partial Pressure CO2 68H, Arterial Blood Partial Pressure O2 71L, Arterial Blood HCO3 25, Arterial Blood Total CO2 27.1, Arterial Blood Oxygen Saturation 91L, Arterial Blood Base Excess -2.3, Ibrahima Test YES-POS, Blood Gas Ventilator Setting YES, Blood Gas Inspired Oxygen 80% 08/27/18 03:30: White Blood Count 7.0, Red Blood Count 4.68, Hemoglobin 13.9, Hematocrit 43, Mean Corpuscular Volume 93, Mean Corpuscular Hemoglobin 30, Mean Corpuscular Hemoglobin Concent 32, Red Cell Distribution Width 13.5, Platelet Count 125L, Mean Platelet Volume 11.2H, Neutrophils (%) (Auto) 81H, Lymphocytes (%) (Auto) 14, Monocytes (%) (Auto) 4, Eosinophils (%) (Auto) 0, Basophils (%) (Auto) 1, Neutrophils # (Auto) 5.7, Lymphocytes # (Auto) 1.0, Monocytes # (Auto) 0.3, Eosinophils # (Auto) 0.0, Basophils # (Auto) 0.0, Sodium Level 138, Potassium Level 5.9H, Chloride Level 107, Carbon Dioxide Level 17L, Anion Gap 14, Blood Urea Nitrogen 21H, Creatinine 1.14, Estimat Glomerular Filtration Rate > 60, BUN /Creatinine Ratio 18, Glucose Level 358H, Lactic Acid Level 1.14, Calcium Level 7.1L, Ionized Calcium (Measured) 0.98L, Ionized Calcium pH 7.27, Ionized Calcium (Corrected) 0.91L, Phosphorus Level 3.7, Magnesium Level 1.9, Troponin I 1.73*H, Triglycerides Level 169H 08/27/18 03:41: Blood Gas Puncture Site RIGHT RADIAL, Blood Gas Patient Temperature 97.8, Arterial Blood pH 7.24*L, Arterial Blood Partial Pressure CO2 50H, Arterial Blood Partial Pressure O2 86, Arterial Blood HCO3 21L, Arterial Blood Total CO2 22.2, Arterial Blood Oxygen Saturation 96, Arterial Blood Base Excess -5.7L, Ibrahima Test YES-POS, Blood Gas Ventilator Setting YES, Blood Gas Inspired Oxygen 70% 08/27/18 08:35: Sodium Level 139, Potassium Level 4.7, Chloride Level 109H, Carbon Dioxide Level 15L, Anion Gap 15H, Blood Urea Nitrogen 24H, Creatinine 1.22, Estimat Glomerular Filtration Rate 58, BUN/Creatinine Ratio 20, Glucose Level 342H, Calcium Level 7.2L, Troponin I 1.40*H 08/27/18 12:19: Glucometer 262H 08/27/18 12:30: Troponin I 1.14*H 08/27/18 16:24: Glucometer 213H 08/28/18 00:15: Glucometer 223H 08/28/18 03:30: Blood Gas Puncture Site LEFT RADIAL, Blood Gas Patient Temperature 97.6, Arterial Blood pH 7.42, Arterial Blood Partial Pressure CO2 39, Arterial Blood Partial Pressure O2 53L, Arterial Blood HCO3 25, Arterial Blood Total CO2 26.2, Arterial Blood Oxygen Saturation 92L, Arterial Blood Base Excess 0.9, Ibrahima Test YES-POS, Blood Gas Ventilator Setting YES, Blood Gas Inspired Oxygen 35% 08/28/18 03:40: White Blood Count 10.3, Red Blood Count 4.17L, Hemoglobin 12.5L, Hematocrit 37L , Mean Corpuscular Volume 90, Mean Corpuscular Hemoglobin 30, Mean Corpuscular Hemoglobin Concent 33, Red Cell Distribution Width 13.4, Platelet Count 162, Mean Platelet Volume 10.7H, Neutrophils (%) (Auto) 79H, Lymphocytes (%) (Auto) 14, Monocytes (%) (Auto) 7, Eosinophils (%) (Auto) 0, Basophils (%) (Auto) 0, Neutrophils # (Auto) 8.1H, Lymphocytes # (Auto) 1.4, Monocytes # (Auto) 0.7, Eosinophils # (Auto) 0.0, Basophils # (Auto) 0.0, Sodium Level 142, Potassium Level 4.4, Chloride Level 110H, Carbon Dioxide Level 23, Anion Gap 9, Blood Urea Nitrogen 21H, Creatinine 0.95, Estimat Glomerular Filtration Rate > 60, BUN /Creatinine Ratio 22, Glucose Level 248H, Calcium Level 7.3L, Corrected Calcium 8.5, Phosphorus Level 2.1L, Magnesium Level 2.1, Total Bilirubin 0.4, Aspartate Amino Transf (AST/SGOT) 92H, Alanine Aminotransferase (ALT/SGPT) 85H, Alkaline Phosphatase 68, B-Type Natriuretic Peptide 203.4H, Total Protein 4.8L, Albumin 2.5L 08/28/18 11:24: Vancomycin Level Trough 11.7 08/28/18 11:29: Glucometer 273H 08/28/18 17:46: Glucometer 315H 08/28/18 23:59: Glucometer 335H 08/29/18 03:43: Blood Gas Puncture Site RIGHT RADIAL, Blood Gas Patient Temperature 98.5, Arterial Blood pH 7.49H, Arterial Blood Partial Pressure CO2 36, Arterial Blood Partial Pressure O2 55L, Arterial Blood HCO3 28H, Arterial Blood Total CO2 28.6 , Arterial Blood Oxygen Saturation 93L, Arterial Blood Base Excess 4.1H, Ibrahima Test YES-POS, Blood Gas Ventilator Setting YES, Blood Gas Inspired Oxygen 25% 08/29/18 03:54: White Blood Count 9.9, Red Blood Count 4.72, Hemoglobin 13.9, Hematocrit 42, Mean Corpuscular Volume 89, Mean Corpuscular Hemoglobin 29, Mean Corpuscular Hemoglobin Concent 33, Red Cell Distribution Width 13.6, Platelet Count 179, Mean Platelet Volume 10.8H, Neutrophils (%) (Auto) 80H, Lymphocytes (%) (Auto) 10L, Monocytes (%) (Auto) 9, Eosinophils (%) (Auto) 0, Basophils (%) (Auto) 0, Neutrophils # (Auto) 7.9H, Lymphocytes # (Auto) 1.0, Monocytes # (Auto) 0.9, Eosinophils # (Auto) 0.0, Basophils # (Auto) 0.0, Sodium Level 146H, Potassium Level 4.1, Chloride Level 110H, Carbon Dioxide Level 23, Anion Gap 13, Blood Urea Nitrogen 20H, Creatinine 0.90, Estimat Glomerular Filtration Rate > 60, BUN /Creatinine Ratio 22, Glucose Level 274H, Calcium Level 7.8L, Phosphorus Level 1.9L, Magnesium Level 2.5H, Total Bilirubin 0.5, Direct Bilirubin 0.1, Indirect Bilirubin 0.4, Aspartate Amino Transf (AST/SGOT) 57H, Alanine Aminotransferase ( ALT/SGPT) 77H, Alkaline Phosphatase 74, Total Protein 5.8L, Albumin 2.8L, Triglycerides Level 406H 08/29/18 12:52: Glucometer 288H 08/29/18 18:50: Glucometer 301H 08/30/18 00:06: Glucometer 323H 08/30/18 03:23: White Blood Count 9.0, Red Blood Count 4.66, Hemoglobin 14.0, Hematocrit 42, Mean Corpuscular Volume 89, Mean Corpuscular Hemoglobin 30, Mean Corpuscular Hemoglobin Concent 34, Red Cell Distribution Width 14.1, Platelet Count 228, Mean Platelet Volume 10.8H, Neutrophils (%) (Auto) 79H, Lymphocytes (%) (Auto) 13, Monocytes (%) (Auto) 8, Eosinophils (%) (Auto) 0, Basophils (%) (Auto) 0, Neutrophils # (Auto) 7.1, Lymphocytes # (Auto) 1.2, Monocytes # (Auto) 0.7, Eosinophils # (Auto) 0.0, Basophils # (Auto) 0.0, Sodium Level 145, Potassium Level 3.5L, Chloride Level 107, Carbon Dioxide Level 26, Anion Gap 12, Blood Urea Nitrogen 27H, Creatinine 0.95, Estimat Glomerular Filtration Rate > 60, BUN /Creatinine Ratio 28, Glucose Level 336H, Calcium Level 7.5L, Phosphorus Level 3.2, Magnesium Level 2.1, Total Bilirubin 0.5, Direct Bilirubin 0.2, Indirect Bilirubin 0.3, Aspartate Amino Transf (AST/SGOT) 42H, Alanine Aminotransferase ( ALT/SGPT) 61H, Alkaline Phosphatase 73, Total Protein 5.5L, Albumin 2.8L 08/30/18 11:50: Blood Gas Puncture Site R RAD, Blood Gas Patient Temperature 96.2, Arterial Blood pH 7.51H, Arterial Blood Partial Pressure CO2 34L, Arterial Blood Partial Pressure O2 48L, Arterial Blood HCO3 27, Arterial Blood Total CO2 28.4, Arterial Blood Oxygen Saturation 89L, Arterial Blood Base Excess 4.0H, Ibrahima Test YES-POS, Blood Gas Ventilator Setting YES, Blood Gas Inspired Oxygen 21% 08/30/18 11:54: Glucometer 288H 08/30/18 17:15: Glucometer 406*H 08/31/18 00:09: Glucometer 160H 08/31/18 03:20: White Blood Count 11.6H, Red Blood Count 4.58, Hemoglobin 13.8, Hematocrit 41, Mean Corpuscular Volume 89, Mean Corpuscular Hemoglobin 30, Mean Corpuscular Hemoglobin Concent 34, Red Cell Distribution Width 14.0, Platelet Count 233, Mean Platelet Volume 10.5H, Neutrophils (%) (Auto) 82H, Lymphocytes (%) (Auto) 11L, Monocytes (%) (Auto) 7, Eosinophils (%) (Auto) 0, Basophils (%) (Auto) 0, Neutrophils # (Auto) 9.5H, Lymphocytes # (Auto) 1.3, Monocytes # (Auto) 0.8, Eosinophils # (Auto) 0.0, Basophils # (Auto) 0.0, Sodium Level 149H, Potassium Level 2.9L, Chloride Level 110H, Carbon Dioxide Level 28, Anion Gap 11, Blood Urea Nitrogen 30H, Creatinine 0.80, Estimat Glomerular Filtration Rate > 60, BUN /Creatinine Ratio 38, Glucose Level 101, Calcium Level 7.9L, Phosphorus Level 2.0L, Magnesium Level 2.0 08/31/18 10:33: Potassium Level 4.0 08/31/18 11:50: Glucometer 229H 08/31/18 15:56: Glucometer 168H 08/31/18 20:24: Glucometer 241H 09/01/18 05:22: Glucometer 114H 09/01/18 07:25: White Blood Count 7.5, Red Blood Count 4.32L, Hemoglobin 12.8L, Hematocrit 40, Mean Corpuscular Volume 92, Mean Corpuscular Hemoglobin 30, Mean Corpuscular Hemoglobin Concent 32, Red Cell Distribution Width 13.6, Platelet Count 212, Mean Platelet Volume 10.6H, Sodium Level 146H, Potassium Level 3.7, Chloride Level 108H, Carbon Dioxide Level 30, Anion Gap 8, Blood Urea Nitrogen 23H, Creatinine 0.71, Estimat Glomerular Filtration Rate > 60, BUN/Creatinine Ratio 32, Glucose Level 110H, Calcium Level 7.7L, Phosphorus Level 2.7, Magnesium Level 2.1, B-Type Natriuretic Peptide 147.9H 09/01/18 11:26: Glucometer 193H 09/01/18 15:22: Glucometer 306H 09/01/18 20:03: Glucometer 245H 09/02/18 05:00: White Blood Count 7.0, Red Blood Count 4.14L, Hemoglobin 12.3L, Hematocrit 38L, Mean Corpuscular Volume 91, Mean Corpuscular Hemoglobin 30, Mean Corpuscular Hemoglobin Concent 33, Red Cell Distribution Width 13.5, Platelet Count 240, Mean Platelet Volume 10.3, Neutrophils (%) (Auto) 61, Lymphocytes (%) (Auto) 22 , Monocytes (%) (Auto) 9, Eosinophils (%) (Auto) 9, Basophils (%) (Auto) 0, Neutrophils # (Auto) 4.3, Lymphocytes # (Auto) 1.5, Monocytes # (Auto) 0.6, Eosinophils # (Auto) 0.6H, Basophils # (Auto) 0.0, Sodium Level 144, Potassium Level 3.6, Chloride Level 108H, Carbon Dioxide Level 28, Anion Gap 8, Blood Urea Nitrogen 20H, Creatinine 0.69, Estimat Glomerular Filtration Rate > 60, BUN /Creatinine Ratio 29, Glucose Level 72, Calcium Level 8.0L, Phosphorus Level 3.0 , Magnesium Level 2.0 09/02/18 10:54: Glucometer 154H 09/02/18 15:49: Glucometer 244H 09/02/18 20:31: Glucometer 143H 09/03/18 05:00: White Blood Count 7.5, Red Blood Count 4.02L, Hemoglobin 11.8L, Hematocrit 36L, Mean Corpuscular Volume 90, Mean Corpuscular Hemoglobin 29, Mean Corpuscular Hemoglobin Concent 33, Red Cell Distribution Width 12.9, Platelet Count 265, Mean Platelet Volume 10.5H, Neutrophils (%) (Auto) 68, Lymphocytes (%) (Auto) 18 , Monocytes (%) (Auto) 8, Eosinophils (%) (Auto) 7, Basophils (%) (Auto) 0, Neutrophils # (Auto) 5.1, Lymphocytes # (Auto) 1.3, Monocytes # (Auto) 0.6, Eosinophils # (Auto) 0.5H, Basophils # (Auto) 0.0, Sodium Level 142, Potassium Level 3.6, Chloride Level 107, Carbon Dioxide Level 26, Anion Gap 9, Blood Urea Nitrogen 15, Creatinine 0.63, Estimat Glomerular Filtration Rate > 60, BUN/ Creatinine Ratio 24, Glucose Level 66L, Calcium Level 8.3L, Phosphorus Level 3.3 , Magnesium Level 2.0 Microbiology 08/25/18 Blood Culture - Final, Complete No growth 09/01/18 C. difficile GDH Antigen & Toxins - Final, Complete 08/30/18 Mycobacterial Culture - Preliminary, Resulted See Comments 08/25/18 Urine Culture - Final, Complete See Comments Laboratory Tests 08/25/18 20:08 08/26/18 06:20 08/26/18 23:18 08/27/18 03:30 08/27/18 08:35 08/28/18 03:40 08/29/18 03:54 08/30/18 03:23 08/31/18 03:20 08/31/18 10:33 09/01/18 07:25 09/02/18 05:00 09/03/18 05:00 Pending Labs Microbiology Date/Time Source Procedure Growth Status 08/25/18 20:35 Peripheral Rt Ac Blood Culture - Final No growth Complete 08/25/18 20:08 Peripheral Lt Ac Blood Culture - Final No growth Complete 09/01/18 10:05 Stool C. difficile GDH Antigen & Toxins - Final Complete 08/30/18 06:15 Bronchial Lavage (Bal) Right Middle Lobe Mycobacterial Culture - Preliminary See Comments Resulted 08/30/18 06:15 Bronchial Lavage (Bal) Right Middle Lobe Gram Stain - Final Resulted 08/30/18 06:15 Bronchial Lavage (Bal) Right Middle Lobe Bronchial Culture - Final No growth Resulted 08/30/18 06:15 Fungal Culture 1 - Preliminary Culture In Progress Resulted 08/27/18 01:05 Nasal MRSA Screen - Final MRSA not isolated Complete 08/27/18 00:18 Sputum Induced Gram Stain - Final Complete 08/27/18 00:18 Sputum Induced Sputum Culture - Final No growth Complete 08/25/18 20:08 Nasopharynx Influenza Types A,B Antigen (URIEL) - Final Complete 08/25/18 21:32 Urine Clean Catch Urine Culture - Final See Comments Complete Laboratory Tests 08/25/18 20:08: White Blood Count 3.5, Red Blood Count 4.84, Hemoglobin 14.4, Hematocrit 43, Mean Corpuscular Volume 89, Mean Corpuscular Hemoglobin 30, Mean Corpuscular Hemoglobin Concent 33, Red Cell Distribution Width 13.0, Platelet Count 153, Mean Platelet Volume 10.5, Neutrophils (%) (Auto) 54, Lymphocytes (%) (Auto) 31 , Monocytes (%) (Auto) 15, Eosinophils (%) (Auto) 0, Basophils (%) (Auto) 1, Neutrophils # (Auto) 1.9, Lymphocytes # (Auto) 1.1, Monocytes # (Auto) 0.5, Eosinophils # (Auto) 0.0, Basophils # (Auto) 0.0, Prothrombin Time 12.6, INR Comment 0.9, Activated Partial Thromboplast Time 39, Blood Gas Puncture Site RIGHT RADIAL, Blood Gas Patient Temperature 100.3, Arterial Blood pH 7.43, Arterial Blood Partial Pressure CO2 40, Arterial Blood Partial Pressure O2 77, Arterial Blood HCO3 26, Arterial Blood Total CO2 27.5, Arterial Blood Oxygen Saturation 95, Arterial Blood Base Excess 2.5, Ibrahima Test YES-POS, Blood Gas Ventilator Setting NO, Blood Gas Inspired Oxygen 3L, Sodium Level 131, Potassium Level 4.2, Chloride Level 96, Carbon Dioxide Level 22, Anion Gap 13, Blood Urea Nitrogen 13, Creatinine 0.99, Estimat Glomerular Filtration Rate > 60 , BUN/Creatinine Ratio 13, Glucose Level 288, Lactic Acid Level 1.73, Calcium Level 8.4, Corrected Calcium 8.6, Total Bilirubin 0.3, Aspartate Amino Transf ( AST/SGOT) 42, Alanine Aminotransferase (ALT/SGPT) 39, Alkaline Phosphatase 70, Troponin I < 0.30, Total Protein 6.4, Albumin 3.7 08/25/18 21:32: Urine Color YELLOW, Urine Clarity CLEAR, Urine pH 6, Urine Specific [place] 1.015, Urine Protein 4+, Urine Glucose (UA) 4+, Urine Ketones NEGATIVE, Urine Nitrite NEGATIVE, Urine Bilirubin NEGATIVE, Urine Urobilinogen NORMAL, Urine Leukocyte Esterase NEGATIVE, Urine RBC (Auto) 1+, Urine RBC 0-2, Urine WBC NONE , Urine Squamous Epithelial Cells 0-2, Urine Crystals NONE, Urine Bacteria NONE , Urine Casts NONE, Urine Mucus NEGATIVE, Urine Culture Indicated NO 08/25/18 22:25: Lab Scanned Report Referred Lab Report 08/26/18 06:20: White Blood Count 3.7, Red Blood Count 4.72, Hemoglobin 14.1, Hematocrit 42, Mean Corpuscular Volume 89, Mean Corpuscular Hemoglobin 30, Mean Corpuscular Hemoglobin Concent 34, Red Cell Distribution Width 13.3, Platelet Count 127, Mean Platelet Volume 11.4, Neutrophils (%) (Auto) 72, Lymphocytes (%) (Auto) 20 , Monocytes (%) (Auto) 7, Eosinophils (%) (Auto) 1, Basophils (%) (Auto) 0, Neutrophils # (Auto) 2.7, Lymphocytes # (Auto) 0.7, Monocytes # (Auto) 0.3, Eosinophils # (Auto) 0.1, Basophils # (Auto) 0.0, Sodium Level 136, Potassium Level 4.1, Chloride Level 103, Carbon Dioxide Level 24, Anion Gap 9, Blood Urea Nitrogen 10, Creatinine 0.77, Estimat Glomerular Filtration Rate > 60, BUN/ Creatinine Ratio 13, Glucose Level 176, Calcium Level 7.7 08/26/18 23:05: Blood Gas Puncture Site LEFT RADIAL, Blood Gas Patient Temperature 100.7, Arterial Blood pH 7.19, Arterial Blood Partial Pressure CO2 62, Arterial Blood Partial Pressure O2 82, Arterial Blood HCO3 22, Arterial Blood Total CO2 24.0, Arterial Blood Oxygen Saturation 93, Arterial Blood Base Excess -4.7, Ibrahima Test YES-POS, Blood Gas Ventilator Setting NO, Blood Gas Inspired Oxygen 100% 08/26/18 23:18: White Blood Count 4.8, Red Blood Count 5.05, Hemoglobin 15.2, Hematocrit 46, Mean Corpuscular Volume 91, Mean Corpuscular Hemoglobin 30, Mean Corpuscular Hemoglobin Concent 33, Red Cell Distribution Width 13.5, Platelet Count 144, Mean Platelet Volume 10.5, Neutrophils (%) (Auto) 74, Lymphocytes (%) (Auto) 20 , Monocytes (%) (Auto) 6, Eosinophils (%) (Auto) 0, Basophils (%) (Auto) 1, Neutrophils # (Auto) 3.5, Lymphocytes # (Auto) 0.9, Monocytes # (Auto) 0.3, Eosinophils # (Auto) 0.0, Basophils # (Auto) 0.0, Sodium Level 136, Potassium Level 5.3, Chloride Level 107, Carbon Dioxide Level 16, Anion Gap 13, Blood Urea Nitrogen 14, Creatinine 1.02, Estimat Glomerular Filtration Rate > 60, BUN/ Creatinine Ratio 14, Glucose Level 310, Lactic Acid Level 1.37, Calcium Level 7.5, Phosphorus Level 4.2, Magnesium Level 1.9, Troponin I 0.55, B-Type Natriuretic Peptide 112.4 08/26/18 23:23: Glucometer 272 08/27/18 01:00: Blood Gas Puncture Site LEFT RADIAL, Blood Gas Patient Temperature 97.6, Arterial Blood pH 7.19, Arterial Blood Partial Pressure CO2 68, Arterial Blood Partial Pressure O2 71, Arterial Blood HCO3 25, Arterial Blood Total CO2 27.1, Arterial Blood Oxygen Saturation 91, Arterial Blood Base Excess -2.3, Ibrahima Test YES-POS, Blood Gas Ventilator Setting YES, Blood Gas Inspired Oxygen 80% 08/27/18 03:30: White Blood Count 7.0, Red Blood Count 4.68, Hemoglobin 13.9, Hematocrit 43, Mean Corpuscular Volume 93, Mean Corpuscular Hemoglobin 30, Mean Corpuscular Hemoglobin Concent 32, Red Cell Distribution Width 13.5, Platelet Count 125, Mean Platelet Volume 11.2, Neutrophils (%) (Auto) 81, Lymphocytes (%) (Auto) 14 , Monocytes (%) (Auto) 4, Eosinophils (%) (Auto) 0, Basophils (%) (Auto) 1, Neutrophils # (Auto) 5.7, Lymphocytes # (Auto) 1.0, Monocytes # (Auto) 0.3, Eosinophils # (Auto) 0.0, Basophils # (Auto) 0.0, Sodium Level 138, Potassium Level 5.9, Chloride Level 107, Carbon Dioxide Level 17, Anion Gap 14, Blood Urea Nitrogen 21, Creatinine 1.14, Estimat Glomerular Filtration Rate > 60, BUN/ Creatinine Ratio 18, Glucose Level 358, Lactic Acid Level 1.14, Calcium Level 7.1, Ionized Calcium (Measured) 0.98, Ionized Calcium pH 7.27, Ionized Calcium ( Corrected) 0.91, Phosphorus Level 3.7, Magnesium Level 1.9, Troponin I 1.73, Triglycerides Level 169 08/27/18 03:41: Blood Gas Puncture Site RIGHT RADIAL, Blood Gas Patient Temperature 97.8, Arterial Blood pH 7.24, Arterial Blood Partial Pressure CO2 50, Arterial Blood Partial Pressure O2 86, Arterial Blood HCO3 21, Arterial Blood Total CO2 22.2, Arterial Blood Oxygen Saturation 96, Arterial Blood Base Excess -5.7, Ibrahima Test YES-POS, Blood Gas Ventilator Setting YES, Blood Gas Inspired Oxygen 70% 08/27/18 08:35: Sodium Level 139, Potassium Level 4.7, Chloride Level 109, Carbon Dioxide Level 15, Anion Gap 15, Blood Urea Nitrogen 24, Creatinine 1.22, Estimat Glomerular Filtration Rate 58, BUN/Creatinine Ratio 20, Glucose Level 342, Calcium Level 7.2, Troponin I 1.40 08/27/18 12:19: Glucometer 262 08/27/18 12:30: Troponin I 1.14 08/27/18 16:24: Glucometer 213 08/28/18 00:15: Glucometer 223 08/28/18 03:30: Blood Gas Puncture Site LEFT RADIAL, Blood Gas Patient Temperature 97.6, Arterial Blood pH 7.42, Arterial Blood Partial Pressure CO2 39, Arterial Blood Partial Pressure O2 53, Arterial Blood HCO3 25, Arterial Blood Total CO2 26.2, Arterial Blood Oxygen Saturation 92, Arterial Blood Base Excess 0.9, Ibrahima Test YES-POS, Blood Gas Ventilator Setting YES, Blood Gas Inspired Oxygen 35% 08/28/18 03:40: White Blood Count 10.3, Red Blood Count 4.17, Hemoglobin 12.5, Hematocrit 37, Mean Corpuscular Volume 90, Mean Corpuscular Hemoglobin 30, Mean Corpuscular Hemoglobin Concent 33, Red Cell Distribution Width 13.4, Platelet Count 162, Mean Platelet Volume 10.7, Neutrophils (%) (Auto) 79, Lymphocytes (%) (Auto) 14 , Monocytes (%) (Auto) 7, Eosinophils (%) (Auto) 0, Basophils (%) (Auto) 0, Neutrophils # (Auto) 8.1, Lymphocytes # (Auto) 1.4, Monocytes # (Auto) 0.7, Eosinophils # (Auto) 0.0, Basophils # (Auto) 0.0, Sodium Level 142, Potassium Level 4.4, Chloride Level 110, Carbon Dioxide Level 23, Anion Gap 9, Blood Urea Nitrogen 21, Creatinine 0.95, Estimat Glomerular Filtration Rate > 60, BUN/ Creatinine Ratio 22, Glucose Level 248, Calcium Level 7.3, Corrected Calcium 8.5 , Phosphorus Level 2.1, Magnesium Level 2.1, Total Bilirubin 0.4, Aspartate Amino Transf (AST/SGOT) 92, Alanine Aminotransferase (ALT/SGPT) 85, Alkaline Phosphatase 68, B-Type Natriuretic Peptide 203.4, Total Protein 4.8, Albumin 2.5 08/28/18 11:24: Vancomycin Level Trough 11.7 08/28/18 11:29: Glucometer 273 08/28/18 17:46: Glucometer 315 08/28/18 23:59: Glucometer 335 08/29/18 03:43: Blood Gas Puncture Site RIGHT RADIAL, Blood Gas Patient Temperature 98.5, Arterial Blood pH 7.49, Arterial Blood Partial Pressure CO2 36, Arterial Blood Partial Pressure O2 55, Arterial Blood HCO3 28, Arterial Blood Total CO2 28.6, Arterial Blood Oxygen Saturation 93, Arterial Blood Base Excess 4.1, Ibrahima Test YES-POS, Blood Gas Ventilator Setting YES, Blood Gas Inspired Oxygen 25% 08/29/18 03:54: White Blood Count 9.9, Red Blood Count 4.72, Hemoglobin 13.9, Hematocrit 42, Mean Corpuscular Volume 89, Mean Corpuscular Hemoglobin 29, Mean Corpuscular Hemoglobin Concent 33, Red Cell Distribution Width 13.6, Platelet Count 179, Mean Platelet Volume 10.8, Neutrophils (%) (Auto) 80, Lymphocytes (%) (Auto) 10 , Monocytes (%) (Auto) 9, Eosinophils (%) (Auto) 0, Basophils (%) (Auto) 0, Neutrophils # (Auto) 7.9, Lymphocytes # (Auto) 1.0, Monocytes # (Auto) 0.9, Eosinophils # (Auto) 0.0, Basophils # (Auto) 0.0, Sodium Level 146, Potassium Level 4.1, Chloride Level 110, Carbon Dioxide Level 23, Anion Gap 13, Blood Urea Nitrogen 20, Creatinine 0.90, Estimat Glomerular Filtration Rate > 60, BUN/ Creatinine Ratio 22, Glucose Level 274, Calcium Level 7.8, Phosphorus Level 1.9 , Magnesium Level 2.5, Total Bilirubin 0.5, Direct Bilirubin 0.1, Indirect Bilirubin 0.4, Aspartate Amino Transf (AST/SGOT) 57, Alanine Aminotransferase ( ALT/SGPT) 77, Alkaline Phosphatase 74, Total Protein 5.8, Albumin 2.8, Triglycerides Level 406 08/29/18 12:52: Glucometer 288 08/29/18 18:50: Glucometer 301 08/30/18 00:06: Glucometer 323 08/30/18 03:23: White Blood Count 9.0, Red Blood Count 4.66, Hemoglobin 14.0, Hematocrit 42, Mean Corpuscular Volume 89, Mean Corpuscular Hemoglobin 30, Mean Corpuscular Hemoglobin Concent 34, Red Cell Distribution Width 14.1, Platelet Count 228, Mean Platelet Volume 10.8, Neutrophils (%) (Auto) 79, Lymphocytes (%) (Auto) 13 , Monocytes (%) (Auto) 8, Eosinophils (%) (Auto) 0, Basophils (%) (Auto) 0, Neutrophils # (Auto) 7.1, Lymphocytes # (Auto) 1.2, Monocytes # (Auto) 0.7, Eosinophils # (Auto) 0.0, Basophils # (Auto) 0.0, Sodium Level 145, Potassium Level 3.5, Chloride Level 107, Carbon Dioxide Level 26, Anion Gap 12, Blood Urea Nitrogen 27, Creatinine 0.95, Estimat Glomerular Filtration Rate > 60, BUN/ Creatinine Ratio 28, Glucose Level 336, Calcium Level 7.5, Phosphorus Level 3.2 , Magnesium Level 2.1, Total Bilirubin 0.5, Direct Bilirubin 0.2, Indirect Bilirubin 0.3, Aspartate Amino Transf (AST/SGOT) 42, Alanine Aminotransferase ( ALT/SGPT) 61, Alkaline Phosphatase 73, Total Protein 5.5, Albumin 2.8 08/30/18 11:50: Blood Gas Puncture Site R RAD, Blood Gas Patient Temperature 96.2, Arterial Blood pH 7.51, Arterial Blood Partial Pressure CO2 34, Arterial Blood Partial Pressure O2 48, Arterial Blood HCO3 27, Arterial Blood Total CO2 28.4, Arterial Blood Oxygen Saturation 89, Arterial Blood Base Excess 4.0, Ibrahima Test YES-POS, Blood Gas Ventilator Setting YES, Blood Gas Inspired Oxygen 21% 08/30/18 11:54: Glucometer 288 08/30/18 17:15: Glucometer 406 08/31/18 00:09: Glucometer 160 08/31/18 03:20: White Blood Count 11.6, Red Blood Count 4.58, Hemoglobin 13.8, Hematocrit 41, Mean Corpuscular Volume 89, Mean Corpuscular Hemoglobin 30, Mean Corpuscular Hemoglobin Concent 34, Red Cell Distribution Width 14.0, Platelet Count 233, Mean Platelet Volume 10.5, Neutrophils (%) (Auto) 82, Lymphocytes (%) (Auto) 11 , Monocytes (%) (Auto) 7, Eosinophils (%) (Auto) 0, Basophils (%) (Auto) 0, Neutrophils # (Auto) 9.5, Lymphocytes # (Auto) 1.3, Monocytes # (Auto) 0.8, Eosinophils # (Auto) 0.0, Basophils # (Auto) 0.0, Sodium Level 149, Potassium Level 2.9, Chloride Level 110, Carbon Dioxide Level 28, Anion Gap 11, Blood Urea Nitrogen 30, Creatinine 0.80, Estimat Glomerular Filtration Rate > 60, BUN/ Creatinine Ratio 38, Glucose Level 101, Calcium Level 7.9, Phosphorus Level 2.0 , Magnesium Level 2.0 08/31/18 10:33: Potassium Level 4.0 08/31/18 11:50: Glucometer 229 08/31/18 15:56: Glucometer 168 08/31/18 20:24: Glucometer 241 09/01/18 05:22: Glucometer 114 09/01/18 07:25: White Blood Count 7.5, Red Blood Count 4.32, Hemoglobin 12.8, Hematocrit 40, Mean Corpuscular Volume 92, Mean Corpuscular Hemoglobin 30, Mean Corpuscular Hemoglobin Concent 32, Red Cell Distribution Width 13.6, Platelet Count 212, Mean Platelet Volume 10.6, Sodium Level 146, Potassium Level 3.7, Chloride Level 108, Carbon Dioxide Level 30, Anion Gap 8, Blood Urea Nitrogen 23, Creatinine 0.71, Estimat Glomerular Filtration Rate > 60, BUN/Creatinine Ratio 32, Glucose Level 110, Calcium Level 7.7, Phosphorus Level 2.7, Magnesium Level 2.1, B-Type Natriuretic Peptide 147.9 09/01/18 11:26: Glucometer 193 09/01/18 15:22: Glucometer 306 09/01/18 20:03: Glucometer 245 09/02/18 05:00: White Blood Count 7.0, Red Blood Count 4.14, Hemoglobin 12.3, Hematocrit 38, Mean Corpuscular Volume 91, Mean Corpuscular Hemoglobin 30, Mean Corpuscular Hemoglobin Concent 33, Red Cell Distribution Width 13.5, Platelet Count 240, Mean Platelet Volume 10.3, Neutrophils (%) (Auto) 61, Lymphocytes (%) (Auto) 22 , Monocytes (%) (Auto) 9, Eosinophils (%) (Auto) 9, Basophils (%) (Auto) 0, Neutrophils # (Auto) 4.3, Lymphocytes # (Auto) 1.5, Monocytes # (Auto) 0.6, Eosinophils # (Auto) 0.6, Basophils # (Auto) 0.0, Sodium Level 144, Potassium Level 3.6, Chloride Level 108, Carbon Dioxide Level 28, Anion Gap 8, Blood Urea Nitrogen 20, Creatinine 0.69, Estimat Glomerular Filtration Rate > 60, BUN/ Creatinine Ratio 29, Glucose Level 72, Calcium Level 8.0, Phosphorus Level 3.0, Magnesium Level 2.0 09/02/18 10:54: Glucometer 154 09/02/18 15:49: Glucometer 244 09/02/18 20:31: Glucometer 143 09/03/18 05:00: White Blood Count 7.5, Red Blood Count 4.02, Hemoglobin 11.8, Hematocrit 36, Mean Corpuscular Volume 90, Mean Corpuscular Hemoglobin 29, Mean Corpuscular Hemoglobin Concent 33, Red Cell Distribution Width 12.9, Platelet Count 265, Mean Platelet Volume 10.5, Neutrophils (%) (Auto) 68, Lymphocytes (%) (Auto) 18 , Monocytes (%) (Auto) 8, Eosinophils (%) (Auto) 7, Basophils (%) (Auto) 0, Neutrophils # (Auto) 5.1, Lymphocytes # (Auto) 1.3, Monocytes # (Auto) 0.6, Eosinophils # (Auto) 0.5, Basophils # (Auto) 0.0, Sodium Level 142, Potassium Level 3.6, Chloride Level 107, Carbon Dioxide Level 26, Anion Gap 9, Blood Urea Nitrogen 15, Creatinine 0.63, Estimat Glomerular Filtration Rate > 60, BUN/ Creatinine Ratio 24, Glucose Level 66, Calcium Level 8.3, Phosphorus Level 3.3, Magnesium Level 2.0 Discharge Home Medications: Active Scripts Active Reported Furosemide 20 Mg Tablet 20 Mg PO DAILY PRN Carvedilol 6.25 Mg Tablet 6.25 Mg PO BID Multivitamins (Multivitamin) 1 Each Tablet 1 Tab PO DAILY Atorvastatin Calcium 80 Mg Tablet 40 Mg PO HS TAKES 1/2 (80MG) TABLET Fish Oil 1,000 mg Capsule ([place] 3 Polyunsat Fatty Acids) 1,000 Mg Cap 1,000 Mg PO HS Amlodipine Besylate 10 Mg Tablet 10 Mg PO DAILY Metformin HCl ER (Metformin HCl) 500 Mg Tab.er.24h 1,000 Mg PO BID TAKES 2 (500MG) TABLETS Losartan Potassium 100 Mg Tablet 100 Mg PO DAILY Combivent Respimat Inhal [place] (Albuterol/Ipratropium) 4 Gm Aero 1 Puff INH QID PRN Aspirin 325 Mg Tablet 325 Mg PO DAILY Glimepiride 4 Mg Tablet 8 Mg PO DAILY TAKES 2 (4MG) TABLETS Instructions to patient/family Please see electronic discharge instructions given to patient. Clinical Quality Measures DVT/VTE Risk/Contraindication: Risk Factor Score Per Nursin RFS Level Per Nursing on Admit: 3=High LEN MAE DO Sep 04, 2018 07:27
== END 2018-09-03 10:20 | DRG 208 ==
LOC: EDUNIT# 20:00 → ER 20:02 → 4TH 22:25 → ICU 08-26 22:58 → 4TH 08-31 12:52
PROVIDERS: ADMIT Internal Medicine; ATTEND Internal Medicine
PROC: 5A1945Z Respiratory Ventilation, 24-96 Consecutive Hours (ICD-10-PCS; principal; 2018-08-27)
PROC: 0B9D8ZX Drainage of Right Middle Lung Lobe, Via Natural or Artificial Opening Endoscopic, Diagnostic (ICD-10-PCS; 2018-08-30)
PROC: 0BC38ZZ Extirpation of Matter from Right Main Bronchus, Via Natural or Artificial Opening Endoscopic (ICD-10-PCS; 2018-08-30)
PROC: 0BC78ZZ Extirpation of Matter from Left Main Bronchus, Via Natural or Artificial Opening Endoscopic (ICD-10-PCS; 2018-08-30)
DX: J96.22 Acute and chronic respiratory failure with hypercapnia (principal); J96.21 Acute and chronic respiratory failure with hypoxia; I11.0 Hypertensive heart disease with heart failure; I50.41 Acute combined systolic (congestive) and diastolic (congestive) heart failure; J18.9 Pneumonia, unspecified organism; J44.1 Chronic obstructive pulmonary disease with (acute) exacerbation; J98.09 Other diseases of bronchus, not elsewhere classified; E87.1 Hypo-osmolality and hyponatremia; E87.0 Hyperosmolality and hypernatremia; E87.2 Acidosis; I25.10 Atherosclerotic heart disease of native coronary artery without angina pectoris; I95.2 Hypotension due to drugs; I44.7 Left bundle-branch block, unspecified; R51 Headache; F17.220 Nicotine dependence, chewing tobacco, uncomplicated; E78.00 Pure hypercholesterolemia, unspecified; E87.5 Hyperkalemia; H91.91 Unspecified hearing loss, right ear; I65.23 Occlusion and stenosis of bilateral carotid arteries; I25.2 Old myocardial infarction; Z79.84 Long term (current) use of oral hypoglycemic drugs; Z95.1 Presence of aortocoronary bypass graft; Z97.4 Presence of external hearing-aid; T50.1X5A Adverse effect of loop [high-ceiling] diuretics, initial encounter; T41.295A Adverse effect of other general anesthetics, initial encounter
CPT/HCPCS: 36415; 36600; 71045; 71046; 71275; 80048; 80053; 80076; 80202; 81000; 82330; 82805; 82962; 83605; 83735; 83880; 84100; 84132; 84478; 84484; 85025; 85027; 85610; 85730; 87015; 87040; 87070; 87081; 87088; 87101; 87116; 87205; 87206; 87324; 87449; 87804; 93005; 93306; 94002; 94003; 94640; 94660; 94664; 94760; 94799; 96361; 96365; 96367

== ENCOUNTER 2018-09-03 10:30 | Inpatient (IN) | payer MEDICARE, OTHER ==
[~2018-09-03] VITALS: Ht 177.8 cm; Wt 78.9 kg
[~2018-09-03 10:30] MED LIST changes: +FURO20TA4 PO; +MULT1TAB69 PO
[2018-09-03 10:40] VITALS: BP 134/57
[2018-09-03] MEDS ORDERED: ENOXAPARIN 40 MG/0.4 ML (LOVENOX) SYR SC SCH (11:45)
[2018-09-03] MEDS ORDERED: RT-ALBUTEROL SULF 2.5 MG/3 ML PRE-MIX VIAL INH PRN (11:45)
[2018-09-03] MEDS ORDERED: ONDANSETRON 4 MG/2 ML (SDV) Z0FRAN IV PRN (11:45)
[2018-09-03 16:32] VITALS: BP 155/73
[2018-09-03] MEDS: inSUlin ASPART (NovoLOG) 1 UNIT/0.01 ML (CHARGE PER UNIT) SC SCH ×2 (17:39→21:00)
[2018-09-03] MEDS: ATORVASTATIN 40 MG (LIPITOR) TABLET PO SCH (21:02)
[2018-09-03] MEDS: CARVEDILOL 12.5 MG (COREG) TABLET PO SCH (21:02)
[2018-09-03] MEDS: inSUlin DETERMIR 1 UNIT/0.01 ML (LEVEMIR) CHARGE PER UNIT SQ SCH (21:03)
[2018-09-03 21:10] VITALS: BP 163/69
[2018-09-03] MEDS: RT-ALBUTEROL SULF 2.5 MG/3 ML PRE-MIX VIAL INH SCH (22:11)
--- NOTE | 2018-09-03 22:23 | HISTORY AND PHYSICAL ---
DATE OF SERVICE: 09/03/2018 CHIEF COMPLAINT: Difficulty with walking. HISTORY OF PRESENT ILLNESS: The patient is a 73-year-old male, who is retired from [employer] and had been independent and living with his in [place], [place], who was admitted to [facility] for treatment of pneumonia with sepsis. He had resulting weakness from all of this more so in in the proximal lower limbs. Had a course of antibiotics and required Vent support and IV steroids and then weaned from vent. He is now referred to inpatient rehabilitation unit. He had complaints of weakness in his legs and shortness of breath. Currently requires assistance for his ADLs, mobility skills.He is being followed by PCP DR Conley and cardiology and Pulmonology.He is min assist for transfers and gait with walker.He is min assist for upper body dressing and toileting and mod assist for lower body dressing. PAST MEDICAL HISTORY: Diabetes mellitus and hypertension. PAST SURGICAL HISTORY: Denies any prior joint or spinal surgery. ALLERGIES: PENICILLIN. FAMILY HISTORY: Noncontributory. SOCIAL HISTORY: As per above. REVIEW OF SYSTEMS: A 10-point review of systems significant for some easy fatigue, limited endurance, weakness particularly in his legs. MEDICATIONS: ASA 325 mg p.o. daily, furosemide 20 mg p.o. daily, KCl 10 mEq p.o. daily, Protonix 40 mg p.o. daily, Amaryl 4 mg p.o. daily, Lovenox 40 mg subq daily for DVT prophylaxis, Lipitor 40 mg p.o. each day at bedtime, Coreg 12.5 mg p.o. b.i.d., Levemir insulin 10 units subcu each day at bedtime, sliding scale insulin regimen C, Tylenol 1000 mg p.o. q.8 hours p.r.n. mild pain, Proventil q.2 hours, a small volume nebulizer treatments q.2 hours p.r.n. shortness of breath or wheezing. PHYSICAL EXAMINATION: GENERAL: Significant for a male appearing his stated age, lying in bed, alert and oriented, no acute distress. VITAL SIGNS: He is afebrile, pulse is 62, respirations 16, blood pressure 155/73, O2 sat 93% on room air. HEENT: Vision, speech, hearing grossly intact. No oral lesion is noted. NECK: Supple without mass. HEART: Regular rhythm. LUNGS: Clear. ABDOMEN: Soft, nontender, bowel sounds present. EXTREMITIES: No lower leg edema, no calf tenderness. MUSCULOSKELETAL: He has functional active range of motion of all four limbs. NEUROLOGIC: Sensation is grossly intact to touch. Cognition intact. Strength 3/5 at shoulders and hip flexors.Strength distal upper and lower limbs 4/5 IMPRESSION: 1. Chronic obstructive pulmonary disease myopathy, status post bout of pneumonia and sepsis requiring vent support now weaned but remaining on 02 by N/ C, improving, but with a decline in his functional independence. 2. Diabetes mellitus, controlled with medication. 3. Hypertension, controlled with medication. 4. CAD with CHF Cardiology following PLAN: The patient will have a comprehensive program of inpatient rehabilitation with goal of maximizing level of functional independence prior to discharge home with spouse. The patient will have PT, OT 90 minutes per day each discipline, 5 days a week for 7 to 10 days with the above goals in mind. Please see post-admission physician evaluation, which is a separate document for details of plan of care. Speech therapy to do cognitive assessment and treat as indicated. Rehabilitation nursing assist with bowel, bladder, skin care, medication administration, pain management. Followup with PCP, Dr. Conley as per his schedule. Social work to assist with discharge planning, community reentry. ESTIMATED LENGTH OF STAY: 5 to 7 days. PROGNOSIS: Rehab prognosis appears good for goal of discharging home with spouse, modified independent to supervision for ADLs and mobility skills. DIET: Carb consistent. CODE STATUS: Full code. Job ID: [id number] DocumentID: [id number] Dictated Date: 09/03/2018 20:00:00 Board Certified Family Physician Date: 09/03/2018 22:22:08 Dictated By: SHANE ACEVEDO MD [facility]
[2018-09-04] MEDS: RT-ALBUTEROL SULF 2.5 MG/3 ML PRE-MIX VIAL INH SCH ×5 (02:21→19:07)
[2018-09-04 05:52] VITALS: BP 159/59
[2018-09-04] MEDS: inSUlin ASPART (NovoLOG) 1 UNIT/0.01 ML (CHARGE PER UNIT) SC SCH ×4 (06:00→21:00)
[2018-09-04] MEDS: PANTOPRAZOLE 40 MG (PROTONIX) TAB PO SCH (06:59)
[2018-09-04] MEDS: KCL 10 MEQ TAB (MICRO K) PO SCH (07:00)
[2018-09-04] MEDS: GLIMEPIRIDE 4 MG (AMARYL) TAB PO SCH (07:00)
[2018-09-04] MEDS: ENOXAPARIN 40 MG/0.4 ML (LOVENOX) SYR SC SCH (07:04)
--- NOTE | 2018-09-04 07:46 | Consultation ---
History of Present Illness History of Present Illness Patient Consulted On(christian/time) 09/04/18 07:41 Time Seen by Provider: 07:44 History of Present Illness 73-year-old male has weakness. Patient was in acute care in intensive care unit on ventilator and had pneumonia. Patient has weakness and shortness of breath and COPD. Patient is a known diabetic and has hypertension and coronary artery disease. Patient stopped smoking with his first episode of heart disease Allergies and Home Medications Allergies Coded Allergies: Penicillins (Unverified Allergy, Mild, 01/31/11) Home Medications Albuterol/Ipratropium 4 Gm Aero, 1 PUFF INH QID PRN for SHORTNESS OF BREATH, ( Reported) Amlodipine Besylate 10 Mg Tablet, 10 MG PO DAILY, (Reported) Aspirin 325 Mg Tablet, 325 MG PO DAILY, (Reported) Atorvastatin Calcium 80 Mg Tablet, 40 MG PO HS, (Reported) TAKES 1/2 (80MG) TABLET Carvedilol 6.25 Mg Tablet, 6.25 MG PO BID, (Reported) Furosemide 20 Mg Tablet, 20 MG PO DAILY PRN for SWELLING, (Reported) Glimepiride 4 Mg Tablet, 8 MG PO DAILY, (Reported) TAKES 2 (4MG) TABLETS Losartan Potassium 100 Mg Tablet, 100 MG PO DAILY, (Reported) Metformin HCl 500 Mg Tab.er.24h, 1,000 MG PO BID, (Reported) TAKES 2 (500MG) TABLETS Multivitamin 1 Each Tablet, 1 TAB PO DAILY, (Reported) [place] 3 Polyunsat Fatty Acids 1,000 Mg Cap, 1,000 MG PO HS, (Reported) Patient Home Medication List Home Medication List Reviewed: Yes Past [id number]-Oorwhp Hx Patient Social History Alcohol Use: Denies Use Recreational Drug Use: No Smoking Status: Former Smoker Type Used: Cigarettes, Smokeless Tobacco Former Smoker, Quit: Nov 24, 2000 2nd Hand Smoke Exposure: No Recent Foreign Travel: No Contact w/Someone Who Travel: No Recent Infectious Disease Expo: No Recent Hopitalizations: Yes (PNEUMONIA) Immunizations Up To Date Tetanus Booster (TDap): More than 5yrs Date of Pneumonia Vaccine: Oct 07, 2015 Date of Influenza Vaccine: Aug 04, 2018 Seasonal Allergies Seasonal Allergies: No Past Medical History Surgeries: Yes (CABG x5 11/2002) Cardiac, CABG Respiratory: Yes Pneumonia, Chronic Bronchitis, COPD Currently Using CPAP: No Cardiac: Yes (CABG ) High Cholesterol, Hypertension Neurological: No Reproductive Disorders: No Genitourinary: No Gastrointestinal: No Musculoskeletal: No Endocrine: Yes Diabetes, Non-Insulin dep HEENT: No Hearing Impairment: Hard of Hearing, Hearing Aide Right Cancer: No Psychosocial: No Integumentary: No Blood Disorders: No Family Medical History Asthma 19 FATHER Cardiovascular disease G8 SISTER Completed stroke G8 SISTER Diabetes mellitus 19 MOTHER G8 BROTHER FH: cancer G8 BROTHER G8 SISTER FH: hearing loss 19 FATHER Myocardial infarction 19 FATHER CAD Over 55 Years Old, Diabetes Review of Systems-General Constitutional: malaise, weakness EENTM: no symptoms reported Respiratory: short of breath Cardiovascular: no symptoms reported Gastrointestinal: no symptoms reported Genitourinary: no symptoms reported Physical Exam-General Problems Physical Exam Vital Signs Vital Signs - First Documented 09/03/18 09/04/18 10:40 02:22 Temp 98.8 Pulse 61 Resp 18 B/P (MAP) 134/57 (82) Pulse Ox 96 O2 Delivery Room Air O2 Flow Rate 2.00 Capillary Refill : General Appearance: WD/WN, no apparent distress Eyes: Bilateral Eye Normal Inspection HEENT: normal ENT inspection Neck: full range of motion, normal inspection Respiratory: no respiratory distress, no accessory muscle use, decreased breath sounds, other (On oxygen) Cardiovascular: regular rate, rhythm, no murmur Gastrointestinal: non tender, soft Assessment/Plan Assessment/Plan Admission Diagnosis/Plan Myopathy. Debility. Pneumonia. COPD. Diabetes. Coronary artery disease. Hypertension Admission Status: Inpatient Order (span 2 midnights) Reason for Inpatient Admission: Weakness. Myopathy. Debility. Pneumonia. Congestive heart failure Clinical Quality Measures DVT/VTE Risk/Contraindication: Risk Factor Score Per Nursin RFS Level Per Nursing on Admit: 4+=Very High LEN MAE DO Sep 04, 2018 07:46
[2018-09-04] MEDS: ASPIRIN 325 MG (5 GR) TABLET PO SCH (08:02)
[2018-09-04] MEDS: CARVEDILOL 12.5 MG (COREG) TABLET PO SCH ×2 (08:02→21:05)
[2018-09-04] MEDS: FUROSEMIDE 20 MG (LASIX) TAB PO SCH (08:02)
[2018-09-04 08:20] VITALS: BP 154/68
--- NOTE | 2018-09-04 08:34 | Pulmonary Progress Note ---
Subjective Time Seen by a Provider: 07:15 Subjective/Events-last exam No complications noted. Sepsis Event Evaluation Height, Weight, BMI Height: 5'10.00" Weight: 180lbs. 9.6oz. [id number]; 26.3 BMI Method:Stated Exam Exam Vital Signs Date Time Temp Pulse Resp B/P (MAP) Pulse Ox O2 Delivery O2 Flow Rate FiO2 09/04/18 08:20 101.1 73 20 154/68 (96) 93 Room Air 09/04/18 07:01 95 Nasal Cannula 2.00 09/04/18 05:52 99.8 58 20 159/59 (92) 92 Nasal Cannula 2.00 09/04/18 02:22 90 Nasal Cannula 2.00 09/03/18 22:12 92 Room Air 09/03/18 21:10 69 20 163/69 (100) 92 Room Air 09/03/18 21:00 92 Room Air 09/03/18 16:32 98.5 62 16 155/73 (100) 93 Room Air 09/03/18 15:01 92 Room Air 09/03/18 11:00 Room Air 09/03/18 10:40 98.8 61 18 134/57 (82) 96 Room Air I & O 09/04/18 07:00 Intake Total 1450 ml Balance 1450 ml Height & Weight Height: 5'10.00" Weight: 180lbs. 9.6oz. 81.671822us; 26.3 BMI Method:Stated General Appearance: No Apparent Distress, WD/WN HEENT: PERRL/EOMI, Normal ENT Inspection, Pharynx Normal Neck: Full Range of Motion, Non Tender, Supple Respiratory: Chest Non Tender, No Accessory Muscle Use, No Respiratory Distress , Decreased Breath Sounds Cardiovascular: Regular Rate, Rhythm Capillary Refill: Less Than 3 Seconds Gastrointestinal: non tender, soft Extremity: Normal Capillary Refill, Normal Inspection Neurologic/Psychiatric: Alert Skin: Normal Color, Warm/Dry Assessment/Plan Assessment/Plan Acute on Chronic Respiratory failure -s/p ventilator -Pc02 was 68 on admission and required mechanical ventilation. pt is high risk for multiple hospitalizations and continued respiratory failure -Pt would benefit from home vent to mask. -CT scan reviewed -Will repeat as out patient -repeat CXR and labs reviewed Atelectasis -Increase activity -IS Pulmonary edema EF 40-45% CHF -Cardiology following COPD -SVNs Q4 -Will probably need home 02 upon discharged Hypernatremia -Monitor CAD with elevated troponin - cardiology following JODY TORRES DO Sep 04, 2018 08:34
[2018-09-04 08:54] LABS: HEMOGLOBIN 10.8 G/DL (13.3-17.7); MEAN PLATELET VOLUME 7.4 FL (7.4-10.4); RED BLOOD COUNT 3.6 10^6/uL (4.35-5.85); RED CELL DISTRIBUTION WIDTH 14.9 % (10.0-14.5); WHITE BLOOD COUNT 6.1 10^3/uL (4.3-11.0)
--- NOTE | 2018-09-04 08:58 | Progress Note-Cardiology ---
Cardiology SO Progress Note Objective: I&O/Vital Signs 09/04/18 09/04/18 09/04/18 09/04/18 19:48 20:00 21:00 23:22 Temp 101.3 100.2 98.3 Pulse 73 Resp 18 B/P (MAP) 149/65 (93) Pulse Ox 94 94 O2 Delivery Nasal Cannula Nasal Cannula O2 Flow Rate 2.00 2.00 09/05/18 09/05/18 09/05/18 09/05/18 00:13 04:11 04:15 04:50 Temp 98.6 100.0 100.0 99.6 Pulse 57 65 Resp 16 18 B/P (MAP) 130/60 (83) 130/68 (88) Pulse Ox 98 94 O2 Delivery Nasal Cannula Nasal Cannula O2 Flow Rate 2.00 2.00 09/05/18 09/05/18 05:30 07:06 Temp 99.6 Pulse Ox 91 O2 Delivery Room Air 09/05/18 00:00 Intake Total 1265 ml Balance 1265 ml Weight (Pounds): 180 Weight (Ounces): 9.6 Weight (Calculated Kilograms): 81.002904 Results/Procedures: Labs Laboratory Tests 09/04/18 08:45: White Blood Count 6.1, Red Blood Count 3.60L, Hemoglobin 10.8L, Hematocrit 33L, Mean Corpuscular Volume 91, Mean Corpuscular Hemoglobin 30, Mean Corpuscular Hemoglobin Concent 33, Red Cell Distribution Width 14.9H, Platelet Count 441H, Mean Platelet Volume 7.4, Sodium Level 136, Potassium Level 3.7, Chloride Level 97L, Carbon Dioxide Level 28, Anion Gap 11, Blood Urea Nitrogen 12, Creatinine 1.08, Estimat Glomerular Filtration Rate > 60, BUN/Creatinine Ratio 11, Glucose Level 127H, Calcium Level 8.8, Corrected Calcium 9.3, Phosphorus Level 3.1, Magnesium Level 2.2, Total Bilirubin 0.5, Aspartate Amino Transf (AST/SGOT) 19, Alanine Aminotransferase (ALT/SGPT) 15, Alkaline Phosphatase 126, B-Type Natriuretic Peptide 31.0, Total Protein 6.5, Albumin 3.4 09/04/18 11:00: Glucometer 70 09/04/18 16:00: Glucometer 63L 09/04/18 19:12: Glucometer 91 09/04/18 21:01: Glucometer 136H 09/05/18 04:47: White Blood Count 7.1, Red Blood Count 3.77L, Hemoglobin 11.1L, Hematocrit 34L, Mean Corpuscular Volume 90, Mean Corpuscular Hemoglobin 29, Mean Corpuscular Hemoglobin Concent 33, Red Cell Distribution Width 12.5, Platelet Count 313, Mean Platelet Volume 10.3, Sodium Level 137, Potassium Level 4.2, Chloride Level 102, Carbon Dioxide Level 27, Anion Gap 8, Blood Urea Nitrogen 12, Creatinine 0.74, Estimat Glomerular Filtration Rate > 60, BUN/Creatinine Ratio 16, Glucose Level 79, Calcium Level 8.4L, Corrected Calcium 9.4, Phosphorus Level 3.2, Magnesium Level 1.8, Total Bilirubin 0.5, Aspartate Amino Transf (AST /SGOT) 45H, Alanine Aminotransferase (ALT/SGPT) 59H, Alkaline Phosphatase 72, Total Protein 5.3L, Albumin 2.7L 09/05/18 05:16: Glucometer 85 A/P: Assessment: Fever Status post acute respiratory failure with pulmonary edema, mucous plug, underwent bronchoscopy Ac systolic and diastolic CHF. Echo of 08/27/18 shows paradoxical septal motion , LVEF 50%, grade I diastolic dysfunction of LV, continue to monitor, no changes are recommended Hepatic transaminase elevation, possibly related to passive hepatic congestion, continue to monitor Elevated troponin likely due to hypoxemia due to ac resp failure, conservative management at this time, followed by Dr. 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
[2018-09-04] MEDS ORDERED: PANTOPRAZOLE 40 MG (PROTONIX) VIAL IV SCH (09:00)
[2018-09-04 09:16] LABS: ALANINE AMINOTRANSFERASE 15 U/L (0-55); ALBUMIN 3.4 GM/DL (3.2-4.5); ALKALINE PHOSPHATASE 126 U/L (40-136); BILIRUBIN,TOTAL 0.5 MG/DL (0.1-1.0); BUN/CREATININE RATIO 11; CALCIUM 8.8 MG/DL (8.5-10.1); CARBON DIOXIDE 28 MMOL/L (21-32); CHLORIDE 97 MMOL/L (98-107); CREATININE SERUM 1.08 MG/DL (0.60-1.30); GFR ESTIMATED > 60; GLUCOSE 127 MG/DL (70-105); MAGNESIUM 2.2 MG/DL (1.8-2.4); PHOSPHORUS 3.1 MG/DL (2.3-4.7); POTASSIUM 3.7 MMOL/L (3.6-5.0); SODIUM 136 MMOL/L (135-145); TOTAL PROTEIN 6.5 GM/DL (6.4-8.2)
--- NOTE | 2018-09-04 09:19 | Occupational Therapy Eval ---
OT Evaluation-General/PLF Medical Diagnosis Admission Date Sep 03, 2018 at 10:30 Medical Diagnosis: Pneumonia Onset Date: Sep 03, 2018 Therapy Diagnosis Therapy Diagnosis: Weakness Height/Weight Height (Feet): 5 Height (Inches): 10.00 Weight (Pounds): 180 Weight (Ounces): 9.6 Precautions Precautions/Isolations: Standard Precautions Safety Interventions: Reorient-PRN Weight Bear Status Weight Bearing Restriction: Weight Bearing/Tolerated Referral Physician: Dr. Perales Referral Reason: Activity Tolerance, Self Care, Evaluation/Treatment, Strengthening/ROM Medical History Pertinent Medical History: CABG, CAD, COPD, DM, HTN Current History Pt. on vent and sedated for several days. Reviewed History: Yes Social History Home: Single Level Current Living Status: Spouse Entry Into Home: Stairs With Railing Steps Into Home: 3 ADL-Prior Level of Function Functional [place] Measure 0=Not Assessed/NA 4=Minimal Assistance 1=Total Assistance 5=Supervision or Setup 2=Maximal Assistance 6=Modified [place] 3=Moderate Assistance 7=Complete [place] ADL PLOF Comments Pt. states that he was independent prior to this hospitalization. Self Care Self Care: (Code the patient's need for assistance with bathing, dressing, using the toilet, or eating prior to the current illness, exacerbation, or injury.) Functional Cognition Functional Cognition: (Code the patient's need for assistance with planning regular tasks, such as shopping or remembering to take medicaiton prior to the current illness, exacerbation, or injury.) DME/Equipment: Bath Chair, Shower DME/Equipment Comments Pt. states that he has a walker but does not use it. Occupation: Retired from [employer] Self: Yes OT Current Status Subjective Pt. states that he slept well. No pain reported. Appearance Pt. is awake in bed. Declines showering, stating that he showered yesterday. Mental Status/Objective Patient Orientation: Confused Pt. demonstrates some cognitive difficulty. Poor processing of what OT is asking him. States that he can't get dressed because he doesn't have clothes, that his didn't bring them. When OT opened closet pt. states, "I told you , she brought them." Pt. is adamant that he does not want to shower, but then asks if he has to shower when he gets out of bed. Demonstrates difficulty processing how to put on his shirt and how to doff his pants. Requires max cues and increased time for these tasks. Attachments: Oxygen Current Glasses/Contacts: Yes Hearing Aids: Yes Dentures/Partials: Yes Upper Extremity ROM Pt. is able to flex bilateral shoulders to approximately 90 degrees. Upper Extremity Strength 3/5 shoulders 4/5 bilateral elbow flexion/wrists/fingers ADL-Treatment Functional [place] Measure 0=Not Assessed/NA 4=Minimal Assistance 1=Total Assistance 5=Supervision or Setup 2=Maximal Assistance 6=Modified [place] 3=Moderate Assistance 7=Complete IndependenceIRFPAI Quality Coding Scale 6 Independent with activity with or without an assistive device 5 Patient requires set up or clean up by helper. Patient completes activity by themselves 4 Supervision or touching assist (CGA). [place] provide cues , steadying assist 3 The helper provides less than half the effort to complete the activity 2 The helper provides more than half the effort to complete the activity 1 Dependent. The helper does all the effort to complete an activity 7 Patient refused to complete or attempt activity 9 The patient did not perform the activity before the current illness or injury 88 Not attempted due to Medical conditions or safety concerns Upper Body Dressing (FIM): 4 (Pt. has difficulty finding the bottom of his shirt, or manipulating it to put UE into holes. Requires increased time and min assist to pull down once he does put on.) Upper Body Dressing (QC): 4 Lower Body Dressing (FIM): 3 (Pt. requires max cues and increased time, as well as min/mod assist with stance and tactile cues to doff underwear/pants, and then to don over feet.) Lower Body Dressing (QC): 3 Toileting (FIM): 4 (Pt. requires CGA in stance to pull down pants. Pt. is able to cleanse rear hans area after toileting. Requires min assist to don underwear over hips.) Toileting Hygiene (QC): 4 Transfers (B, C, W/C) (FIM): 4 Toilet/Commode Transfer (FIM): 4 Toilet Transfer (QC): 4 Other Treatments Pt. requires encouragement to participate. Demonstrates cognitive difficulty with processing how to complete tasks. Pt. is willing to participate, but requires increased time. Will evaluate bathing ADLs at later time. Pt. declines brushing dentures at this time. OT took o2 sats with 2 L on and sats at 94%. Education OT Patient Education: Correct positioning, Modified ADL techniques, Progress toward Goal/Update tx plan, Purpose of tx/functional activities, Reviewed precautions, Rehab process, Transfer techniques Teaching Recipient: Patient Teaching Methods: Demonstration, Discussion Response to Teaching: Verbalize Understanding, Return Demonstration OT Short Term Goals Short Term Goals Time Frame: Sep 11, 2018 Eating(FIM): 5 Grooming(FIM): 5 Bathing(FIM): 5 Upper Body Dressing(FIM): 5 Lower Body Dressing(FIM): 5 Toileting(FIM): 5 Transfers (B,C,W/C) (FIM): 5 Toilet/Commode Transfer(FIM): 5 Shower Transfer(FIM): 5 Additional Short Term Goals: 1-Demonstrate ADL Tasks, 2-Verbalize Understanding , 3-ImproveStrength/Manda 1=Demonstrate adherence to instructed precautions during ADL tasks. 2=Patient will verbalize/demonstrate understanding of assistive devices/ modifications for ADL. 3=Patient will improve strength/tolerance for activity to enable patient to perform ADL's. OT Crystallizer Operator Goals Correction Goals Time Frame: Sep 25, 2018 Eating (FIM): 6 Eating (QC): 6 Groomin Oral Hygiene (QC): 6 Bathing(FIM): 5 Shower/Bathe Self (QC): 5 Upper Body Dressing(FIM): 6 Upper Body Dressing (QC): 6 Lower Body Dressing(FIM): 6 Lower Body Dressing (QC): 6 On/Off Footwear (QC): 6 Toileting(FIM): 6 Toileting Hygiene (QC): 6 Transfers (B,C,W/C) (FIM): 6 Toilet/Commode Transfer(FIM): 6 Toilet/Commode Transfer (QC): 6 Shower Transfer(FIM): 5 Additional Goals: 1-Demonstrate ADL Tasks, 2-Verbalize Understanding, 3- ImproveStrength/Manda 1=Demonstrate adherence to instructed precautions during ADL tasks. 2=Patient will verbalize/demonstrate understanding of assistive devices/ modifications for ADL. 3=Patient will improve strength/tolerance for activity to enable patient to perform ADL's. OT Education/Plan Problem List/Assessment Assessment: Decreased Activ Tolerance, Decreased Safety Aware, Decreased UE Strength, Dependent Transfers, Impaired Cognition, Impaired Funct Balance, Impaired I ADL's, Impaired Self-Care Skills, Restricted Funct UE ROM OT placed chair alarm before leaving pt. up in recliner. Pt. with call light and phone, water, and needs met. Discharge Recommendations Plan/Recommendations: Continue POC Therapy D/C Recommendations: Home w/ Family Support, Occupational Therapy Home Care Comment Equipment needs to be determined. Treatment Plan/Plan of Care Treatment,Training & Education: Yes Patient would benefit from OT for education, treatment and training to promote independence in ADL's, mobility, safety and/or upper extremity function for ADL' s. Plan of Care: ADL Retraining, Functional Mobility, Group Exercise/Act as Ind, UE Funct Exercise/Act Treatment Duration: Sep 25, 2018 Frequency: At least 5 of 7 days/Wk (IRF) Estimated Hrs Per Day: 1.5 hours per day Agreement: Yes Rehab Potential: Fair Time/GCodes Start Time: 08:15 Stop Time: 09:10 Total Time Billed (hr/min): 55 Billed Treatment Time 1, EVH x 10minutes, ADL x 45minutes ROSALBA DAVID OT Sep 04, 2018 09:19
--- NOTE | 2018-09-04 09:51 | Diagnostic Imaging Report ---
Indication: Shortness breath and fever. PA and lateral chest Right IJ central line tip projected over the SVC. There are postop changes from CABG surgery. There is some discoid atelectasis at both lung bases. There are tiny bilateral pleural effusions. Impression: Tiny pleural effusions. Bilateral basilar discoid atelectasis is improved since 09/02/2018. Dictated by: Dictated on workstation # [id number]
--- NOTE | 2018-09-04 10:17 | PM&R Post Admission Assessment ---
Post Admission Physician Asses Date seen by provider: Sep 04, 2018 Time seen by provider: 08:00 The preadmission screen agrees with the post admission assessment that the patient is a good candidate for inpatient rehabilitation. The patient will have a comprehensive program of inpatient rehabilitation with a goal of maximizing level of functional independence prior to discharge home with family. The patient will have PT/OT ninety minutes per day, each discipline, five days a week for 7 to 10 days for gait, strengthening, conditioning, balance, ADLs, any patient/family/caregiver training as necessary. Speech therapy to do cognitive assessment and treat as indicated. Rehabilitation nursing to assist with bowel, bladder, skin, wound care, medication administration, pain management. Assault Boat Coxswain to assist with discharge planning, community reentry. SCD's for DVT prophylaxis. He appears to be well motivated to participate in three hours of therapy a day. He should be able to tolerate three hours of therapy a day from a medical standpoint. He should benefit from the three hours of therapy a day. He has a reasonable discharge plan, reasonable discharge rehabilitation goals and a supportive family. He has various comorbidities that need to be closely monitored with medications and treatments adjusted on a daily basis as needed. These include: CAD DM2 COPD Chronic Left BBB CHF Barriers to discharge for this patient who had been independent prior to this are for him to be modified independent to supervision for ADLs and mobility skills prior to discharge home with family, so as to lessen the burden of the caregivers. Risks for this patient include: 1. Fall 2. Fracture 3. DVT 4. Pulmonary embolism 5. acute exacerbation of COPD 6. Skin breakdown 7. Contractures 8. Poorly controlled pain 9. Urinary retention 10. UTI 11. Respiratory infection 12. Aspiration 13. Acute exacerbation of CHF 14.Poorly controlled DM Estimated Length of Stay: 5 t0 7 days Prognosis: Rehab prognosis appears good for goal of discharge home with family modified independent to supervision for ADLs and mobility skills. Date Identified: Sep 04, 2018 Time Identified: 10:00 Action Plan to Resolve CSMI: Transfer meds reviewed again General: Alert, Oriented X3, Cooperative, No Acute Distress HEENT: Atraumatic, PERRLA, EOMI, Mucous Memb Moist/[place] Neck: Supple, No JVD Lungs: Other (decreased breath sounds) Heart: Regular Rate Abdomen: Normal Bowel Sounds, Soft, No Tenderness Extremities: Other (trace edema) Neuro: Other (generalized weakness Lower limbs more than upper Sensation grossly intact to touch Cognition intact) SHANE ACEVEDO MD Sep 04, 2018 10:17
--- NOTE | 2018-09-04 10:56 | Physical Therapy Evaluation ---
PT Evaluation-General Medical Diagnosis Admission Date Sep 03, 2018 at 10:30 Medical Diagnosis: Pneumonia Onset Date: Sep 03, 2018 Therapy Diagnosis Therapy Diagnosis: impaired mobility, strength, endurance Height/Weight Height (Feet): 5 Height (Inches): 10.00 Weight (Pounds): 180 Weight (Ounces): 9.6 Precautions Precautions/Isolations: Standard Precautions Referral Physician: Dr. Perales Reason for Referral: Evaluation/Treatment Medical History Pertinent Medical History: CABG, CAD, COPD, DM, HTN Additional Medical History Pt presented to the hospital with acute exac of COPD. Reviewed History: Yes Social History Home: Single Level Current Living Status: Spouse Entry Into Home: Stairs With Railing PT Steps Into Home: 3 Prior/Core FIM Prior Level of Function Functional [place] Measure 0=Not Assessed/NA 4=Minimal Assistance 1=Total Assistance 5=Supervision or Setup 2=Maximal Assistance 6=Modified [place] 3=Moderate Assistance 7=Complete IndependenceIRFPAI Quality Coding Scale 6 Independent with activity with or without an assistive device 5 Patient requires set up or clean up by helper. Patient completes activity by themselves 4 Supervision or touching assist (CGA). [place] provide cues , steadying assist 3 The helper provides less than half the effort to complete the activity 2 The helper provides more than half the effort to complete the activity 1 Dependent. The helper does all the effort to complete an activity 7 Patient refused to complete or attempt activity 9 The patient did not perform the activity before the current illness or injury 88 Not attempted due to Medical conditions or safety concerns Bed Mobility: 7 Transfers (B,C,W/C) (FIM): 7 Gait: 7 PT Evaluation-Current Subjective Patient in recliner pre tx, agrees to PT, no complaints of pain. Pt/Family Goals "to get stronger so he can go home and take care of himself" Objective Patient Orientation: Person, Confused, Place Attachments: Oxygen 2L of O2 nasal canula ROM/Strength ROM Lower Extremities WNL, slightly tight hamstrings bilaterally Strenght Lower Extremities right lower extremity (hip flexion 3/5, knee flexion 4/5, knee extension 4/5, dorsiflexion 4/5), left lower extremity (hip flexion 3/5, knee flexion 4/5, knee extension 4/5, dorsiflexion 4/5) Neuromuscular (Tone, Coordination, Reflexes) NT Sensory Hearing: Impaired Sensation Right Lower Extremit: Intact Sensation Left Lower Extremity: Intact Transfers Functional [place] Measure 0=Not Assessed/NA 4=Minimal Assistance 1=Total Assistance 5=Supervision or Setup 2=Maximal Assistance 6=Modified [place] 3=Moderate Assistance 7=Complete IndependenceIRFPAI Quality Coding Scale 6 Independent with activity with or without an assistive device 5 Patient requires set up or clean up by helper. Patient completes activity by themselves 4 Supervision or touching assist (CGA). [place] provide cues , steadying assist 3 The helper provides less than half the effort to complete the activity 2 The helper provides more than half the effort to complete the activity 1 Dependent. The helper does all the effort to complete an activity 7 Patient refused to complete or attempt activity 9 The patient did not perform the activity before the current illness or injury 88 Not attempted due to Medical conditions or safety concerns Transfers (B, C, W/C) (FIM): 4 Scootin Rollin Roll Left to Right (QC): 4 Supine to/from Sit: 5 Sit to/from Stand: 4 Sit to Lying (QC): 4 Lying to Sitting/Side of Bed(Q: 4 Sit to Stand (QC): 4 Chair/Tav-cw-Udnnc Xfer(QC): 4 Car Transfer (QC): 4 Patient performs bed mobility with SBA, sit to stand with CGA, transfers with CGA. Cues for hand placement and safety. Gait Does the Patient Walk?: Yes Mode of Locomotion: Walk Anticipated Mode of Locomotion: Walk Gait (FIM): 4 Walk 10 feet (QC): 4 Walk 50 ft with 2 Turns(QC): 4 Walk 150 ft (QC): 4 Walking 10ft/uneven surface-QC: 4 Distance: 150'x2 Gait Level of Assist: 4 Gait Persons Needed: 1 Gait Assistive Device: FWW Comments/Gait Description Patient can ambulate 150' with a rolling walker with CGA (including 50' with at least 2 turns of 90 degrees and 10' over an uneven surface). He mostly just needs CGA when turning. Wheelchair Training Does the Pt Use a Wheelchair?: No Stairs Stairs (FIM): 2 #of Steps: 4 Level of Assist: 4 1 Step (curb) (QC): 4 4 Steps (QC): 4 Patient can go up and down 4 steps using 2 handrails with CGA, cues for foot placement and safety Balance Sitting Static: Normal Sitting Dynamic: Normal Standing Static: Good Standing Dynamic: Good Treatment LAQ alternating for 5 min with 2# ankle weights, NuStep level 4 for 15' Assessment/Needs Patient has impaired mobility, strength, endurance, post COPD exacerbation and pneumonia. Rehab Potential: Fair PT Short Term Goals Short Term Goals Time Frame: Sep 11, 2018 Transfers (B,C,W/C) (FIM): 5 Gait (FIM): 5 Gait Distance Comment: 150' Gait Level of Assist: 5 Gait Assistive Device: FWW PT Maintenance Department Manager Goals [facility] Goals PT Maintenance Department Manager Goals Time Frame: Sep 25, 2018 Transfers (B,C,W/C) (FIM): 6 Sit to Lying (QC): 6 Lying-Sitting on Side/Bed(QC): 6 Sit to Stand (QC): 6 Rollin Roll Left to Right (QC): 6 Chair/Hgn-ri-Epeub Xfer(QC): 6 Car Transfer (QC): 6 Gait (FIM): 6 Distance: 200' Walk 10 feet (QC): 6 Walk 10ft-Uneven Surface(QC): 6 Walk 50ft with 2 Turns (QC): 6 Walk 150 ft (QC): 6 Gait Level of Assist: 6 Gait Assistive Device: FWW Stairs (FIM): 5 # of Steps: 12 1 Step (curb) (QC): 4 4 Steps (QC): 4 12 Steps (QC): 4 Stairs Level Of Assist: 5 PT Plan Problem List Problem List: Activity Tolerance, Functional Strength, Safety, Balance, Gait, Transfer, Bed Mobility, ROM Treatment/Plan Treatment Plan: Continue Plan of Care Treatment Plan: Bed Mobility, Education, Functional Activity Manda, Functional Strength, Group Therapy, Gait, Safety, Therapeutic Exercise, Transfers Treatment Duration: Sep 25, 2018 Frequency: At least 5 of 7 days/Wk (IRF) Estimated Hrs Per Day: 1.5 hours per day Patient and/or Family Agrees t: Yes Safety Risks/Education Patient Education: Gait Training, Transfer Techniques, Steps, Correct Positioning, Safety Issues Teaching Recipient: Patient Teaching Methods: Demonstration, Discussion Response to Teaching: Reinforcement Needed Discharge Recommendations Plan Patient will perform bed mobility and transfer training, balance and endurance training, functional strengthening, stair training, gait training, and education , to improve functional mobility and independence at home. Therapy D/C Recommendations: Home w/ Family Support Time/GCodes Time In: 1000 Time Out: 1100 Total Billed Treatment Time: 60 Total Billed Treatment 1 visit EVM 30' GT 10' EX 20' MYNOR NG PT Sep 04, 2018 10:56
--- NOTE | 2018-09-04 11:40 | PM & R (SOAP) Progress Note ---
Subjective This was a face to face visit with the patient. Date Seen by Provider: Sep 04, 2018 Time Seen by Provider: 08:00 Subjective/Events-last exam Patient was seen in his room this AM Adjusting well to unit Appreciate DR davis and Pulm and cardiology notes and orders Patient remains on 02 by N/ C s/p bout of pneumonia and sepsis.Patient min assist for transfers Date Identified: Sep 04, 2018 Time Identified: 08:00 Medication Intervention: Transfer meds reviewed again Review of Systems Pulmonary: Dyspnea Neurological: Weakness Objective Physician Exam Last Set of Vital Signs Vital Signs Date Time Temp Pulse Resp B/P (MAP) Pulse Ox O2 Delivery O2 Flow Rate FiO2 09/04/18 09:00 93 Room Air 09/04/18 08:20 101.1 73 20 154/68 (96) 09/04/18 07:01 2.00 Capillary Refill : I&O Intake and Output 09/04/18 00:00 Intake Total 850 ml Balance 850 ml Intake Oral 850 ml # Voids 3 # Bowel Movements 1 Daily Weight Change Unsure General: Alert, Oriented X3, Cooperative, No Acute Distress HEENT: Atraumatic, PERRLA, EOMI, Mucous Memb Moist/[place] Neck: Supple, No JVD Lungs: Other Heart: Regular Rate Abdomen: Normal Bowel Sounds, Soft, No Tenderness Extremities: Other Neuro: Other Results Lab Data Laboratory Tests 09/03/18 16:31: Glucometer 187H 09/03/18 20:18: Glucometer 90 09/04/18 05:47: Glucometer 85 09/04/18 08:45: White Blood Count 6.1, Red Blood Count 3.60L, Hemoglobin 10.8L, Hematocrit 33L, Mean Corpuscular Volume 91, Mean Corpuscular Hemoglobin 30, Mean Corpuscular Hemoglobin Concent 33, Red Cell Distribution Width 14.9H, Platelet Count 441H, Mean Platelet Volume 7.4, Sodium Level 136, Potassium Level 3.7, Chloride Level 97L, Carbon Dioxide Level 28, Anion Gap 11, Blood Urea Nitrogen 12, Creatinine 1.08, Estimat Glomerular Filtration Rate > 60, BUN/Creatinine Ratio 11, Glucose Level 127H, Calcium Level 8.8, Corrected Calcium 9.3, Phosphorus Level 3.1, Magnesium Level 2.2, Total Bilirubin 0.5, Aspartate Amino Transf (AST/SGOT) 19, Alanine Aminotransferase (ALT/SGPT) 15, Alkaline Phosphatase 126, B-Type Natriuretic Peptide 31.0, Total Protein 6.5, Albumin 3.4 09/04/18 11:00: Glucometer 70 Assessment/Plan Assessment and Plan 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
--- NOTE | 2018-09-04 11:42 | ST Cognitive Linguistic Eval ---
Speech Evaluation-General Medical Diagnosis Pneumonia Onset Date: Sep 03, 2018 Therapy Diagnosis Therapy Diagnosis: Cognition Precautions Precautions/Isolations: Standard Precautions Referral Referring Physician: Dr. Perales Reason for Referral: Evaluation/Treatment Medical History Pertinent Medical History: CABG, CAD, COPD, DM, HTN Reviewed History: Yes Social History Current Living Status: Spouse Speech PLF-Current Status Prior Level of Function Pt was independent. Subjective Pt pleasant and cooperative. Pain Numeric Pain Scale: 0-No Pain Language Eval: Auditory Comprehends Simple Yes/No Ques: Functional Follows 1-Step Commands: Functional Follows Complex Directions: Mild Follows General Conversations: Functional Language Eval: Verbal Language Completes Spontaneous Greeting: Functional Produces Auto, Serial Info: Functional Word Finding: Functional Requests Basic Needs: Functional States Basic Personal Info: Functional Expresses Complex Ideas: Functional Language Evaluation: Reading NT Objective Cognitive Domain Attention: WNL Memory: Moderate Problem Solving: Moderate Objective Results [facility] Cognitive//Communication Assessment was administered to assess cognitive-linguistic functioning. Results are as follows: Memory - 3 word recall was 3/3 correct for immediate recall; 1/3 correct for delayed and 0/3/ correct for remote delay Organization/Sequencing - Pt was 4/4 correct. Problem Solving - Simple was 3.5/4 correct; Abstract/complex was 1/2 correct; Comparisons was 1/5 correct. Speech/language - WFL Oral Motor/Speech Production WFL Impression Moderate cognitive deficits particularly in the areas of memory and problem solving. Communication/Social Cognition Comprehension: 6 Expression: 6 Social Interaction: 7 Problem Solvin Memory: 3 Speech Patient Assess Expression of Ideas/Wants: Expression (4) Understanding Verbal Content: Usually Understands (3) Repetition of Three Words: Three (3) Temporal Orientation: Year: Correct (3) Temporal Orientation: Day: Incorrect or No Answer(0) Recall : Wear to say "Sock": No, could not recall (0) Recall : Color: Yes, after cueing (1) Recall : Bed: No, could not recall (0) Speech Short Term Goals Short Term Goals Short Term Goals Patient will complete visual/auditory linguistic/memory tasks with 80% accuracy given min to mod assistance. Patient will complete visual/auditory problem solving tasks with 80% accuracy given min to mod assistance. Time Frame-ST week Comprehension: 6 Expression: 6 Social Interaction: 7 Problem Solvin Memory: 4 Speech [facility] Goals Pressroom Worker Goals Patient will exhibit improved safety and independence for return to home. Time Frame: 2-3 weeks Comprehension: 6 Expression: 6 Social Interaction: 7 Problem Solvin Memory: 5 Speech-Plan Patient/Family Goals Patient/Family Goals: to return home Treatment Plan Speech Therapy Treatment Plan: Modify Plan, See Comments (Skilled ST indicated to address cognitive deficits) Skilled ST indicated Frequency: 5 times per week Estimated Hrs Per Day: .5 hour per day Rehab Potential: Fair Pt/Family Agrees to Plan: Yes Safety Risks/Education Teaching Recipient: Patient Teaching Methods: Discussion Response to Teaching: Verbalize Understanding Time Speech Therapy Time In: 11:00 Speech Therapy Time Out: 11:25 Total Billed Time: 25 Billed Treatment Time 1, SPSNDCOMP No STEPH ULLOA Sep 04, 2018 11:42
[2018-09-04 12:00] VITALS: BP 155/73
--- NOTE | 2018-09-04 12:42 | Progress Note-Cardiology ---
Cardiology SOAP Progress Note Subjective: Shortness of breath and gen weakness are slowly improving No cp or palp or syncope Objective: I&O/Vital Signs 09/04/18 09/04/18 09/04/18 09/04/18 02:22 05:52 07:01 08:20 Temp 99.8 101.1 Pulse 58 73 Resp 20 20 B/P (MAP) 159/59 (92) 154/68 (96) Pulse Ox 90 92 95 93 O2 Delivery Nasal Cannula Nasal Cannula Nasal Cannula Room Air O2 Flow Rate 2.00 2.00 2.00 09/04/18 09:00 Pulse Ox 93 O2 Delivery Room Air 09/04/18 00:00 Intake Total 850 ml Balance 850 ml Weight (Pounds): 180 Weight (Ounces): 9.6 Weight (Calculated Kilograms): 81.433063 Constitutional: AAO x 3, well-developed Respiratory: No accessory muscle use; other (scattered rhonchi, prolonged exp phase) Cardiovascular: regular rate-rhythm, S1 and S2, systolic murmur (soft MARQUITA at card base) Gastrointestional: No tender; soft; No guarding; audible bowel sounds Extremities: No clubbing, No cyanosis, No significant edema Neurologic/Psychiatric: grossly intact, power is 5/5 both on sides Skin: No rash on exposed areas, No ulcerations on exposed areas Results/Procedures: Labs Laboratory Tests 09/03/18 16:31: Glucometer 187H 09/03/18 20:18: Glucometer 90 09/04/18 05:47: Glucometer 85 09/04/18 08:45: White Blood Count 6.1, Red Blood Count 3.60L, Hemoglobin 10.8L, Hematocrit 33L, Mean Corpuscular Volume 91, Mean Corpuscular Hemoglobin 30, Mean Corpuscular Hemoglobin Concent 33, Red Cell Distribution Width 14.9H, Platelet Count 441H, Mean Platelet Volume 7.4, Sodium Level 136, Potassium Level 3.7, Chloride Level 97L, Carbon Dioxide Level 28, Anion Gap 11, Blood Urea Nitrogen 12, Creatinine 1.08, Estimat Glomerular Filtration Rate > 60, BUN/Creatinine Ratio 11, Glucose Level 127H, Calcium Level 8.8, Corrected Calcium 9.3, Phosphorus Level 3.1, Magnesium Level 2.2, Total Bilirubin 0.5, Aspartate Amino Transf (AST/SGOT) 19, Alanine Aminotransferase (ALT/SGPT) 15, Alkaline Phosphatase 126, B-Type Natriuretic Peptide 31.0, Total Protein 6.5, Albumin 3.4 09/04/18 11:00: Glucometer 70 Laboratory Tests 09/04/18 08:45 A/P: Assessment: Ac resp failure, multifactorial, see below Bronchial mucous plugs, treated bronchoscopically Ac systolic and diastolic CHF. Echo of 08/27/18 shows paradoxical septal motion , LVEF 50%, grade I diastolic dysfunction of LV, continue to monitor, no changes are recommended Hepatic transaminase elevation, possibly related to passive hepatic congestion, continue to monitor Elevated troponin likely due to hypoxemia due to ac resp failure, conservative management at this time Chronic LBBB (seen on ECG of 08/25/18 and on ECG of 12/18/15) Coronary artery disease with coronary artery bypass surgery in 2003, consisting of left internal mammary to left anterior descending, saphenous vein to obtuse marginal, saphenous vein to diagonal, sequential saphenous vein to acute marginal and posterior descending Hypertension 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
--- NOTE | 2018-09-04 14:17 | Occupational Ther Daily Note ---
OT Current Status-Daily Note Subjective Pt. is asleep. Wakes up and agrees to work with OT. Appearance Pt. does not report pain. Mental Status/Objective Patient Orientation: Unable to Assess Functional [place] Measure 0=Not Assessed/NA 4=Minimal Assistance 1=Total Assistance 5=Supervision or Setup 2=Maximal Assistance 6=Modified [place] 3=Moderate Assistance 7=Complete [place] Pt. has been taken off oxygen. Check with nursing. They check sats. Sats are 91%. They keep pt. off oxygen. [place] through session, OT checks sats again. Sats at 93% without oxygen on. ADL-Treatment Functional [place] Measure 0=Not Assessed/NA 4=Minimal Assistance 1=Total Assistance 5=Supervision or Setup 2=Maximal Assistance 6=Modified [place] 3=Moderate Assistance 7=Complete IndependenceIRFPAI Quality Coding Scale 6 Independent with activity with or without an assistive device 5 Patient requires set up or clean up by helper. Patient completes activity by themselves 4 Supervision or touching assist (CGA). [place] provide cues , steadying assist 3 The helper provides less than half the effort to complete the activity 2 The helper provides more than half the effort to complete the activity 1 Dependent. The helper does all the effort to complete an activity 7 Patient refused to complete or attempt activity 9 The patient did not perform the activity before the current illness or injury 88 Not attempted due to Medical conditions or safety concerns Lower Body Dressing (FIM): 3 (Pt. bends over while seated on side of bed to doff socks. Educated to bring feet up to him, one at a time. However, this is difficult for pt. Pt. struggles to doff slipper socks but is able to do it. Requires increased time and min assist to don regular socks. Pt. bends and then becomes SOA. Rests to catch breath. Dons shoes with min assist needed to adjust back of left shoe, and to tie shoes. OT educates pt. on elastic laces, but pt. states, "I could care less, I don't wear shoes at home.") Lower Body Dressing (QC): 3 On/Off Footwear (QC): 3 Transfers (B, C, W/C) (FIM): 4 (SBA supine-sit. Min assist sit-stand and ambulation to therapy gym. Sat to rest and OT adjusted walker height. Pt. educated to stand into walker.) Other Treatment Pt. is somewhat confused. Very [place] as well and requires cues throughout treatment. Does not know what time of day it is. States that he has not had his oxygen on all day, but did have it on this morning. Pt. ambulated to therapy gym but is unsafe with transfer to sit. All needs are met and PT comes to work with pt. Education OT Patient Education: Correct positioning, Modified ADL techniques, Progress toward Goal/Update tx plan, Purpose of tx/functional activities, Reviewed precautions, Rehab process, Transfer techniques Teaching Recipient: Patient Teaching Methods: Demonstration, Discussion Response to Teaching: Verbalize Understanding, Return Demonstration OT Short Term Goals Short Term Goals Time Frame: Sep 11, 2018 Eating(FIM): 5 Grooming(FIM): 5 Bathing(FIM): 5 Upper Body Dressing(FIM): 5 Lower Body Dressing(FIM): 5 Toileting(FIM): 5 Transfers (B,C,W/C) (FIM): 5 Toilet/Commode Transfer(FIM): 5 Shower Transfer(FIM): 5 Additional Short Term Goals: 1-Demonstrate ADL Tasks, 2-Verbalize Understanding , 3-ImproveStrength/Manda 1=Demonstrate adherence to instructed precautions during ADL tasks. 2=Patient will verbalize/demonstrate understanding of assistive devices/ modifications for ADL. 3=Patient will improve strength/tolerance for activity to enable patient to perform ADL's. OT Snf Goals Snf Goals Time Frame: Sep 25, 2018 Eating (FIM): 6 Eating (QC): 6 Groomin Oral Hygiene (QC): 6 Bathing(FIM): 5 Shower/Bathe Self (QC): 5 Upper Body Dressing(FIM): 6 Upper Body Dressing (QC): 6 Lower Body Dressing(FIM): 6 Lower Body Dressing (QC): 6 On/Off Footwear (QC): 6 Toileting(FIM): 6 Toileting Hygiene (QC): 6 Transfers (B,C,W/C) (FIM): 6 Toilet/Commode Transfer(FIM): 6 Toilet/Commode Transfer (QC): 6 Shower Transfer(FIM): 5 Additional Goals: 1-Demonstrate ADL Tasks, 2-Verbalize Understanding, 3- ImproveStrength/Manda 1=Demonstrate adherence to instructed precautions during ADL tasks. 2=Patient will verbalize/demonstrate understanding of assistive devices/ modifications for ADL. 3=Patient will improve strength/tolerance for activity to enable patient to perform ADL's. OT Education/Plan Problem List/Assessment Assessment: Decreased Activ Tolerance, Decreased Safety Aware, Decreased UE Strength, Dependent Transfers, Impaired Bed Mobility, Impaired Cognition, Impaired Funct Balance, Impaired I ADL's, Impaired Self-Care Skills, Restricted Funct UE ROM Discharge Recommendations Plan/Recommendations: Continue POC Therapy D/C Recommendations: 24 hr Supervision Treatment Plan/Plan of Care Treatment,Training & Education: Yes Patient would benefit from OT for education, treatment and training to promote independence in ADL's, mobility, safety and/or upper extremity function for ADL' s. Plan of Care: ADL Retraining, Functional Mobility, Group Exercise/Act as Ind, UE Funct Exercise/Act Treatment Duration: Sep 25, 2018 Frequency: At least 5 of 7 days/Wk (IRF) Estimated Hrs Per Day: 1.5 hours per day Agreement: Yes Rehab Potential: Fair Time/GCodes Start Time: 13:35 Stop Time: 14:00 Total Time Billed (hr/min): 25 Billed Treatment Time 1, ADL x 15minutes, FA x 10minutes ROSALBA DAVID OT Sep 04, 2018 14:17
--- NOTE | 2018-09-04 14:58 | Physical Therapy Daily Note ---
PT Daily Note-Current Subjective "It's too early to be doing this much work." Transfers Functional [place] Measure 0=Not Assessed/NA 4=Minimal Assistance 1=Total Assistance 5=Supervision or Setup 2=Maximal Assistance 6=Modified [place] 3=Moderate Assistance 7=Complete IndependenceIRFPAI Quality Coding Scale 6 Independent with activity with or without an assistive device 5 Patient requires set up or clean up by helper. Patient completes activity by themselves 4 Supervision or touching assist (CGA). [place] provide cues , steadying assist 3 The helper provides less than half the effort to complete the activity 2 The helper provides more than half the effort to complete the activity 1 Dependent. The helper does all the effort to complete an activity 7 Patient refused to complete or attempt activity 9 The patient did not perform the activity before the current illness or injury 88 Not attempted due to Medical conditions or safety concerns Transfers (B, C, W/C) (FIM): 3 (Due to level of cues and assist with sit to/ form stand and for safety) Sit to/from Stand: 3 Worked on sit to stand transfers from a chair with focus on pushing up with hands and reaching back. Sit to stand x 5 reps (2 sets). Pt needs cues 75% of the time for correct hand placment. Then worked on approaching a chair and turning to sit square on the chair versus diving in to the chair. Pt requires cues 100% of the time for safe sit as he approaches a chair from walking. Practiced this x 3 situations. Gait Training Does the Patient Walk?: Yes Gait (FIM): 2 Distance (FIM): 2=456-17 ft Distance: 50 ft and 75 ft Gait Assistive Device: FWW Tends to lean forward at the hips and keep walker too far ahead; corrects with cues but quickly resumes the old positoin. Slow with gait. Decreased step length. Unsafe to ambulate alone. Treatments Up in chair post treatment with chair alarm activated. Assessment Progressing. Working on functional safety and increasing activity tolerance. PT Short Term Goals Short Term Goals Time Frame: Sep 11, 2018 Transfers (B,C,W/C) (FIM): 5 Gait (FIM): 5 Gait Distance Comment: 150' Gait Level of Assist: 5 Gait Assistive Device: FWW PT Senior Care Goals Senior Care Goals PT Senior Care Goals Time Frame: Sep 25, 2018 Transfers (B,C,W/C) (FIM): 6 Sit to Lying (QC): 6 Lying-Sitting on Side/Bed(QC): 6 Sit to Stand (QC): 6 Rollin Roll Left to Right (QC): 6 Chair/Wia-wd-Ytuip Xfer(QC): 6 Car Transfer (QC): 6 Gait (FIM): 6 Distance: 200' Walk 10 feet (QC): 6 Walk 10ft-Uneven Surface(QC): 6 Walk 50ft with 2 Turns (QC): 6 Walk 150 ft (QC): 6 Gait Level of Assist: 6 Gait Assistive Device: FWW Stairs (FIM): 5 # of Steps: 12 1 Step (curb) (QC): 4 4 Steps (QC): 4 12 Steps (QC): 4 Stairs Level Of Assist: 5 PT Plan Problem List Problem List: Activity Tolerance, Functional Strength, Safety, Balance, Gait, Transfer, Bed Mobility Treatment/Plan Treatment Plan: Continue Plan of Care Treatment Plan: Bed Mobility, Education, Functional Activity Manda, Functional Strength, Group Therapy, Gait, Safety, Therapeutic Exercise, Transfers Treatment Duration: Sep 25, 2018 Frequency: At least 5 of 7 days/Wk (IRF) Estimated Hrs Per Day: 1.5 hours per day Patient and/or Family Agrees t: Yes Safety Risks/Education Patient Education: Transfer Techniques, Safety Issues Teaching Recipient: Patient Teaching Methods: Demonstration, Discussion Response to Teaching: Reinforcement Needed Time/GCodes Time In: 1400 Time Out: 1430 Total Billed Treatment Time: 30 Total Billed Treatment visit GT 15 EX 15 GIOVANNI RIGGINS PT Sep 04, 2018 14:57
[2018-09-04 15:44] VITALS: BP 155/73
[2018-09-04 16:00] VITALS: BP 174/71
--- NOTE | 2018-09-04 16:14 | ST Cognitive Linguistic Eval ---
Speech Evaluation-General Medical Diagnosis Pneumonia Onset Date: Sep 03, 2018 Therapy Diagnosis Therapy Diagnosis: Cognition Precautions Precautions/Isolations: Standard Precautions Referral Referring Physician: Dr. fernandez Reason for Referral: Evaluation/Treatment Medical History Pertinent Medical History: CABG, CAD, COPD, DM, HTN Reviewed History: Yes Social History Current Living Status: Spouse Speech Patient Assess Expression of Ideas/Wants: Expression (4) Understanding Verbal Content: Usually Understands (3) Repetition of Three Words: Three (3) Temporal Orientation: Year: Correct (3) Temporal Orientation: Day: Incorrect or No Answer(0) Recall : Wear to say "Sock": No, could not recall (0) Recall : Color: Yes, after cueing (1) Recall : Bed: No, could not recall (0) Speech-Plan Treatment Plan Frequency: 5 times per week Estimated Hrs Per Day: .5 hour per day Rehab Potential: STEPH Larsen Sep 04, 2018 16:13
[2018-09-04] MEDS: ACETAMINOPHEN 500 MG TAB (TYLENOL) PO PRN (19:48)
[2018-09-04 20:00] VITALS: BP 149/65
[2018-09-04] MEDS: ATORVASTATIN 40 MG (LIPITOR) TABLET PO SCH (21:05)
[2018-09-04] MEDS: inSUlin DETERMIR 1 UNIT/0.01 ML (LEVEMIR) CHARGE PER UNIT SQ SCH (21:06)
[2018-09-05] VITALS (10 sets, daily range): BP systolic 107–172; BP diastolic 51–73
[2018-09-05] MEDS: ACETAMINOPHEN 500 MG TAB (TYLENOL) PO PRN ×2 (04:15→17:41)
[2018-09-05 05:05] LABS: HEMOGLOBIN 11.1 G/DL (13.3-17.7); MEAN PLATELET VOLUME 10.3 FL (7.4-10.4); RED BLOOD COUNT 3.77 10^6/uL (4.35-5.85); RED CELL DISTRIBUTION WIDTH 12.5 % (10.0-14.5); WHITE BLOOD COUNT 7.1 10^3/uL (4.3-11.0)
[2018-09-05 05:27] LABS: ALANINE AMINOTRANSFERASE 59 U/L (0-55); ALBUMIN 2.7 GM/DL (3.2-4.5); ALKALINE PHOSPHATASE 72 U/L (40-136); BILIRUBIN,TOTAL 0.5 MG/DL (0.1-1.0); BUN/CREATININE RATIO 16; CALCIUM 8.4 MG/DL (8.5-10.1); CARBON DIOXIDE 27 MMOL/L (21-32); CHLORIDE 102 MMOL/L (98-107); CREATININE SERUM 0.74 MG/DL (0.60-1.30); GFR ESTIMATED > 60; GLUCOSE 79 MG/DL (70-105); MAGNESIUM 1.8 MG/DL (1.8-2.4); PHOSPHORUS 3.2 MG/DL (2.3-4.7); POTASSIUM 4.2 MMOL/L (3.6-5.0); SODIUM 137 MMOL/L (135-145); TOTAL PROTEIN 5.3 GM/DL (6.4-8.2)
[2018-09-05] MEDS: inSUlin ASPART (NovoLOG) 1 UNIT/0.01 ML (CHARGE PER UNIT) SC SCH ×4 (06:00→20:49)
[2018-09-05] MEDS: ENOXAPARIN 40 MG/0.4 ML (LOVENOX) SYR SC SCH (06:25)
[2018-09-05] MEDS: PANTOPRAZOLE 40 MG (PROTONIX) TAB PO SCH (06:31)
[2018-09-05] MEDS: GLIMEPIRIDE 4 MG (AMARYL) TAB PO SCH (06:31)
[2018-09-05] MEDS: KCL 10 MEQ TAB (MICRO K) PO SCH (06:31)
[2018-09-05] MEDS: RT-ALBUTEROL SULF 2.5 MG/3 ML PRE-MIX VIAL INH SCH ×4 (07:06→20:00)
--- NOTE | 2018-09-05 07:47 | Pulmonary Progress Note ---
Subjective Time Seen by a Provider: 07:41 Subjective/Events-last exam Pt c/o of being cold. at bedside and is concerned about his BS. Sepsis Event Evaluation Height, Weight, BMI Height: 5'10.00" Weight: 176lbs. 12.8oz. 80.824419fn; 26.3 BMI Method:Stated Exam Exam Vital Signs Date Time Temp Pulse Resp B/P (MAP) Pulse Ox O2 Delivery O2 Flow Rate FiO2 09/05/18 07:06 91 Room Air 09/05/18 05:30 99.6 09/05/18 04:50 99.6 09/05/18 04:15 100.0 09/05/18 04:11 100.0 65 18 130/68 (88) 94 Nasal Cannula 2.00 09/05/18 00:13 98.6 57 16 130/60 (83) 98 Nasal Cannula 2.00 09/04/18 23:22 98.3 09/04/18 21:00 94 Nasal Cannula 2.00 09/04/18 20:00 100.2 73 18 149/65 (93) 94 Nasal Cannula 2.00 09/04/18 19:48 101.3 09/04/18 19:07 94 Nasal Cannula 2.00 09/04/18 16:00 99.8 66 18 174/71 (105) 99 Nasal Cannula 2.00 09/04/18 15:44 88 Room Air 09/04/18 15:44 67 88 09/04/18 12:00 98.5 62 16 155/73 (100) 93 Room Air 09/04/18 09:00 93 Room Air 09/04/18 08:20 101.1 73 20 154/68 (96) 93 Room Air I & O 09/05/18 07:00 Intake Total 1565 ml Balance 1565 ml Height & Weight Height: 5'10.00" Weight: 176lbs. 12.8oz. 80.257376zl; 26.3 BMI Method:Stated General Appearance: No Apparent Distress, WD/WN, Anxious HEENT: PERRL/EOMI, Normal ENT Inspection, Pharynx Normal Neck: Full Range of Motion, Non Tender, Supple Respiratory: Chest Non Tender, No Accessory Muscle Use, No Respiratory Distress , Decreased Breath Sounds Cardiovascular: Regular Rate, Rhythm Capillary Refill: Less Than 3 Seconds Gastrointestinal: non tender, soft Extremity: Normal Capillary Refill, Normal Inspection Neurologic/Psychiatric: Alert Skin: Normal Color, Warm/Dry Results Lab Laboratory Tests 09/04/18 08:45 09/05/18 04:47 Assessment/Plan Assessment/Plan Acute on Chronic Respiratory failure -Pc02 was 68 on admission and required mechanical ventilation. pt is high risk for multiple hospitalizations and continued respiratory failure -Pt would benefit from home vent to mask. -CT scan reviewed -Will repeat as out patient -repeat CXR and labs reviewed Fever r/o infection -Belle cultures -check influenza swab -Start omnicef Atelectasis -Increase activity -IS Pulmonary edema EF 40-45% CHF -Cardiology following COPD -SVNs Q4 -Will probably need home 02 upon discharged Hypernatremia -Monitor CAD with elevated troponin - cardiology following JODY TORRES DO Sep 05, 2018 07:47
--- NOTE | 2018-09-05 08:18 | Progress Note (SOAP) ---
Subjective Time Seen by a Provider: 08:13 Subjective/Events-last exam Patient hypoglycemic yesterday. Patient wanting to go home soon. Chest x-ray yesterday shows improvement. Objective Exam Vital Signs Date Time Temp Pulse Resp B/P (MAP) Pulse Ox O2 Delivery O2 Flow Rate FiO2 09/05/18 08:00 99.3 60 18 116/63 (80) 95 Nasal Cannula 2.00 09/05/18 07:06 91 Room Air 09/05/18 05:30 99.6 09/05/18 04:50 99.6 09/05/18 04:15 100.0 09/05/18 04:11 100.0 65 18 130/68 (88) 94 Nasal Cannula 2.00 09/05/18 00:13 98.6 57 16 130/60 (83) 98 Nasal Cannula 2.00 09/04/18 23:22 98.3 09/04/18 21:00 94 Nasal Cannula 2.00 09/04/18 20:00 100.2 73 18 149/65 (93) 94 Nasal Cannula 2.00 09/04/18 19:48 101.3 09/04/18 19:07 94 Nasal Cannula 2.00 09/04/18 16:00 99.8 66 18 174/71 (105) 99 Nasal Cannula 2.00 09/04/18 15:44 88 Room Air 09/04/18 15:44 67 88 09/04/18 12:00 98.5 62 16 155/73 (100) 93 Room Air 09/04/18 09:00 93 Room Air 09/04/18 08:20 101.1 73 20 154/68 (96) 93 Room Air I & O 09/05/18 07:00 Intake Total 1565 ml Balance 1565 ml Capillary Refill : Less Than 3 Seconds General Appearance: No Apparent Distress, WD/WN HEENT: Normal ENT Inspection Neck: Full Range of Motion, Normal Inspection Respiratory: No Accessory Muscle Use, No Respiratory Distress Cardiovascular: Regular Rate, Rhythm Gastrointestinal: non tender, soft Results Lab Laboratory Tests 09/04/18 08:45 09/05/18 04:47 Laboratory Tests 09/04/18 08:45: White Blood Count 6.1, Red Blood Count 3.60L, Hemoglobin 10.8L, Hematocrit 33L, Mean Corpuscular Volume 91, Mean Corpuscular Hemoglobin 30, Mean Corpuscular Hemoglobin Concent 33, Red Cell Distribution Width 14.9H, Platelet Count 441H, Mean Platelet Volume 7.4, Sodium Level 136, Potassium Level 3.7, Chloride Level 97L, Carbon Dioxide Level 28, Anion Gap 11, Blood Urea Nitrogen 12, Creatinine 1.08, Estimat Glomerular Filtration Rate > 60, BUN/Creatinine Ratio 11, Glucose Level 127H, Calcium Level 8.8, Corrected Calcium 9.3, Phosphorus Level 3.1, Magnesium Level 2.2, Total Bilirubin 0.5, Aspartate Amino Transf (AST/SGOT) 19, Alanine Aminotransferase (ALT/SGPT) 15, Alkaline Phosphatase 126, B-Type Natriuretic Peptide 31.0, Total Protein 6.5, Albumin 3.4 09/04/18 11:00: Glucometer 70 09/04/18 16:00: Glucometer 63L 09/04/18 19:12: Glucometer 91 09/04/18 21:01: Glucometer 136H 09/05/18 04:47: White Blood Count 7.1, Red Blood Count 3.77L, Hemoglobin 11.1L, Hematocrit 34L, Mean Corpuscular Volume 90, Mean Corpuscular Hemoglobin 29, Mean Corpuscular Hemoglobin Concent 33, Red Cell Distribution Width 12.5, Platelet Count 313, Mean Platelet Volume 10.3, Sodium Level 137, Potassium Level 4.2, Chloride Level 102, Carbon Dioxide Level 27, Anion Gap 8, Blood Urea Nitrogen 12, Creatinine 0.74, Estimat Glomerular Filtration Rate > 60, BUN/Creatinine Ratio 16, Glucose Level 79, Calcium Level 8.4L, Corrected Calcium 9.4, Phosphorus Level 3.2, Magnesium Level 1.8, Total Bilirubin 0.5, Aspartate Amino Transf (AST /SGOT) 45H, Alanine Aminotransferase (ALT/SGPT) 59H, Alkaline Phosphatase 72, Total Protein 5.3L, Albumin 2.7L 09/05/18 05:16: Glucometer 85 Assessment/Plan Assessment/Plan Assess & Plan/Chief Complaint Myopathy. Debility. Pneumonia. COPD. Diabetes. Coronary artery disease. Hypertension. . 09/05/18. Myopathy. Debility. Diabetes. Pneumonia COPd Hypertension. Coronary artery disease Clinical Quality Measures DVT/VTE Risk/Contraindication: Risk Factor Score Per Nursin RFS Level Per Nursing on Admit: 4+=Very High LEN MAE DO Sep 05, 2018 08:18
[2018-09-05] MEDS: CARVEDILOL 12.5 MG (COREG) TABLET PO SCH ×2 (08:32→20:49)
[2018-09-05] MEDS: FUROSEMIDE 20 MG (LASIX) TAB PO SCH (08:32)
[2018-09-05] MEDS: ASPIRIN 325 MG (5 GR) TABLET PO SCH (08:32)
--- NOTE | 2018-09-05 08:38 | Progress Note-Cardiology ---
Cardiology SOAP Progress Note Objective: I&O/Vital Signs 09/10/18 09/10/18 09/11/18 20:08 20:40 05:06 Temp 98.4 Pulse 69 Resp 18 B/P (MAP) 144/78 (100) Pulse Ox 91 93 O2 Delivery Room Air Room Air Room Air 09/11/18 00:00 Intake Total 1200 ml Balance 1200 ml Weight (Pounds): 176 Weight (Ounces): 12.8 Weight (Calculated Kilograms): 80.878831 Constitutional: AAO x 3, well-developed Respiratory: No accessory muscle use; other (scattered rhonchi, prolonged exp phase) Cardiovascular: regular rate-rhythm, S1 and S2, systolic murmur (soft [place] at card base) Gastrointestional: No tender; soft; No guarding; audible bowel sounds Extremities: No clubbing, No cyanosis, No significant edema Neurologic/Psychiatric: grossly intact, power is 5/5 both on sides Skin: No rash on exposed areas, No ulcerations on exposed areas Results/Procedures: Labs Laboratory Tests 09/10/18 11:29: Glucometer 243H 09/10/18 16:22: Glucometer 176H 09/10/18 20:50: Glucometer 187H 09/11/18 06:34: Glucometer 134H 09/11/18 06:45: White Blood Count 4.8, Red Blood Count 3.67L, Hemoglobin 10.9L, Hematocrit 33L, Mean Corpuscular Volume 91, Mean Corpuscular Hemoglobin 30, Mean Corpuscular Hemoglobin Concent 33, Red Cell Distribution Width 12.8, Platelet Count 316, Mean Platelet Volume 9.7, Sodium Level 141, Potassium Level 4.0, Chloride Level 106, Carbon Dioxide Level 29, Anion Gap 6, Blood Urea Nitrogen 10, Creatinine 0.77, Estimat Glomerular Filtration Rate > 60, BUN/Creatinine Ratio 13, Glucose Level 143H, Calcium Level 8.4L, Phosphorus Level 3.3, Magnesium Level 1.7L Microbiology 09/05/18 Blood Culture - Final, Complete No growth 09/05/18 MRSA Screen - Final, Complete MRSA not isolated A/P: Assessment: Ac resp failure, multifactorial, see below Bronchial mucous plugs, treated bronchoscopically Ac systolic and diastolic CHF. Echo of 08/27/18 shows paradoxical septal motion , LVEF 50%, grade I diastolic dysfunction of LV, continue to monitor, no changes are recommended Hepatic transaminase elevation, possibly related to passive hepatic congestion, continue to monitor Elevated troponin likely due to hypoxemia due to ac resp failure, conservative management at this time Chronic LBBB (seen on ECG of 08/25/18 and on ECG of 12/18/15) Coronary artery disease with coronary artery bypass surgery in 2003, consisting of left internal mammary to left anterior descending, saphenous vein to obtuse marginal, saphenous vein to diagonal, sequential saphenous vein to acute marginal and posterior descending Hypertension 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
[2018-09-05] MEDS ORDERED: CEFDINIR 125 MG/5 ML (OMNICEF) 60 ML PO SCH (09:00)
[2018-09-05] MEDS: CEFDINIR 300 MG (OMNICEF) CAP PO SCH ×2 (09:21→20:49)
--- NOTE | 2018-09-05 10:13 | Physical Therapy Daily Note ---
PT Daily Note-Current Subjective Patient in recliner pre tx, agrees to PT, no complaints of pain. Appearance Patient in recliner post tx with nurse call, phone, tray, chair alarm on. Family in the room. Mental Status Patient Orientation: Person, Confused Transfers Functional [place] Measure 0=Not Assessed/NA 4=Minimal Assistance 1=Total Assistance 5=Supervision or Setup 2=Maximal Assistance 6=Modified [place] 3=Moderate Assistance 7=Complete IndependenceIRFPAI Quality Coding Scale 6 Independent with activity with or without an assistive device 5 Patient requires set up or clean up by helper. Patient completes activity by themselves 4 Supervision or touching assist (CGA). [place] provide cues , steadying assist 3 The helper provides less than half the effort to complete the activity 2 The helper provides more than half the effort to complete the activity 1 Dependent. The helper does all the effort to complete an activity 7 Patient refused to complete or attempt activity 9 The patient did not perform the activity before the current illness or injury 88 Not attempted due to Medical conditions or safety concerns Transfers (B, C, W/C) (FIM): 4 Sit to/from Stand: 4 Bed to/from Chair: 4 CGA for sit to stand and transfers, patient occasionally needs more than one try to stand Gait Training Gait (FIM): 2 Distance: 120'x2 Gait Level of Assist: 4 Gait Persons Needed: 1 Gait Assistive Device: FWW CGA mostly just when turning, cues for direction Exercises Standing: Hip Abduction, Hamstring curls, Heel/toe raises, Marching, Mini squats, Step-ups (x10 each side) Standing Reps: 20 LAQ alternating with 2# ankle weights for 5 min NuStep Minutes: 15 NuStep Workload: 5 Treatments transfers, ambulation, functional strengthening Assessment Current Status: Fair Progress improved endurance, but patient seemed to be a little more confused, easily distracted, needs cues for direction and to stay on task PT Short Term Goals Short Term Goals Time Frame: Sep 11, 2018 Transfers (B,C,W/C) (FIM): 5 Gait (FIM): 5 Gait Distance Comment: 150' Gait Level of Assist: 5 Gait Assistive Device: FWW PT Custodial Goals Custodial Goals PT Custodial Goals Time Frame: Sep 25, 2018 Transfers (B,C,W/C) (FIM): 6 Sit to Lying (QC): 6 Lying-Sitting on Side/Bed(QC): 6 Sit to Stand (QC): 6 Rollin Roll Left to Right (QC): 6 Chair/Ppv-ra-Pmdad Xfer(QC): 6 Car Transfer (QC): 6 Gait (FIM): 6 Distance: 200' Walk 10 feet (QC): 6 Walk 10ft-Uneven Surface(QC): 6 Walk 50ft with 2 Turns (QC): 6 Walk 150 ft (QC): 6 Gait Level of Assist: 6 Gait Assistive Device: FWW Stairs (FIM): 5 # of Steps: 12 1 Step (curb) (QC): 4 4 Steps (QC): 4 12 Steps (QC): 4 Stairs Level Of Assist: 5 PT Plan Problem List Problem List: Activity Tolerance, Functional Strength, Safety, Balance, Gait, Transfer, Bed Mobility, ROM Treatment/Plan Treatment Plan: Continue Plan of Care Treatment Plan: Bed Mobility, Education, Functional Activity Manda, Functional Strength, Group Therapy, Gait, Safety, Therapeutic Exercise, Transfers Treatment Duration: Sep 25, 2018 Frequency: At least 5 of 7 days/Wk (IRF) Estimated Hrs Per Day: 1.5 hours per day Patient and/or Family Agrees t: Yes Safety Risks/Education Patient Education: Gait Training, Transfer Techniques, Correct Positioning, Safety Issues Teaching Recipient: Patient Teaching Methods: Demonstration, Discussion Response to Teaching: Reinforcement Needed Time/GCodes Time In: 0915 Time Out: 1015 Total Billed Treatment Time: 60 Total Billed Treatment 1 visit GT 20' FA 10' EX 30' MYNOR NG PT Sep 05, 2018 10:13
--- NOTE | 2018-09-05 10:33 | Occupational Ther Daily Note ---
OT Current Status-Daily Note Subjective Pt mentioned upon entering the room that he might be going home. Appearance Pt was in recliner, alert, and willing to work with OT. Mental Status/Objective Patient Orientation: Person, Place Functional [place] Measure 0=Not Assessed/NA 4=Minimal Assistance 1=Total Assistance 5=Supervision or Setup 2=Maximal Assistance 6=Modified [place] 3=Moderate Assistance 7=Complete [place] Attachments: Central Line, Oxygen ADL-Treatment Functional [place] Measure 0=Not Assessed/NA 4=Minimal Assistance 1=Total Assistance 5=Supervision or Setup 2=Maximal Assistance 6=Modified [place] 3=Moderate Assistance 7=Complete IndependenceIRFPAI Quality Coding Scale 6 Independent with activity with or without an assistive device 5 Patient requires set up or clean up by helper. Patient completes activity by themselves 4 Supervision or touching assist (CGA). [place] provide cues , steadying assist 3 The helper provides less than half the effort to complete the activity 2 The helper provides more than half the effort to complete the activity 1 Dependent. The helper does all the effort to complete an activity 7 Patient refused to complete or attempt activity 9 The patient did not perform the activity before the current illness or injury 88 Not attempted due to Medical conditions or safety concerns Bathing (FIM): 5 (SBA) Shower/Bathe Self (QC): 4 Upper Body (FIM): 5 (supervision, safety concern) Upper Body Dressing (QC): 4 Lower Body Dressing (FIM): 3 (Assistance with threading undergarment, pants and one sock. ) Lower Body Dressing (QC): 3 On/Off Footwear (QC): 3 Toileting (FIM): 4 (Assistance with steadying in stance. ) Toileting Hygiene (QC): 4 Transfers (B, C, W/C) (FIM): 4 (CGA, steadying in stance) Toilet/Commode Transfer (FIM): 4 (CGA, steadying) Toilet Transfer (QC): 4 Shower Transfer(FIM): 3 (MOD A in standing from shower bench. ) Pt was sitting in recliner and willing to work with OT to shower. Pt was on 2 L O2, stat was at 96%. Doffed O2 for shower. Pt. transferred from recliner sit to stand to walker with CGA for steadying. Pt ambulated to bathroom with CGA. Pt transferred from walker stand to sit on toilet riser with CGA. Pt able to doff pants on toilet. Pt able to cleanse both front and rear hans area. Pt needed CGA to stand from seat riser on toilet to walker. Pt left pants at thigh level to walk to shower bench with CGA. Pt transferred from walker to shower bench with CGA. Pt able to doff pants, undergarments, and shirt with supervision and SBA for safety concerns and extended time. Pt able to wash all body parts using grab bars, hand held shower head, and long handled sponge. Pt able to don undergarments and pants with MOD A needing assistance with threading L LE. Pt able to don socks with MOD A with L LE. Pt was able to don shoes while sitting on shower bench. Safety concerns for all LE dressing due to balance issues. LE dressing also requires extended time. Pt. required MOD A for transfer from shower bench to stand at walker using grab bars to assist in pulling up. Pt ambulated to recliner with CGA. Pt transferred from stand at walker to sit in recliner with SBA. O2 stat was 91% after activity. Did not re-apply 02 but notified nursing and PT. Pt worked on getting hearing aid batteries in with verbal cues. Pt applied hearing aids to ears, but had difficulty in getting them located and installed correctly. Pt was satisfied with hearing aid placements and said he would need to wait until they stopped "squalling" to finish placing them properly. All needs were met. Spoke with spouse out in [place] after all needs met for pt. Spouse does not seem to fully grasp all of pt's cognitive issues at this time. Becomes tearful though, and begins to relay that she did notice him having some difficulties before his hospitalization. Spouse indicates that she feels that pt. may have "been worked too hard" yesterday by therapy overall, and that he may be going home tomorrow. Asked spouse if she noticed his cognition being different now vs. before his hospitalization. Spouse then states that she is noticing a difference. Spouse indicates that pt. is really wanting to leave, and wants to go back to driving. Spouse is educated about importance of pt. not driving at this time due to cognition. Spouse is tearful about this. Have relayed this information to social work instructor and will relay to physician as well. Educated spouse about importance of continued therapy to increase overall awareness to surroundings, safety, and abilities for functional tasks. Have relayed this information to pt 's daughter as well, as she called on phone while this OT in the room. Education OT Patient Education: Energy conservation, Modified ADL techniques, Progress toward Goal/Update tx plan, Purpose of tx/functional activities, Rehab process, Safety issues, Use of adapted equipment Teaching Recipient: Patient Teaching Methods: Demonstration, Discussion Response to Teaching: Verbalize Understanding, Return Demonstration OT Short Term Goals Short Term Goals Time Frame: Sep 11, 2018 Eating(FIM): 5 Grooming(FIM): 5 Bathing(FIM): 5 Upper Body Dressing(FIM): 5 Lower Body Dressing(FIM): 5 Toileting(FIM): 5 Transfers (B,C,W/C) (FIM): 5 Toilet/Commode Transfer(FIM): 5 Shower Transfer(FIM): 5 Comprehension(FIM): 6 Expression(FIM): 6 Social Interaction(FIM): 7 Problem Solving(FIM): 4 Memory(FIM): 4 Additional Short Term Goals: 1-Demonstrate ADL Tasks, 2-Verbalize Understanding , 3-ImproveStrength/Manda 1=Demonstrate adherence to instructed precautions during ADL tasks. 2=Patient will verbalize/demonstrate understanding of assistive devices/ modifications for ADL. 3=Patient will improve strength/tolerance for activity to enable patient to perform ADL's. OT [facility] Goals Bit Sharpener Operator Goals Time Frame: Sep 25, 2018 Eating (FIM): 6 Eating (QC): 6 Groomin Oral Hygiene (QC): 6 Bathing(FIM): 5 Shower/Bathe Self (QC): 5 Upper Body Dressing(FIM): 6 Upper Body Dressing (QC): 6 Lower Body Dressing(FIM): 6 Lower Body Dressing (QC): 6 On/Off Footwear (QC): 6 Toileting(FIM): 6 Toileting Hygiene (QC): 6 Transfers (B,C,W/C) (FIM): 6 Toilet/Commode Transfer(FIM): 6 Toilet/Commode Transfer (QC): 6 Shower Transfer(FIM): 5 Comprehension(FIM): 6 Expression (FIM): 6 Social Interaction(FIM): 7 Problem Solving(FIM): 5 Memory(FIM): 5 Additional Goals: 1-Demonstrate ADL Tasks, 2-Verbalize Understanding, 3- ImproveStrength/Manda 1=Demonstrate adherence to instructed precautions during ADL tasks. 2=Patient will verbalize/demonstrate understanding of assistive devices/ modifications for ADL. 3=Patient will improve strength/tolerance for activity to enable patient to perform ADL's. OT Education/Plan Problem List/Assessment Assessment: Decreased Activ Tolerance, Decreased Safety Aware, Decreased UE Strength, Impaired Cognition, Impaired Funct Balance, Impaired I ADL's, Impaired Self-Care Skills Discharge Recommendations Plan/Recommendations: Continue POC Therapy D/C Recommendations: Home w/ Family Support, Occupational Therapy Home Care Treatment Plan/Plan of Care Treatment,Training & Education: Yes Patient would benefit from OT for education, treatment and training to promote independence in ADL's, mobility, safety and/or upper extremity function for ADL' s. Plan of Care: ADL Retraining, Functional Mobility, Group Exercise/Act as Ind, UE Funct Exercise/Act Treatment Duration: Sep 25, 2018 Frequency: At least 5 of 7 days/Wk (IRF) Estimated Hrs Per Day: 1.5 hours per day Agreement: Yes Rehab Potential: Fair Time/GCodes Start Time: 08:15 Stop Time: 09:15 Total Time Billed (hr/min): 60 Billed Treatment Time 1, ADL x 60 minutes. ROSALBA DAVID OT Sep 05, 2018 10:33
--- NOTE | 2018-09-05 11:19 | Progress Note-Cardiology ---
Cardiology SOAP Progress Note Subjective: Shortness of breath improved No cp or palp or syncope Weakness improving Wishes to go home Objective: I&O/Vital Signs 09/04/18 09/05/18 09/05/18 09/05/18 23:22 00:13 04:11 04:15 Temp 98.3 98.6 100.0 100.0 Pulse 57 65 Resp 16 18 B/P (MAP) 130/60 (83) 130/68 (88) Pulse Ox 98 94 O2 Delivery Nasal Cannula Nasal Cannula O2 Flow Rate 2.00 2.00 09/05/18 09/05/18 09/05/18 09/05/18 04:50 05:30 07:06 08:00 Temp 99.6 99.6 99.3 Pulse 60 Resp 18 B/P (MAP) 116/63 (80) Pulse Ox 91 95 O2 Delivery Room Air Nasal Cannula O2 Flow Rate 2.00 09/05/18 09/05/18 09:00 10:12 Pulse Ox 93 O2 Delivery Room Air Room Air 09/04/18 23:59 Intake Total 1265 ml Balance 1265 ml Weight (Pounds): 176 Weight (Ounces): 12.8 Weight (Calculated Kilograms): 80.546754 Constitutional: AAO x 3, well-developed Respiratory: other (Good bilat air entry, somehat increased exp phase, some scattered rhonchi over large airways) Cardiovascular: regular rate-rhythm, S1 and S2, systolic murmur Gastrointestional: soft, audible bowel sounds Extremities: No clubbing, No cyanosis, No significant edema Neurologic/Psychiatric: grossly intact, power is 5/5 both on sides Skin: No rash on exposed areas, No ulcerations on exposed areas Results/Procedures: Labs Laboratory Tests 09/04/18 16:00: Glucometer 63L 09/04/18 19:12: Glucometer 91 09/04/18 21:01: Glucometer 136H 09/05/18 04:47: White Blood Count 7.1, Red Blood Count 3.77L, Hemoglobin 11.1L, Hematocrit 34L, Mean Corpuscular Volume 90, Mean Corpuscular Hemoglobin 29, Mean Corpuscular Hemoglobin Concent 33, Red Cell Distribution Width 12.5, Platelet Count 313, Mean Platelet Volume 10.3, Sodium Level 137, Potassium Level 4.2, Chloride Level 102, Carbon Dioxide Level 27, Anion Gap 8, Blood Urea Nitrogen 12, Creatinine 0.74, Estimat Glomerular Filtration Rate > 60, BUN/Creatinine Ratio 16, Glucose Level 79, Calcium Level 8.4L, Corrected Calcium 9.4, Phosphorus Level 3.2, Magnesium Level 1.8, Total Bilirubin 0.5, Aspartate Amino Transf (AST /SGOT) 45H, Alanine Aminotransferase (ALT/SGPT) 59H, Alkaline Phosphatase 72, Total Protein 5.3L, Albumin 2.7L 09/05/18 05:16: Glucometer 85 09/05/18 07:59: Lactic Acid Level 1.41 09/05/18 10:53: Glucometer 71 Microbiology 09/05/18 Influenza Types A,B Antigen (URIEL) - Final, Complete Laboratory Tests 09/04/18 08:45 09/05/18 04:47 A/P: Assessment: Ac resp failure, multifactorial, see below Bronchial mucous plugs, treated bronchoscopically Ac systolic and diastolic CHF. Echo of 08/27/18 shows paradoxical septal motion , LVEF 50%, grade I diastolic dysfunction of LV, continue to monitor, no changes are recommended Hepatic transaminase elevation, etiology unclear, [facility] Elevated troponin likely due to hypoxemia due to ac resp failure at initial presentation, conservative management at this time Chronic LBBB (seen on ECG of 08/25/18 and on ECG of 12/18/15) Coronary artery disease with coronary artery bypass surgery in 2003, consisting of left internal mammary to left anterior descending, saphenous vein to obtuse marginal, saphenous vein to diagonal, sequential saphenous vein to acute marginal and posterior descending Hypertension 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
--- NOTE | 2018-09-05 12:06 | PM & R (SOAP) Progress Note ---
Subjective This was a face to face visit with the patient. Date Seen by Provider: Sep 05, 2018 Time Seen by Provider: 11:45 Subjective/Events-last exam Patient was seen in his room this AM .Patient Min assist for transfers Appreciate DR Somers notes and orders Accucheks trending down Insulin dose adjusted Appreciate CXR report Date Identified: Sep 05, 2018 Time Identified: 11:30 Medication Intervention: Insulin adjusted Review of Systems Pulmonary: Dyspnea Neurological: Weakness Objective Physician Exam Last Set of Vital Signs Vital Signs Date Time Temp Pulse Resp B/P (MAP) Pulse Ox O2 Delivery O2 Flow Rate FiO2 09/05/18 10:12 Room Air 09/05/18 09:00 93 09/05/18 08:00 99.3 60 18 116/63 (80) 2.00 Capillary Refill : Less Than 3 Seconds I&O Intake and Output 09/05/18 00:00 Intake Total 1865 ml Balance 1865 ml Intake Oral 1865 ml # Voids 10 # Bowel Movements 2 General: Alert, Oriented X3, Cooperative, No Acute Distress HEENT: Atraumatic, PERRLA, EOMI, Mucous Memb Moist/[place] Neck: Supple, No JVD Lungs: Other Heart: Regular Rate Abdomen: Normal Bowel Sounds, Soft, No Tenderness Extremities: Other Neuro: Other Results Lab Data Laboratory Tests 09/03/18 16:31: Glucometer 187H 09/03/18 20:18: Glucometer 90 09/04/18 05:47: Glucometer 85 09/04/18 08:45: White Blood Count 6.1, Red Blood Count 3.60L, Hemoglobin 10.8L, Hematocrit 33L, Mean Corpuscular Volume 91, Mean Corpuscular Hemoglobin 30, Mean Corpuscular Hemoglobin Concent 33, Red Cell Distribution Width 14.9H, Platelet Count 441H, Mean Platelet Volume 7.4, Sodium Level 136, Potassium Level 3.7, Chloride Level 97L, Carbon Dioxide Level 28, Anion Gap 11, Blood Urea Nitrogen 12, Creatinine 1.08, Estimat Glomerular Filtration Rate > 60, BUN/Creatinine Ratio 11, Glucose Level 127H, Calcium Level 8.8, Corrected Calcium 9.3, Phosphorus Level 3.1, Magnesium Level 2.2, Total Bilirubin 0.5, Aspartate Amino Transf (AST/SGOT) 19, Alanine Aminotransferase (ALT/SGPT) 15, Alkaline Phosphatase 126, B-Type Natriuretic Peptide 31.0, Total Protein 6.5, Albumin 3.4 09/04/18 11:00: Glucometer 70 09/04/18 16:00: Glucometer 63L 09/04/18 19:12: Glucometer 91 09/04/18 21:01: Glucometer 136H 09/05/18 04:47: White Blood Count 7.1, Red Blood Count 3.77L, Hemoglobin 11.1L, Hematocrit 34L, Mean Corpuscular Volume 90, Mean Corpuscular Hemoglobin 29, Mean Corpuscular Hemoglobin Concent 33, Red Cell Distribution Width 12.5, Platelet Count 313, Mean Platelet Volume 10.3, Sodium Level 137, Potassium Level 4.2, Chloride Level 102, Carbon Dioxide Level 27, Anion Gap 8, Blood Urea Nitrogen 12, Creatinine 0.74, Estimat Glomerular Filtration Rate > 60, BUN/Creatinine Ratio 16, Glucose Level 79, Calcium Level 8.4L, Corrected Calcium 9.4, Phosphorus Level 3.2, Magnesium Level 1.8, Total Bilirubin 0.5, Aspartate Amino Transf (AST /SGOT) 45H, Alanine Aminotransferase (ALT/SGPT) 59H, Alkaline Phosphatase 72, Total Protein 5.3L, Albumin 2.7L 09/05/18 05:16: Glucometer 85 09/05/18 07:59: Lactic Acid Level 1.41 09/05/18 10:53: Glucometer 71 Microbiology 09/05/18 Influenza Types A,B Antigen (URIEL) - Final, Complete Assessment/Plan Assessment and Plan 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
--- NOTE | 2018-09-05 12:12 | Individualized Plan of Care ---
Individualized Plan of Care Rehab Nursing IPOC Order Admission Date Sep 03, 2018 at 10:30 Current Orders Orders Admission Arrival Bed Request (09/03/18 10:30) Code/Resuscitation (09/03/18 11:37) Accucheck Achs ACHS (09/03/18 11:37) Ambulate 08,,20 (09/03/18 11:37) Follow-Up Appointment (09/03/18 11:37) Initiate Admission Nursing Pro .admission (09/03/18 11:37) Cho 60g/M 1snack (16-2000 Oswald) (09/03/18 Lunch) Acetaminophen Tablet (Tylenol Tablet) (09/03/18 11:45) Albuterol Pre-Mix Nebs (Rt) (Proventil (09/03/18 11:45) Aspirin Tablet (Aspirin Tablet) (09/04/18 09:00) Atorvastatin Tablet (Lipitor) (09/03/18 21:00) Carvedilol Tablet (Coreg Tablet) (09/03/18 21:00) Enoxaparin Injection (Lovenox Injection) (09/03/18 11:45) Furosemide Tablet (Lasix Tablet) (09/04/18 09:00) Glimepiride Tablet (Amaryl Tablet) (09/04/18 06:30) Ondansetron Injection (Zofran Injectio (09/03/18 11:45) Potassium Chloride (Tablet) (Klor Con Ta (09/04/18 07:00) Hydralazine Injection (Apresoline Inject (09/03/18 11:45) Insulin Aspart (Novolog) (Novolog (Charg (09/03/18 16:00) Insulin Determir (Per Unit) (Levemir (Pe (09/03/18 21:00) Consult Cardiology (09/03/18 11:37) Consult Physician (09/03/18 11:37) Occupational Therapy Order (09/03/18 11:37) Physical Therapy [place] (09/03/18 11:37) Request Speech/Language Servic (09/03/18 11:37) Incentive Spirometry (Nursing) Q2H (09/03/18 11:37) Enoxaparin Injection (Lovenox Injection) (09/04/18 06:00) Pantoprazole Tablet (Protonix Tablet) (09/04/18 07:00) Ambulate 08,12,20 (09/03/18 17:11) Sequential Compression Device 08,20 (09/03/18 17:11) Dvt/Vte Risk - Notifiy Physici 08 (09/03/18 17:11) Nursing Communication (Order) (09/03/18 17:12) Physical Therapy Rehab Orders (09/03/18 17:12) Diabetes Education (09/03/18 18:42) Albuterol Pre-Mix Nebs (Rt) (Proventil (09/03/18 22:00) Comprehensive Metabolic Panel (09/05/18 06:00) Cbc No Diff (09/05/18 06:00) Follow-Up Appointment (09/04/18 08:31) Chest Pa/Lat (2 View) (09/04/18 08:31) BNP (09/04/18 08:32) Basic Metabolic Panel (09/05/18 05:00) Comprehensive Metabolic Panel (09/04/18 08:32) Cbc No Diff (09/04/18 08:32) Magnesium (09/04/18 08:32) Magnesium (09/05/18 05:00) Phosphorus (09/04/18 08:32) Sputum Culture (09/04/18 08:32) Admission Order(Inpt,Obs,Sdc) (09/04/18 10:58) Patient Visit (09/04/18 ) Pt Eval Moderate Complexity (09/04/18 ) Gait Training, Ea 15 Min (09/04/18 ) Exercise Therap, Ea 15 Min (09/04/18 ) Patient Visit (09/04/18 ) Exercise Therap, Ea 15 Min (09/04/18 ) Gait Training, Ea 15 Min (09/04/18 ) Albuterol Pre-Mix Nebs (Rt) (Proventil (09/04/18 19:00) Mat Initiate Protocol (09/04/18 15:53) Phosphorus (09/05/18 05:00) Cefdinir Oral Suspension (Omnicef Oral S (09/05/18 09:00) Blood Culture (09/05/18 07:42) Ua Culture If Indicated (09/05/18 07:42) Lactic Acid Analyzer (09/05/18 07:42) Influenza A And B Antigens (09/05/18 07:46) Mrsa Screen Physician Request (09/05/18 07:47) Patient Visit (09/04/18 ) Speech Sound Lang Comp (09/04/18 ) Cefdinir Capsule (Omnicef Capsule) (09/05/18 09:00) Glimepiride Tablet (Amaryl Tablet) (09/06/18 06:30) Insulin Aspart (Novolog) (Novolog (Charg (09/05/18 11:00) Rehab Nursing Orders: Ongoing Assess. of Cognitive Status, Ongoing Assess. of Function Status, Disease Management & Educaiton, DVT Prophylaxis, Infection Prevention, Medication Management & Education, Management of Risks & Complications, Management of Skin Intergrity, Nutrition Management, Pain Management, Patient/Family Support PT IPOC Problem List: Activity Tolerance, Functional Strength, Safety, Balance, Gait, Transfer, Bed Mobility, ROM Treatment Plan: Continue Plan of Care Bed Mobility, Education, Functional Activity Manda, Functional Strength, Group Therapy, Gait, Safety, Therapeutic Exercise, Transfers Treatment Duration: Sep 25, 2018 Frequency: At least 5 of 7 days/Wk (IRF) Estimated Hrs Per Day: 1.5 hours per day OT IPOC Problems: Decreased Activ Tolerance, Decreased Safety Aware, Decreased UE Strength, Impaired Cognition, Impaired Funct Balance, Impaired I ADL's, Impaired Self-Care Skills OT Treatment, Training and Edu: Yes Plan of Care: ADL Retraining, Functional Mobility, Group Exercise/Act as Ind, UE Funct Exercise/Act Treatment Duration: Sep 25, 2018 Frequency: At least 5 of 7 days/Wk (IRF) Estimated Hrs Per Day: 1.[address] IPOC Speech Therapy Treatment Plan: Modify Plan, See Comments (Skilled ST indicated to address cognitive deficits) Treatment Duration: Sep 12, 2018 Frequency: 5 times per week Estimated Hrs Per Day: .5 hour per day Training Development Director/Case Mgmt Training Development Director/Case Managemen: Discharge Planning, Patient/Family Counseling Dietitian/Employee Benefits Director Dietitian/Employee Benefits Director to monitor nutritional status and make changes and/or recommendations as needed and work with speech pathology on dietary upgrades as the occur. Physician IPOC Medical Issues being managed closely and that require the 24 hour availability of a physician: Pneumonia with 02 dependence DM CAD with CHF COPD IGC code 03.3 Etiologic DX COPD myopathy Medical Issues: DVT Prophylaxis, Falls Precautions, Fluid/Electrolyte/ Nutrition Balance, Infection Protection, Pain Management, Other (List) (as per above) Brief Synthesis of Preadmission Screen, Post-Admission Evaluation, and Therapy Evaluations: 73 yo male with PMH significant for HTN CAD DM COPD with was admitted for treatment of Pneumonia with sepsis requiring Vent management and Steroids as well as antibiotics Left with Prox weakness from this and a decline in functional [place].Completing a course of antibiotic and 02 weaning as able meds being adjusted for DM Being followed by PCP ,Card and Pulm.Had been Independent prior to this Medical Prognosis: Good Anticipated Length of Stay: 7 to 10 days Modified Independent to supervision for adls and mobility skills Anticipated d/c Destination: Home with family and [facility] SHANE ACEVEDO MD Sep 05, 2018 12:12
--- NOTE | 2018-09-05 13:59 | Occupational Ther Daily Note ---
OT Current Status-Daily Note Subjective Pt said "OK, well lets go so I can show you I can do this so I can go home." Appearance Pt in room in recliner. Pt had visitors, , son and one other guest. Pt alert and willing to work with OT. Mental Status/Objective Patient Orientation: Person, Place Functional [place] Measure 0=Not Assessed/NA 4=Minimal Assistance 1=Total Assistance 5=Supervision or Setup 2=Maximal Assistance 6=Modified [place] 3=Moderate Assistance 7=Complete [place] Attachments: Central Line ADL-Treatment Functional [place] Measure 0=Not Assessed/NA 4=Minimal Assistance 1=Total Assistance 5=Supervision or Setup 2=Maximal Assistance 6=Modified [place] 3=Moderate Assistance 7=Complete IndependenceIRFPAI Quality Coding Scale 6 Independent with activity with or without an assistive device 5 Patient requires set up or clean up by helper. Patient completes activity by themselves 4 Supervision or touching assist (CGA). [place] provide cues , steadying assist 3 The helper provides less than half the effort to complete the activity 2 The helper provides more than half the effort to complete the activity 1 Dependent. The helper does all the effort to complete an activity 7 Patient refused to complete or attempt activity 9 The patient did not perform the activity before the current illness or injury 88 Not attempted due to Medical conditions or safety concerns Transfers (B, C, W/C) (FIM): 4 (CGA for steadying with walker and Pt somewhat impulsive in movements. ) Other Treatment Pt transferred from recliner sit to stand at [facility] with CGA. Pt was a little unsteady, seemed impulsive in movements. Pt ambulated to therapy gym with CGA. Pt transferred from W stand to sit in chair with CGA. Pt participated in activity tolerance using armbike on low resistance for approximately 10 minutes with many rest breaks due to sharing stories. Pt unable to participate in activity and communicate simultaneously. Pt transferred from chair sit to stand at [facility] with CGA. Pt ambulated to room with CGA. Pt transferred from W stand to sit in recliner with safety concerns. Pt impulsively went to sit leaving walker several feet from chair. OT educated on safety concerns. All needs met. Education OT Patient Education: Exercise program, Modified ADL techniques, Progress toward Goal/Update tx plan, Purpose of tx/functional activities, Reviewed precautions, Rehab process, Safety issues, Transfer techniques Teaching Recipient: Patient Teaching Methods: Demonstration, Discussion Response to Teaching: Verbalize Understanding, Return Demonstration OT Short Term Goals Short Term Goals Time Frame: Sep 11, 2018 Eating(FIM): 5 Grooming(FIM): 5 Bathing(FIM): 5 Upper Body Dressing(FIM): 5 Lower Body Dressing(FIM): 5 Toileting(FIM): 5 Transfers (B,C,W/C) (FIM): 5 Toilet/Commode Transfer(FIM): 5 Shower Transfer(FIM): 5 Comprehension(FIM): 6 Expression(FIM): 6 Social Interaction(FIM): 7 Problem Solving(FIM): 4 Memory(FIM): 4 Additional Short Term Goals: 1-Demonstrate ADL Tasks, 2-Verbalize Understanding , 3-ImproveStrength/Manda 1=Demonstrate adherence to instructed precautions during ADL tasks. 2=Patient will verbalize/demonstrate understanding of assistive devices/ modifications for ADL. 3=Patient will improve strength/tolerance for activity to enable patient to perform ADL's. OT Senior Care Goals Senior Care Goals Time Frame: Sep 25, 2018 Eating (FIM): 6 Eating (QC): 6 Groomin Oral Hygiene (QC): 6 Bathing(FIM): 5 Shower/Bathe Self (QC): 5 Upper Body Dressing(FIM): 6 Upper Body Dressing (QC): 6 Lower Body Dressing(FIM): 6 Lower Body Dressing (QC): 6 On/Off Footwear (QC): 6 Toileting(FIM): 6 Toileting Hygiene (QC): 6 Transfers (B,C,W/C) (FIM): 6 Toilet/Commode Transfer(FIM): 6 Toilet/Commode Transfer (QC): 6 Shower Transfer(FIM): 5 Comprehension(FIM): 6 Expression (FIM): 6 Social Interaction(FIM): 7 Problem Solving(FIM): 5 Memory(FIM): 5 Additional Goals: 1-Demonstrate ADL Tasks, 2-Verbalize Understanding, 3- ImproveStrength/Manda 1=Demonstrate adherence to instructed precautions during ADL tasks. 2=Patient will verbalize/demonstrate understanding of assistive devices/ modifications for ADL. 3=Patient will improve strength/tolerance for activity to enable patient to perform ADL's. OT Education/Plan Problem List/Assessment Assessment: Decreased Activ Tolerance, Decreased Safety Aware, Decreased UE Strength, Impaired Cognition, Impaired Funct Balance, Impaired I ADL's, Impaired Self-Care Skills Discharge Recommendations Plan/Recommendations: Continue POC Therapy D/C Recommendations: Home w/ Family Support, Occupational Therapy Home Care, Scheduled Assistance Barriers to Progress Cognition and support at home. Treatment Plan/Plan of Care Treatment,Training & Education: Yes Patient would benefit from OT for education, treatment and training to promote independence in ADL's, mobility, safety and/or upper extremity function for ADL' s. Plan of Care: ADL Retraining, Caregiver Training, Functional Mobility, Group Exercise/Act as Ind, UE Funct Exercise/Act Treatment Duration: Sep 25, 2018 Frequency: At least 5 of 7 days/Wk (IRF) Estimated Hrs Per Day: 1.5 hours per day Agreement: Yes Rehab Potential: Fair Time/GCodes Start Time: 13:05 Stop Time: 13:35 Total Time Billed (hr/min): 30 Billed Treatment Time 1, EX x 30 minutes. ROSALBA DAVID OT Sep 05, 2018 13:59
--- NOTE | 2018-09-05 14:48 | Physical Therapy Daily Note ---
PT Daily Note-Current Subjective Pt awake in chair and agreed to get up and walk with PT. Pain Numeric Pain Scale: 0-No Pain Location: No Pain Reported Transfers Functional [place] Measure 0=Not Assessed/NA 4=Minimal Assistance 1=Total Assistance 5=Supervision or Setup 2=Maximal Assistance 6=Modified [place] 3=Moderate Assistance 7=Complete IndependenceIRFPAI Quality Coding Scale 6 Independent with activity with or without an assistive device 5 Patient requires set up or clean up by helper. Patient completes activity by themselves 4 Supervision or touching assist (CGA). [place] provide cues , steadying assist 3 The helper provides less than half the effort to complete the activity 2 The helper provides more than half the effort to complete the activity 1 Dependent. The helper does all the effort to complete an activity 7 Patient refused to complete or attempt activity 9 The patient did not perform the activity before the current illness or injury 88 Not attempted due to Medical conditions or safety concerns Transfers (B, C, W/C) (FIM): 4 Scootin Rollin Supine to/from Sit: 5 Sit to/from Stand: 4 Gait Training Does the Patient Walk?: Yes Gait (FIM): 4 Distance (FIM): 3=150 ft Distance: 200' Gait Level of Assist: 4 Gait Persons Needed: 1 Gait Assistive Device: FWW Exercises Supine Ex: Heel Slides, Straight leg raise Seated Therapy Exercises: Hip flexion Assessment Pt was able to ambulate for 200' with a FWW requiring CGA. Pt does not show any signs of fatigue during ambulation. Pt performed LE exercises on mat in gym before returning to chair in his room. Pt will continue to benefit from LE strengthening and endurance to improve ambulation for daily demands. PT Short Term Goals Short Term Goals Time Frame: Sep 11, 2018 Transfers (B,C,W/C) (FIM): 5 Gait (FIM): 5 Gait Distance Comment: 150' Gait Level of Assist: 5 Gait Assistive Device: FWW PT Car Dealer Goals Car Dealer Goals PT Car Dealer Goals Time Frame: Sep 25, 2018 Transfers (B,C,W/C) (FIM): 6 Sit to Lying (QC): 6 Lying-Sitting on Side/Bed(QC): 6 Sit to Stand (QC): 6 Rollin Roll Left to Right (QC): 6 Chair/Bcy-jz-Wkvtn Xfer(QC): 6 Car Transfer (QC): 6 Gait (FIM): 6 Distance: 200' Walk 10 feet (QC): 6 Walk 10ft-Uneven Surface(QC): 6 Walk 50ft with 2 Turns (QC): 6 Walk 150 ft (QC): 6 Gait Level of Assist: 6 Gait Assistive Device: FWW Stairs (FIM): 5 # of Steps: 12 1 Step (curb) (QC): 4 4 Steps (QC): 4 12 Steps (QC): 4 Stairs Level Of Assist: 5 PT Plan Problem List Problem List: Activity Tolerance, Functional Strength, Safety, Balance, Gait, Transfer Treatment/Plan Treatment Plan: Continue Plan of Care Treatment Plan: Bed Mobility, Education, Functional Activity Manda, Functional Strength, Group Therapy, Gait, Safety, Therapeutic Exercise, Transfers Treatment Duration: Sep 25, 2018 Frequency: At least 5 of 7 days/Wk (IRF) Estimated Hrs Per Day: 1.5 hours per day Patient and/or Family Agrees t: Yes Time/GCodes Time In: 1400 Time Out: 1430 Total Billed Treatment Time: 30 Total Billed Treatment 1 Visit GT - 20' EX - 10' PAULA VALDIVIA PT Sep 05, 2018 14:48
--- NOTE | 2018-09-05 15:06 | Speech Therapy Daily Note ---
Speech Daily Progress Note Subjective Date Seen by Provider: Sep 05, 2018 Time Seen by Provider: 11:00 Patient was pleasant and cooperative. present for the session. Objective Patient completed a series of linguistic tasks related to order placement with 80% accuracy given minimal verbal cues. Assessment Assessment Current Status: Good Progress Treatment Plan Continue Plan of Care Communication Comprehension: 6 Expression: 6 Social Cognition Social Interaction: 7 Problem Solvin Memory: 3 Speech Short Term Goals Short Term Goals Short Term Goals Patient will complete visual/auditory linguistic/memory tasks with 80% accuracy given min to mod assistance. Patient will complete visual/auditory problem solving tasks with 80% accuracy given min to mod assistance. Time Frame-ST week Comprehension: 6 Expression: 6 Social Interaction: 7 Problem Solvin Memory: 4 Speech Fpc Goals Safety Associate Goals Patient will exhibit improved safety and independence for return to home. Time Frame: 2-3 weeks Comprehension: 6 Expression: 6 Social Interaction: 7 Problem Solvin Memory: 5 Speech-Plan Patient/Family Goals Patient/Family Goals: Patient wants to return home with his . Treatment Plan Speech Therapy Treatment Plan: Continue Plan of Care Patient pleasant and cooperative. Treatment Duration: Sep 12, 2018 Frequency: 5 times per week Estimated Hrs Per Day: .5 hour per day Rehab Potential: Good Pt/Family Agrees to Plan: Yes Safety Risks/Education Teaching Recipient: Patient, Family Teaching Methods: Discussion Response to Teaching: Verbalize Understanding Time Speech Therapy Time In: 11:00 Speech Therapy Time Out: 11:30 Total Billed Time: 30 Billed Treatment Time 1DANISHABHAVYAPatsy MARTIN Sep 05, 2018 15:06
[2018-09-05] MEDS: hydrALAZINE (APESOLINE) 20 MG/ML VIAL IV PRN (16:46)
[2018-09-05 16:56] LABS: BILIRUBIN,URINE NEGATIVE (NEGATIVE); CLARITY,URINE SLIGHTLY CLOUDY; COLOR,URINE YELLOW; GLUCOSE, URINE (UA) NEGATIVE (NEGATIVE); KETONES,URINE NEGATIVE (NEGATIVE); LEUKOCYTE ESTERASE ,URINE NEGATIVE (NEGATIVE); NITRITE,URINE NEGATIVE (NEGATIVE); PH,URINE 5 (5-9); PROTEIN,URINE 3+ (NEGATIVE); SQUAMOUS EPITHELIAL CELL,UR 0-2 /HPF; UROBILINOGEN,URINE NORMAL (NORMAL)
[2018-09-05] MEDS ORDERED: hydrALAZINE (APESOLINE) 20 MG/ML VIAL IV NR (17:30)
[2018-09-05 18:34] LABS: HEMOGLOBIN 11.5 G/DL (13.3-17.7); MEAN PLATELET VOLUME 9.8 FL (7.4-10.4); RED BLOOD COUNT 3.87 10^6/uL (4.35-5.85); RED CELL DISTRIBUTION WIDTH 12.4 % (10.0-14.5); WHITE BLOOD COUNT 8.2 10^3/uL (4.3-11.0)
--- NOTE | 2018-09-05 18:38 | Diagnostic Imaging Report ---
INDICATION: Febrile. Time of exam: 6:22 PM Correlation is made with prior study from one day earlier. Changes of median sternotomy and CABG are noted. Linear parenchymal densities in both bases persist but appear to be slightly improved consistent with improved aeration to the bases. The mid and upper lung hernández are clear. No effusion or pneumothorax is seen. Right sided line has tip overlying the SVC. IMPRESSION: Mild improved aeration of both bases when compared with examination one day earlier. Dictated by: Dictated on workstation # [id number]
[2018-09-05] MEDS: ATORVASTATIN 40 MG (LIPITOR) TABLET PO SCH (20:49)
[2018-09-06] VITALS (7 sets, daily range): BP systolic 113–174; BP diastolic 59–83
[2018-09-06] MEDS: ACETAMINOPHEN 500 MG TAB (TYLENOL) PO PRN ×2 (02:51→18:02)
[2018-09-06] MEDS: GLIMEPIRIDE 4 MG (AMARYL) TAB PO SCH (06:06)
[2018-09-06] MEDS: PANTOPRAZOLE 40 MG (PROTONIX) TAB PO SCH (06:06)
[2018-09-06] MEDS: ENOXAPARIN 40 MG/0.4 ML (LOVENOX) SYR SC SCH (06:06)
[2018-09-06] MEDS: KCL 10 MEQ TAB (MICRO K) PO SCH (06:06)
[2018-09-06] MEDS: inSUlin ASPART (NovoLOG) 1 UNIT/0.01 ML (CHARGE PER UNIT) SC SCH ×4 (06:17→21:25)
[2018-09-06 06:19] LABS: HEMOGLOBIN 11.6 G/DL (13.3-17.7); MEAN PLATELET VOLUME 9.8 FL (7.4-10.4); RED BLOOD COUNT 3.91 10^6/uL (4.35-5.85); RED CELL DISTRIBUTION WIDTH 12.7 % (10.0-14.5)
[2018-09-06 06:55] LABS: BUN/CREATININE RATIO 17; CALCIUM 9.8 MG/DL (8.5-10.1); CARBON DIOXIDE 25 MMOL/L (21-32); CHLORIDE 103 MMOL/L (98-107); CREATININE SERUM 0.77 MG/DL (0.60-1.30); GFR ESTIMATED > 60; GLUCOSE 117 MG/DL (70-105); MAGNESIUM 1.8 MG/DL (1.8-2.4); PHOSPHORUS 3.4 MG/DL (2.3-4.7); POTASSIUM 4.2 MMOL/L (3.6-5.0); SODIUM 137 MMOL/L (135-145)
[2018-09-06] MEDS: RT-ALBUTEROL SULF 2.5 MG/3 ML PRE-MIX VIAL INH SCH ×4 (07:44→19:36)
--- NOTE | 2018-09-06 07:53 | Pulmonary Progress Note ---
Subjective Time Seen by a Provider: 07:51 Subjective/Events-last exam Pt states he feels better. He is still running a fever. Sepsis Event Evaluation Height, Weight, BMI Height: 5'10.00" Weight: 176lbs. 12.8oz. [id number]; 26.3 BMI Method:Stated Focused Exam Lactate Level 09/05/18 07:59: Lactic Acid Level 1.41 Exam Exam Vital Signs Date Time Temp Pulse Resp B/P (MAP) Pulse Ox O2 Delivery O2 Flow Rate FiO2 09/06/18 04:00 99.4 80 20 156/69 (98) 90 Nasal Cannula 09/06/18 00:24 100.5 70 20 129/59 (82) 93 Room Air 09/05/18 20:20 Nasal Cannula 2.00 09/05/18 20:00 99.7 73 20 139/73 (95) 93 Room Air 09/05/18 20:00 91 Nasal Cannula 2.00 09/05/18 18:45 101.1 74 22 144/63 (90) 93 Room Air 09/05/18 18:15 101.5 09/05/18 18:15 101.5 09/05/18 17:59 100.5 79 20 158/65 (96) 95 Room Air 09/05/18 17:41 100.5 09/05/18 17:36 100.5 61 18 172/64 (100) 09/05/18 17:29 170/73 (105) 09/05/18 17:04 99.0 73 18 165/73 (103) 95 Room Air 09/05/18 15:01 92 Room Air 09/05/18 13:19 61 18 107/51 (69) 92 Room Air 09/05/18 12:00 61 09/05/18 10:12 Room Air 09/05/18 09:00 93 Room Air 09/05/18 08:00 99.3 60 18 116/63 (80) 95 Nasal Cannula 2.00 I & O 09/06/18 07:00 Intake Total 400 ml Balance 400 ml Height & Weight Height: 5'10.00" Weight: 176lbs. 12.8oz. 80.185578ru; 26.3 BMI Method:Stated General Appearance: No Apparent Distress, WD/WN HEENT: Normal ENT Inspection Neck: Full Range of Motion, Normal Inspection Respiratory: No Accessory Muscle Use, No Respiratory Distress Cardiovascular: Regular Rate, Rhythm Capillary Refill: Less Than 3 Seconds Gastrointestinal: non tender, soft Extremity: Normal Capillary Refill, Normal Inspection Neurologic/Psychiatric: Alert Skin: Normal Color, Warm/Dry Results Lab Laboratory Tests 09/04/18 08:45 09/05/18 04:47 09/05/18 18:23 09/06/18 06:10 Assessment/Plan Assessment/Plan Acute on Chronic Respiratory failure -Pc02 was 68 on admission and required mechanical ventilation. pt is high risk for multiple hospitalizations and continued respiratory failure -Pt would benefit from home vent to mask. -CT scan reviewed -Will repeat as out patient -repeat CXR and labs reviewed Fever r/o infection -Belle cultures pending -check influenza swab - is negative - omnicef started 08/05 Atelectasis -Increase activity -IS Pulmonary edema EF 40-45% CHF -Cardiology following COPD -SVNs Q4 -Will probably need home 02 upon discharged Hypernatremia -Monitor CAD with elevated troponin - cardiology following JODY TORRES DO Sep 06, 2018 07:53
--- NOTE | 2018-09-06 08:26 | Progress Note (SOAP) ---
Subjective Time Seen by a Provider: 08:24 Subjective/Events-last exam Patient feeling better today. Chest x-ray yesterday shows improvement with pneumonia. Patient still on nasal oxygen. Waiting for blood culture results Focused Exam Lactate Level 09/05/18 07:59: Lactic Acid Level 1.41 Objective Exam Vital Signs Date Time Temp Pulse Resp B/P (MAP) Pulse Ox O2 Delivery O2 Flow Rate FiO2 09/06/18 07:44 94 Nasal Cannula 2.00 09/06/18 04:00 99.4 80 20 156/69 (98) 90 Nasal Cannula 09/06/18 00:24 100.5 70 20 129/59 (82) 93 Room Air 09/05/18 20:20 Nasal Cannula 2.00 09/05/18 20:00 99.7 73 20 139/73 (95) 93 Room Air 09/05/18 20:00 91 Nasal Cannula 2.00 09/05/18 18:45 101.1 74 22 144/63 (90) 93 Room Air 09/05/18 18:15 101.5 09/05/18 18:15 101.5 09/05/18 17:59 100.5 79 20 158/65 (96) 95 Room Air 09/05/18 17:41 100.5 09/05/18 17:36 100.5 61 18 172/64 (100) 09/05/18 17:29 170/73 (105) 09/05/18 17:04 99.0 73 18 165/73 (103) 95 Room Air 09/05/18 15:01 92 Room Air 09/05/18 13:19 61 18 107/51 (69) 92 Room Air 09/05/18 12:00 61 09/05/18 10:12 Room Air 09/05/18 09:00 93 Room Air I & O 09/06/18 07:00 Intake Total 400 ml Balance 400 ml Capillary Refill : Less Than 3 Seconds General Appearance: No Apparent Distress, WD/WN HEENT: Normal ENT Inspection Neck: Normal Inspection, Non Tender Respiratory: No Accessory Muscle Use, No Respiratory Distress, Decreased Breath Sounds Cardiovascular: Regular Rate, Rhythm, No Murmur Gastrointestinal: non tender, soft Results Lab Laboratory Tests 09/05/18 18:23 09/06/18 06:10 Laboratory Tests 09/05/18 10:53: Glucometer 71 09/05/18 15:30: Urine Color YELLOW, Urine Clarity SLIGHTLY CLOUDY, Urine pH 5, Urine Specific [place] 1.015L, Urine Protein 3+H, Urine Glucose (UA) NEGATIVE, Urine Ketones NEGATIVE, Urine Nitrite NEGATIVE, Urine Bilirubin NEGATIVE, Urine Urobilinogen NORMAL, Urine Leukocyte Esterase NEGATIVE, Urine RBC (Auto) NEGATIVE, Urine RBC NONE, Urine WBC NONE, Urine Squamous Epithelial Cells 0-2, Urine Crystals NONE, Urine Bacteria NONE, Urine Casts NONE, Urine Mucus NEGATIVE, Urine Culture Indicated NO 09/05/18 16:27: Glucometer 129H 09/05/18 18:23: White Blood Count 8.2, Red Blood Count 3.87L, Hemoglobin 11.5L, Hematocrit 35L, Mean Corpuscular Volume 89, Mean Corpuscular Hemoglobin 30, Mean Corpuscular Hemoglobin Concent 33, Red Cell Distribution Width 12.4, Platelet Count 341, Mean Platelet Volume 9.8 09/05/18 20:46: Glucometer 125H 09/06/18 06:03: Glucometer 115H 09/06/18 06:10: White Blood Count 8.0, Red Blood Count 3.91L, Hemoglobin 11.6L, Hematocrit 35L, Mean Corpuscular Volume 90, Mean Corpuscular Hemoglobin 30, Mean Corpuscular Hemoglobin Concent 33, Red Cell Distribution Width 12.7, Platelet Count 375, Mean Platelet Volume 9.8, Sodium Level 137, Potassium Level 4.2, Chloride Level 103, Carbon Dioxide Level 25, Anion Gap 9, Blood Urea Nitrogen 13, Creatinine 0.77, Estimat Glomerular Filtration Rate > 60, BUN/Creatinine Ratio 17, Glucose Level 117H, Calcium Level 9.8, Phosphorus Level 3.4, Magnesium Level 1.8 Microbiology 09/05/18 Influenza Types A,B Antigen (URIEL) - Final, Complete Assessment/Plan Assessment/Plan Assess & Plan/Chief Complaint Myopathy. Debility. Pneumonia. COPD. Diabetes. Coronary artery disease. Hypertension. . 09/05/18. Myopathy. Debility. Diabetes. Pneumonia COPd Hypertension. Coronary artery disease. . 09/06/18. Myopathy. Debility. Diabetes. Pneumonia improving. COPD. Hypertension. Coronary artery disease. Patient sugars are better Clinical Quality Measures DVT/VTE Risk/Contraindication: Risk Factor Score Per Nursin RFS Level Per Nursing on Admit: 4+=Very High GELLENDER,LEN A DO Sep 06, 2018 08:26
[2018-09-06] MEDS: FUROSEMIDE 20 MG (LASIX) TAB PO SCH (08:28)
[2018-09-06] MEDS: ASPIRIN 325 MG (5 GR) TABLET PO SCH (08:28)
[2018-09-06] MEDS: CARVEDILOL 12.5 MG (COREG) TABLET PO SCH ×2 (08:28→21:20)
[2018-09-06] MEDS: CEFDINIR 300 MG (OMNICEF) CAP PO SCH ×2 (08:28→21:20)
--- NOTE | 2018-09-06 10:00 | Physical Therapy Daily Note ---
PT Daily Note-Current Subjective Pt asleep in chair with oxygen on when PT arrived. Pt woke up to greeting and needed encouragement to agree to therapy. Pain Numeric Pain Scale: 0-No Pain Location: No Pain Reported Appearance Patient on toilet post tx, instructed to use nurse call when done. Mental Status Patient Orientation: Normal For Age Transfers Functional [place] Measure 0=Not Assessed/NA 4=Minimal Assistance 1=Total Assistance 5=Supervision or Setup 2=Maximal Assistance 6=Modified [place] 3=Moderate Assistance 7=Complete IndependenceIRFPAI Quality Coding Scale 6 Independent with activity with or without an assistive device 5 Patient requires set up or clean up by helper. Patient completes activity by themselves 4 Supervision or touching assist (CGA). [place] provide cues , steadying assist 3 The helper provides less than half the effort to complete the activity 2 The helper provides more than half the effort to complete the activity 1 Dependent. The helper does all the effort to complete an activity 7 Patient refused to complete or attempt activity 9 The patient did not perform the activity before the current illness or injury 88 Not attempted due to Medical conditions or safety concerns Transfers (B, C, W/C) (FIM): 4 Scootin Rollin Sit to/from Stand: 4 Gait Training Does the Patient Walk?: Yes Gait (FIM): 4 Distance (FIM): 3=150 ft Distance: 200'150' Gait Level of Assist: 4 Gait Persons Needed: 1 Gait Assistive Device: FWW Exercises Standing: Hip Abduction, Heel/toe raises, Mini squats Standing Reps: 20 NuStep Minutes: 10 NuStep Workload: 6 Treatments transfers, ambulation, functional strengthening Assessment Current Status: Fair Progress Pt was able to ambulate for 200' with a FWW requiring CGA. Patient did not show any signs of fatigue during ambulation. Pt performed LE exercises in the parallel bars while standing and showed fatigue after prolonged durations. Patient recovered quickly with rest and had 02 SAT measured with an initial reading of 88 but recovered to 92 with in a matter of seconds. Pt will continue to benefit from exercise to increase endurance and LE strength. PT Short Term Goals Short Term Goals Time Frame: Sep 11, 2018 Transfers (B,C,W/C) (FIM): 5 Gait (FIM): 5 Gait Distance Comment: 150' Gait Level of Assist: 5 Gait Assistive Device: FWW PT Chief Customer Officer Goals Chief Customer Officer Goals PT Chief Customer Officer Goals Time Frame: Sep 25, 2018 Transfers (B,C,W/C) (FIM): 6 Sit to Lying (QC): 6 Lying-Sitting on Side/Bed(QC): 6 Sit to Stand (QC): 6 Rollin Roll Left to Right (QC): 6 Chair/Mcy-hy-Rpmlv Xfer(QC): 6 Car Transfer (QC): 6 Gait (FIM): 6 Distance: 200' Walk 10 feet (QC): 6 Walk 10ft-Uneven Surface(QC): 6 Walk 50ft with 2 Turns (QC): 6 Walk 150 ft (QC): 6 Gait Level of Assist: 6 Gait Assistive Device: FWW Stairs (FIM): 5 # of Steps: 12 1 Step (curb) (QC): 4 4 Steps (QC): 4 12 Steps (QC): 4 Stairs Level Of Assist: 5 PT Plan Problem List Problem List: Activity Tolerance, Functional Strength, Safety, Balance, Gait, Transfer, Bed Mobility, ROM Treatment/Plan Treatment Plan: Continue Plan of Care Treatment Plan: Bed Mobility, Education, Functional Activity Manda, Functional Strength, Group Therapy, Gait, Safety, Therapeutic Exercise, Transfers Treatment Duration: Sep 25, 2018 Frequency: At least 5 of 7 days/Wk (IRF) Estimated Hrs Per Day: 1.5 hours per day Patient and/or Family Agrees t: Yes Safety Risks/Education Patient Education: Gait Training, Transfer Techniques, Correct Positioning, Safety Issues Teaching Recipient: Patient Teaching Methods: Demonstration, Discussion Response to Teaching: Verbalize Understanding, Reinforcement Needed Time/GCodes Time In: 900 Time Out: 1000 Total Billed Treatment Time: 60 Total Billed Treatment 1 Visit GT x 2 - 30 mins EX x 2 - 30 mins MYNOR NG PT Sep 06, 2018 10:00
--- NOTE | 2018-09-06 11:23 | Occupational Ther Daily Note ---
OT Current Status-Daily Note Subjective "You're the one who talked with me for an hour and a half last night, here in my room, about going home." This OT has not treated pt before today. No pain mentioned. Appearance Alert, cooperative, no SOB Mental Status/Objective Functional [place] Measure 0=Not Assessed/NA 4=Minimal Assistance 1=Total Assistance 5=Supervision or Setup 2=Maximal Assistance 6=Modified [place] 3=Moderate Assistance 7=Complete [place] ADL-Treatment Pt declined any ADLs Functional [place] Measure 0=Not Assessed/NA 4=Minimal Assistance 1=Total Assistance 5=Supervision or Setup 2=Maximal Assistance 6=Modified [place] 3=Moderate Assistance 7=Complete IndependenceIRFPAI Quality Coding Scale 6 Independent with activity with or without an assistive device 5 Patient requires set up or clean up by helper. Patient completes activity by themselves 4 Supervision or touching assist (CGA). [place] provide cues , steadying assist 3 The helper provides less than half the effort to complete the activity 2 The helper provides more than half the effort to complete the activity 1 Dependent. The helper does all the effort to complete an activity 7 Patient refused to complete or attempt activity 9 The patient did not perform the activity before the current illness or injury 88 Not attempted due to Medical conditions or safety concerns Other Treatment Pt got up from recliner with CGA and walked with CGA, FWW to gym. He tends to push walker aside when sitting rather than sitting safely. Pt did 15 minutes bilat UE exercise with arm bike set at 10-15W resistance, taking several breaks to talk. No SOB noted. To increase activity tolerance for ADLs. Returned to room walking CGA, FWW, with cues to stay closer to walker.Cues again to keep walker in front of him when sitting. Pt left up in recliner, chair alarm on, all needs met. Education OT Patient Education: Progress toward Goal/Update tx plan, Purpose of tx/ functional activities, Safety issues, Transfer techniques Teaching Recipient: Patient Teaching Methods: Discussion Response to Teaching: Verbalize Understanding, Reinforcement Needed OT Short Term Goals Short Term Goals Time Frame: Sep 11, 2018 Eating(FIM): 5 Grooming(FIM): 5 Bathing(FIM): 5 Upper Body Dressing(FIM): 5 Lower Body Dressing(FIM): 5 Toileting(FIM): 5 Transfers (B,C,W/C) (FIM): 5 Toilet/Commode Transfer(FIM): 5 Shower Transfer(FIM): 5 Comprehension(FIM): 6 Expression(FIM): 6 Social Interaction(FIM): 7 Problem Solving(FIM): 4 Memory(FIM): 4 Additional Short Term Goals: 1-Demonstrate ADL Tasks, 2-Verbalize Understanding , 3-ImproveStrength/Amnda 1=Demonstrate adherence to instructed precautions during ADL tasks. 2=Patient will verbalize/demonstrate understanding of assistive devices/ modifications for ADL. 3=Patient will improve strength/tolerance for activity to enable patient to perform ADL's. OT Usp Goals Usp Goals Time Frame: Sep 25, 2018 Eating (FIM): 6 Eating (QC): 6 Groomin Oral Hygiene (QC): 6 Bathing(FIM): 5 Shower/Bathe Self (QC): 5 Upper Body Dressing(FIM): 6 Upper Body Dressing (QC): 6 Lower Body Dressing(FIM): 6 Lower Body Dressing (QC): 6 On/Off Footwear (QC): 6 Toileting(FIM): 6 Toileting Hygiene (QC): 6 Transfers (B,C,W/C) (FIM): 6 Toilet/Commode Transfer(FIM): 6 Toilet/Commode Transfer (QC): 6 Shower Transfer(FIM): 5 Comprehension(FIM): 6 Expression (FIM): 6 Social Interaction(FIM): 7 Problem Solving(FIM): 5 Memory(FIM): 5 Additional Goals: 1-Demonstrate ADL Tasks, 2-Verbalize Understanding, 3- ImproveStrength/Manda 1=Demonstrate adherence to instructed precautions during ADL tasks. 2=Patient will verbalize/demonstrate understanding of assistive devices/ modifications for ADL. 3=Patient will improve strength/tolerance for activity to enable patient to perform ADL's. OT Education/Plan Discharge Recommendations Plan/Recommendations: Continue POC Treatment Plan/Plan of Care Patient would benefit from OT for education, treatment and training to promote independence in ADL's, mobility, safety and/or upper extremity function for ADL' s. Plan of Care: ADL Retraining, Caregiver Training, Functional Mobility, Group Exercise/Act as Ind, UE Funct Exercise/Act Treatment Duration: Sep 25, 2018 Frequency: At least 5 of 7 days/Wk (IRF) Estimated Hrs Per Day: 1.5 hours per day Agreement: Yes Rehab Potential: Good Time/GCodes Start Time: 10:00 Stop Time: 10:55 Total Time Billed (hr/min): 55 Billed Treatment Time visit, 55 minutes exercise MARCUS NGUYEN OT Sep 06, 2018 11:23
--- NOTE | 2018-09-06 14:24 | PM & R (SOAP) Progress Note ---
Subjective This was a face to face visit with the patient. Date Seen by Provider: Sep 06, 2018 Time Seen by Provider: 08:00 Subjective/Events-last exam Patient was seen in his room this AM Covered with blanket over head sitting up in chair Had fever overnight Cultures pending Labs and CXR reviewed DR Allen following Patient on antibiotic.Patient min assist for transfers Review of Systems General: Chills Neurological: Weakness Objective Physician Exam Last Set of Vital Signs Vital Signs Date Time Temp Pulse Resp B/P (MAP) Pulse Ox O2 Delivery O2 Flow Rate FiO2 09/06/18 12:52 98.3 71 20 116/70 (85) 93 Room Air 09/06/18 07:44 2.00 Capillary Refill : Less Than 3 Seconds I&O Intake and Output 09/06/18 00:00 Intake Total 300 ml Balance 300 ml Intake Oral 300 ml # Voids 1 General: Alert, Oriented X3, Cooperative, No Acute Distress HEENT: Atraumatic, PERRLA, EOMI, Mucous Memb Moist/[place] Neck: Supple, No JVD Lungs: Other Heart: Regular Rate Abdomen: Normal Bowel Sounds, Soft, No Tenderness Extremities: Other Neuro: Other Results Lab Data Laboratory Tests 09/03/18 16:31: Glucometer 187H 09/03/18 20:18: Glucometer 90 09/04/18 05:47: Glucometer 85 09/04/18 08:45: White Blood Count 6.1, Red Blood Count 3.60L, Hemoglobin 10.8L, Hematocrit 33L, Mean Corpuscular Volume 91, Mean Corpuscular Hemoglobin 30, Mean Corpuscular Hemoglobin Concent 33, Red Cell Distribution Width 14.9H, Platelet Count 441H, Mean Platelet Volume 7.4, Sodium Level 136, Potassium Level 3.7, Chloride Level 97L, Carbon Dioxide Level 28, Anion Gap 11, Blood Urea Nitrogen 12, Creatinine 1.08, Estimat Glomerular Filtration Rate > 60, BUN/Creatinine Ratio 11, Glucose Level 127H, Calcium Level 8.8, Corrected Calcium 9.3, Phosphorus Level 3.1, Magnesium Level 2.2, Total Bilirubin 0.5, Aspartate Amino Transf (AST/SGOT) 19, Alanine Aminotransferase (ALT/SGPT) 15, Alkaline Phosphatase 126, B-Type Natriuretic Peptide 31.0, Total Protein 6.5, Albumin 3.4 09/04/18 11:00: Glucometer 70 09/04/18 16:00: Glucometer 63L 09/04/18 19:12: Glucometer 91 09/04/18 21:01: Glucometer 136H 09/05/18 04:47: White Blood Count 7.1, Red Blood Count 3.77L, Hemoglobin 11.1L, Hematocrit 34L, Mean Corpuscular Volume 90, Mean Corpuscular Hemoglobin 29, Mean Corpuscular Hemoglobin Concent 33, Red Cell Distribution Width 12.5, Platelet Count 313, Mean Platelet Volume 10.3, Sodium Level 137, Potassium Level 4.2, Chloride Level 102, Carbon Dioxide Level 27, Anion Gap 8, Blood Urea Nitrogen 12, Creatinine 0.74, Estimat Glomerular Filtration Rate > 60, BUN/Creatinine Ratio 16, Glucose Level 79, Calcium Level 8.4L, Corrected Calcium 9.4, Phosphorus Level 3.2, Magnesium Level 1.8, Total Bilirubin 0.5, Aspartate Amino Transf (AST /SGOT) 45H, Alanine Aminotransferase (ALT/SGPT) 59H, Alkaline Phosphatase 72, Total Protein 5.3L, Albumin 2.7L 09/05/18 05:16: Glucometer 85 09/05/18 07:59: Lactic Acid Level 1.41 09/05/18 10:53: Glucometer 71 09/05/18 15:30: Urine Color YELLOW, Urine Clarity SLIGHTLY CLOUDY, Urine pH 5, Urine Specific [place] 1.015L, Urine Protein 3+H, Urine Glucose (UA) NEGATIVE, Urine Ketones NEGATIVE, Urine Nitrite NEGATIVE, Urine Bilirubin NEGATIVE, Urine Urobilinogen NORMAL, Urine Leukocyte Esterase NEGATIVE, Urine RBC (Auto) NEGATIVE, Urine RBC NONE, Urine WBC NONE, Urine Squamous Epithelial Cells 0-2, Urine Crystals NONE, Urine Bacteria NONE, Urine Casts NONE, Urine Mucus NEGATIVE, Urine Culture Indicated NO 09/05/18 16:27: Glucometer 129H 09/05/18 18:23: White Blood Count 8.2, Red Blood Count 3.87L, Hemoglobin 11.5L, Hematocrit 35L, Mean Corpuscular Volume 89, Mean Corpuscular Hemoglobin 30, Mean Corpuscular Hemoglobin Concent 33, Red Cell Distribution Width 12.4, Platelet Count 341, Mean Platelet Volume 9.8 11/13/18 20:46: Glucometer 125H 09/06/18 06:03: Glucometer 115H 09/06/18 06:10: White Blood Count 8.0, Red Blood Count 3.91L, Hemoglobin 11.6L, Hematocrit 35L, Mean Corpuscular Volume 90, Mean Corpuscular Hemoglobin 30, Mean Corpuscular Hemoglobin Concent 33, Red Cell Distribution Width 12.7, Platelet Count 375, Mean Platelet Volume 9.8, Sodium Level 137, Potassium Level 4.2, Chloride Level 103, Carbon Dioxide Level 25, Anion Gap 9, Blood Urea Nitrogen 13, Creatinine 0.77, Estimat Glomerular Filtration Rate > 60, BUN/Creatinine Ratio 17, Glucose Level 117H, Calcium Level 9.8, Phosphorus Level 3.4, Magnesium Level 1.8 09/06/18 11:05: Glucometer 167H Microbiology 09/05/18 Influenza Types A,B Antigen (URIEL) - Final, Complete Assessment/Plan Assessment and Plan COPD Myopathy with prox weakness Both Upper limbs and lower limbs improving Pneumonia under treatment CAD with CHF on meds cardiology following DM better controlled 02 dependence /SOB improving Plan Continue PT/OT/resp treatments F/U with PCP and Card and PULm Team Conference held earlier today-See report for full functional update and POC and ELOS Co-Morbidities that are continuing to impact the rehab process: (include details ) SHANE ACEVEDO MD Sep 06, 2018 14:24
--- NOTE | 2018-09-06 14:42 | Speech Therapy Daily Note ---
Speech Daily Progress Note Subjective Date Seen by Provider: Sep 06, 2018 Time Seen by Provider: 03:00 Patient pleasant and cooperative for therapy session. Objective Patient completed cognitive tasks with focus on memory and problem solving related to his personal safety and independence. Patient completed tasks at 80% with minimal cues. He required increased cues as the level of questions increased. Treatment Plan Continue Plan of Care Communication Comprehension: 6 Expression: 6 Social Cognition Social Interaction: 7 Problem Solvin Memory: 3 Speech Short Term Goals Short Term Goals Short Term Goals Patient will complete visual/auditory linguistic/memory tasks with 80% accuracy given min to mod assistance. Patient will complete visual/auditory problem solving tasks with 80% accuracy given min to mod assistance. Time Frame-ST week Comprehension: 6 Expression: 6 Social Interaction: 7 Problem Solvin Memory: 4 Speech Gasfitter Goals Gasfitter Goals Patient will exhibit improved safety and independence for return to home. Time Frame: 2-3 weeks Comprehension: 6 Expression: 6 Social Interaction: 7 Problem Solvin Memory: 5 Speech-Plan Patient/Family Goals Patient/Family Goals: Patient would like to return home with his spouse. Treatment Plan Speech Therapy Treatment Plan: Continue Plan of Care Patient will continue cognitive therapy per treatment plan. Treatment Duration: Sep 12, 2018 Frequency: 5 times per week Estimated Hrs Per Day: .5 hour per day Rehab Potential: Good Pt/Family Agrees to Plan: Yes Safety Risks/Education Teaching Recipient: Patient Teaching Methods: Discussion Response to Teaching: Verbalize Understanding Time Speech Therapy Time In: 11:00 Speech Therapy Time Out: 11:30 Total Billed Time: 30 Billed Treatment Time 1, LUNA Gil Sep 06, 2018 14:42
--- NOTE | 2018-09-06 14:52 | Therapy Group Daily Note ---
Therapy Daily Group Note Patient Education Topic Other List Below (memory) Exercises LE Seated Exercise, UE Exercise Other/Notes Pt ambulated using FWW to OT/PT group. Group consisted of introductions (name, place living, favorite snowtime memory), socialization, UE/LE seated exercises, memory education, memory strategies/activity and ARU description/expectations. Pt was able to introduce self and place living, unable to say snowtime memory. Pt actively listened to peers during introduction. Pt was able to complete UE/ LE seated exercises. Pt contributed to discussions and educational topics. Verbalized understanding of memory and ARU topics. 1 out of 18 for matching on memory activity. After therapy, pt sitting in recliner with present in room.. Call light/phone in reach. All needs met in room. Start Time: 13:00 Stop Time: 14:10 Total Billed Treatment Time: 70 Total Billed Treatment 1-GRP GIOVANIN SAMUELS Sep 06, 2018 14:52
[2018-09-06] MEDS: hydrALAZINE (APESOLINE) 20 MG/ML VIAL IV PRN (18:01)
[2018-09-06] MEDS: ATORVASTATIN 40 MG (LIPITOR) TABLET PO SCH (21:20)
[2018-09-07 03:51] VITALS: BP 131/59
[2018-09-07] MEDS: ENOXAPARIN 40 MG/0.4 ML (LOVENOX) SYR SC SCH (05:29)
[2018-09-07 05:42] LABS: HEMOGLOBIN 11.7 G/DL (13.3-17.7); MEAN PLATELET VOLUME 9.6 FL (7.4-10.4); RED BLOOD COUNT 3.93 10^6/uL (4.35-5.85); RED CELL DISTRIBUTION WIDTH 12.7 % (10.0-14.5); WHITE BLOOD COUNT 9.1 10^3/uL (4.3-11.0)
[2018-09-07 06:01] LABS: BUN/CREATININE RATIO 16; CALCIUM 9.1 MG/DL (8.5-10.1); CARBON DIOXIDE 25 MMOL/L (21-32); CHLORIDE 102 MMOL/L (98-107); CREATININE SERUM 0.77 MG/DL (0.60-1.30); GFR ESTIMATED > 60; GLUCOSE 147 MG/DL (70-105); MAGNESIUM 1.8 MG/DL (1.8-2.4); POTASSIUM 4.3 MMOL/L (3.6-5.0); SODIUM 136 MMOL/L (135-145)
[2018-09-07] MEDS: inSUlin ASPART (NovoLOG) 1 UNIT/0.01 ML (CHARGE PER UNIT) SC SCH ×4 (06:04→21:00)
[2018-09-07] MEDS: PANTOPRAZOLE 40 MG (PROTONIX) TAB PO SCH (06:08)
[2018-09-07] MEDS: GLIMEPIRIDE 4 MG (AMARYL) TAB PO SCH (06:08)
[2018-09-07] MEDS: KCL 10 MEQ TAB (MICRO K) PO SCH (06:08)
[2018-09-07] MEDS: RT-ALBUTEROL SULF 2.5 MG/3 ML PRE-MIX VIAL INH SCH ×4 (06:59→19:56)
--- NOTE | 2018-09-07 07:29 | Pulmonary Progress Note ---
Subjective Time Seen by a Provider: 09:50 Subjective/Events-last exam Pt states he feels well and wants to go home. Sepsis Event Evaluation Height, Weight, BMI Height: 5'10.00" Weight: 178lbs. 12.8oz. [id number]; 26.3 BMI Method:Stated Focused Exam Lactate Level 09/05/18 07:59: Lactic Acid Level 1.41 Exam Exam Vital Signs Date Time Temp Pulse Resp B/P (MAP) Pulse Ox O2 Delivery O2 Flow Rate FiO2 09/07/18 06:59 92 Room Air 09/07/18 03:51 99.6 85 18 131/59 (83) 90 Room Air 09/06/18 23:09 99.9 83 18 126/83 (97) 91 Room Air 09/06/18 20:45 Nasal Cannula 2.00 09/06/18 19:37 92 Room Air 90 09/06/18 19:15 100.2 09/06/18 18:30 78 134/69 (90) 09/06/18 18:02 100.1 09/06/18 17:59 100.1 73 20 174/82 (112) 92 Room Air 09/06/18 13:00 92 Room Air 09/06/18 12:52 98.3 71 20 116/70 (85) 93 Room Air 09/06/18 10:00 98.0 73 20 113/63 (80) 95 09/06/18 07:44 94 Nasal Cannula 2.00 I & O 09/07/18 07:00 Intake Total 1100 ml Balance 1100 ml Height & Weight Height: 5'10.00" Weight: 178lbs. 12.8oz. [id number]; 26.3 BMI Method:Stated General Appearance: No Apparent Distress, WD/WN HEENT: Normal ENT Inspection Neck: Normal Inspection, Non Tender Respiratory: No Accessory Muscle Use, No Respiratory Distress, Decreased Breath Sounds Cardiovascular: Regular Rate, Rhythm, No Murmur Capillary Refill: Less Than 3 Seconds Gastrointestinal: non tender, soft Extremity: Normal Capillary Refill, Normal Inspection Neurologic/Psychiatric: Alert Skin: Normal Color, Warm/Dry Results Lab Laboratory Tests 09/05/18 18:23 09/06/18 06:10 09/07/18 05:35 Assessment/Plan Assessment/Plan Acute on Chronic Respiratory failure -Pc02 was 68 on admission and required mechanical ventilation. pt is high risk for multiple hospitalizations and continued respiratory failure -Pt would benefit from home vent to mask. -CT scan reviewed -Will repeat as out patient -repeat CXR and labs reviewed Fever r/o infection -repeat PA/LAT CXR this AM -Belle cultures pending -check influenza swab - is negative - omnicef started 08/05 Atelectasis -Increase activity -IS Pulmonary edema EF 40-45% CHF -Cardiology following COPD -SVNs Q4 -Will probably need home 02 upon discharged Hypernatremia -Monitor CAD with elevated troponin - cardiology following JODY TORRES DO Sep 07, 2018 07:29
--- NOTE | 2018-09-07 08:03 | PM & R (SOAP) Progress Note ---
Subjective This was a face to face visit with the patient. Date Seen by Provider: Sep 07, 2018 Time Seen by Provider: 07:30 Subjective/Events-last exam Patient was seen in his room this AM Anxious for discharge but patient min assist for transfers Discussed case with DR Webster He has ordered F/U CXR and labs but feels patient can transition from his standpoint Review of Systems General: Other (somewhat impulsive) Neurological: Weakness Objective Physician Exam Last Set of Vital Signs Vital Signs Date Time Temp Pulse Resp B/P (MAP) Pulse Ox O2 Delivery O2 Flow Rate FiO2 09/07/18 06:59 92 Room Air 09/07/18 03:51 99.6 85 18 131/59 (83) 09/06/18 20:45 2.00 09/06/18 19:37 90 Capillary Refill : Less Than 3 Seconds I&O Intake and Output 09/07/18 00:00 Intake Total 1000 ml Balance 1000 ml Intake Oral 1000 ml # Voids 6 # Bowel Movements 2 General: Alert, Oriented X3, Cooperative, No Acute Distress HEENT: Atraumatic, PERRLA, EOMI, Mucous Memb Moist/[place] Neck: Supple, No JVD Lungs: Other (decreased breath sounds) Heart: Regular Rate Abdomen: Normal Bowel Sounds, Soft, No Tenderness Extremities: Other Neuro: Other Results Lab Data Laboratory Tests 09/04/18 08:45: White Blood Count 6.1, Red Blood Count 3.60L, Hemoglobin 10.8L, Hematocrit 33L, Mean Corpuscular Volume 91, Mean Corpuscular Hemoglobin 30, Mean Corpuscular Hemoglobin Concent 33, Red Cell Distribution Width 14.9H, Platelet Count 441H, Mean Platelet Volume 7.4, Sodium Level 136, Potassium Level 3.7, Chloride Level 97L, Carbon Dioxide Level 28, Anion Gap 11, Blood Urea Nitrogen 12, Creatinine 1.08, Estimat Glomerular Filtration Rate > 60, BUN/Creatinine Ratio 11, Glucose Level 127H, Calcium Level 8.8, Corrected Calcium 9.3, Phosphorus Level 3.1, Magnesium Level 2.2, Total Bilirubin 0.5, Aspartate Amino Transf (AST/SGOT) 19, Alanine Aminotransferase (ALT/SGPT) 15, Alkaline Phosphatase 126, B-Type Natriuretic Peptide 31.0, Total Protein 6.5, Albumin 3.4 09/04/18 11:00: Glucometer 70 09/04/18 16:00: Glucometer 63L 09/04/18 19:12: Glucometer 91 09/04/18 21:01: Glucometer 136H 09/05/18 04:47: White Blood Count 7.1, Red Blood Count 3.77L, Hemoglobin 11.1L, Hematocrit 34L, Mean Corpuscular Volume 90, Mean Corpuscular Hemoglobin 29, Mean Corpuscular Hemoglobin Concent 33, Red Cell Distribution Width 12.5, Platelet Count 313, Mean Platelet Volume 10.3, Sodium Level 137, Potassium Level 4.2, Chloride Level 102, Carbon Dioxide Level 27, Anion Gap 8, Blood Urea Nitrogen 12, Creatinine 0.74, Estimat Glomerular Filtration Rate > 60, BUN/Creatinine Ratio 16, Glucose Level 79, Calcium Level 8.4L, Corrected Calcium 9.4, Phosphorus Level 3.2, Magnesium Level 1.8, Total Bilirubin 0.5, Aspartate Amino Transf (AST /SGOT) 45H, Alanine Aminotransferase (ALT/SGPT) 59H, Alkaline Phosphatase 72, Total Protein 5.3L, Albumin 2.7L 09/05/18 05:16: Glucometer 85 09/05/18 07:59: Lactic Acid Level 1.41 09/05/18 10:53: Glucometer 71 09/05/18 15:30: Urine Color YELLOW, Urine Clarity SLIGHTLY CLOUDY, Urine pH 5, Urine Specific [place] 1.015L, Urine Protein 3+H, Urine Glucose (UA) NEGATIVE, Urine Ketones NEGATIVE, Urine Nitrite NEGATIVE, Urine Bilirubin NEGATIVE, Urine Urobilinogen NORMAL, Urine Leukocyte Esterase NEGATIVE, Urine RBC (Auto) NEGATIVE, Urine RBC NONE, Urine WBC NONE, Urine Squamous Epithelial Cells 0-2, Urine Crystals NONE, Urine Bacteria NONE, Urine Casts NONE, Urine Mucus NEGATIVE, Urine Culture Indicated NO 09/05/18 16:27: Glucometer 129H 09/05/18 18:23: White Blood Count 8.2, Red Blood Count 3.87L, Hemoglobin 11.5L, Hematocrit 35L, Mean Corpuscular Volume 89, Mean Corpuscular Hemoglobin 30, Mean Corpuscular Hemoglobin Concent 33, Red Cell Distribution Width 12.4, Platelet Count 341, Mean Platelet Volume 9.8 09/05/18 20:46: Glucometer 125H 09/06/18 06:03: Glucometer 115H 09/06/18 06:10: White Blood Count 8.0, Red Blood Count 3.91L, Hemoglobin 11.6L, Hematocrit 35L, Mean Corpuscular Volume 90, Mean Corpuscular Hemoglobin 30, Mean Corpuscular Hemoglobin Concent 33, Red Cell Distribution Width 12.7, Platelet Count 375, Mean Platelet Volume 9.8, Sodium Level 137, Potassium Level 4.2, Chloride Level 103, Carbon Dioxide Level 25, Anion Gap 9, Blood Urea Nitrogen 13, Creatinine 0.77, Estimat Glomerular Filtration Rate > 60, BUN/Creatinine Ratio 17, Glucose Level 117H, Calcium Level 9.8, Phosphorus Level 3.4, Magnesium Level 1.8 09/06/18 11:05: Glucometer 167H 09/06/18 16:28: Glucometer 164H 09/06/18 21:23: Glucometer 198H 09/07/18 05:35: White Blood Count 9.1, Red Blood Count 3.93L, Hemoglobin 11.7L, Hematocrit 35L, Mean Corpuscular Volume 89, Mean Corpuscular Hemoglobin 30, Mean Corpuscular Hemoglobin Concent 33, Red Cell Distribution Width 12.7, Platelet Count 386, Mean Platelet Volume 9.6, Sodium Level 136, Potassium Level 4.3, Chloride Level 102, Carbon Dioxide Level 25, Anion Gap 9, Blood Urea Nitrogen 12, Creatinine 0.77, Estimat Glomerular Filtration Rate > 60, BUN/Creatinine Ratio 16, Glucose Level 147H, Calcium Level 9.1, Magnesium Level 1.8 Microbiology 09/05/18 Blood Culture - Preliminary, Resulted No growth 09/05/18 MRSA Screen - Final, Complete MRSA not isolated Assessment/Plan Assessment and Plan COPD Myopathy with prox weakness Both upper limbs and lower limbs improving Pneumonia under treatment CAD with CHF Compensated DM better controlled Post pneumonia 02 dependence now weaned Plan Continue PT/OT F/U with PCP and Card and Pulm PRN F/U with SW re families expectation for patient to discharge to home Co-Morbidities that are continuing to impact the rehab process: (include details ) SHANE ACEVEDO MD Sep 07, 2018 08:03
[2018-09-07 08:05] VITALS: BP 131/72
[2018-09-07] MEDS: CEFDINIR 300 MG (OMNICEF) CAP PO SCH ×2 (08:13→21:05)
[2018-09-07] MEDS: FUROSEMIDE 20 MG (LASIX) TAB PO SCH (08:13)
[2018-09-07] MEDS: ASPIRIN 325 MG (5 GR) TABLET PO SCH (08:13)
[2018-09-07] MEDS: CARVEDILOL 12.5 MG (COREG) TABLET PO SCH ×2 (08:13→21:04)
--- NOTE | 2018-09-07 08:24 | Progress Note (SOAP) ---
Subjective Time Seen by a Provider: 08:22 Subjective/Events-last exam Patient still needs more therapy. Spoke to patient about this. Patient talking about going home Focused Exam Lactate Level 09/05/18 07:59: Lactic Acid Level 1.41 Objective Exam Vital Signs Date Time Temp Pulse Resp B/P (MAP) Pulse Ox O2 Delivery O2 Flow Rate FiO2 09/07/18 08:05 99.3 68 18 131/72 (91) 96 Room Air 09/07/18 06:59 92 Room Air 09/07/18 03:51 99.6 85 18 131/59 (83) 90 Room Air 09/06/18 23:09 99.9 83 18 126/83 (97) 91 Room Air 09/06/18 20:45 Nasal Cannula 2.00 09/06/18 19:37 92 Room Air 90 09/06/18 19:15 100.2 09/06/18 18:30 78 134/69 (90) 09/06/18 18:02 100.1 09/06/18 17:59 100.1 73 20 174/82 (112) 92 Room Air 09/06/18 13:00 92 Room Air 09/06/18 12:52 98.3 71 20 116/70 (85) 93 Room Air 09/06/18 10:00 98.0 73 20 113/63 (80) 95 I & O 09/07/18 07:00 Intake Total 1100 ml Balance 1100 ml Capillary Refill : Less Than 3 Seconds General Appearance: No Apparent Distress, WD/WN HEENT: Normal ENT Inspection Respiratory: No Accessory Muscle Use, No Respiratory Distress Cardiovascular: Regular Rate, Rhythm, No Murmur Results Lab Laboratory Tests 09/06/18 11:05: Glucometer 167H 09/06/18 16:28: Glucometer 164H 09/06/18 21:23: Glucometer 198H 09/07/18 05:35: White Blood Count 9.1, Red Blood Count 3.93L, Hemoglobin 11.7L, Hematocrit 35L, Mean Corpuscular Volume 89, Mean Corpuscular Hemoglobin 30, Mean Corpuscular Hemoglobin Concent 33, Red Cell Distribution Width 12.7, Platelet Count 386, Mean Platelet Volume 9.6, Sodium Level 136, Potassium Level 4.3, Chloride Level 102, Carbon Dioxide Level 25, Anion Gap 9, Blood Urea Nitrogen 12, Creatinine 0.77, Estimat Glomerular Filtration Rate > 60, BUN/Creatinine Ratio 16, Glucose Level 147H, Calcium Level 9.1, Magnesium Level 1.8 Microbiology 09/05/18 Blood Culture - Preliminary, Resulted No growth 09/05/18 MRSA Screen - Final, Complete MRSA not isolated Assessment/Plan Assessment/Plan Assess & Plan/Chief Complaint Myopathy. Debility. Pneumonia. COPD. Diabetes. Coronary artery disease. Hypertension. . 09/05/18. Myopathy. Debility. Diabetes. Pneumonia COPd Hypertension. Coronary artery disease. . 09/06/18. Myopathy. Debility. Diabetes. Pneumonia improving. COPD. Hypertension. Coronary artery disease. Patient sugars are better. . Liver/15/afebrile myopathy. Debility. Diabetes. Pneumonia. Hypertension. COPD. Coronary artery disease. Patient still needs more therapy. patient disgruntled Clinical Quality Measures DVT/VTE Risk/Contraindication: Risk Factor Score Per Nursin RFS Level Per Nursing on Admit: 4+=Very High LEN MAE DO Sep 07, 2018 08:24
--- NOTE | 2018-09-07 09:13 | Progress Note-Cardiology ---
Cardiology SOAP Progress Note Subjective: Sitting up in chair at the bedside. Wants to go home. No c/o CP or dyspnea. Objective: I&O/Vital Signs 09/08/18 09/08/18 09/08/18 09/08/18 04:00 06:25 08:24 08:48 Temp 99.6 98.2 Pulse 69 76 Resp 18 20 B/P (MAP) 113/47 (69) 116/62 (80) Pulse Ox 90 90 96 O2 Delivery Room Air Room Air Room Air Room Air 09/08/18 12:21 Temp 98.6 09/07/18 23:59 Intake Total 980 ml Balance 980 ml Weight (Pounds): 178 Weight (Ounces): 12.8 Weight (Calculated Kilograms): 80.388421 Constitutional: AAO x 3, well-developed Respiratory: other (Good bilat air entry, somewhat increased exp phase) Cardiovascular: regular rate-rhythm, S1 and S2, systolic murmur Gastrointestional: soft, audible bowel sounds Extremities: No clubbing, No cyanosis, No significant edema Neurologic/Psychiatric: grossly intact, power is 5/5 both on sides Skin: No rash on exposed areas, No ulcerations on exposed areas Results/Procedures: Labs Laboratory Tests 09/07/18 17:02: Glucometer 197H 09/07/18 21:03: Glucometer 123H 09/08/18 04:15: White Blood Count 7.0, Red Blood Count 3.51L, Hemoglobin 10.5L, Hematocrit 31L, Mean Corpuscular Volume 90, Mean Corpuscular Hemoglobin 30, Mean Corpuscular Hemoglobin Concent 33, Red Cell Distribution Width 12.7, Platelet Count 360, Mean Platelet Volume 9.6, Sodium Level 137, Potassium Level 4.2, Chloride Level 104, Carbon Dioxide Level 25, Anion Gap 8, Blood Urea Nitrogen 14, Creatinine 0.80, Estimat Glomerular Filtration Rate > 60, BUN/Creatinine Ratio 18, Glucose Level 128H, Calcium Level 8.7, Phosphorus Level 3.6, Magnesium Level 1.7L 09/08/18 12:10: Glucometer 229H Microbiology 09/05/18 Blood Culture - Preliminary, Resulted No growth 09/05/18 MRSA Screen - Final, Complete MRSA not isolated A/P: Assessment: Ac resp failure, multifactorial, see below Bronchial mucous plugs, treated bronchoscopically Ac systolic and diastolic CHF. Echo of 08/27/18 shows paradoxical septal motion , LVEF 50%, grade I diastolic dysfunction of LV, continue to monitor, no changes are recommended Hepatic transaminase elevation, etiology unclear, followed and treated by the [facility] Elevated troponin likely due to hypoxemia due to ac resp failure at initial presentation, conservative management at this time Chronic LBBB (seen on ECG of 08/25/18 and on ECG of 12/18/15) Coronary artery disease with coronary artery bypass surgery in 2003, consisting of left internal mammary to left anterior descending, saphenous vein to obtuse marginal, saphenous vein to diagonal, sequential saphenous vein to acute marginal and posterior descending Hypertension 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 H/o hyperlipidemia being treated with atorvastatin DM II Chronic obstructive pulmonary disease Mild bilateral carotid arterial disease without evidence of hemodynamic significance per u/s of June 2013 Plan: * Continue current card regimen Physician Assessment Physician Assessment LATE ENTRY FOR MY VISIT TO THE PATIENT ON 09/07/18 AT APPROXIMATELY 1 PM Denies cp or palp or syncope or palp Lungs: good bilat air entry but diminished at the bases Cor: reg Ext: no c/c/e A&R * As documented in our note above that I update (italics) and as noted below * I spoke with him regarding his CV issues and advised outpt card f/u and compliance with meds KIRBY VANCE Sep 07, 2018 09:13 LUIS FERNANDO PALUMBO MD [facility] Sep 08, 2018 13:48
--- NOTE | 2018-09-07 10:01 | Physical Therapy Daily Note ---
PT Daily Note-Current Subjective Patient in recliner pre tx, agrees to PT with encouragement, no complaints of pain. Patient is very upset and wants to discharge from this facility immediately. environmental services technician notified. Appearance Patient in recliner post tx with nurse call, phone, tray, in room. is very anxious about patient being mad about not being able to drive after he goes home. Mental Status Patient Orientation: Person, Confused, Place, Situation Patient is oriented but tends to think people are saying things that they are not and gets upset about it. Transfers Functional [place] Measure 0=Not Assessed/NA 4=Minimal Assistance 1=Total Assistance 5=Supervision or Setup 2=Maximal Assistance 6=Modified [place] 3=Moderate Assistance 7=Complete IndependenceIRFPAI Quality Coding Scale 6 Independent with activity with or without an assistive device 5 Patient requires set up or clean up by helper. Patient completes activity by themselves 4 Supervision or touching assist (CGA). Indian provide cues , steadying assist 3 The helper provides less than half the effort to complete the activity 2 The helper provides more than half the effort to complete the activity 1 Dependent. The helper does all the effort to complete an activity 7 Patient refused to complete or attempt activity 9 The patient did not perform the activity before the current illness or injury 88 Not attempted due to Medical conditions or safety concerns Transfers (B, C, W/C) (FIM): 5 Scootin Rollin Roll Left to Right (QC): 6 Supine to/from Sit: 6 Sit to/from Stand: 5 Sit to Lying (QC): 6 Sit to Stand (QC): 4 Chair/Gkw-cq-Dngaq Xfer(QC): 4 Bed to/from Chair: 5 Car Transfer (QC): 5 Patient performs bed mobility with mod I, sit to stand and transfers with SBA, car transfers with SBA. Patient may need a couple of tries to stand but can do it without assist. Gait Training Gait (FIM): 5 Distance: 150', 200'x2 Walk 10 feet (QC): 4 Walk 50 ft with 2 Turns(QC): 4 Walk 150 ft (QC): 4 Walking 10ft/uneven surface-QC: 4 Gait Level of Assist: 5 Gait Persons Needed: 1 Gait Assistive Device: FWW Patient can ambulate 200' with a rolling walker with SBA (including 50' with at least 2 turns of 90 degrees and 10' over an uneven surface). Steadier ambulation, no longer needs CGA when turning. No shortness of breath after ambulation. Stair Training Stair Training: Handrails/: 2 handrails Stairs (FIM): 2 #of Steps: 8 1 Step (curb) (QC): 4 4 Steps (QC): 4 Stairs: Pattern: Step to Level of Assist: 5 Patient can go up and down 8 steps using 2 handrails with SBA. Exercises NuStep Minutes: 15 NuStep Workload: 5 Treatments bed mobility and transfers, ambulation, stair training, functional strengthening Assessment Current Status: Fair Progress Improved transfers and ambulation. However, patient needs a lot of encouragement and time to speak about his frustrations during treatment. PT Short Term Goals Short Term Goals Time Frame: Sep 11, 2018 Transfers (B,C,W/C) (FIM): 5 Gait (FIM): 5 Gait Distance Comment: 150' Gait Level of Assist: 5 Gait Assistive Device: FWW PT Warehouse Loader Goals Warehouse Loader Goals PT Warehouse Loader Goals Time Frame: Sep 25, 2018 Transfers (B,C,W/C) (FIM): 6 Sit to Lying (QC): 6 Lying-Sitting on Side/Bed(QC): 6 Sit to Stand (QC): 6 Rollin Roll Left to Right (QC): 6 Chair/Zvi-ac-Kjgan Xfer(QC): 6 Car Transfer (QC): 6 Gait (FIM): 6 Distance: 200' Walk 10 feet (QC): 6 Walk 10ft-Uneven Surface(QC): 6 Walk 50ft with 2 Turns (QC): 6 Walk 150 ft (QC): 6 Gait Level of Assist: 6 Gait Assistive Device: FWW Stairs (FIM): 5 # of Steps: 12 1 Step (curb) (QC): 4 4 Steps (QC): 4 12 Steps (QC): 4 Stairs Level Of Assist: 5 PT Plan Problem List Problem List: Activity Tolerance, Functional Strength, Safety, Balance, Gait, Transfer Treatment/Plan Treatment Plan: Continue Plan of Care Treatment Plan: Bed Mobility, Education, Functional Activity Manda, Functional Strength, Group Therapy, Gait, Safety, Therapeutic Exercise, Transfers Treatment Duration: Sep 25, 2018 Frequency: At least 5 of 7 days/Wk (IRF) Estimated Hrs Per Day: 1.5 hours per day Patient and/or Family Agrees t: Yes Safety Risks/Education Patient Education: Gait Training, Transfer Techniques, Steps, Correct Positioning, Safety Issues Teaching Recipient: Patient Teaching Methods: Demonstration, Discussion Response to Teaching: Reinforcement Needed Time/GCodes Time In: 0900 Time Out: 1000 Total Billed Treatment Time: 60 Total Billed Treatment 1 visit EX 15' GT 30' FA 15' MYNOR NG PT Sep 07, 2018 10:01
--- NOTE | 2018-09-07 10:10 | Speech Therapy Daily Note ---
Speech Daily Progress Note Subjective Date Seen by Provider: Sep 07, 2018 Time Seen by Provider: 11:00 Patient alert and participated well. Objective Patient completed memory tasks with 70% accuracy given moderate verbal cues and repetitions at 25%. Assessment Assessment Current Status: Fair Progress Treatment Plan Continue Plan of Care Communication Comprehension: 6 Expression: 6 Social Cognition Social Interaction: 7 Problem Solvin Memory: 3 Speech Short Term Goals Short Term Goals Short Term Goals Patient will complete visual/auditory linguistic/memory tasks with 80% accuracy given min to mod assistance. Patient will complete visual/auditory problem solving tasks with 80% accuracy given min to mod assistance. Time Frame-ST week Comprehension: 6 Expression: 6 Social Interaction: 7 Problem Solvin Memory: 4 Speech Mcfp Goals Computer Tech Goals Patient will exhibit improved safety and independence for return to home. Time Frame: 2-3 weeks Comprehension: 6 Expression: 6 Social Interaction: 7 Problem Solvin Memory: 5 Speech-Plan Patient/Family Goals Patient/Family Goals: Patient plans to return home as soon as possible with his . Treatment Plan Speech Therapy Treatment Plan: Continue Plan of Care Patient will continue skilled ST for memory and problem solving improvement for safe return to home. Treatment Duration: Sep 12, 2018 Frequency: 5 times per week Estimated Hrs Per Day: .5 hour per day Rehab Potential: Good Pt/Family Agrees to Plan: Yes Safety Risks/Education Teaching Recipient: Patient, Significant Other Teaching Methods: Discussion Response to Teaching: Verbalize Understanding Time Speech Therapy Time In: 11:00 Speech Therapy Time Out: 11:30 Total Billed Time: 30 Billed Treatment Time 1, LUNA Gil Sep 07, 2018 10:10
--- NOTE | 2018-09-07 10:39 | Diagnostic Imaging Report ---
INDICATION: Shortness of breath. PA and lateral chest. FINDINGS: There is some discoid atelectasis at both lung bases. There are postop changes from CABG surgery. Right IJ central line tip projects over the SVC. IMPRESSION: Bilateral basilar discoid atelectasis appears unchanged from 09/05/2018. Dictated by: Dictated on workstation # [id number]
[2018-09-07 11:29] VITALS: BP 131/72
[2018-09-07 12:00] VITALS: BP 130/69
--- NOTE | 2018-09-07 12:56 | Occupational Ther Daily Note ---
OT Current Status-Daily Note Subjective Pt seen in room, up in recliner, agreeable to OT. No pain mentioned Appearance Alert, cooperative. Occasionally confused. Tends to argue with his , especially if hearing aids not in place Mental Status/Objective Functional [place] Measure 0=Not Assessed/NA 4=Minimal Assistance 1=Total Assistance 5=Supervision or Setup 2=Maximal Assistance 6=Modified [place] 3=Moderate Assistance 7=Complete [place] Attachments: Central Line (Nursing covered with [employer]) ADL-Treatment Pt agreed to ADLs. Got up from recliner with SBA and walked SBA, FWW to bathroom. On/off toilet with SBA and managed clothing SBA, grab bar, FWW. Left walker off to the side for toilet transfer and refused to keep it in front of him. Walked SBA, FWW to shower and got in shower stall SBA and on/off bench SBA. Washed and dried all parts with setup, SBA. Stood to wash bottom, holding on to grab bar with one hand part of the time, no LOB. Placed one foot on bench to wash it and then switched, with OT providing CGA. Pt declined to sit to wash feet. Walked to bed to dress, pushing walker out of the way. Able to get clothes off and on, with setup, SBA for pulling up pants and putting belt in loops. Able to get socks and shoes on, including tying shoes. Able to get hearing aides in. Pt left up in recliner, chair alarm on. Functional [place] Measure 0=Not Assessed/NA 4=Minimal Assistance 1=Total Assistance 5=Supervision or Setup 2=Maximal Assistance 6=Modified [place] 3=Moderate Assistance 7=Complete IndependenceIRFPAI Quality Coding Scale 6 Independent with activity with or without an assistive device 5 Patient requires set up or clean up by helper. Patient completes activity by themselves 4 Supervision or touching assist (CGA). [place] provide cues , steadying assist 3 The helper provides less than half the effort to complete the activity 2 The helper provides more than half the effort to complete the activity 1 Dependent. The helper does all the effort to complete an activity 7 Patient refused to complete or attempt activity 9 The patient did not perform the activity before the current illness or injury 88 Not attempted due to Medical conditions or safety concerns Eating (FIM): 6 (Able to feed self, open packages, cut food, get a drink. has dentures which he needs to eat) Bathing (FIM): 4 (Washed and dried all parts. Setup. SBA to stand to wash bottom. Proppe fet alternately on shower bench while standing, with CGA) Shower/Bathe Self (QC): 4 (CGA) Upper Body (FIM): 5 (setup) Upper Body Dressing (QC): 5 Lower Body Dressing (FIM): 5 (setup, supervision) Lower Body Dressing (QC): 4 On/Off Footwear (QC): 5 Toileting (FIM): 5 (SBA, grab bar. Managed clothing and hygiene SBA) Toileting Hygiene (QC): 4 (SBA) Toilet/Commode Transfer (FIM): 5 (On/off toilet with SBA, grab bar) Toilet Transfer (QC): 4 (SBA) Shower Transfer(FIM): 5 (SBA in and out of shower and on/off shower bench) Education OT Patient Education: Modified ADL techniques, Progress toward Goal/Update tx plan, Purpose of tx/functional activities, Safety issues Teaching Recipient: Patient Teaching Methods: Demonstration, Discussion Response to Teaching: Verbalize Understanding, Return Demonstration, Reinforcement Needed OT Short Term Goals Short Term Goals Time Frame: Sep 11, 2018 Eating(FIM): 5 Grooming(FIM): 5 Bathing(FIM): 5 Upper Body Dressing(FIM): 5 Lower Body Dressing(FIM): 5 Toileting(FIM): 5 Transfers (B,C,W/C) (FIM): 5 Toilet/Commode Transfer(FIM): 5 Shower Transfer(FIM): 5 Comprehension(FIM): 6 Expression(FIM): 6 Social Interaction(FIM): 7 Problem Solving(FIM): 4 Memory(FIM): 4 Additional Short Term Goals: 1-Demonstrate ADL Tasks, 2-Verbalize Understanding , 3-ImproveStrength/Manda 1=Demonstrate adherence to instructed precautions during ADL tasks. 2=Patient will verbalize/demonstrate understanding of assistive devices/ modifications for ADL. 3=Patient will improve strength/tolerance for activity to enable patient to perform ADL's. OT Mcfp Goals Beer Still Runner Compounder Goals Time Frame: Sep 25, 2018 Eating (FIM): 6 Eating (QC): 6 Groomin Oral Hygiene (QC): 6 Bathing(FIM): 5 Shower/Bathe Self (QC): 5 Upper Body Dressing(FIM): 6 Upper Body Dressing (QC): 6 Lower Body Dressing(FIM): 6 Lower Body Dressing (QC): 6 On/Off Footwear (QC): 6 Toileting(FIM): 6 Toileting Hygiene (QC): 6 Transfers (B,C,W/C) (FIM): 6 Toilet/Commode Transfer(FIM): 6 Toilet/Commode Transfer (QC): 6 Shower Transfer(FIM): 5 Comprehension(FIM): 6 Expression (FIM): 6 Social Interaction(FIM): 7 Problem Solving(FIM): 5 Memory(FIM): 5 Additional Goals: 1-Demonstrate ADL Tasks, 2-Verbalize Understanding, 3- ImproveStrength/Manda 1=Demonstrate adherence to instructed precautions during ADL tasks. 2=Patient will verbalize/demonstrate understanding of assistive devices/ modifications for ADL. 3=Patient will improve strength/tolerance for activity to enable patient to perform ADL's. OT Education/Plan Discharge Recommendations Plan/Recommendations: Continue POC Treatment Plan/Plan of Care Patient would benefit from OT for education, treatment and training to promote independence in ADL's, mobility, safety and/or upper extremity function for ADL' s. Plan of Care: ADL Retraining, Caregiver Training, Functional Mobility, Group Exercise/Act as Ind, UE Funct Exercise/Act Treatment Duration: Sep 25, 2018 Frequency: At least 5 of 7 days/Wk (IRF) Estimated Hrs Per Day: 1.5 hours per day Agreement: Yes Rehab Potential: Good Time/GCodes Start Time: 10:05 Stop Time: 11:00 Total Time Billed (hr/min): 55 Billed Treatment Time visit, 55 minutes ADL MARCUS NGUYEN OT Sep 07, 2018 12:56
[2018-09-07] MEDS ORDERED: ALPRAZolam 0.25 MG (XANAX) TAB PO PRN (13:15)
--- NOTE | 2018-09-07 14:16 | Occupational Ther Daily Note ---
OT Current Status-Daily Note Subjective Pt seen in room, up in recliner, agreeable to OT. No pain mentioned Appearance Alert, cooperative. Mental Status/Objective Functional [place] Measure 0=Not Assessed/NA 4=Minimal Assistance 1=Total Assistance 5=Supervision or Setup 2=Maximal Assistance 6=Modified [place] 3=Moderate Assistance 7=Complete [place] ADL-Treatment Pt told a story about hearing aids and mixed it up with a story about dentures. He got up from recliner and walked SBA, FWW to bathroom, to sink to clean his dentures. He intended to take dentures out to brush them but started cleaning them in his mouth instead. He self-corrected and took teeth out to brush them. He said that he usually uses a larger brush (like a nail brush) to scrub them. No LOB but skilled cue needed to keep walker in front of him. He walked back to recliner SBA, FWW and got back into recliner, chair alarm on, all needs met. Functional [place] Measure 0=Not Assessed/NA 4=Minimal Assistance 1=Total Assistance 5=Supervision or Setup 2=Maximal Assistance 6=Modified [place] 3=Moderate Assistance 7=Complete IndependenceIRFPAI Quality Coding Scale 6 Independent with activity with or without an assistive device 5 Patient requires set up or clean up by helper. Patient completes activity by themselves 4 Supervision or touching assist (CGA). [place] provide cues , steadying assist 3 The helper provides less than half the effort to complete the activity 2 The helper provides more than half the effort to complete the activity 1 Dependent. The helper does all the effort to complete an activity 7 Patient refused to complete or attempt activity 9 The patient did not perform the activity before the current illness or injury 88 Not attempted due to Medical conditions or safety concerns Grooming (FIM): 5 (SBA at sink) Oral Hygiene (QC): 4 (SBA) Education OT Patient Education: Progress toward Goal/Update tx plan, Purpose of tx/ functional activities Teaching Recipient: Patient Teaching Methods: Discussion Response to Teaching: Verbalize Understanding OT Short Term Goals Short Term Goals Time Frame: Sep 11, 2018 Eating(FIM): 5 Grooming(FIM): 5 Bathing(FIM): 5 Upper Body Dressing(FIM): 5 Lower Body Dressing(FIM): 5 Toileting(FIM): 5 Transfers (B,C,W/C) (FIM): 5 Toilet/Commode Transfer(FIM): 5 Shower Transfer(FIM): 5 Comprehension(FIM): 6 Expression(FIM): 6 Social Interaction(FIM): 7 Problem Solving(FIM): 4 Memory(FIM): 4 Additional Short Term Goals: 1-Demonstrate ADL Tasks, 2-Verbalize Understanding , 3-ImproveStrength/Manda 1=Demonstrate adherence to instructed precautions during ADL tasks. 2=Patient will verbalize/demonstrate understanding of assistive devices/ modifications for ADL. 3=Patient will improve strength/tolerance for activity to enable patient to perform ADL's. OT Parts Driver Goals Parts Driver Goals Time Frame: Sep 25, 2018 Eating (FIM): 6 Eating (QC): 6 Groomin Oral Hygiene (QC): 6 Bathing(FIM): 5 Shower/Bathe Self (QC): 5 Upper Body Dressing(FIM): 6 Upper Body Dressing (QC): 6 Lower Body Dressing(FIM): 6 Lower Body Dressing (QC): 6 On/Off Footwear (QC): 6 Toileting(FIM): 6 Toileting Hygiene (QC): 6 Transfers (B,C,W/C) (FIM): 6 Toilet/Commode Transfer(FIM): 6 Toilet/Commode Transfer (QC): 6 Shower Transfer(FIM): 5 Comprehension(FIM): 6 Expression (FIM): 6 Social Interaction(FIM): 7 Problem Solving(FIM): 5 Memory(FIM): 5 Additional Goals: 1-Demonstrate ADL Tasks, 2-Verbalize Understanding, 3- ImproveStrength/Manda 1=Demonstrate adherence to instructed precautions during ADL tasks. 2=Patient will verbalize/demonstrate understanding of assistive devices/ modifications for ADL. 3=Patient will improve strength/tolerance for activity to enable patient to perform ADL's. OT Education/Plan Discharge Recommendations Plan/Recommendations: Continue POC Treatment Plan/Plan of Care Patient would benefit from OT for education, treatment and training to promote independence in ADL's, mobility, safety and/or upper extremity function for ADL' s. Plan of Care: ADL Retraining, Caregiver Training, Functional Mobility, Group Exercise/Act as Ind, UE Funct Exercise/Act Treatment Duration: Sep 25, 2018 Frequency: At least 5 of 7 days/Wk (IRF) Estimated Hrs Per Day: 1.5 hours per day Agreement: Yes Rehab Potential: Good Time/GCodes Start Time: 13:00 Stop Time: 13:20 Total Time Billed (hr/min): 20 Billed Treatment Time visit, 20 minutes ADL MARCUS NGUYEN OT Sep 07, 2018 14:16
--- NOTE | 2018-09-07 14:52 | Physical Therapy Daily Note ---
PT Daily Note-Current Subjective Pt expresses that he really wants to go home. Reports he feels he can manage in his home and reports he misses his pets. When asked if they could come visit , he said they couldn't, they would be too scared. AGrees to PT Transfers Functional [place] Measure 0=Not Assessed/NA 4=Minimal Assistance 1=Total Assistance 5=Supervision or Setup 2=Maximal Assistance 6=Modified [place] 3=Moderate Assistance 7=Complete IndependenceIRFPAI Quality Coding Scale 6 Independent with activity with or without an assistive device 5 Patient requires set up or clean up by helper. Patient completes activity by themselves 4 Supervision or touching assist (CGA). [place] provide cues , steadying assist 3 The helper provides less than half the effort to complete the activity 2 The helper provides more than half the effort to complete the activity 1 Dependent. The helper does all the effort to complete an activity 7 Patient refused to complete or attempt activity 9 The patient did not perform the activity before the current illness or injury 88 Not attempted due to Medical conditions or safety concerns Sit stand x all attempts with SBA; correct sequencing used. Gait Training Does the Patient Walk?: Yes Gait (FIM): 5 Distance (FIM): 3=150 ft Distance: 150 ft x 4 reps Gait Assistive Device: FWW Safe gait without LOB; decreased safety awareness at times as he lifted his walker and walked without support on 2 occasions. Treatments Worked on functional safety with transfers and gait. Assessment Current Status: Good Progress Progressing and increasing gait distance and safety. PT Short Term Goals Short Term Goals Time Frame: Sep 11, 2018 Transfers (B,C,W/C) (FIM): 5 Gait (FIM): 5 Gait Distance Comment: 150' Gait Level of Assist: 5 Gait Assistive Device: FWW PT Senior Living Goals Senior Living Goals PT Senior Living Goals Time Frame: Sep 25, 2018 Transfers (B,C,W/C) (FIM): 6 Sit to Lying (QC): 6 Lying-Sitting on Side/Bed(QC): 6 Sit to Stand (QC): 6 Rollin Roll Left to Right (QC): 6 Chair/Pca-ga-Qnffx Xfer(QC): 6 Car Transfer (QC): 6 Gait (FIM): 6 Distance: 200' Walk 10 feet (QC): 6 Walk 10ft-Uneven Surface(QC): 6 Walk 50ft with 2 Turns (QC): 6 Walk 150 ft (QC): 6 Gait Level of Assist: 6 Gait Assistive Device: FWW Stairs (FIM): 5 # of Steps: 12 1 Step (curb) (QC): 4 4 Steps (QC): 4 12 Steps (QC): 4 Stairs Level Of Assist: 5 PT Plan Problem List Problem List: Activity Tolerance, Functional Strength, Safety, Balance, Gait, Transfer, Bed Mobility Treatment/Plan Treatment Plan: Continue Plan of Care Treatment Plan: Bed Mobility, Education, Functional Activity Manda, Functional Strength, Group Therapy, Gait, Safety, Therapeutic Exercise, Transfers Treatment Duration: Sep 25, 2018 Frequency: At least 5 of 7 days/Wk (IRF) Estimated Hrs Per Day: 1.5 hours per day Patient and/or Family Agrees t: Yes Safety Risks/Education Patient Education: Transfer Techniques, Safety Issues Teaching Recipient: Patient Teaching Methods: Demonstration, Discussion Response to Teaching: Reinforcement Needed Time/GCodes Time In: 1330 Time Out: 1400 Total Billed Treatment Time: 30 Total Billed Treatment visit Gt 30 GIOVANNI RIGGINS PT Sep 07, 2018 14:52
[2018-09-07 17:09] VITALS: BP 125/89
[2018-09-07 20:00] VITALS: BP 120/68
[2018-09-07] MEDS: ATORVASTATIN 40 MG (LIPITOR) TABLET PO SCH (21:04)
[2018-09-08] VITALS: BP 121/64
[2018-09-08 04:00] VITALS: BP 113/47
[2018-09-08 04:25] LABS: HEMOGLOBIN 10.5 G/DL (13.3-17.7); MEAN PLATELET VOLUME 9.6 FL (7.4-10.4); RED BLOOD COUNT 3.51 10^6/uL (4.35-5.85); RED CELL DISTRIBUTION WIDTH 12.7 % (10.0-14.5)
[2018-09-08 04:43] LABS: CARBON DIOXIDE 25 MMOL/L (21-32); CHLORIDE 104 MMOL/L (98-107); POTASSIUM 4.2 MMOL/L (3.6-5.0); SODIUM 137 MMOL/L (135-145)
[2018-09-08 04:44] LABS: BUN/CREATININE RATIO 18; CALCIUM 8.7 MG/DL (8.5-10.1); GFR ESTIMATED > 60; GLUCOSE 128 MG/DL (70-105); MAGNESIUM 1.7 MG/DL (1.8-2.4); PHOSPHORUS 3.6 MG/DL (2.3-4.7)
[2018-09-08] MEDS: ENOXAPARIN 40 MG/0.4 ML (LOVENOX) SYR SC SCH (06:12)
[2018-09-08] MEDS: inSUlin ASPART (NovoLOG) 1 UNIT/0.01 ML (CHARGE PER UNIT) SC SCH ×4 (06:13→20:08)
[2018-09-08] MEDS: GLIMEPIRIDE 4 MG (AMARYL) TAB PO SCH (06:13)
[2018-09-08] MEDS: KCL 10 MEQ TAB (MICRO K) PO SCH (06:13)
[2018-09-08] MEDS: PANTOPRAZOLE 40 MG (PROTONIX) TAB PO SCH (06:13)
[2018-09-08] MEDS: RT-ALBUTEROL SULF 2.5 MG/3 ML PRE-MIX VIAL INH SCH ×4 (06:25→19:40)
--- NOTE | 2018-09-08 06:39 | Pulmonary Progress Note ---
Subjective Time Seen by a Provider: 07:02 Subjective/Events-last exam No complications noted. Sepsis Event Evaluation Height, Weight, BMI Height: 5'10.00" Weight: 178lbs. 8.0oz. 80.653386qf; 26.3 BMI Method:Stated Focused Exam Lactate Level 09/05/18 07:59: Lactic Acid Level 1.41 Exam Exam Vital Signs Date Time Temp Pulse Resp B/P (MAP) Pulse Ox O2 Delivery O2 Flow Rate FiO2 09/08/18 04:00 99.6 69 18 113/47 (69) 90 Room Air 09/08/18 00:00 99.6 60 18 121/64 (83) 94 Room Air 09/07/18 21:00 Room Air 09/07/18 20:00 99.2 69 20 120/68 (85) 93 Room Air 09/07/18 19:56 90 Room Air 09/07/18 17:09 99.2 65 20 125/89 (101) 96 Room Air 09/07/18 14:15 91 Room Air 09/07/18 12:00 97.0 59 18 130/69 (89) 94 Room Air 09/07/18 11:42 93 Room Air 09/07/18 11:29 68 96 21 09/07/18 08:33 Room Air 09/07/18 08:05 99.3 68 18 131/72 (91) 96 Room Air 09/07/18 06:59 92 Room Air I & O 09/08/18 07:00 Intake Total 1580 ml Balance 1580 ml Height & Weight Height: 5'10.00" Weight: 178lbs. 8.0oz. 80.104185gw; 26.3 BMI Method:Stated General Appearance: No Apparent Distress, WD/WN HEENT: Normal ENT Inspection Neck: Full Range of Motion, Normal Inspection Respiratory: No Accessory Muscle Use, No Respiratory Distress Cardiovascular: Regular Rate, Rhythm Capillary Refill: Less Than 3 Seconds Gastrointestinal: non tender, soft Extremity: Normal Capillary Refill, Normal Inspection Neurologic/Psychiatric: Alert Skin: Normal Color, Warm/Dry Results Lab Laboratory Tests 09/07/18 05:35 09/08/18 04:15 Assessment/Plan Assessment/Plan Acute on Chronic Respiratory failure -Pc02 was 68 on admission and required mechanical ventilation. pt is high risk for multiple hospitalizations and continued respiratory failure -Pt would benefit from home vent to mask. -CT scan reviewed -Will repeat as out patient -repeat CXR and labs reviewed Fever r/o infection -CXR is stable -Belle cultures pending -check influenza swab - is negative - omnicef started 08/05 Atelectasis -Increase activity -IS Pulmonary edema EF 40-45% CHF -Cardiology following COPD -SVNs Q4 -Will probably need home 02 upon discharged Hypernatremia -Monitor CAD with elevated troponin - cardiology following PT is ok from pulmonary standpoint for discharge. He will need oxygen and home vent to mask arranged upon discharge. I will f/u with him in 2-3 wks after discharge. I have discussed with [facility] RE vent to mask and oxygen. JODY TORRES DO Sep 08, 2018 06:39
[2018-09-08] MEDS ORDERED: MAGNESIUM OXIDE (MAG-OX)400 MG TAB PO NR (07:30)
--- NOTE | 2018-09-08 08:11 | Progress Note (SOAP) ---
Subjective Time Seen by a Provider: 08:08 Subjective/Events-last exam Spoke to and patient about results. Patient slum score was can showing dementia. Patient unable to drive a car. Spoke to and patient about the results of the test. She doesn't CAT scan of the head today. Objective Exam Vital Signs Date Time Temp Pulse Resp B/P (MAP) Pulse Ox O2 Delivery O2 Flow Rate FiO2 09/08/18 06:25 90 Room Air 09/08/18 04:00 99.6 69 18 113/47 (69) 90 Room Air 09/08/18 00:00 99.6 60 18 121/64 (83) 94 Room Air 09/07/18 21:00 Room Air 09/07/18 20:00 99.2 69 20 120/68 (85) 93 Room Air 09/07/18 19:56 90 Room Air 09/07/18 17:09 99.2 65 20 125/89 (101) 96 Room Air 09/07/18 14:15 91 Room Air 09/07/18 12:00 97.0 59 18 130/69 (89) 94 Room Air 09/07/18 11:42 93 Room Air 09/07/18 11:29 68 96 21 09/07/18 08:33 Room Air I & O 09/08/18 07:00 Intake Total 1580 ml Balance 1580 ml Capillary Refill : Less Than 3 Seconds General Appearance: No Apparent Distress, WD/WN HEENT: Normal ENT Inspection Results Lab Laboratory Tests 09/07/18 10:57: Glucometer 100 09/07/18 17:02: Glucometer 197H 09/07/18 21:03: Glucometer 123H 09/08/18 04:15: White Blood Count 7.0, Red Blood Count 3.51L, Hemoglobin 10.5L, Hematocrit 31L, Mean Corpuscular Volume 90, Mean Corpuscular Hemoglobin 30, Mean Corpuscular Hemoglobin Concent 33, Red Cell Distribution Width 12.7, Platelet Count 360, Mean Platelet Volume 9.6, Sodium Level 137, Potassium Level 4.2, Chloride Level 104, Carbon Dioxide Level 25, Anion Gap 8, Blood Urea Nitrogen 14, Creatinine 0.80, Estimat Glomerular Filtration Rate > 60, BUN/Creatinine Ratio 18, Glucose Level 128H, Calcium Level 8.7, Phosphorus Level 3.6, Magnesium Level 1.7L Microbiology 09/05/18 Blood Culture - Preliminary, Resulted No growth 09/05/18 MRSA Screen - Final, Complete MRSA not isolated Assessment/Plan Assessment/Plan Assess & Plan/Chief Complaint Myopathy. Debility. Pneumonia. COPD. Diabetes. Coronary artery disease. Hypertension. . 09/05/18. Myopathy. Debility. Diabetes. Pneumonia COPd Hypertension. Coronary artery disease. . 09/06/18. Myopathy. Debility. Diabetes. Pneumonia improving. COPD. Hypertension. Coronary artery disease. Patient sugars are better. . Liver/15/afebrile myopathy. Debility. Diabetes. Pneumonia. Hypertension. COPD. Coronary artery disease. Patient still needs more therapy. patient disgruntled. . 09/08/18. Myopathy. Dementia. Diabetes. Pneumonia. COPD. I spoke to Sreekanth Parisi from mental health and patient failed slums test. Patient not able to drive and has dementia Clinical Quality Measures DVT/VTE Risk/Contraindication: Risk Factor Score Per Nursin RFS Level Per Nursing on Admit: 4+=Very High LEN MAE DO Sep 08, 2018 08:11
[2018-09-08 08:48] VITALS: BP 116/62
[2018-09-08] MEDS: FUROSEMIDE 20 MG (LASIX) TAB PO SCH (08:55)
[2018-09-08] MEDS: CARVEDILOL 12.5 MG (COREG) TABLET PO SCH ×2 (08:55→21:30)
[2018-09-08] MEDS: ASPIRIN 325 MG (5 GR) TABLET PO SCH (08:55)
[2018-09-08] MEDS: CEFDINIR 300 MG (OMNICEF) CAP PO SCH ×2 (08:55→21:30)
--- NOTE | 2018-09-08 10:01 | Physical Therapy Daily Note ---
PT Daily Note-Current Subjective Patient in bed pre tx, agrees to PT, no complaints of pain. Appearance Patient in recliner post tx with nurse call, phone, tray, chair alarm on, all needs met. Mental Status Patient Orientation: Person, Confused, Place Transfers Functional [place] Measure 0=Not Assessed/NA 4=Minimal Assistance 1=Total Assistance 5=Supervision or Setup 2=Maximal Assistance 6=Modified [place] 3=Moderate Assistance 7=Complete IndependenceIRFPAI Quality Coding Scale 6 Independent with activity with or without an assistive device 5 Patient requires set up or clean up by helper. Patient completes activity by themselves 4 Supervision or touching assist (CGA). [place] provide cues , steadying assist 3 The helper provides less than half the effort to complete the activity 2 The helper provides more than half the effort to complete the activity 1 Dependent. The helper does all the effort to complete an activity 7 Patient refused to complete or attempt activity 9 The patient did not perform the activity before the current illness or injury 88 Not attempted due to Medical conditions or safety concerns Transfers (B, C, W/C) (FIM): 5 Scootin Rollin Supine to/from Sit: 6 Sit to/from Stand: 6 Bed to/from Chair: 5 Occasionally needs cues for safety during transfers due to unsafe behavior Gait Training Gait (FIM): 5 Distance: 300', 150' Gait Level of Assist: 5 Gait Persons Needed: 1 Gait Assistive Device: FWW No LOB, patient almost mod I Exercises Supine Ex: Ankle pumps, Quad Set, Glut sets, Heel Slides, Straight leg raise Supine Reps: 20 LAQ alternating for 5 min with 2# ankle weights NuStep Minutes: 15 NuStep Workload: 5 Treatments bed mobility and transfers, ambulation, functional strengthening, patient was toileted once to urinate with SBA Assessment Current Status: Fair Progress improving transfers and ambulation, patient is almost mod I but occasionally displays unsafe behavior. Patient is frustrated with doctors at this hospital and often need directed away from that topic of conversation or he will talk about it at length. Patient also states that he saw garden gnomes on the roof working. PT Short Term Goals Short Term Goals Time Frame: Sep 11, 2018 Transfers (B,C,W/C) (FIM): 5 Gait (FIM): 5 Gait Distance Comment: 150' Gait Level of Assist: 5 Gait Assistive Device: FWW PT Residence Manager Goals Residence Manager Goals PT [facility] Goals Time Frame: Sep 25, 2018 Transfers (B,C,W/C) (FIM): 6 Sit to Lying (QC): 6 Lying-Sitting on Side/Bed(QC): 6 Sit to Stand (QC): 6 Rollin Roll Left to Right (QC): 6 Chair/Lzu-ri-Xjwrm Xfer(QC): 6 Car Transfer (QC): 6 Gait (FIM): 6 Distance: 200' Walk 10 feet (QC): 6 Walk 10ft-Uneven Surface(QC): 6 Walk 50ft with 2 Turns (QC): 6 Walk 150 ft (QC): 6 Gait Level of Assist: 6 Gait Assistive Device: FWW Stairs (FIM): 5 # of Steps: 12 1 Step (curb) (QC): 4 4 Steps (QC): 4 12 Steps (QC): 4 Stairs Level Of Assist: 5 PT Plan Problem List Problem List: Activity Tolerance, Functional Strength, Safety, Balance, Gait, Transfer Treatment/Plan Treatment Plan: Continue Plan of Care Treatment Plan: Bed Mobility, Education, Functional Activity Manda, Functional Strength, Group Therapy, Gait, Safety, Therapeutic Exercise, Transfers Treatment Duration: Sep 25, 2018 Frequency: At least 5 of 7 days/Wk (IRF) Estimated Hrs Per Day: 1.5 hours per day Patient and/or Family Agrees t: Yes Safety Risks/Education Patient Education: Gait Training, Transfer Techniques, Correct Positioning, Safety Issues Teaching Recipient: Patient Teaching Methods: Demonstration, Discussion Response to Teaching: Reinforcement Needed Time/GCodes Time In: 0900 Time Out: 1000 Total Billed Treatment Time: 60 Total Billed Treatment 1 visit GT 15' EX 30' FA 15' MYNOR NG PT Sep 08, 2018 10:01
--- NOTE | 2018-09-08 12:04 | Occupational Ther Daily Note ---
OT Current Status-Daily Note Subjective Pt seen in room, up in recliner, agreeable to OT. No pain mentioned. Appearance Alert, cooperative Mental Status/Objective Functional [place] Measure 0=Not Assessed/NA 4=Minimal Assistance 1=Total Assistance 5=Supervision or Setup 2=Maximal Assistance 6=Modified [place] 3=Moderate Assistance 7=Complete [place] ADL-Treatment Functional [place] Measure 0=Not Assessed/NA 4=Minimal Assistance 1=Total Assistance 5=Supervision or Setup 2=Maximal Assistance 6=Modified [place] 3=Moderate Assistance 7=Complete IndependenceIRFPAI Quality Coding Scale 6 Independent with activity with or without an assistive device 5 Patient requires set up or clean up by helper. Patient completes activity by themselves 4 Supervision or touching assist (CGA). [place] provide cues , steadying assist 3 The helper provides less than half the effort to complete the activity 2 The helper provides more than half the effort to complete the activity 1 Dependent. The helper does all the effort to complete an activity 7 Patient refused to complete or attempt activity 9 The patient did not perform the activity before the current illness or injury 88 Not attempted due to Medical conditions or safety concerns Other Treatment Pt declined ADLs. Walked with SBA, FWW to gym and got in/out of chair with SBA. Joked around a lot and told stories but mixed them up time pa. Unable to work and talk at the same time. Completed 15 minutes bilat UE exercise on arm bike set at 20-25W resistance. Pt would alternately pedal really fast and then pedal slowly or adjust the resistance. He was able to roughly shuffle cards but unable to deal them except in a messy pile and unable to count out correct number of cards. To increase activity tolerance for ADLs. Pt walked back to room SBA, FWW and was left up in recliner, chair alarm on. Education OT Patient Education: Progress toward Goal/Update tx plan, Purpose of tx/ functional activities Teaching Recipient: Patient Teaching Methods: Demonstration, Discussion Response to Teaching: Verbalize Understanding, Return Demonstration, Reinforcement Needed OT Short Term Goals Short Term Goals Time Frame: Sep 11, 2018 Eating(FIM): 5 Grooming(FIM): 5 Bathing(FIM): 5 Upper Body Dressing(FIM): 5 Lower Body Dressing(FIM): 5 Toileting(FIM): 5 Transfers (B,C,W/C) (FIM): 5 Toilet/Commode Transfer(FIM): 5 Shower Transfer(FIM): 5 Comprehension(FIM): 6 Expression(FIM): 6 Social Interaction(FIM): 7 Problem Solving(FIM): 4 Memory(FIM): 4 Additional Short Term Goals: 1-Demonstrate ADL Tasks, 2-Verbalize Understanding , 3-ImproveStrength/Manda 1=Demonstrate adherence to instructed precautions during ADL tasks. 2=Patient will verbalize/demonstrate understanding of assistive devices/ modifications for ADL. 3=Patient will improve strength/tolerance for activity to enable patient to perform ADL's. OT Residential Goals Residential Goals Time Frame: Sep 25, 2018 Eating (FIM): 6 Eating (QC): 6 Groomin Oral Hygiene (QC): 6 Bathing(FIM): 5 Shower/Bathe Self (QC): 5 Upper Body Dressing(FIM): 6 Upper Body Dressing (QC): 6 Lower Body Dressing(FIM): 6 Lower Body Dressing (QC): 6 On/Off Footwear (QC): 6 Toileting(FIM): 6 Toileting Hygiene (QC): 6 Transfers (B,C,W/C) (FIM): 6 Toilet/Commode Transfer(FIM): 6 Toilet/Commode Transfer (QC): 6 Shower Transfer(FIM): 5 Comprehension(FIM): 6 Expression (FIM): 6 Social Interaction(FIM): 7 Problem Solving(FIM): 5 Memory(FIM): 5 Additional Goals: 1-Demonstrate ADL Tasks, 2-Verbalize Understanding, 3- ImproveStrength/Manda 1=Demonstrate adherence to instructed precautions during ADL tasks. 2=Patient will verbalize/demonstrate understanding of assistive devices/ modifications for ADL. 3=Patient will improve strength/tolerance for activity to enable patient to perform ADL's. OT Education/Plan Discharge Recommendations Plan/Recommendations: Continue POC Treatment Plan/Plan of Care Patient would benefit from OT for education, treatment and training to promote independence in ADL's, mobility, safety and/or upper extremity function for ADL' s. Plan of Care: ADL Retraining, Caregiver Training, Functional Mobility, Group Exercise/Act as Ind, UE Funct Exercise/Act Treatment Duration: Sep 25, 2018 Frequency: At least 5 of 7 days/Wk (IRF) Estimated Hrs Per Day: 1.5 hours per day Agreement: Yes Rehab Potential: Good Time/GCodes Start Time: 10:00 Stop Time: 11:00 Total Time Billed (hr/min): 60 Billed Treatment Time visit, 60 minutes exercise MARCUS NGUYEN OT Sep 08, 2018 12:04
--- NOTE | 2018-09-08 13:03 | PM & R (SOAP) Progress Note ---
Subjective This was a face to face visit with the patient. Date Seen by Provider: Sep 08, 2018 Time Seen by Provider: 08:15 Subjective/Events-last exam Patient was seen in his room this AM with DR moya and before as well while making rounds Patient SBA for transfers Minimental status exam indicates cognitive deficit-Patient advised not to return to driving.Patient with limited insight Review of Systems Neurological: Weakness, Confusion Objective Physician Exam Last Set of Vital Signs Vital Signs Date Time Temp Pulse Resp B/P (MAP) Pulse Ox O2 Delivery O2 Flow Rate FiO2 09/08/18 12:21 98.6 09/08/18 08:48 76 20 116/62 (80) 96 Room Air 09/07/18 11:29 21 09/06/18 20:45 2.00 Capillary Refill : Less Than 3 Seconds I&O Intake and Output 09/08/18 00:00 Intake Total 1480 ml Balance 1480 ml Intake Oral 1480 ml # Voids 8 General: Alert, Oriented X3, Cooperative, No Acute Distress HEENT: Atraumatic, PERRLA, EOMI, Mucous Memb Moist/[place] Neck: Supple, No JVD Lungs: Other (decreased breath sounds) Heart: Regular Rate Abdomen: Normal Bowel Sounds, Soft, No Tenderness Extremities: Other Neuro: Other Results Lab Data Laboratory Tests 09/05/18 15:30: Urine Color YELLOW, Urine Clarity SLIGHTLY CLOUDY, Urine pH 5, Urine Specific [place] 1.015L, Urine Protein 3+H, Urine Glucose (UA) NEGATIVE, Urine Ketones NEGATIVE, Urine Nitrite NEGATIVE, Urine Bilirubin NEGATIVE, Urine Urobilinogen NORMAL, Urine Leukocyte Esterase NEGATIVE, Urine RBC (Auto) NEGATIVE, Urine RBC NONE, Urine WBC NONE, Urine Squamous Epithelial Cells 0-2, Urine Crystals NONE, Urine Bacteria NONE, Urine Casts NONE, Urine Mucus NEGATIVE, Urine Culture Indicated NO 09/05/18 16:27: Glucometer 129H 09/05/18 18:23: White Blood Count 8.2, Red Blood Count 3.87L, Hemoglobin 11.5L, Hematocrit 35L, Mean Corpuscular Volume 89, Mean Corpuscular Hemoglobin 30, Mean Corpuscular Hemoglobin Concent 33, Red Cell Distribution Width 12.4, Platelet Count 341, Mean Platelet Volume 9.8 09/05/18 20:46: Glucometer 125H 09/06/18 06:03: Glucometer 115H 09/06/18 06:10: White Blood Count 8.0, Red Blood Count 3.91L, Hemoglobin 11.6L, Hematocrit 35L, Mean Corpuscular Volume 90, Mean Corpuscular Hemoglobin 30, Mean Corpuscular Hemoglobin Concent 33, Red Cell Distribution Width 12.7, Platelet Count 375, Mean Platelet Volume 9.8, Sodium Level 137, Potassium Level 4.2, Chloride Level 103, Carbon Dioxide Level 25, Anion Gap 9, Blood Urea Nitrogen 13, Creatinine 0.77, Estimat Glomerular Filtration Rate > 60, BUN/Creatinine Ratio 17, Glucose Level 117H, Calcium Level 9.8, Phosphorus Level 3.4, Magnesium Level 1.8 09/06/18 11:05: Glucometer 167H 09/06/18 16:28: Glucometer 164H 09/06/18 21:23: Glucometer 198H 09/07/18 05:35: White Blood Count 9.1, Red Blood Count 3.93L, Hemoglobin 11.7L, Hematocrit 35L, Mean Corpuscular Volume 89, Mean Corpuscular Hemoglobin 30, Mean Corpuscular Hemoglobin Concent 33, Red Cell Distribution Width 12.7, Platelet Count 386, Mean Platelet Volume 9.6, Sodium Level 136, Potassium Level 4.3, Chloride Level 102, Carbon Dioxide Level 25, Anion Gap 9, Blood Urea Nitrogen 12, Creatinine 0.77, Estimat Glomerular Filtration Rate > 60, BUN/Creatinine Ratio 16, Glucose Level 147H, Calcium Level 9.1, Phosphorus Level 3.2, Magnesium Level 1.8 09/07/18 10:57: Glucometer 100 09/07/18 17:02: Glucometer 197H 09/07/18 21:03: Glucometer 123H 09/08/18 04:15: White Blood Count 7.0, Red Blood Count 3.51L, Hemoglobin 10.5L, Hematocrit 31L, Mean Corpuscular Volume 90, Mean Corpuscular Hemoglobin 30, Mean Corpuscular Hemoglobin Concent 33, Red Cell Distribution Width 12.7, Platelet Count 360, Mean Platelet Volume 9.6, Sodium Level 137, Potassium Level 4.2, Chloride Level 104, Carbon Dioxide Level 25, Anion Gap 8, Blood Urea Nitrogen 14, Creatinine 0.80, Estimat Glomerular Filtration Rate > 60, BUN/Creatinine Ratio 18, Glucose Level 128H, Calcium Level 8.7, Phosphorus Level 3.6, Magnesium Level 1.7L 09/08/18 12:10: Glucometer 229H Microbiology 09/05/18 Blood Culture - Preliminary, Resulted No growth 09/05/18 MRSA Screen - Final, Complete MRSA not isolated Assessment/Plan Assessment and Plan 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
[2018-09-08] MEDS ORDERED: DIVALPROEX 250 MG DELAYED RELEASE (DEPAKOTE) TAB PO SCH (14:00)
--- NOTE | 2018-09-08 14:28 | Physical Therapy Daily Note ---
PT Daily Note-Current Subjective Patient in recliner pre tx, agrees to PT, no complaints of pain. Appearance Patient in recliner post tx with nurse call, phone, tray, in room. Mental Status Patient Orientation: Person, Confused, Place Transfers Functional [place] Measure 0=Not Assessed/NA 4=Minimal Assistance 1=Total Assistance 5=Supervision or Setup 2=Maximal Assistance 6=Modified [place] 3=Moderate Assistance 7=Complete IndependenceIRFPAI Quality Coding Scale 6 Independent with activity with or without an assistive device 5 Patient requires set up or clean up by helper. Patient completes activity by themselves 4 Supervision or touching assist (CGA). [place] provide cues , steadying assist 3 The helper provides less than half the effort to complete the activity 2 The helper provides more than half the effort to complete the activity 1 Dependent. The helper does all the effort to complete an activity 7 Patient refused to complete or attempt activity 9 The patient did not perform the activity before the current illness or injury 88 Not attempted due to Medical conditions or safety concerns Transfers (B, C, W/C) (FIM): 6 Sit to/from Stand: 6 Bed to/from Chair: 6 Gait Training Gait (FIM): 5 Distance: 500'x2 Gait Level of Assist: 5 Gait Persons Needed: 1 Gait Assistive Device: FWW Patient needs no assist with ambulation but needs cues for direction. Patient ambulates slowly but steady. Treatments transfers, ambulation Assessment Current Status: Fair Progress improving endurance, transfers, and ambulation PT Short Term Goals Short Term Goals Time Frame: Sep 11, 2018 Transfers (B,C,W/C) (FIM): 5 Gait (FIM): 5 Gait Distance Comment: 150' Gait Level of Assist: 5 Gait Assistive Device: FWW PT Alf Goals Alf Goals PT Processing Supervisor Goals Time Frame: Sep 25, 2018 Transfers (B,C,W/C) (FIM): 6 Sit to Lying (QC): 6 Lying-Sitting on Side/Bed(QC): 6 Sit to Stand (QC): 6 Rollin Roll Left to Right (QC): 6 Chair/Cfr-en-Fvzxo Xfer(QC): 6 Car Transfer (QC): 6 Gait (FIM): 6 Distance: 200' Walk 10 feet (QC): 6 Walk 10ft-Uneven Surface(QC): 6 Walk 50ft with 2 Turns (QC): 6 Walk 150 ft (QC): 6 Gait Level of Assist: 6 Gait Assistive Device: FWW Stairs (FIM): 5 # of Steps: 12 1 Step (curb) (QC): 4 4 Steps (QC): 4 12 Steps (QC): 4 Stairs Level Of Assist: 5 PT Plan Problem List Problem List: Activity Tolerance, Functional Strength, Safety, Balance, Gait, Transfer Treatment/Plan Treatment Plan: Continue Plan of Care Treatment Plan: Bed Mobility, Education, Functional Activity Manda, Functional Strength, Group Therapy, Gait, Safety, Therapeutic Exercise, Transfers Treatment Duration: Sep 25, 2018 Frequency: At least 5 of 7 days/Wk (IRF) Estimated Hrs Per Day: 1.5 hours per day Patient and/or Family Agrees t: Yes Safety Risks/Education Patient Education: Gait Training, Transfer Techniques, Correct Positioning, Safety Issues Teaching Recipient: Patient Teaching Methods: Demonstration, Discussion Response to Teaching: Reinforcement Needed Time/GCodes Time In: 1400 Time Out: 1430 Total Billed Treatment Time: 30 Total Billed Treatment 1 visit GT 30' MYNOR NG PT Sep 08, 2018 14:28
--- NOTE | 2018-09-08 15:18 | Diagnostic Imaging Report ---
PROCEDURE: CT head without contrast. TECHNIQUE: Multiple contiguous axial images were obtained through the brain without the use of intravenous contrast. INDICATION: Memory difficulty. COMPARISON: No prior studies are available for comparison. FINDINGS: Ventricles and sulci are within normal limits. There is moderate periventricular hypodensity noted consistent with chronic microvascular ischemia. No sulcal effacement or midline shift is seen. No acute intra-axial or extra-axial hemorrhage is detected. Cisterns are patent. The visualized paranasal sinuses are clear. IMPRESSION: Chronic changes. No acute intracranial process is detected. Dictated by: Dictated on workstation # [id number]
--- NOTE | 2018-09-08 15:28 | Occupational Ther Daily Note ---
OT Current Status-Daily Note Subjective Pt seen inroom, up in recliner, agreeable to OT. No pain mentioned. Appearance Alert, cooperative Mental Status/Objective Functional [place] Measure 0=Not Assessed/NA 4=Minimal Assistance 1=Total Assistance 5=Supervision or Setup 2=Maximal Assistance 6=Modified [place] 3=Moderate Assistance 7=Complete [place] ADL-Treatment Functional [place] Measure 0=Not Assessed/NA 4=Minimal Assistance 1=Total Assistance 5=Supervision or Setup 2=Maximal Assistance 6=Modified [place] 3=Moderate Assistance 7=Complete IndependenceIRFPAI Quality Coding Scale 6 Independent with activity with or without an assistive device 5 Patient requires set up or clean up by helper. Patient completes activity by themselves 4 Supervision or touching assist (CGA). [place] provide cues , steadying assist 3 The helper provides less than half the effort to complete the activity 2 The helper provides more than half the effort to complete the activity 1 Dependent. The helper does all the effort to complete an activity 7 Patient refused to complete or attempt activity 9 The patient did not perform the activity before the current illness or injury 88 Not attempted due to Medical conditions or safety concerns Other Treatment Pt educ on 4 different exercises with red theraband. He required visual, verbal and sometimes tactile cues to do the exercises. Some trouble tracking repetitions and switching sides. To strengthen arms to help with ADLs. Pt left up in recliner, all needs met. Pt encouraged to do exercises on his own over the weekend. Education OT Patient Education: Exercise program, Purpose of tx/functional activities Teaching Recipient: Patient Teaching Methods: Demonstration, Discussion Response to Teaching: Verbalize Understanding, Return Demonstration, Reinforcement Needed OT Short Term Goals Short Term Goals Time Frame: Sep 11, 2018 Eating(FIM): 5 Grooming(FIM): 5 Bathing(FIM): 5 Upper Body Dressing(FIM): 5 Lower Body Dressing(FIM): 5 Toileting(FIM): 5 Transfers (B,C,W/C) (FIM): 5 Toilet/Commode Transfer(FIM): 5 Shower Transfer(FIM): 5 Comprehension(FIM): 6 Expression(FIM): 6 Social Interaction(FIM): 7 Problem Solving(FIM): 4 Memory(FIM): 4 Additional Short Term Goals: 1-Demonstrate ADL Tasks, 2-Verbalize Understanding , 3-ImproveStrength/Manda 1=Demonstrate adherence to instructed precautions during ADL tasks. 2=Patient will verbalize/demonstrate understanding of assistive devices/ modifications for ADL. 3=Patient will improve strength/tolerance for activity to enable patient to perform ADL's. OT Hose Maker Goals Hose Maker Goals Time Frame: Sep 25, 2018 Eating (FIM): 6 Eating (QC): 6 Groomin Oral Hygiene (QC): 6 Bathing(FIM): 5 Shower/Bathe Self (QC): 5 Upper Body Dressing(FIM): 6 Upper Body Dressing (QC): 6 Lower Body Dressing(FIM): 6 Lower Body Dressing (QC): 6 On/Off Footwear (QC): 6 Toileting(FIM): 6 Toileting Hygiene (QC): 6 Transfers (B,C,W/C) (FIM): 6 Toilet/Commode Transfer(FIM): 6 Toilet/Commode Transfer (QC): 6 Shower Transfer(FIM): 5 Comprehension(FIM): 6 Expression (FIM): 6 Social Interaction(FIM): 7 Problem Solving(FIM): 5 Memory(FIM): 5 Additional Goals: 1-Demonstrate ADL Tasks, 2-Verbalize Understanding, 3- ImproveStrength/Manda 1=Demonstrate adherence to instructed precautions during ADL tasks. 2=Patient will verbalize/demonstrate understanding of assistive devices/ modifications for ADL. 3=Patient will improve strength/tolerance for activity to enable patient to perform ADL's. OT Education/Plan Discharge Recommendations Plan/Recommendations: Continue POC Treatment Plan/Plan of Care Patient would benefit from OT for education, treatment and training to promote independence in ADL's, mobility, safety and/or upper extremity function for ADL' s. Plan of Care: ADL Retraining, Caregiver Training, Functional Mobility, Group Exercise/Act as Ind, UE Funct Exercise/Act Treatment Duration: Sep 25, 2018 Frequency: At least 5 of 7 days/Wk (IRF) Estimated Hrs Per Day: 1.5 hours per day Agreement: Yes Rehab Potential: Good Time/GCodes Start Time: 13:00 Stop Time: 13:20 Total Time Billed (hr/min): 20 Billed Treatment Time visit, 20 minutes exercise MARCUS NGUYEN OT Sep 08, 2018 15:28
[2018-09-08] MEDS: DIVALPROX SPRINKLE 125 MG (DEPAKOTE) CAP PO SCH ×2 (16:09→21:30)
[2018-09-08 16:24] VITALS: BP 123/71
[2018-09-08] MEDS: DONEPEZIL 5 MG (ARICEPT) TAB PO SCH (21:30)
[2018-09-08] MEDS: ATORVASTATIN 40 MG (LIPITOR) TABLET PO SCH (21:30)
[2018-09-08 22:48] VITALS: BP 116/67
[2018-09-09 04:59] VITALS: BP 123/65
[2018-09-09] MEDS: ENOXAPARIN 40 MG/0.4 ML (LOVENOX) SYR SC SCH (06:57)
[2018-09-09] MEDS: GLIMEPIRIDE 4 MG (AMARYL) TAB PO SCH (06:57)
[2018-09-09] MEDS: PANTOPRAZOLE 40 MG (PROTONIX) TAB PO SCH (06:57)
[2018-09-09] MEDS: KCL 10 MEQ TAB (MICRO K) PO SCH (06:57)
[2018-09-09] MEDS: inSUlin ASPART (NovoLOG) 1 UNIT/0.01 ML (CHARGE PER UNIT) SC SCH ×4 (06:57→21:12)
[2018-09-09] MEDS: DIVALPROX SPRINKLE 125 MG (DEPAKOTE) CAP PO SCH ×3 (06:57→21:13)
--- NOTE | 2018-09-09 07:03 | Pulmonary Progress Note ---
Subjective Time Seen by a Provider: 07:03 Subjective/Events-last exam No complications noted. Sepsis Event Evaluation Height, Weight, BMI Height: 5'10.00" Weight: 177lbs. 8.0oz. 80.406227wx; 26.3 BMI Method:Stated Exam Exam Vital Signs Date Time Temp Pulse Resp B/P (MAP) Pulse Ox O2 Delivery O2 Flow Rate FiO2 09/08/18 22:48 97.0 73 14 116/67 (83) 96 Room Air 09/08/18 20:40 Room Air 09/08/18 19:40 91 Room Air 09/08/18 16:24 97.9 64 16 123/71 (88) 94 Room Air 09/08/18 15:20 92 Room Air 09/08/18 12:21 98.6 09/08/18 08:48 98.2 76 20 116/62 (80) 96 Room Air 09/08/18 08:24 Room Air I & O 09/09/18 07:00 Intake Total 1150 ml Balance 1150 ml Height & Weight Height: 5'10.00" Weight: 177lbs. 8.0oz. 80.034870kf; 26.3 BMI Method:Stated General Appearance: No Apparent Distress, WD/WN HEENT: Normal ENT Inspection Neck: Full Range of Motion, Normal Inspection Respiratory: No Accessory Muscle Use, No Respiratory Distress Cardiovascular: Regular Rate, Rhythm Capillary Refill: Less Than 3 Seconds Gastrointestinal: non tender, soft Extremity: Normal Capillary Refill, Normal Inspection Neurologic/Psychiatric: Alert Skin: Normal Color, Warm/Dry Results Lab Laboratory Tests 09/08/18 04:15 Assessment/Plan Assessment/Plan Acute on Chronic Respiratory failure -Pc02 was 68 on admission and required mechanical ventilation. pt is high risk for multiple hospitalizations and continued respiratory failure -Pt would benefit from home vent to mask. -CT scan reviewed -Will repeat as out patient -repeat CXR and labs reviewed Fever r/o infection -CXR is stable -Belle cultures pending -check influenza swab - is negative - omnicef started 08/05 Atelectasis -Increase activity -IS Pulmonary edema EF 40-45% CHF -Cardiology following COPD -SVNs Q4 -Will probably need home 02 upon discharged Hypernatremia -Monitor CAD with elevated troponin - cardiology following PT is ok from pulmonary standpoint for discharge. He will need oxygen and home vent to mask arranged upon discharge. I will f/u with him in 2-3 wks after discharge. I have discussed with [address] vent to mask and oxygen. I am going to sign off please call with any questions. JODY TORRES DO Sep 09, 2018 07:03
[2018-09-09 07:23] LABS: HEMOGLOBIN 11.3 G/DL (13.3-17.7); MEAN PLATELET VOLUME 10.2 FL (7.4-10.4); RED BLOOD COUNT 3.74 10^6/uL (4.35-5.85); RED CELL DISTRIBUTION WIDTH 12.7 % (10.0-14.5); WHITE BLOOD COUNT 5.7 10^3/uL (4.3-11.0)
[2018-09-09 07:38] LABS: BUN/CREATININE RATIO 16; CALCIUM 8.6 MG/DL (8.5-10.1); CARBON DIOXIDE 28 MMOL/L (21-32); CHLORIDE 106 MMOL/L (98-107); GFR ESTIMATED > 60; GLUCOSE 129 MG/DL (70-105); PHOSPHORUS 3.4 MG/DL (2.3-4.7); POTASSIUM 4.2 MMOL/L (3.6-5.0); SODIUM 140 MMOL/L (135-145)
[2018-09-09 08:00] VITALS: BP 113/70
[2018-09-09] MEDS: RT-ALBUTEROL SULF 2.5 MG/3 ML PRE-MIX VIAL INH SCH ×3 (08:04→20:13)
[2018-09-09] MEDS: CEFDINIR 300 MG (OMNICEF) CAP PO SCH ×2 (08:44→20:03)
[2018-09-09] MEDS: MEMANTINE 5 MG (NAMENDA) TABLET PO SCH (08:44)
[2018-09-09] MEDS: ASPIRIN 325 MG (5 GR) TABLET PO SCH (08:44)
[2018-09-09] MEDS: CARVEDILOL 12.5 MG (COREG) TABLET PO SCH ×2 (08:45→20:03)
[2018-09-09] MEDS: FUROSEMIDE 20 MG (LASIX) TAB PO SCH (08:45)
--- NOTE | 2018-09-09 10:41 | Physical Therapy Daily Note ---
PT Daily Note-Current Subjective Agreeable to PT. Reports he really wants to go home. Transfers Functional [place] Measure 0=Not Assessed/NA 4=Minimal Assistance 1=Total Assistance 5=Supervision or Setup 2=Maximal Assistance 6=Modified [place] 3=Moderate Assistance 7=Complete IndependenceIRFPAI Quality Coding Scale 6 Independent with activity with or without an assistive device 5 Patient requires set up or clean up by helper. Patient completes activity by themselves 4 Supervision or touching assist (CGA). [place] provide cues , steadying assist 3 The helper provides less than half the effort to complete the activity 2 The helper provides more than half the effort to complete the activity 1 Dependent. The helper does all the effort to complete an activity 7 Patient refused to complete or attempt activity 9 The patient did not perform the activity before the current illness or injury 88 Not attempted due to Medical conditions or safety concerns Transfers (B, C, W/C) (FIM): 6 (no assist needed with transfers; just occas cues for safety) Sit to/from Stand: 6 (correct hand placemnent and sequencing 90% of the time) Gait Training Does the Patient Walk?: Yes Gait (FIM): 6 Distance (FIM): 3=150 ft Distance: 150 ft x 3 Gait Assistive Device: FWW Exercises NuStep Minutes: 15 (for LE strength and activity tolerance) Assessment Current Status: Good Progress In terms of mobility, he is progressing well and is safe with transfers and gait. PT Short Term Goals Short Term Goals Time Frame: Sep 11, 2018 Transfers (B,C,W/C) (FIM): 5 (met) Gait (FIM): 5 (met) Gait Distance Comment: 150' Gait Level of Assist: 5 Gait Assistive Device: FWW PT Retirement Goals Retirement Goals PT Corporate Real Estate Manager Goals Time Frame: Sep 25, 2018 Transfers (B,C,W/C) (FIM): 6 Sit to Lying (QC): 6 Lying-Sitting on Side/Bed(QC): 6 Sit to Stand (QC): 6 Rollin Roll Left to Right (QC): 6 Chair/Jfn-nq-Zalwy Xfer(QC): 6 Car Transfer (QC): 6 Gait (FIM): 6 Distance: 200' Walk 10 feet (QC): 6 Walk 10ft-Uneven Surface(QC): 6 Walk 50ft with 2 Turns (QC): 6 Walk 150 ft (QC): 6 Gait Level of Assist: 6 Gait Assistive Device: FWW Stairs (FIM): 5 # of Steps: 12 1 Step (curb) (QC): 4 4 Steps (QC): 4 12 Steps (QC): 4 Stairs Level Of Assist: 5 PT Plan Problem List Problem List: Activity Tolerance, Functional Strength, Safety, Balance, Gait, Transfer, Bed Mobility Treatment/Plan Treatment Plan: Continue Plan of Care Treatment Plan: Bed Mobility, Education, Functional Activity Manda, Functional Strength, Group Therapy, Gait, Safety, Therapeutic Exercise, Transfers Treatment Duration: Sep 25, 2018 Frequency: At least 5 of 7 days/Wk (IRF) Estimated Hrs Per Day: 1.5 hours per day Patient and/or Family Agrees t: Yes Safety Risks/Education Patient Education: Safety Issues Teaching Recipient: Patient Teaching Methods: Discussion Response to Teaching: Reinforcement Needed Discharge Recommendations Therapy D/C Recommendations: Physical Therapy Home Care Time/GCodes Time In: 745 Time Out: 810 Total Billed Treatment Time: 25 Total Billed Treatment visit GT 10 EX 15 GIOVANNI RIGGINS PT Sep 09, 2018 10:41
[2018-09-09 12:00] VITALS: BP 148/69
--- NOTE | 2018-09-09 14:30 | Cardiology Progress Note ---
Cardiology SOAP Progress Note Subjective: No cardiac complaints. Objective: I&O/Vital Signs 09/09/18 09/09/18 09/09/18 09/09/18 04:59 08:00 09:00 09:37 Temp 98.4 97.1 Pulse 70 73 Resp 20 20 B/P (MAP) 123/65 (84) 113/70 (84) Pulse Ox 91 92 O2 Delivery Room Air Room Air Room Air Room Air 09/09/18 09/09/18 12:00 13:58 Temp 97.0 Pulse 63 70 Resp 20 B/P (MAP) 148/69 (95) Pulse Ox 93 90 O2 Delivery Room Air FiO2 21 09/09/18 00:00 Intake Total 850 ml Balance 850 ml Weight (Pounds): 177 Weight (Ounces): 8.0 Weight (Calculated Kilograms): 80.929161 Constitutional: No appears stated age; AAO x 3; No apparent distress, No PERRL ; well-developed; No well-nourished, No other Respiratory: No accessory muscle use, No respiratory distress, No chest tender , No chest expansion is symmetric; chest is bilaterally symmetric; No lungs clear to percussion; lungs clear to auscultation; No crackles, No rhonchi, No rales, No stridor, No wheezing, No pleural rub; other (Good bilat air entry, somewhat increased exp phase) Cardiovascular: regular rate-rhythm; No irregularly irregular, No extra beats, No parasternal heave is noted, No JVD, No edema, No bradycardia, No tachycardia , No point of maximal impulse, No cardiac thrills are palpable; S1 and S2; No gallop/S3, No gallop/S4, No diastolic murmur; systolic murmur; No friction rub, No click, No other Gastrointestional: No tender; soft; No round, No distended, No pulsatile mass, No organomegaly, No guarding, No rebound, No tenderness, No hernia, No mass; audible bowel sounds; No abnormal bowel sounds, No abdominal bruits, No spleenomegaly, No other Extremities: No normal range of motion, No non-tender, No normal inspection, No pedal edema, No calf tenderness, No normal capillary refill, No pelvis stable , No calf tenderness, No inflammation, No pedal edema, No slow capillary refill , No swelling, No other, No abrasion, No clubbing, No cyanosis, No ecchymosis, No laceration, No no lower extremity edema bilateral, No significant edema, No tenderness, No wound Neurologic/Psychiatric: no motor/sensory deficits, alert, normal mood/affect, oriented x 3, grossly intact, power is 5/5 both on sides Skin: No normal color, No warm/dry, No cyanosis, No cool, No diaphoresis, No damp, No ecchymosis, No jaundice, No mottled, No pallor, No rash, No tattoos/ piercings, No ulcerations, No rash on exposed areas, No ulcerations on exposed areas, No other Results/Procedures: Labs Laboratory Tests 09/08/18 16:23: Glucometer 78 09/08/18 20:02: Glucometer 163H 09/09/18 06:49: Glucometer 125H 09/09/18 07:02: White Blood Count 5.7, Red Blood Count 3.74L, Hemoglobin 11.3L, Hematocrit 34L, Mean Corpuscular Volume 91, Mean Corpuscular Hemoglobin 30, Mean Corpuscular Hemoglobin Concent 33, Red Cell Distribution Width 12.7, Platelet Count 355, Mean Platelet Volume 10.2, Sodium Level 140, Potassium Level 4.2, Chloride Level 106, Carbon Dioxide Level 28, Anion Gap 6, Blood Urea Nitrogen 13, Creatinine 0.80, Estimat Glomerular Filtration Rate > 60, BUN/Creatinine Ratio 16, Glucose Level 129H, Calcium Level 8.6, Phosphorus Level 3.4, Magnesium Level 2.0 09/09/18 11:31: Glucometer 176H Microbiology 09/05/18 Blood Culture - Preliminary, Resulted No growth 09/05/18 MRSA Screen - Final, Complete MRSA not isolated A/P: Assessment/Dx: Assessment: Ac resp failure, multifactorial, see below Bronchial mucous plugs, treated bronchoscopically Ac systolic and diastolic CHF. Echo of 08/27/18 shows paradoxical septal motion , LVEF 50%, grade I diastolic dysfunction of LV, continue to monitor, no changes are recommended Hepatic transaminase elevation, etiology unclear, followed and treated by the [facility] Elevated troponin likely due to hypoxemia due to ac resp failure at initial presentation, conservative management at this time Chronic LBBB (seen on ECG of 08/25/18 and on ECG of 12/18/15) Coronary artery disease with coronary artery bypass surgery in 2003, consisting of left internal mammary to left anterior descending, saphenous vein to obtuse marginal, saphenous vein to diagonal, sequential saphenous vein to acute marginal and posterior descending Hypertension 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 Please call me if you have any questions. Dionicio Thorne MD, FACP, FACC, FSCAI, FHRS, CCDS Interventional Cardiology Cardiac Electrophysiology Vascular Medicine and Endovascular Interventions Thor THORNE MD Sep 09, 2018 2:30 pm
[2018-09-09 16:07] VITALS: BP 135/63
[2018-09-09] MEDS: ATORVASTATIN 40 MG (LIPITOR) TABLET PO SCH (20:03)
[2018-09-09] MEDS: DONEPEZIL 5 MG (ARICEPT) TAB PO SCH (20:03)
[2018-09-09] MEDS: RT-ALBUTEROL/IPRATROPIUM 3 ML (DUONEB) VIAL INH SCH (20:09)
[2018-09-10 05:11] VITALS: BP 133/77
[2018-09-10] MEDS: ENOXAPARIN 40 MG/0.4 ML (LOVENOX) SYR SC SCH (05:31)
[2018-09-10] MEDS: KCL 10 MEQ TAB (MICRO K) PO SCH (05:36)
[2018-09-10] MEDS: PANTOPRAZOLE 40 MG (PROTONIX) TAB PO SCH (05:36)
[2018-09-10] MEDS: GLIMEPIRIDE 4 MG (AMARYL) TAB PO SCH (05:37)
[2018-09-10] MEDS: DIVALPROX SPRINKLE 125 MG (DEPAKOTE) CAP PO SCH ×3 (05:37→20:52)
[2018-09-10] MEDS: inSUlin ASPART (NovoLOG) 1 UNIT/0.01 ML (CHARGE PER UNIT) SC SCH ×4 (05:51→20:52)
[2018-09-10 05:54] LABS: HEMOGLOBIN 11.4 G/DL (13.3-17.7); MEAN PLATELET VOLUME 9.4 FL (7.4-10.4); RED BLOOD COUNT 3.88 10^6/uL (4.35-5.85); RED CELL DISTRIBUTION WIDTH 12.8 % (10.0-14.5); WHITE BLOOD COUNT 5.1 10^3/uL (4.3-11.0)
[2018-09-10 06:14] LABS: BUN/CREATININE RATIO 14; CALCIUM 8.9 MG/DL (8.5-10.1); CARBON DIOXIDE 26 MMOL/L (21-32); CHLORIDE 106 MMOL/L (98-107); CREATININE SERUM 0.79 MG/DL (0.60-1.30); GFR ESTIMATED > 60; GLUCOSE 148 MG/DL (70-105); PHOSPHORUS 3.5 MG/DL (2.3-4.7); POTASSIUM 4.2 MMOL/L (3.6-5.0); SODIUM 141 MMOL/L (135-145)
[2018-09-10] MEDS: RT-ALBUTEROL/IPRATROPIUM 3 ML (DUONEB) VIAL INH SCH ×2 (07:24→20:08)
[2018-09-10] MEDS: ASPIRIN 325 MG (5 GR) TABLET PO SCH (08:49)
[2018-09-10] MEDS: CARVEDILOL 12.5 MG (COREG) TABLET PO SCH ×2 (08:49→20:52)
[2018-09-10] MEDS: MEMANTINE 5 MG (NAMENDA) TABLET PO SCH (08:49)
[2018-09-10] MEDS: FUROSEMIDE 20 MG (LASIX) TAB PO SCH (08:49)
--- NOTE | 2018-09-10 12:54 | Cardiology Progress Note ---
Cardiology SOAP Progress Note Subjective: Patient wants to go home. Objective: I&O/Vital Signs 09/10/18 09/10/18 05:11 07:24 Temp 98.5 Pulse 67 Resp 18 B/P (MAP) 133/77 (95) Pulse Ox 90 91 O2 Delivery Room Air Room Air 09/10/18 00:00 Intake Total 800 ml Balance 800 ml Weight (Pounds): 179 Weight (Ounces): 8.0 Weight (Calculated Kilograms): 81.393894 Constitutional: No appears stated age; AAO x 3; No apparent distress, No PERRL ; well-developed; No well-nourished, No other Respiratory: No accessory muscle use, No respiratory distress, No chest tender , No chest expansion is symmetric; chest is bilaterally symmetric; No lungs clear to percussion; lungs clear to auscultation; No crackles, No rhonchi, No rales, No stridor, No wheezing, No pleural rub; other (Good bilat air entry, somewhat increased exp phase) Cardiovascular: regular rate-rhythm; No irregularly irregular, No extra beats, No parasternal heave is noted, No JVD, No edema, No bradycardia, No tachycardia , No point of maximal impulse, No cardiac thrills are palpable; S1 and S2; No gallop/S3, No gallop/S4, No diastolic murmur; systolic murmur; No friction rub, No click, No other Gastrointestional: No tender; soft; No round, No distended, No pulsatile mass, No organomegaly, No guarding, No rebound, No tenderness, No hernia, No mass; audible bowel sounds; No abnormal bowel sounds, No abdominal bruits, No spleenomegaly, No other Extremities: No normal range of motion, No non-tender, No normal inspection, No pedal edema, No calf tenderness, No normal capillary refill, No pelvis stable , No calf tenderness, No inflammation, No pedal edema, No slow capillary refill , No swelling, No other, No abrasion, No clubbing, No cyanosis, No ecchymosis, No laceration, No no lower extremity edema bilateral, No significant edema, No tenderness, No wound Neurologic/Psychiatric: no motor/sensory deficits, alert, normal mood/affect, oriented x 3, grossly intact, power is 5/5 both on sides Skin: No normal color, No warm/dry, No cyanosis, No cool, No diaphoresis, No damp, No ecchymosis, No jaundice, No mottled, No pallor, No rash, No tattoos/ piercings, No ulcerations, No rash on exposed areas, No ulcerations on exposed areas, No other Results/Procedures: Labs Laboratory Tests 09/09/18 16:07: Glucometer 254H 09/09/18 20:08: Glucometer 137H 09/10/18 05:36: Glucometer 144H 09/10/18 05:45: White Blood Count 5.1, Red Blood Count 3.88L, Hemoglobin 11.4L, Hematocrit 35L, Mean Corpuscular Volume 90, Mean Corpuscular Hemoglobin 29, Mean Corpuscular Hemoglobin Concent 33, Red Cell Distribution Width 12.8, Platelet Count 381, Mean Platelet Volume 9.4, Sodium Level 141, Potassium Level 4.2, Chloride Level 106, Carbon Dioxide Level 26, Anion Gap 9, Blood Urea Nitrogen 11, Creatinine 0.79, Estimat Glomerular Filtration Rate > 60, BUN/Creatinine Ratio 14, Glucose Level 148H, Calcium Level 8.9, Phosphorus Level 3.5, Magnesium Level 2.0 09/10/18 11:29: Glucometer 243H Microbiology 09/05/18 Blood Culture - Preliminary, Resulted No growth 09/05/18 MRSA Screen - Final, Complete MRSA not isolated A/P: Assessment/Dx: Assessment: Ac resp failure, multifactorial, see below. Significantly improved. Bronchial mucous plugs, treated bronchoscopically Ac systolic and diastolic CHF. Echo of 08/27/18 shows paradoxical septal motion , LVEF 50%, grade I diastolic dysfunction of LV, continue to monitor, no changes are recommended Hepatic transaminase elevation, etiology unclear, followed and treated by the [facility] [place] Elevated troponin likely due to hypoxemia due to ac resp failure at initial presentation, conservative management at this time Chronic LBBB (seen on ECG of 08/25/18 and on ECG of 12/18/15) Coronary artery disease with coronary artery bypass surgery in 2003, consisting of left internal mammary to left anterior descending, saphenous vein to obtuse marginal, saphenous vein to diagonal, sequential saphenous vein to acute marginal and posterior descending Hypertension 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 Please call me if you have any questions. Dionicio Thorne MD, FACP, FACC, FSCAI, FHRS, CCDS Interventional Cardiology Cardiac Electrophysiology Vascular Medicine and Endovascular Interventions Thor THORNE MD Sep 10, 2018 12:54 pm
[2018-09-10 17:44] VITALS: BP 145/63
[2018-09-10] MEDS ORDERED: CATHETER FLUSH 10 ML SYR IV PRN (18:15)
[2018-09-10] MEDS: ATORVASTATIN 40 MG (LIPITOR) TABLET PO SCH (20:52)
[2018-09-10] MEDS: DONEPEZIL 5 MG (ARICEPT) TAB PO SCH (20:52)
[2018-09-10] MEDS: CATHETER FLUSH 10 ML SYR IV SCH (20:53)
[2018-09-11 05:06] VITALS: BP 144/78
[2018-09-11] MEDS: ENOXAPARIN 40 MG/0.4 ML (LOVENOX) SYR SC SCH (06:36)
[2018-09-11] MEDS: CATHETER FLUSH 10 ML SYR IV SCH ×3 (06:36→21:29)
[2018-09-11] MEDS: PANTOPRAZOLE 40 MG (PROTONIX) TAB PO SCH (06:36)
[2018-09-11] MEDS: GLIMEPIRIDE 4 MG (AMARYL) TAB PO SCH (06:37)
[2018-09-11] MEDS: KCL 10 MEQ TAB (MICRO K) PO SCH (06:37)
[2018-09-11] MEDS: DIVALPROX SPRINKLE 125 MG (DEPAKOTE) CAP PO SCH ×2 (06:37→14:05)
[2018-09-11] MEDS: inSUlin ASPART (NovoLOG) 1 UNIT/0.01 ML (CHARGE PER UNIT) SC SCH ×4 (06:37→21:29)
[2018-09-11 06:53] LABS: HEMOGLOBIN 10.9 G/DL (13.3-17.7); MEAN PLATELET VOLUME 9.7 FL (7.4-10.4); RED BLOOD COUNT 3.67 10^6/uL (4.35-5.85); RED CELL DISTRIBUTION WIDTH 12.8 % (10.0-14.5); WHITE BLOOD COUNT 4.8 10^3/uL (4.3-11.0)
[2018-09-11 07:11] LABS: BUN/CREATININE RATIO 13; CALCIUM 8.4 MG/DL (8.5-10.1); CARBON DIOXIDE 29 MMOL/L (21-32); CHLORIDE 106 MMOL/L (98-107); CREATININE SERUM 0.77 MG/DL (0.60-1.30); GFR ESTIMATED > 60; GLUCOSE 143 MG/DL (70-105); MAGNESIUM 1.7 MG/DL (1.8-2.4); PHOSPHORUS 3.3 MG/DL (2.3-4.7); SODIUM 141 MMOL/L (135-145)
[2018-09-11] MEDS: RT-ALBUTEROL/IPRATROPIUM 3 ML (DUONEB) VIAL INH SCH ×2 (08:00→19:50)
--- NOTE | 2018-09-11 08:24 | PM & R (SOAP) Progress Note ---
Subjective This was a face to face visit with the patient. Date Seen by Provider: Sep 10, 2018 Time Seen by Provider: 19:30 Subjective/Events-last exam Patient was seen in his room this evening Patient Modified Independent for transfers Hopes to go home soon Objective Physician Exam Last Set of Vital Signs Vital Signs Date Time Temp Pulse Resp B/P (MAP) Pulse Ox O2 Delivery O2 Flow Rate FiO2 09/11/18 08:00 92 Room Air 09/11/18 05:06 98.4 69 18 144/78 (100) 09/09/18 13:58 21 09/06/18 20:45 2.00 Capillary Refill : Less Than 3 Seconds I&O Intake and Output 09/10/18 23:59 Intake Total 1650 ml Balance 1650 ml Intake Oral 1650 ml # Voids 10 # Bowel Movements 4 General: Alert, Oriented X3, Cooperative, No Acute Distress HEENT: Atraumatic, PERRLA, EOMI, Mucous Memb Moist/[place] Neck: Supple, No JVD Lungs: Other (decreased breath sounds) Heart: Regular Rate Abdomen: Normal Bowel Sounds, Soft, No Tenderness Extremities: Other Neuro: Other Results Lab Data Laboratory Tests 09/08/18 12:10: Glucometer 229H 09/08/18 16:23: Glucometer 78 09/08/18 20:02: Glucometer 163H 09/09/18 06:49: Glucometer 125H 09/09/18 07:02: White Blood Count 5.7, Red Blood Count 3.74L, Hemoglobin 11.3L, Hematocrit 34L, Mean Corpuscular Volume 91, Mean Corpuscular Hemoglobin 30, Mean Corpuscular Hemoglobin Concent 33, Red Cell Distribution Width 12.7, Platelet Count 355, Mean Platelet Volume 10.2, Sodium Level 140, Potassium Level 4.2, Chloride Level 106, Carbon Dioxide Level 28, Anion Gap 6, Blood Urea Nitrogen 13, Creatinine 0.80, Estimat Glomerular Filtration Rate > 60, BUN/Creatinine Ratio 16, Glucose Level 129H, Calcium Level 8.6, Phosphorus Level 3.4, Magnesium Level 2.0, Vitamin B12 Level 283 09/09/18 11:31: Glucometer 176H 09/09/18 16:07: Glucometer 254H 09/09/18 20:08: Glucometer 137H 09/10/18 05:36: Glucometer 144H 09/10/18 05:45: White Blood Count 5.1, Red Blood Count 3.88L, Hemoglobin 11.4L, Hematocrit 35L, Mean Corpuscular Volume 90, Mean Corpuscular Hemoglobin 29, Mean Corpuscular Hemoglobin Concent 33, Red Cell Distribution Width 12.8, Platelet Count 381, Mean Platelet Volume 9.4, Sodium Level 141, Potassium Level 4.2, Chloride Level 106, Carbon Dioxide Level 26, Anion Gap 9, Blood Urea Nitrogen 11, Creatinine 0.79, Estimat Glomerular Filtration Rate > 60, BUN/Creatinine Ratio 14, Glucose Level 148H, Calcium Level 8.9, Phosphorus Level 3.5, Magnesium Level 2.0 09/10/18 11:29: Glucometer 243H 09/10/18 16:22: Glucometer 176H 09/10/18 20:50: Glucometer 187H 09/11/18 06:34: Glucometer 134H 09/11/18 06:45: White Blood Count 4.8, Red Blood Count 3.67L, Hemoglobin 10.9L, Hematocrit 33L, Mean Corpuscular Volume 91, Mean Corpuscular Hemoglobin 30, Mean Corpuscular Hemoglobin Concent 33, Red Cell Distribution Width 12.8, Platelet Count 316, Mean Platelet Volume 9.7, Sodium Level 141, Potassium Level 4.0, Chloride Level 106, Carbon Dioxide Level 29, Anion Gap 6, Blood Urea Nitrogen 10, Creatinine 0.77, Estimat Glomerular Filtration Rate > 60, BUN/Creatinine Ratio 13, Glucose Level 143H, Calcium Level 8.4L, Phosphorus Level 3.3, Magnesium Level 1.7L Microbiology 09/05/18 Blood Culture - Final, Complete No growth 09/05/18 MRSA Screen - Final, Complete MRSA not isolated Assessment/Plan Assessment and Plan COPD myopathy with proximal weakness Improved Pneumonia treated CAD with CHF compensated DM better controlled Post pneumonia resp insuff weaned Cognitive deficit Plan Continue PT/OT Family to meet with DR moya tomorrow to discuss issues Probable discharge this coming week will f/u with DR moya and SW/Team tomorrow This note completed tardy due to password issues on the day of rounding Co-Morbidities that are continuing to impact the rehab process: (include details ) SHANE ACEVEDO MD Sep 11, 2018 08:24
--- NOTE | 2018-09-11 08:40 | Progress Note (SOAP) ---
Subjective Time Seen by a Provider: 08:38 Subjective/Events-last exam Patient walking better today. Spoke to the son today about the slums test. Patient had some hallucinations this weekend to stop the [place] Objective Exam Vital Signs Date Time Temp Pulse Resp B/P (MAP) Pulse Ox O2 Delivery O2 Flow Rate FiO2 09/11/18 08:00 92 Room Air 09/11/18 05:06 98.4 69 18 144/78 (100) 93 Room Air 09/10/18 20:40 Room Air 09/10/18 20:08 91 Room Air 09/10/18 17:44 97.4 74 18 145/63 (90) 92 Room Air 09/10/18 09:00 Room Air I & O 09/11/18 06:59 Intake Total 1450 ml Balance 1450 ml Capillary Refill : Less Than 3 Seconds General Appearance: No Apparent Distress, WD/WN Results Lab Laboratory Tests 09/10/18 11:29: Glucometer 243H 09/10/18 16:22: Glucometer 176H 09/10/18 20:50: Glucometer 187H 09/11/18 06:34: Glucometer 134H 09/11/18 06:45: White Blood Count 4.8, Red Blood Count 3.67L, Hemoglobin 10.9L, Hematocrit 33L, Mean Corpuscular Volume 91, Mean Corpuscular Hemoglobin 30, Mean Corpuscular Hemoglobin Concent 33, Red Cell Distribution Width 12.8, Platelet Count 316, Mean Platelet Volume 9.7, Sodium Level 141, Potassium Level 4.0, Chloride Level 106, Carbon Dioxide Level 29, Anion Gap 6, Blood Urea Nitrogen 10, Creatinine 0.77, Estimat Glomerular Filtration Rate > 60, BUN/Creatinine Ratio 13, Glucose Level 143H, Calcium Level 8.4L, Phosphorus Level 3.3, Magnesium Level 1.7L Microbiology 09/05/18 Blood Culture - Final, Complete No growth 09/05/18 MRSA Screen - Final, Complete MRSA not isolated Assessment/Plan Assessment/Plan Assess & Plan/Chief Complaint Myopathy. Debility. Pneumonia. COPD. Diabetes. Coronary artery disease. Hypertension. . 09/05/18. Myopathy. Debility. Diabetes. Pneumonia COPd Hypertension. Coronary artery disease. . 09/06/18. Myopathy. Debility. Diabetes. Pneumonia improving. COPD. Hypertension. Coronary artery disease. Patient sugars are better. . Liver/15/afebrile myopathy. Debility. Diabetes. Pneumonia. Hypertension. COPD. Coronary artery disease. Patient still needs more therapy. patient disgruntled. . 09/08/18. Myopathy. Dementia. Diabetes. Pneumonia. COPD. I spoke to Sreekanth Parisi from mental health and patient failed slums test. Patient not able to drive and has dementia. . 09/09/18. Myopathy. Diabetes. COPD. Patient doing much better today than Patient had confusion this weekend. To stop the [place] Clinical Quality Measures DVT/VTE Risk/Contraindication: Risk Factor Score Per Nursin RFS Level Per Nursing on Admit: 4+=Very High LEN MAE DO Sep 11, 2018 08:40
--- NOTE | 2018-09-11 08:45 | Physical Therapy Daily Note ---
PT Daily Note-Current Subjective Patient sitting EOB pre tx, agrees to PT, no complaints of pain. Appearance Patient sitting EOB post tx with nurse call, phone, tray, all needs met. Family in the room. Mental Status Patient Orientation: Person, Place, Situation Transfers Functional [place] Measure 0=Not Assessed/NA 4=Minimal Assistance 1=Total Assistance 5=Supervision or Setup 2=Maximal Assistance 6=Modified [place] 3=Moderate Assistance 7=Complete IndependenceIRFPAI Quality Coding Scale 6 Independent with activity with or without an assistive device 5 Patient requires set up or clean up by helper. Patient completes activity by themselves 4 Supervision or touching assist (CGA). [place] provide cues , steadying assist 3 The helper provides less than half the effort to complete the activity 2 The helper provides more than half the effort to complete the activity 1 Dependent. The helper does all the effort to complete an activity 7 Patient refused to complete or attempt activity 9 The patient did not perform the activity before the current illness or injury 88 Not attempted due to Medical conditions or safety concerns Transfers (B, C, W/C) (FIM): 6 Scootin Rollin Roll Left to Right (QC): 6 Supine to/from Sit: 7 Sit to/from Stand: 7 Sit to Lying (QC): 6 Sit to Stand (QC): 6 Chair/Zmk-kx-[place] Xfer(QC): 6 Bed to/from Chair: 7 Car Transfer (QC): 6 Gait Training Gait (FIM): 7 Distance: 200'x2 Walk 10 feet (QC): 6 Walk 50 ft with 2 Turns(QC): 6 Walk 150 ft (QC): 6 Walking 10ft/uneven surface-QC: 6 Wheelchair Training Does the Pt Use a Wheelchair?: No Stair Training Stair Training: Handrails/: 2 handrails Stairs (FIM): 6 #of Steps: 16 1 Step (curb) (QC): 6 4 Steps (QC): 6 12 Steps (QC): 6 Stairs: Pattern: Reciprocal Exercises NuStep Minutes: 15 NuStep Workload: 5 Treatments bed mobility and transfers, ambulation, stair training, gait training, functional strengthening, patient was toileted once for a BM and performed it with independence Assessment Current Status: Fair Progress improved general mobility PT Short Term Goals Short Term Goals Time Frame: Sep 11, 2018 Transfers (B,C,W/C) (FIM): 5 (met) Gait (FIM): 5 (met) Gait Distance Comment: 150' Gait Level of Assist: 5 Gait Assistive Device: FWW PT Senior Living Goals Order Picker Goals PT Order Picker Goals Time Frame: Sep 25, 2018 Transfers (B,C,W/C) (FIM): 6 Sit to Lying (QC): 6 Lying-Sitting on Side/Bed(QC): 6 Sit to Stand (QC): 6 Rollin Roll Left to Right (QC): 6 Chair/Fja-so-Erenl Xfer(QC): 6 Car Transfer (QC): 6 Gait (FIM): 6 Distance: 200' Walk 10 feet (QC): 6 Walk 10ft-Uneven Surface(QC): 6 Walk 50ft with 2 Turns (QC): 6 Walk 150 ft (QC): 6 Gait Level of Assist: 6 Gait Assistive Device: FWW Stairs (FIM): 5 # of Steps: 12 1 Step (curb) (QC): 4 4 Steps (QC): 4 12 Steps (QC): 4 Stairs Level Of Assist: 5 PT Plan Problem List Problem List: Activity Tolerance, Functional Strength, Safety, Balance, Gait, Transfer Treatment/Plan Treatment Plan: Continue Plan of Care Treatment Plan: Bed Mobility, Education, Functional Activity Manda, Functional Strength, Group Therapy, Gait, Safety, Therapeutic Exercise, Transfers Treatment Duration: Sep 25, 2018 Frequency: At least 5 of 7 days/Wk (IRF) Estimated Hrs Per Day: 1.5 hours per day Patient and/or Family Agrees t: Yes Safety Risks/Education Patient Education: Gait Training, Transfer Techniques, Steps, Correct Positioning, Safety Issues Teaching Recipient: Patient Teaching Methods: Demonstration, Discussion Response to Teaching: Reinforcement Needed Time/GCodes Time In: 0800 Time Out: 0845 Total Billed Treatment Time: 45 Total Billed Treatment 1 visit GT 15' FA 15' EX 15' MYNOR NG PT Sep 11, 2018 08:45
[2018-09-11] MEDS: CARVEDILOL 12.5 MG (COREG) TABLET PO SCH ×2 (09:19→21:29)
[2018-09-11] MEDS: FUROSEMIDE 20 MG (LASIX) TAB PO SCH (09:19)
[2018-09-11] MEDS: MEMANTINE 5 MG (NAMENDA) TABLET PO SCH (09:20)
[2018-09-11] MEDS: ASPIRIN 325 MG (5 GR) TABLET PO SCH (09:20)
--- NOTE | 2018-09-11 10:45 | PM & R (SOAP) Progress Note ---
Subjective This was a face to face visit with the patient. Date Seen by Provider: Sep 11, 2018 Time Seen by Provider: 10:30 Subjective/Events-last exam Patient was seen in his room this AM Patient Modified Independent for transfers DR moya has adjusted meds for cognitive issues Discussed case with RN SW indicates that discharge to home with spouse set for tomorrow.Current meds reviewed Date Identified: Sep 11, 2018 Time Identified: 10:40 Medication Intervention: Discharge meds reviewed Review of Systems Neurological: Confusion Objective Physician Exam Last Set of Vital Signs Vital Signs Date Time Temp Pulse Resp B/P (MAP) Pulse Ox O2 Delivery O2 Flow Rate FiO2 09/11/18 08:00 92 Room Air 09/11/18 05:06 98.4 69 18 144/78 (100) 09/09/18 13:58 21 09/06/18 20:45 2.00 Capillary Refill : Less Than 3 Seconds I&O Intake and Output 09/11/18 00:00 Intake Total 1650 ml Balance 1650 ml Intake Oral 1650 ml # Voids 10 # Bowel Movements 4 General: Alert, Oriented X3, Cooperative, No Acute Distress HEENT: Atraumatic, PERRLA, EOMI, Mucous Memb Moist/[place] Neck: Supple, No JVD Lungs: Other (decreased breath sounds) Heart: Regular Rate Abdomen: Normal Bowel Sounds, Soft, No Tenderness Extremities: Other Neuro: Other Results Lab Data Laboratory Tests 09/08/18 12:10: Glucometer 229H 09/08/18 16:23: Glucometer 78 09/08/18 20:02: Glucometer 163H 09/09/18 06:49: Glucometer 125H 09/09/18 07:02: White Blood Count 5.7, Red Blood Count 3.74L, Hemoglobin 11.3L, Hematocrit 34L, Mean Corpuscular Volume 91, Mean Corpuscular Hemoglobin 30, Mean Corpuscular Hemoglobin Concent 33, Red Cell Distribution Width 12.7, Platelet Count 355, Mean Platelet Volume 10.2, Sodium Level 140, Potassium Level 4.2, Chloride Level 106, Carbon Dioxide Level 28, Anion Gap 6, Blood Urea Nitrogen 13, Creatinine 0.80, Estimat Glomerular Filtration Rate > 60, BUN/Creatinine Ratio 16, Glucose Level 129H, Calcium Level 8.6, Phosphorus Level 3.4, Magnesium Level 2.0, Vitamin B12 Level 283 09/09/18 11:31: Glucometer 176H 09/09/18 16:07: Glucometer 254H 09/09/18 20:08: Glucometer 137H 09/10/18 05:36: Glucometer 144H 09/10/18 05:45: White Blood Count 5.1, Red Blood Count 3.88L, Hemoglobin 11.4L, Hematocrit 35L, Mean Corpuscular Volume 90, Mean Corpuscular Hemoglobin 29, Mean Corpuscular Hemoglobin Concent 33, Red Cell Distribution Width 12.8, Platelet Count 381, Mean Platelet Volume 9.4, Sodium Level 141, Potassium Level 4.2, Chloride Level 106, Carbon Dioxide Level 26, Anion Gap 9, Blood Urea Nitrogen 11, Creatinine 0.79, Estimat Glomerular Filtration Rate > 60, BUN/Creatinine Ratio 14, Glucose Level 148H, Calcium Level 8.9, Phosphorus Level 3.5, Magnesium Level 2.0 09/10/18 11:29: Glucometer 243H 09/10/18 16:22: Glucometer 176H 09/10/18 20:50: Glucometer 187H 09/11/18 06:34: Glucometer 134H 09/11/18 06:45: White Blood Count 4.8, Red Blood Count 3.67L, Hemoglobin 10.9L, Hematocrit 33L, Mean Corpuscular Volume 91, Mean Corpuscular Hemoglobin 30, Mean Corpuscular Hemoglobin Concent 33, Red Cell Distribution Width 12.8, Platelet Count 316, Mean Platelet Volume 9.7, Sodium Level 141, Potassium Level 4.0, Chloride Level 106, Carbon Dioxide Level 29, Anion Gap 6, Blood Urea Nitrogen 10, Creatinine 0.77, Estimat Glomerular Filtration Rate > 60, BUN/Creatinine Ratio 13, Glucose Level 143H, Calcium Level 8.4L, Phosphorus Level 3.3, Magnesium Level 1.7L Microbiology 09/05/18 Blood Culture - Final, Complete No growth 09/05/18 MRSA Screen - Final, Complete MRSA not isolated Assessment/Plan Assessment and Plan COPD myopathy with proximal weakness improved Pneumonia treated CAD with CHF compensated DM better controlled Post pneumonia resp insuff weaned Cognitive deficit meds adjusted Plan Discharge to home tomorrow with Family See orders F/U with PCP DR moya Co-Morbidities that are continuing to impact the rehab process: (include details ) SHANE ACEVEDO MD Sep 11, 2018 10:45
[2018-09-11] MEDS ORDERED: GLIM4TAB PO (10:53)
[2018-09-11] MEDS ORDERED: DONE5TAB8 PO (10:53)
[2018-09-11] MEDS ORDERED: PANT40TA3 PO (10:53)
[2018-09-11] MEDS ORDERED: CARV12.53 PO (10:53)
--- NOTE | 2018-09-11 12:02 | Occupational Ther Daily Note ---
OT Current Status-Daily Note Subjective Pt seen in room, up in recliner, agreeable to OT. No pain mentioned. Appearance Alert, cooperative. Gets stories mixed up and confused. Mental Status/Objective Functional [place] Measure 0=Not Assessed/NA 4=Minimal Assistance 1=Total Assistance 5=Supervision or Setup 2=Maximal Assistance 6=Modified [place] 3=Moderate Assistance 7=Complete [place] ADL-Treatment Up from chair without help. Used walker but pushed it ahead and often off to the side. He had walked without it with PT earlier. Toileted mod I, tall toilet , grab bar. Stood to undress, stepping out of pants. In/out of shower with SBA. Washed and dried all parts with setup to adjust water, standing for most of shower and to dry off. Dressed at EOB, donning all clothing with mod I, including tied shoes. Able to clean teeth at sink, did not shave. Able to open packages, prepare food, feed himself, get a drink. All ADLs with mild safety concerns. Pt left up in recliner, chair alarm on, all needs met. Functional [place] Measure 0=Not Assessed/NA 4=Minimal Assistance 1=Total Assistance 5=Supervision or Setup 2=Maximal Assistance 6=Modified [place] 3=Moderate Assistance 7=Complete IndependenceIRFPAI Quality Coding Scale 6 Independent with activity with or without an assistive device 5 Patient requires set up or clean up by helper. Patient completes activity by themselves 4 Supervision or touching assist (CGA). [place] provide cues , steadying assist 3 The helper provides less than half the effort to complete the activity 2 The helper provides more than half the effort to complete the activity 1 Dependent. The helper does all the effort to complete an activity 7 Patient refused to complete or attempt activity 9 The patient did not perform the activity before the current illness or injury 88 Not attempted due to Medical conditions or safety concerns Eating (FIM): 6 Eating (QC): 6 (Open packages, cut food, feed himself, get a drink.) Grooming (FIM): 6 Oral Hygiene (QC): 6 (Able to stand at sink, clean dentures. Washed face and hands in shower) Bathing (FIM): 5 (Setup to adjust water. Retrieved towel from bar. Washed and dried all parts, mostly standing, resting feet on shower bench to dry them. Grab bars, hand held shower, shower bench) Shower/Bathe Self (QC): 5 Upper Body (FIM): 6 (Doffed and donned clothing, standing up and sitting down) Upper Body Dressing (QC): 6 Lower Body Dressing (FIM): 6 (Doffed and donned all clothing, no LOB, standing and sitting, including socks and tied shoes) Lower Body Dressing (QC): 6 On/Off Footwear (QC): 6 Toileting (FIM): 6 (Managed clothing and hygiene. Tall toilet, grab bar) Toileting Hygiene (QC): 6 Toilet/Commode Transfer (FIM): 6 (On/off tall toilet, grab bar) Toilet Transfer (QC): 6 Shower Transfer(FIM): 5 (SBA getting in and out of shower stall) Education OT Patient Education: Progress toward Goal/Update tx plan, Purpose of tx/ functional activities, Safety issues Teaching Recipient: Patient Teaching Methods: Demonstration, Discussion Response to Teaching: Verbalize Understanding, Return Demonstration, Reinforcement Needed OT Short Term Goals Short Term Goals Time Frame: Sep 11, 2018 Eating(FIM): 5 Grooming(FIM): 5 Bathing(FIM): 5 Upper Body Dressing(FIM): 5 Lower Body Dressing(FIM): 5 Toileting(FIM): 5 Transfers (B,C,W/C) (FIM): 5 (met) Toilet/Commode Transfer(FIM): 5 Shower Transfer(FIM): 5 Comprehension(FIM): 6 Expression(FIM): 6 Social Interaction(FIM): 7 Problem Solving(FIM): 4 Memory(FIM): 4 Additional Short Term Goals: 1-Demonstrate ADL Tasks, 2-Verbalize Understanding , 3-ImproveStrength/Manda 1=Demonstrate adherence to instructed precautions during ADL tasks. 2=Patient will verbalize/demonstrate understanding of assistive devices/ modifications for ADL. 3=Patient will improve strength/tolerance for activity to enable patient to perform ADL's. OT Chemical Laboratory Scientist Goals Chemical Laboratory Scientist Goals Time Frame: Sep 25, 2018 Eating (FIM): 6 (met 09/11/18) Eating (QC): 6 (met 09/11/18) Groomin (met 09/11/18) Oral Hygiene (QC): 6 (met 09/11/18) Bathing(FIM): 5 (met 09/11/18) Shower/Bathe Self (QC): 5 (met 09/11/18) Upper Body Dressing(FIM): 6 (met 09/11/18) Upper Body Dressing (QC): 6 (met 09/11/18) Lower Body Dressing(FIM): 6 (met 09/11/18) Lower Body Dressing (QC): 6 (met 09/11/18) On/Off Footwear (QC): 6 (met 09/11/18) Toileting(FIM): 6 (met 09/11/18) Toileting Hygiene (QC): 6 (met 09/11/18) Transfers (B,C,W/C) (FIM): 6 (met 09/11/18) Toilet/Commode Transfer(FIM): 6 (met 09/11/18) Toilet/Commode Transfer (QC): 6 (met 09/11/18) Shower Transfer(FIM): 5 (met 09/11/18) Comprehension(FIM): 6 Expression (FIM): 6 Social Interaction(FIM): 7 Problem Solving(FIM): 5 Memory(FIM): 5 Additional Goals: 1-Demonstrate ADL Tasks, 2-Verbalize Understanding, 3- ImproveStrength/Manda 1=Demonstrate adherence to instructed precautions during ADL tasks. 2=Patient will verbalize/demonstrate understanding of assistive devices/ modifications for ADL. 3=Patient will improve strength/tolerance for activity to enable patient to perform ADL's. OT Education/Plan Discharge Recommendations Plan/Recommendations: Continue POC (discharge to home tomorrow) Treatment Plan/Plan of Care Patient would benefit from OT for education, treatment and training to promote independence in ADL's, mobility, safety and/or upper extremity function for ADL' s. Plan of Care: ADL Retraining, Caregiver Training, Functional Mobility, Group Exercise/Act as Ind, UE Funct Exercise/Act Treatment Duration: Sep 25, 2018 Frequency: At least 5 of 7 days/Wk (IRF) Estimated Hrs Per Day: 1.5 hours per day Agreement: Yes Rehab Potential: Good Time/GCodes Start Time: 09:30 Stop Time: 10:30 Total Time Billed (hr/min): 60 Billed Treatment Time visit, 60- minutes ADL MARCUS NGUYEN OT Sep 11, 2018 12:02
--- NOTE | 2018-09-11 13:22 | Speech Therapy Daily Note ---
Speech Daily Progress Note Subjective Date Seen by Provider: Sep 11, 2018 Time Seen by Provider: 00:30 Patient was pleasant and is preparing to go home. Objective Patient completed memory task at 80% with minimal cues. Assessment Assessment Current Status: Good Progress Treatment Plan Continue Plan of Care Communication Comprehension: 6 Expression: 6 Social Cognition Social Interaction: 7 Problem Solvin Memory: 4 Speech Short Term Goals Short Term Goals Short Term Goals Patient will complete visual/auditory linguistic/memory tasks with 80% accuracy given min to mod assistance. Met 09/11/2018 Patient will complete visual/auditory problem solving tasks with 80% accuracy given min to mod assistance. Met 09/11/2018 Time Frame-ST week Comprehension: 6 Expression: 6 Social Interaction: 7 Problem Solvin Memory: 4 Speech Watch Inspector Goals Skilled Nursing Goals Patient will exhibit improved safety and independence for return to home. Partially met due to short rehab stay. 09/11/2018 Time Frame: 2-3 weeks Comprehension: 6 Expression: 6 Social Interaction: 7 Problem Solvin Memory: 5 Speech-Plan Patient/Family Goals Patient/Family Goals: Patient is preparing to go home. Treatment Plan Speech Therapy Treatment Plan: Continue Plan of Care Patient has met his goals for memory and problem solving. Treatment Duration: Sep 12, 2018 Frequency: 5 times per week Estimated Hrs Per Day: .5 hour per day Rehab Potential: Good Pt/Family Agrees to Plan: Yes Safety Risks/Education Teaching Recipient: Patient Teaching Methods: Discussion Response to Teaching: Verbalize Understanding Education Topics Provided: Safety upon his return home. Time Speech Therapy Time In: 11:00 Speech Therapy Time Out: 11:30 Total Billed Time: 30 Billed Treatment Time 1DANISHA BETHANIA ST Sep 11, 2018 13:22
--- NOTE | 2018-09-11 14:35 | Therapy Group Daily Note ---
Therapy Daily Group Note Patient Education Topic Home Safety Exercises LE Seated Exercise, UE Exercise Other/Notes Pt ambulated to OT/PT group in therapy gym. Group consisted of introductions( name, place living, what brought you to rehab), socialization, pt led UE/LE seated exercises, ARU description and home safety activities. Pt introduced self appropriately and actively listened to peers introduce themselves. Pt able to contribute to conversations and answer questions during home safety education activity. Completed seat UE/LE exercises, did not lead an exercise. After therapy, pt sitting in recliner with call light/phone in reach. All needs met in room. Start Time: 13:00 Stop Time: 14:00 Total Billed Treatment Time: 60 Total Billed Treatment 1-GRP GIOVANNI SAMUELS Sep 11, 2018 14:35
[2018-09-11 16:06] VITALS: BP 151/71
[2018-09-11] MEDS: ATORVASTATIN 40 MG (LIPITOR) TABLET PO SCH (21:29)
[2018-09-12] MEDS: PANTOPRAZOLE 40 MG (PROTONIX) TAB PO SCH (06:05)
[2018-09-12] MEDS: ENOXAPARIN 40 MG/0.4 ML (LOVENOX) SYR SC SCH (06:05)
[2018-09-12] MEDS: KCL 10 MEQ TAB (MICRO K) PO SCH (06:05)
[2018-09-12] MEDS: GLIMEPIRIDE 4 MG (AMARYL) TAB PO SCH (06:05)
[2018-09-12] MEDS: CATHETER FLUSH 10 ML SYR IV SCH (06:06)
[2018-09-12] MEDS: inSUlin ASPART (NovoLOG) 1 UNIT/0.01 ML (CHARGE PER UNIT) SC SCH (06:06)
[2018-09-12] MEDS: RT-ALBUTEROL/IPRATROPIUM 3 ML (DUONEB) VIAL INH SCH (06:52)
[2018-09-12 06:59] VITALS: BP 131/69
--- NOTE | 2018-09-12 08:04 | PM & R (SOAP) Progress Note ---
Subjective This was a face to face visit with the patient. Date Seen by Provider: Sep 12, 2018 Time Seen by Provider: 07:20 Subjective/Events-last exam Patient was seen in his room this AM Patient all set for discharge today to home with spouse Appears brighter knows the month Date Identified: Sep 12, 2018 Time Identified: 07:20 Medication Intervention: Discharge meds reviewed Objective Physician Exam Last Set of Vital Signs Vital Signs Date Time Temp Pulse Resp B/P (MAP) Pulse Ox O2 Delivery O2 Flow Rate FiO2 09/12/18 06:59 97.9 76 18 131/69 (89) 93 Room Air 09/09/18 13:58 21 09/06/18 20:45 2.00 Capillary Refill : Less Than 3 Seconds I&O Intake and Output 09/12/18 00:00 Intake Total 1350 ml Balance 1350 ml Intake Oral 1350 ml # Voids 9 # Bowel Movements 2 General: Alert, Oriented X3, Cooperative, No Acute Distress HEENT: Atraumatic, PERRLA, EOMI, Mucous Memb Moist/[place] Neck: Supple, No JVD Lungs: Other (decreased breath sounds) Heart: Regular Rate Abdomen: Normal Bowel Sounds, Soft, No Tenderness Extremities: Other Neuro: Other Results Lab Data Laboratory Tests 09/09/18 11:31: Glucometer 176H 09/09/18 16:07: Glucometer 254H 09/09/18 20:08: Glucometer 137H 09/10/18 05:36: Glucometer 144H 09/10/18 05:45: White Blood Count 5.1, Red Blood Count 3.88L, Hemoglobin 11.4L, Hematocrit 35L, Mean Corpuscular Volume 90, Mean Corpuscular Hemoglobin 29, Mean Corpuscular Hemoglobin Concent 33, Red Cell Distribution Width 12.8, Platelet Count 381, Mean Platelet Volume 9.4, Sodium Level 141, Potassium Level 4.2, Chloride Level 106, Carbon Dioxide Level 26, Anion Gap 9, Blood Urea Nitrogen 11, Creatinine 0.79, Estimat Glomerular Filtration Rate > 60, BUN/Creatinine Ratio 14, Glucose Level 148H, Calcium Level 8.9, Phosphorus Level 3.5, Magnesium Level 2.0 09/10/18 11:29: Glucometer 243H 09/10/18 16:22: Glucometer 176H 09/10/18 20:50: Glucometer 187H 09/11/18 06:34: Glucometer 134H 09/11/18 06:45: White Blood Count 4.8, Red Blood Count 3.67L, Hemoglobin 10.9L, Hematocrit 33L, Mean Corpuscular Volume 91, Mean Corpuscular Hemoglobin 30, Mean Corpuscular Hemoglobin Concent 33, Red Cell Distribution Width 12.8, Platelet Count 316, Mean Platelet Volume 9.7, Sodium Level 141, Potassium Level 4.0, Chloride Level 106, Carbon Dioxide Level 29, Anion Gap 6, Blood Urea Nitrogen 10, Creatinine 0.77, Estimat Glomerular Filtration Rate > 60, BUN/Creatinine Ratio 13, Glucose Level 143H, Calcium Level 8.4L, Phosphorus Level 3.3, Magnesium Level 1.7L 09/11/18 11:02: Glucometer 181H 09/11/18 16:05: Glucometer 223H 09/11/18 20:25: Glucometer 201H 09/12/18 05:04: Glucometer 153H Microbiology 09/05/18 Blood Culture - Final, Complete No growth 09/05/18 MRSA Screen - Final, Complete MRSA not isolated Assessment/Plan Assessment and Plan Home today with spouse F/U with PCP DR moya see orders Co-Morbidities that are continuing to impact the rehab process: (include details ) SHANE ACEVEDO MD Sep 12, 2018 08:04
--- NOTE | 2018-09-12 08:12 | Progress Note (SOAP) ---
Subjective Time Seen by a Provider: 08:08 Subjective/Events-last exam Patient to be discharged today. Patient to be seen in the office in one week. Patient be followed up by pulmonology and neurology. Patient getting around better Objective Exam Vital Signs Date Time Temp Pulse Resp B/P (MAP) Pulse Ox O2 Delivery O2 Flow Rate FiO2 09/12/18 06:59 97.9 76 18 131/69 (89) 93 Room Air 09/12/18 06:52 90 Room Air 09/11/18 20:40 Room Air 09/11/18 19:52 90 Room Air 09/11/18 16:06 99.0 73 16 151/71 (97) 95 Room Air 09/11/18 08:43 Room Air I & O 09/12/18 07:00 Intake Total 2000 ml Balance 2000 ml Capillary Refill : Less Than 3 Seconds General Appearance: No Apparent Distress, WD/WN HEENT: Normal ENT Inspection Neck: Full Range of Motion Respiratory: No Accessory Muscle Use, No Respiratory Distress Cardiovascular: Regular Rate, Rhythm, No Murmur Results Lab Laboratory Tests 09/11/18 11:02: Glucometer 181H 09/11/18 16:05: Glucometer 223H 09/11/18 20:25: Glucometer 201H 09/12/18 05:04: Glucometer 153H Microbiology 09/05/18 Blood Culture - Final, Complete No growth 09/05/18 MRSA Screen - Final, Complete MRSA not isolated Assessment/Plan Assessment/Plan Assess & Plan/Chief Complaint Myopathy. Debility. Pneumonia. COPD. Diabetes. Coronary artery disease. Hypertension. . 09/05/18. Myopathy. Debility. Diabetes. Pneumonia COPd Hypertension. Coronary artery disease. . 09/06/18. Myopathy. Debility. Diabetes. Pneumonia improving. COPD. Hypertension. Coronary artery disease. Patient sugars are better. . Liver/15/afebrile myopathy. Debility. Diabetes. Pneumonia. Hypertension. COPD. Coronary artery disease. Patient still needs more therapy. patient disgruntled. . 09/08/18. Myopathy. Dementia. Diabetes. Pneumonia. COPD. I spoke to Sreekanth Parisi from mental health and patient failed slums test. Patient not able to drive and has dementia. . 09/09/18. Myopathy. Diabetes. COPD. Patient doing much better today than Patient had confusion this weekend. To stop the [place]. . 09/12/18. Patient seen yesterday and spoke to son. Patient today to be discharged. Patient to be seen in the office in one week area Patient be evaluated by neurologist and pulmonology in mouth patient area Family does not want him on any medicine for thought process. To evaluate patient on outpatient setting. Myopathy. Debility. Pneumonia. COPD. Diabetes. Coronary artery disease area Hypertension. Failed slums test. Clinical Quality Measures DVT/VTE Risk/Contraindication: Risk Factor Score Per Nursin RFS Level Per Nursing on Admit: 4+=Very High LEN MAE DO Sep 12, 2018 08:12
[2018-09-12] MEDS: CARVEDILOL 12.5 MG (COREG) TABLET PO SCH (08:21)
[2018-09-12] MEDS: ASPIRIN 325 MG (5 GR) TABLET PO SCH (08:21)
[2018-09-12] MEDS: FUROSEMIDE 20 MG (LASIX) TAB PO SCH (08:21)
--- NOTE | 2018-09-12 09:08 | Therapy Team Discharge Summary ---
Therapy Discharge Summary Discharge Recommendations Date of Discharge Therapy D/C Recommendations: Physical Therapy Home Care Physical Therapy Patient came to rehab with pneumonia. Upon evaluation patient performed bed mobility with SBA, sit to stand with CGA, transfers with CGA, ambulated 150' with a rolling walker with CGA (including 50' with at least 2 turns of 90 degrees and 10' over an uneven surface), and can go up and down 4 steps using 2 handrails with CGA. Patient has been performing bed mobility and transfer training, balance and endurance training, functional strengthening, stair training, gait training, and education. Patient has made fair progress and has met all of his assisted goals. Now, patient performs bed mobility with independence, transfers with mod I, car transfer with mod I, ambulated 200' with a rolling walker with mod I (including 50' with at least 2 turns of 90 degrees and 10' over an uneven surface), and can go up and down 16 steps using 2 handrails with mod I. Patient is being discharged from this facility today and will be discharged from PT at this time. Occupational Therapy Decreased Activ Tolerance, Decreased Safety Aware, Decreased UE Strength, Impaired Cognition, Impaired Funct Balance, Impaired I ADL's, Impaired Self- Care Skills PT Structural Engineering Drafting Officer Goals Group Home Goals PT Structural Engineering Drafting Officer Goals Time Frame: Sep 25, 2018 Transfers (B,C,W/C) (FIM): 6 Roll Left to Right (QC): 6 Sit to Lying (QC): 6 Lying-Sitting on Side/Bed(QC): 6 Sit to Stand (QC): 6 Chair/[id number] Xfer(QC): 6 Car Transfer (QC): 6 Gait (FIM): 6 Distance: 200' Walk 10 feet (QC): 6 Walk 10ft-Uneven Surface(QC): 6 Walk 50ft with 2 Turns (QC): 6 Walk 150 ft (QC): 6 Gait Level of Assist: 6 Gait Assistive Device: FWW Stairs (FIM): 5 # of Steps: 12 1 Step (curb) (QC): 4 4 Steps (QC): 4 12 Steps (QC): 4 Stairs Level Of Assist: 5 OT Group Home Goals Group Home Goals Time Frame: Sep 25, 2018 Eating (FIM): 6 (met 09/11/18) Eating (QC): 6 (met 09/11/18) Oral Hygiene (QC): 6 (met 09/11/18) Grooming(FIM): 6 ([facility] 09/11/[facility]) Bathing(FIM): 5 ([facility] 09/11/18) Shower/Bathe Self (QC): 5 ([facility] 09/11/18) Upper Body Dressing(FIM): 6 ([facility] 09/11/18) Upper Body Dressing (QC): 6 ([facility] 09/11/18) Lower Body Dressing(FIM): 6 ([facility] 09/11/18) Lower Body Dressing (QC): 6 ([facility] 09/11/18) On/Off Footwear (QC): 6 ([facility] 09/11/18) Toileting(FIM): 6 ([facility] 09/11/18) Toileting Hygiene (QC): 6 ([facility] 09/11/18) Transfers (B,C,W/C) (FIM): 6 ([facility] 09/11/18) Toilet/Commode Transfer(FIM): 6 ([facility] 09/11/18) Toilet/Commode Transfer (QC): 6 ([facility] 09/11/18) Shower Transfer(FIM): 5 ([facility] 09/11/18) Comprehension(FIM): 6 Expression (FIM): 6 Social Interaction(FIM): 7 Problem Solving(FIM): 5 Memory(FIM): 5 Additional Goals: 1-Demonstrate ADL Tasks, 2-Verbalize Understanding, 3- ImproveStrength/Manda 1=Demonstrate adherence to instructed precautions during ADL tasks. 2=Patient will verbalize/demonstrate understanding of assistive devices/ modifications for ADL. 3=Patient will improve strength/tolerance for activity to enable patient to perform ADL's. Speech Group Home Goals Structural Engineering Drafting Officer Goals Patient will exhibit improved safety and independence for return to home. Partially met due to short rehab stay. 09/11/2018 Time Frame: 2-3 weeks Comprehension: 6 Expression: 6 Social Interaction: 7 Problem Solvin Memory: 5 MYNOR NG PT Sep 12, 2018 09:08
[2018-09-12 10:00] VITALS: BP 137/71
--- NOTE | 2018-09-12 10:10 | D/C HH Face to Face Order ---
D/C Face to Face Orders Instructions for Patient Via [facility], Patient Instructions/FollowUp: Dr. Conley Physician to follow Patient: Dr. Conley Discharge Diet for Home: Regular Diet Patient Data-Allergies,Ht & Wt Patient Allergies: Coded Allergies: Penicillins (Unverified Allergy, Mild, 01/31/11) Height (Feet): 5 Height (Inches): 10.00 Weight (Pounds): 174 Weight (Ounces): 4.8 Home Health Need/Face to Face Date of Face to Face: Sep 12, 2018 Clinical Findings: Generalized weakness and fatigue, Muscle weakness, Shortness of breath, Unsteady gait I have seen Pt [id number]: Yes Discharged To: Home Diagnosis/Conditions: COPD myopathy Patient is Homebound due to: CognItive deficits, Padmini fall risk due to instabilty, Muscle weakness, Shortness of breath/distress Homebound Status Due to the above stated illness, injury or surgical procedure (medical condition or diagnosis) and associated clinical findings, the patient is homebound because of his/her inability to leave home except with aid of a supportive device and/or person AND leaving the home requires a considerable and taxing effort or is medically contraindicated. Pt req the following assistanc: Walker Home Health Nursing Orders Home Health Services Order: Nursing Services, Handkerchief Maker-Evaluate & Treat, Physical Therapy-Evaluate & Treat Home Health Infusion Therapy Line Type: Saline Lock Site Location: [facility] Therapy Orders Therapy Orders: OT (must have SN or PT order), Physical Therapy Therapy Specific Orders: Eval assistive deivces, Teach enviro modifications/ safety, Gait training, Increase strength/endurance, Restore ROM Certify Stmt I certify that this patient is under my care and that I, a nurse practitioner or a physician; a speech assistant working with me, had a face to face encounter that - meets the physician face to face encounter requirements with this patient as dated. I personally scribed for SHANE ACEVEDO MD ([facility]) on 09/12/18 at 10:09. Electronically submitted by Eli Edward ([id number]). SHANE ACEVEDO MD Sep 12, 2018 10:09
--- NOTE | 2018-09-12 10:52 | Speech Therapy Daily Note ---
Speech Daily Progress Note Subjective Date Seen by Provider: Sep 08, 2018 Time Seen by Provider: 00:30 Patient pleasant and cooperative. Objective Patient completed memory tasks at 85% with minimal cues. Assessment Assessment Current Status: Good Progress Treatment Plan Continue Plan of Care Communication Comprehension: 6 Expression: 6 Social Cognition Social Interaction: 7 Problem Solvin Memory: 4 Speech Short Term Goals Short Term Goals Short Term Goals Patient will complete visual/auditory linguistic/memory tasks with 80% accuracy given min to mod assistance. Met 09/11/2018 Patient will complete visual/auditory problem solving tasks with 80% accuracy given min to mod assistance. Met 09/11/2018 Time Frame-ST week Comprehension: 6 Expression: 6 Social Interaction: 7 Problem Solvin Memory: 4 Speech Brim Shaper Goals [facility] Goals Patient will exhibit improved safety and independence for return to home. Partially met due to short rehab stay. 09/11/2018 Time Frame: 2-3 weeks Comprehension: 6 Expression: 6 Social Interaction: 7 Problem Solvin Memory: 5 Speech-Plan Patient/Family Goals Patient/Family Goals: Patient plans to return home with spouse as soon as possible. Treatment Plan Speech Therapy Treatment Plan: Continue Plan of Care Patient is progressing well with all goals. Treatment Duration: Sep 12, 2018 Frequency: 5 times per week Estimated Hrs Per Day: .5 hour per day Rehab Potential: Good Pt/Family Agrees to Plan: Yes Safety Risks/Education Teaching Recipient: Patient, Family Teaching Methods: Discussion Response to Teaching: Verbalize Understanding Time Speech Therapy Time In: 11:00 Speech Therapy Time Out: 11:30 Total Billed Time: 30 Billed Treatment Time 1DANISHA BETHAN[address] ST Sep 12, 2018 10:52
--- NOTE | 2018-09-12 11:04 | Therapy Team Discharge Summary ---
Therapy Discharge Summary Discharge Recommendations Date of Discharge Therapy D/C Recommendations: Physical Therapy Home Care Occupational Therapy Decreased Activ Tolerance, Decreased Safety Aware, Decreased UE Strength, Impaired Cognition, Impaired Funct Balance, Impaired I ADL's, Impaired Self- Care Skills Speech-Language Pathology Patient was admitted to the hospital due to pneumonia. ST evaluation was performed on 09/04/2018 for cognitive function. He scored with moderate deficits in memory and problem solving. Patient goals were for improving memory and problem solving for increased safety and independence for his return home on 09/12/2018 with his . Patient achieved 70 to 75% accuracy for memory and problem solving tasks with min to mod verbal cues initially. His scores improved to 80-90% accuracy given minimal verbal cues. PT Alf Goals Beauty [employer]er Goals PT Alf Goals Time Frame: Sep 25, 2018 Transfers (B,C,W/C) (FIM): 6 Roll Left to Right (QC): 6 Sit to Lying (QC): 6 Lying-Sitting on Side/Bed(QC): 6 Sit to Stand (QC): 6 Chair/Kej-nd-Mpqgz Xfer(QC): 6 Car Transfer (QC): 6 Gait (FIM): 6 Distance: 200' Walk 10 feet (QC): 6 Walk 10ft-Uneven Surface(QC): 6 Walk 50ft with 2 Turns (QC): 6 Walk 150 ft (QC): 6 Gait Level of Assist: 6 Gait Assistive Device: FWW Stairs (FIM): 5 # of Steps: 12 1 Step (curb) (QC): 4 4 Steps (QC): 4 12 Steps (QC): 4 Stairs Level Of Assist: 5 OT [employer]er Goals Alf Goals Time Frame: Sep 25, 2018 Eating (FIM): 6 (met 09/11/18) Eating (QC): 6 (met 09/11/18) Oral Hygiene (QC): 6 (met 09/11/18) Grooming(FIM): 6 (met 09/11/18) Bathing(FIM): 5 (met 09/11/18) Shower/Bathe Self (QC): 5 (met 09/11/18) Upper Body Dressing(FIM): 6 (met 09/11/18) Upper Body Dressing (QC): 6 (met 09/11/18) Lower Body Dressing(FIM): 6 (met 09/11/18) Lower Body Dressing (QC): 6 (met 09/11/18) On/Off Footwear (QC): 6 (met 09/11/18) Toileting(FIM): 6 (met 09/11/18) Toileting Hygiene (QC): 6 (met 09/11/18) Transfers (B,C,W/C) (FIM): 6 (met 09/11/18) Toilet/Commode Transfer(FIM): 6 (met 09/11/18) Toilet/Commode Transfer (QC): 6 (met 09/11/18) Shower Transfer(FIM): 5 (met 09/11/18) Comprehension(FIM): 6 Expression (FIM): 6 Social Interaction(FIM): 7 Problem Solving(FIM): 5 Memory(FIM): 5 Additional Goals: 1-Demonstrate ADL Tasks, 2-Verbalize Understanding, 3- ImproveStrength/Manda 1=Demonstrate adherence to instructed precautions during ADL tasks. 2=Patient will verbalize/demonstrate understanding of assistive devices/ modifications for ADL. 3=Patient will improve strength/tolerance for activity to enable patient to perform ADL's. Speech Alf Goals Beauty [employer] Cleaner Goals Patient will exhibit improved safety and independence for return to home. Partially met due to short rehab stay. 09/11/2018 Time Frame: 2-3 weeks Comprehension: 6 Expression: 6 Social Interaction: 7 Problem Solvin Memory: 5 LUNA WRAY Sep 12, 2018 11:04
--- NOTE | 2018-09-12 15:49 | Therapy Team Discharge Summary ---
Therapy Discharge Summary Discharge Recommendations Date of Discharge Sep 12, 2018 at 10:00 Therapy D/C Recommendations: Occupational Therapy Home Care, Physical Therapy Home Care Physical Therapy Pt seen for skilled OT to increase his independence in basic self care after hospitalization for pneumonia. He had some confusion on admission that affected his ADLs. On admission he needed supervision for eating, grooming, min assist upper body dressing and toileting/toilet transfers, mod assist lower body dressing. By discharge he had progressed to modified independent with all ADLs except setup/SBA with bathing and shower transfers. All with mild safety concerns. Equipment used included grab bars, shower bench, hand held shower, FWW. OT recommended no driving. See tx plan for goals met. DC OT Occupational Therapy Decreased Activ Tolerance, Decreased Safety Aware, Decreased UE Strength, Impaired Cognition, Impaired Funct Balance, Impaired I ADL's, Impaired Self- Care Skills PT Nursing Home Goals Nursing Home Goals PT Nursing Home Goals Time Frame: Sep 25, 2018 Transfers (B,C,W/C) (FIM): 6 Roll Left to Right (QC): 6 Sit to Lying (QC): 6 Lying-Sitting on Side/Bed(QC): 6 Sit to Stand (QC): 6 Chair/Nub-wu-Aleqf Xfer(QC): 6 Car Transfer (QC): 6 Gait (FIM): 6 Distance: 200' Walk 10 feet (QC): 6 Walk 10ft-Uneven Surface(QC): 6 Walk 50ft with 2 Turns (QC): 6 Walk 150 ft (QC): 6 Gait Level of Assist: 6 Gait Assistive Device: FWW Stairs (FIM): 5 # of Steps: 12 1 Step (curb) (QC): 4 4 Steps (QC): 4 12 Steps (QC): 4 Stairs Level Of Assist: 5 OT [employer] Trader Goals Nursing Home Goals Time Frame: Sep 25, 2018 Eating (FIM): 6 (met 09/11/18) Eating (QC): 6 (met 09/11/18) Oral Hygiene (QC): 6 (met 09/11/18) Grooming(FIM): 6 (met 09/11/18) Bathing(FIM): 5 (met 09/11/18) Shower/Bathe Self (QC): 5 (met 09/11/18) Upper Body Dressing(FIM): 6 (met 09/11/18) Upper Body Dressing (QC): 6 (met 09/11/18) Lower Body Dressing(FIM): 6 (f f [facility] 09/11/18) Lower Body Dressing (QC): 6 (f f [facility] 09/11/18) On/Off Footwear (QC): 6 (met 09/11/18) Toileting(FIM): 6 (f f [facility] 09/11/18) Toileting Hygiene (QC): 6 (f f [facility] 09/11/18) Transfers (B,C,W/C) (FIM): 6 (met 09/11/18) Toilet/Commode Transfer(FIM): 6 (met 09/11/18) Toilet/Commode Transfer (QC): 6 (f f [facility] 09/11/18) Shower Transfer(FIM): 5 (f f [facility] 09/11/18) Comprehension(FIM): 6 Expression (FIM): 6 Social Interaction(FIM): 7 Problem Solving(FIM): 5 Memory(FIM): 5 Additional Goals: 1-Demonstrate ADL Tasks, 2-Verbalize Understanding, 3- ImproveStrength/Manda 1=Demonstrate adherence to instructed precautions during ADL tasks. 2=Patient will verbalize/demonstrate understanding of assistive devices/ modifications for ADL. 3=Patient will improve strength/tolerance for activity to enable patient to perform ADL's. Speech [employer]iv[employer] Trader Goals Nursing Home Goals Patient will exhibit improved safety and independence for return to home. Partially met due to short rehab stay. 09/11/2018 Time Frame: 2-3 weeks Comprehension: 6 Expression: 6 Social Interaction: 7 Problem Solvin Memory: 5 MARCUS NGUYEN OT Sep 12, 2018 15:49
== END 2018-09-12 10:00 | disposition home health service (06) | DRG 91 ==
PROVIDERS: ADMIT Physical Medicine & Rehabilitation; ATTEND Physical Medicine & Rehabilitation
DX: G72.89 Other specified myopathies (principal); J44.9 Chronic obstructive pulmonary disease, unspecified; J18.9 Pneumonia, unspecified organism; A41.9 Sepsis, unspecified organism; J96.10 Chronic respiratory failure, unspecified whether with hypoxia or hypercapnia; I11.0 Hypertensive heart disease with heart failure; I50.42 Chronic combined systolic (congestive) and diastolic (congestive) heart failure; I25.10 Atherosclerotic heart disease of native coronary artery without angina pectoris; E11.649 Type 2 diabetes mellitus with hypoglycemia without coma; J98.11 Atelectasis; I44.7 Left bundle-branch block, unspecified; R41.89 Other symptoms and signs involving cognitive functions and awareness; Z79.4 Long term (current) use of insulin; I65.23 Occlusion and stenosis of bilateral carotid arteries; Z87.891 Personal history of nicotine dependence
CPT/HCPCS: 36415; 70450; 71045; 71046; 80048; 80053; 81000; 82607; 82747; 82962; 83605; 83735; 83880; 84100; 85027; 87040; 87070; 87081; 87205; 87804; 94640; 94760; 94761

== ENCOUNTER → 2021-06-15 | Outpatient (CLI) | payer MEDICARE, OTHER ==
[~2021-06-15] MED LIST changes: +AMLO-251 PO; -AMLO10TA6 PO; +CARV12.53 PO; +CATHETER FLUSH 10 ML SYR IV PRN; +DONE5TAB8 PO; -GLIM4TAB PO; +GLIM4TAB5 PO; +HOLD METFORMIN - RECEIVED CONTRAST 20 ML VIAL IV SCH; +IOHEXOL 350 MG/ML 100 ML (OMNIPAQUE 350) VIAL IV ONE; +LOSA100T57 PO; -LOSA100T8 PO; +METF-865 PO; -METF500T8 PO; +MULT-567 PO; -MULT1TAB69 PO; +NS 100 ML (IVPB) BAG IV ONE; +PANT40TA52 PO
[2021-06-15 12:02] LABS: CALCIUM 9.6 MG/DL (8.5-10.1); CREATININE SERUM 0.96 MG/DL (0.60-1.30); POTASSIUM 4.2 MMOL/L (3.6-5.0)
--- NOTE | 2021-06-15 13:01 | Diagnostic Imaging Report ---
Indication: Hematuria. TECHNIQUE: Multiple contiguous axial images were obtained through the abdomen and pelvis after administration of intravenous contrast. Auto Exposure Controls were utilized during the CT exam to meet ALARA standards for radiation dose reduction. All CT scans use one or more of the following dose optimizing techniques: automated exposure control, MA and/or KvP adjustment based on patient size and exam type or iterative reconstruction. There is no prior CT abdomen pelvis for comparison. The visualized portions of the lung bases show some bibasilar scarring and/or atelectasis with some minimal pleural calcifications on the right side with some pleural thickening. There is no acute consolidation or pleural fluid or free intraperitoneal air. The liver shows mild low-density change compatible with fatty infiltration without focal lesion. The gallbladder and spleen and adrenals and pancreas all appear normal. The kidneys bilaterally are unremarkable, except for a benign-appearing 2.6 cm cyst in the lower pole of the left kidney. There is no hydronephrosis. There is no retroperitoneal mass or adenopathy. There is no ascites or abscess. The urinary bladder shows some filling defects posterior which may represent blood clots. The prostate gland is markedly enlarged and heterogeneous, measuring up to 7 cm in greatest diameter. IMPRESSION: Markedly enlarged heterogeneous prostate gland. There are some filling defects in the posterior portion of the urinary bladder which may represent blood clots given the patient's history. Consider further evaluation with cystoscopy as clinically warranted. There is a benign-appearing cyst in the left kidney. There is no renal mass or definite stone. There is fatty infiltration of the liver. Dictated by: Dictated on workstation # [id number]
== END ==
LOC: RAD 11:19
PROVIDERS: ATTEND Family Medicine
DX: N40.1 Benign prostatic hyperplasia with lower urinary tract symptoms (principal); K76.0 Fatty (change of) liver, not elsewhere classified; N28.1 Cyst of kidney, acquired
CPT/HCPCS: 36415; 74177; 80048

== ENCOUNTER → 2021-06-16 | Outpatient (CLI) | payer MEDICARE, OTHER ==
[~2021-06-16] MED LIST changes: -CATHETER FLUSH 10 ML SYR IV PRN; -HOLD METFORMIN - RECEIVED CONTRAST 20 ML VIAL IV SCH; -IOHEXOL 350 MG/ML 100 ML (OMNIPAQUE 350) VIAL IV ONE; -NS 100 ML (IVPB) BAG IV ONE
== END ==
LOC: LAB 13:30
PROVIDERS: ATTEND Family Medicine
DX: Z12.5 Encounter for screening for malignant neoplasm of prostate (principal)
CPT/HCPCS: 36415; 84153

== ENCOUNTER → 2022-12-08 | Outpatient (CLI) | payer MEDICARE ==
--- NOTE | 2022-12-08 11:41 | Diagnostic Imaging Report ---
INDICATION: COPD, cough. COMPARISON: 09/07/2018 TECHNIQUE: 2 radiographs of the chest dated 12/08/2022. FINDINGS: Postsurgical changes of a CABG again noted. Cardiac silhouette is within normal limits. No significant pulmonary vascular congestion. The lungs are noted to be mildly hyperinflated with slight flattening of the diaphragm. Bilateral bibasilar interstitial opacities are present. Although some of these opacities were present in 2018, other opacities within the lung bases have developed since that time. Similar blunting of the bilateral costophrenic angles. No pneumothorax. Mild scattered osseous degenerative changes without acute osseous abnormality. IMPRESSION: Developing bibasilar atelectasis and/or pneumonitis superimposed upon background chronic interstitial scarring. Background chronic obstructive pulmonary disease. Additional postsurgical and chronic findings as above. Dictated by: Dictated on workstation # [id number]
== END ==
LOC: RAD 10:16
PROVIDERS: ATTEND Family Medicine
DX: J44.9 Chronic obstructive pulmonary disease, unspecified (principal); R63.4 Abnormal weight loss
CPT/HCPCS: 71046